=== PATIENT | male | born 1950 | race Caucasian/White ===

== ENCOUNTER → 2019-09-14 | Outpatient (CLI) | payer OTHER, SELFPAY ==
--- NOTE | 2019-09-14 09:24 | BD_ITS ---
STUDY: DUAL ENERGY X-RAY ABSORPTIOMETRY / DXA REASON FOR EXAM: Male, 68 years old. TYPE 2 DIABETIC- ON MEDS FOR DIABETES -- HX OF SMOKING- QUIT IN 1979 -- HAS BEEN ON PREDNISONE DAILY SINCE 1984 -- TAKES CALCIUM -- HAS BEEN ON PRESCRIPTION BONE BUILDING MEDS x4 YRS -- DOES NO EXERCISE -- HX OF RIB FX''s MULTIPLE TIMES -- RAYMON OF 5 INCHES TECHNIQUE: Bone Mineral Density (BMD) measurements of lumbar spine and bilateral hips were obtained. COMPARISON: None. FINDINGS: Lumbar Spine (L1-L4): g/cm2 (1.061) / T-score (-1.5) / Z-score (-1.0) Findings are suggestive of osteopenia with a low fracture risk. Left Femur Total: g/cm2 (0.858) / T-score (-1.7) / Z-score (-1.0) Left Femoral Neck: g/cm2 (0.919) / T-score (-1.2) / Z-score (0.1) Right Femur Total: g/cm2 (0.918) / T-score (-1.3) / Z-score (-0.5) Right Femoral Neck: g/cm2 (0.849) / T-score (-1.7) / Z-score (-0.4) BD/Dexa Bone Density Study IMPRESSION: The patient is considered osteopenic as outlined below according to World Chuck Organization (WHO) criteria with a moderate fracture risk. Reference Information: The T-score is the number of standard deviations above or below the standard which is normal for young adults at their peak bone mineral density. The World Health Organization (WHO) interprets the T-scores as follows: Above -1 Normal bone density Between -1 and -2.5 Osteopenia Equal to / or below -2.5 Osteoporosis As a practical clinical guideline, osteopenia may be graded as follows: Mild -1 through -1.5 Moderate -1.6 through -2.0 Severe -2.1 through -2.4 The Z-score is the number of standard deviations above or below age-matched controls. A Z-score of less than -1.5 would be considered abnormal. References: 1. NIH Osteoporosis and Related Bone Diseases http://www.osteo.org 2. International Society for Clinical Densitometry http://www.iscd.org 3. National Osteoporosis Foundation http://www.nof.org Electronically Signed: Onofre Madsen, at 10:15 EDT , Service support ,
== END | disposition home or self-care (01) ==
DX: M81.0 Age-related osteoporosis without current pathological fracture (principal); G70.00 Myasthenia gravis without (acute) exacerbation; Z79.52 Long term (current) use of systemic steroids
CPT/HCPCS: 77080

== ENCOUNTER 2020-04-24 16:58 | Inpatient (IN) | payer OTHER, MEDICARE, SELFPAY ==
[2020-04-24 17:00] VITALS: BP 154/93; PULSE 65; RESP 18; TEMP 36.1; O2SAT 96; BMI 44.5
--- NOTE | 2020-04-24 17:34 | US_ITS ---
STUDY: VENOUS DOPPLER ULTRASOUND - LEFT LOWER EXTREMITY REASON FOR EXAM: Male, 69 years old. LT ANTERIOR CALF REDNESS TECHNIQUE: Ultrasound evaluation of the deep vein system to include martin-scale imaging and compression was performed. Martin-scale imaging and Doppler sonographic evaluation, including duplex spectral analysis and qualitative color flow sonography, was performed. COMPARISON: None. FINDINGS: Common Femoral Vein: Normal compression, spontaneity and augmentation. Normal color Doppler. Common Femoral Vein/Greater Saphenous Junction: Normal compression, spontaneity and augmentation. Normal color Doppler. Deep Femoral Vein: Normal compression, spontaneity and augmentation. Normal color Doppler. Femoral Proximal: Normal compression, spontaneity and augmentation. Normal color Doppler. Femoral Middle: Normal compression, spontaneity and augmentation. Normal color Doppler. Femoral Distal: Normal compression, spontaneity and augmentation. Normal color Doppler. Popliteal Vein: Normal compression, spontaneity and augmentation. Normal color Doppler. Posterior Tibial Vein: Normal compression, spontaneity and augmentation. Normal color Doppler. Peroneal Vein: Normal compression, spontaneity and augmentation. Normal color Doppler. US/Venous Duplex Imag/Limited/Uni IMPRESSION: Normal venous Doppler ultrasound of the lower extremity. Electronically Signed: Matteo Nava MD at 18:26 EST Tel , Service support ,
[2020-04-24 17:48] LABS: Absolute Lymphocyte Count 1.16 X10^3/uL (0.83-4.51); Absolute Neutrophil Count 9.3 X10^3/uL (2.0-7.7); Basophil# 0.02 X10^3/uL; Basophil% 0.2 % (0-1); Hematocrit 46.1 % (40-54); Hemoglobin 14.4 g/dL (13.0-16.5); Lymphocyte # 1.16 X10^3/ul (4.0); Lymphocyte % 10.3 % (19-41); Mean Corp Hgb Conc 31.2 g/dL (32-36); Mean Corpuscular Hgb 27.8 pg (27.0-32.0); Mean Platelet Vol. 9.9 fl (6.2-12.0); Monocyte# 0.72 X10^3/uL; Monocyte% 6.4 % (0-10); NRBC Flagged by Analyzer 0 % (0-5); Neutrophil % 82.6 % (47-70); Platelet Count 242 K/mm3 (150-450); RBC Distribution Width SD 42.6 fl (35.1-43.9); Red Blood Count 5.18 M/mm3 (4.6-6.2); White Blood Count 11.3 K/mm3 (4.4-11.0)
[2020-04-24 18:21] LABS: Anion Gap 9 (5-15); BUN 13 mg/dL (7-18); BUN/Creat Ratio 11.6 RATIO (10-20); Chloride 106 mmol/L (98-107); Creatinine, Serum 1.12 mg/dL (0.70-1.30); EST Glomerular Filtration Rate 69 mL/min (>60); Est Glom Filt Rate - Afr Amer 83 mL/min (>60); Estimated Creatinine Clearance 64.43 ml/min; Glucose 321 mg/dL (74-106); Sodium Level 140 mmol/L (136-145)
--- NOTE | 2020-04-24 18:32 | ED.DCSUM_ITS ---
- ER Visit Summary Date of Service: 04/24/20 Chief Complaint: Left leg redness History of Present Illness: The patient is a 69 M with redness left lower extremity. He states this started approximately 1 week ago and has progressively been worsening. He denies injury or trauma. Denies fever. Denies chest pain or shortness of breath. Patient is on prednisone chronically for myasthenia gravis. He has a history of diabetes. Physical Examination: Vitals are stable. Patient is afebrile. Alert no acute distress. HEENT exam is unremarkable. Neck is supple. Lungs are clear and equal bilaterally. Heart is regular rate and rhythm. Abdomen is soft nontender nondistended. Extremities left lower extremity erythema below knee. Normal pulses. Left greater than right lower extremity edema Skin is warm and dry. No focal neurologic deficit. Remainder of exam is unremarkable. Emergency Department Course and Treatment: CBC shows white count 11.3. Chemistries show glucose 321. Left lower extremity Doppler shows no evidence of DVT. Patient was given vancomycin IV. Will discuss with hospitalist for admission. Disposition: Admission Impression: Left lower extremity cellulitis This note was generated with [employer] dictation software. It may contain incorrect words, spelling, and punctuation that were not noted in review of the chart prior to signing <Hillary Harris - Last Filed: 04/24/20 18:32> - ER Visit Summary Was turned over to me. The [facility] does not have any beds. I had a long discussion with the patient he now wants to be admitted at our facility. Be admitted in stable condition This note was generated with [employer] dictation software. It may contain incorrect words, spelling, and punctuation that were not noted in review of the chart prior to signing <Rodney Gipson - Last Filed: 04/24/20 22:20> ED Disposition <Hillary Harris - Last Filed: 04/24/20 18:32> <Rodney Gipson - Last Filed: 04/24/20 22:20> - Plan for ED Patient: Referrals: [facility] [Primary Care Provider] -
[2020-04-24 20:59] VITALS: BP 167/82; PULSE 64; RESP 17; O2SAT 98
[2020-04-24 23:32] VITALS: BP 169/84; PULSE 69; RESP 18; TEMP 36.6; O2SAT 98
--- NOTE | 2020-04-24 23:32 | PCM.HP.STD ---
Problem List (1) Cellulitis Status: Acute (2) Weakness of both legs Status: Inactive (3) Hypertension Status: Chronic (4) Hyperlipidemia Status: Chronic (5) Type II diabetes mellitus Status: Chronic (6) MEL (obstructive sleep apnea) Status: Chronic (7) Rib fracture Status: Inactive (8) Fall Status: Inactive (9) Myasthenia gravis Status: Chronic History of Present Illness Date of Admission: 04/24/20 Chief Complaint: left leg redness The patient is a 69 year old M with a significant history of myasthenia gravis; and diabetes mellitus who presents emergency department with 1-1/2-week history of progressively worsening left leg redness. Associated with his symptoms is swelling of the same left leg. He denies any pain. He denies any fever, chills, nausea or vomiting. Patient is a patient at the [facility]. Beds were unavailable at the [facility]. The patient is a 69 year old M with a significant history of myasthenia gravis; and diabetes mellitus who presents emergency department with 1-1/2-week history of progressively worsening left leg redness and swelling. Acute cellulitis Received vancomycin at emergency department. Will transition to cefazolin. Chronic bilateral lower extremity edema Was RIZWAN hose at home. Yoshi wrap ordered. Obstructive sleep apnea Continue home CPAP DVT prophylaxis Past Medical History Past Medical History (Chronic Problems): Chronic Problems Hypertension (Chronic) Hyperlipidemia (Chronic) Type II diabetes mellitus (Chronic) MEL (obstructive sleep apnea) (Chronic) Myasthenia gravis (Chronic) Allergies ampicillin Adverse Reaction (Verified 04/24/20 17:00) Unknown Home Medications: Ambulatory Orders Medication Instructions Recorded Aspirin E.C. [Ecotrin] 81 mg PO DAILY@0800 07/16/15 Atenolol [Tenormin] 50 mg PO DAILY 07/16/15 Calcium Carb/Vitamin D [Os-Freddy 2 tablet PO BIDCM 07/16/15 500MG + D] Cetirizine HCl [Zyrtec] 10 mg PO DAILY PRN 07/16/15 Etodolac [Lodine Xl] 400 mg PO BID 07/16/15 Felodipine [Plendil] 5 mg PO DAILY 07/16/15 Guaifenesin [Tab Tussin] 400 mg PO Q4H PRN PRN 07/16/15 Ipratropium [place] 0.06% 2 spray NASAL BID PRN 07/16/15 [ATROVENT NASAL SPRAY] Mycophenolate Mofetil 1,500 mg PO BID 07/16/15 Pyridostigmine [place] [Mestinon 60 mg PO BID 07/16/15 Timepan] Simvastatin [Zocor] 40 mg PO QHS 07/16/15 metFORMIN HCl [Glucophage] 250 mg PO DAILY 07/16/15 predniSONE tablet 10 mg PO DAILY 07/16/15 Alendronate Sodium 70 mg PO MO 07/17/15 Vitamin D3 04/24/20 Surgical History: - - back surgery, foot trauma partial colon removed due to a polyp. Psychiatric History: No pertinent psych hx Smoking Status: Former smoker - *Family History Maternal History Items: Diabetes, Hypertension Paternal History Items: - - Denies knowledge of paternal medical history. Review of Systems Constitutional: Denies: Chills, Fever, Weight Change HEENT: Denies: Head Aches, Sinus Congestion, Sinus Drainage Cardiovascular: Reports: Edema - Bilateral legs. Denies: Chest Pain, Palpitations Respiratory: Denies: Cough, Shortness of breath at rest, Sputum production Gastrointestinal: Denies: Abdominal Pain, Nausea, Vomiting Genitourinary: Denies: Dysuria Musculoskeletal: Denies: Joint Pain, Joint Tenderness Skin: Reports: Skin Changes. Denies: Rash, Wounds Neurological: Denies: Numbness, Tingling, Focal weakness Psychiatric: Denies: Anxiety, Depression, Homicidal Ideations, Suicidal Ideations Hematologic/ Lymphatic: Denies: Easy Bruising, Easy Bleeding VTE Information - Inpt Only VTE Present on Admission: No VTE Mechan Device Prophylaxis: None VTE Pharm Prophylaxis ordered?: Yes Patient Problems: Active and Suspected Problems Cellulitis (Acute) - Physical Exam Vitals/I&O's: Vital Signs Temp Pulse Resp BP Pulse Ox 96.9 F L 64 17 167/82 H 98 04/24/20 17:00 04/24/20 20:59 04/24/20 20:59 04/24/20 20:59 04/24/20 20:59 Oxygen Delivery Method Room Air Weight: 144.8 kg Body Mass Index (BMI) 44.5 Intake and Output for Last 24 Hours 04/22/20 04/23/20 04/24/20 23:59 23:59 23:59 Intake Total 540 / 540 Balance 540 / 540 General: Alert, Oriented x3, Cooperative HEENT: Atraumatic, PERRLA, EOMI, Normocephalic Neck: Supple, No JVD, Negative Carotid Bruits Lungs: Clear to auscultation, Normal air movement Cardiovascular: Regular rate, No murmurs Abdomen: Bowel Sounds Present, Soft, Non Tender Extremities: Capillary Refill Less than 3 Seconds, Edema - Bilateral lower extremity edema Skin: No rashes, No breakdown, - - Erythema and swelling of left leg Musculoskeletal: No Tenderness to Palpation of Joints or Extremities Neurological: Cranial nerves II-XII grossly intact Psych/Mental Status: Normal Affect, Appropriate Laboratory Results 04/24/20 17:40: WBC 11.3 H, RBC 5.18, Hgb 14.4, Hct 46.1, MCV 89.0, MCH 27.8, MCHC 31.2 L, RDW Std Deviation 42.6, RDW Coeff of Elidia 13.0, Plt Count 242, MPV 9.9, Immature Gran % (Auto) 0.500, Neut % (Auto) 82.6 H, Lymph % (Auto) 10.3 L, [place] % (Auto) 6.4, Eos % (Auto) 0.0, Baso % (Auto) 0.2, Absolute Neuts (auto) 9.3 H, Absolute Lymphs (auto) 1.16, Nucleated RBC % 0 04/24/20 17:40: Sodium 140, Potassium 4.0, Chloride 106, Carbon Dioxide 25.0, Anion Gap 9, BUN 13, Creatinine 1.12, Estim Creat Clear Calc 64.43, Est GFR (MDRD) Af Amer 83, Est GFR (MDRD) Non-Af 69, BUN/Creatinine Ratio 11.6, Glucose 321 H, Calcium 9.0 Assessment/Plan All Active Problems Cellulitis (Acute) The patient is a 69 year old M with a significant history of myasthenia gravis; and diabetes mellitus who presents emergency department with 1-1/2-week history of progressively worsening left leg redness and swelling. Acute cellulitis Received vancomycin at emergency department. Will transition to cefazolin. Diabetes mellitus Patient with hyperglycemia on presentation Home Metformin held Accu-Chek QA [facility] with correction scale insulin ordered. Hypertension Blood pressure is not within goal Atenolol continued Felodipine continued Trend blood pressure and adjust blood pressure medication. Chronic bilateral lower extremity edema With RIZWAN hose at home. Yoshi wrap ordered. Obstructive sleep apnea Continue home CPAP Myasthenia gravis Mycophenolate mofetil continued Prednisone continued Morbid Obesity: BMI: 44.5 kilograms per meter square. Complicates care. Lifestyle modification recommended. DVT prophylaxis Subcutaneous Lovenox ordered OBSV E&M: 59410 Initial observation care L2
--- NOTE | 2020-04-25 00:09 | ED.RN ---
PATIENTS HAS CALLED IN MULTIPLE TIMES YELLING AT STAFF MEMBERS ABOUT WHY HER IS NOT UPSTAIRS. PATIENTS ALSO CURSES AT STAFF MEMBERS, CALLING THE ER STAFF STUPID. PATIENTS THEN HANGS UP THE PHONE ON STAFF AND CALLS BACK CONTINUING TO YELL AND HOLLER AT STAFF MEMBERS. PATIENTS THEN DEMANDS ALL PAPERWORK TO BE SENT WITH THE PATIENT TO THE FLOOR SO SHE CAN GET WHEN SHE COMES TO DIRECTOR OF HOME CARE HOSPICE PAPERWORK. I CALMLY ASK THE PATIENTS TO PLEASE STOP YELLING AT STAFF AND TALK CALMLY WITH STAFF.I TOLD HER THE ER WAS BUSY AND THE HOSPITALIST WAS WORKING ON OTHER PATIENTS IN THE ER
--- NOTE | 2020-04-25 00:10 | ED.RN ---
Pts called in wanting to know when pt will be taken to the floor. This nurse explained that the pt was waiting on the hospitalist to see the pt and then he would be taken up stairs. began to cuss at this nurse and yelling over the phone. Pts would not allow this nurse to speak. continuously cussing and yelling. This nurse went back and explained to pt again what we were waiting on. Pt apologized for his wifes behavior numerous times and stated Everyone has been wonderful and I am so sorry. [place] and pts own diet mountain dew given. Denied any further needs.
[2020-04-25 00:52] VITALS: BMI 44.4
[2020-04-25 00:56] VITALS: BP 137/70; PULSE 74; RESP 18; TEMP 36.7; O2SAT 99
[2020-04-25 01:09] VITALS: BMI 44.5
[2020-04-25] MEDS: Insulin Lispro 100 UNIT/ML INSULN.PEN SC ×4 (01:19→20:58)
[2020-04-25 01:21] LABS: Bedside Glucose 206 mg/dL (70-110)
[2020-04-25 06:25] VITALS: BP 144/72; PULSE 63; RESP 18; TEMP 37; O2SAT 95
[2020-04-25] MEDS: 0.9% Saline Lock 10 ML Syringe IV ×3 (06:30→22:02)
[2020-04-25] MEDS: Cefazolin 1 GM/50 ML BAG IV ×3 (06:30→20:57)
[2020-04-25 06:54] LABS: Absolute Lymphocyte Count 1.65 X10^3/uL (0.83-4.51); Absolute Neutrophil Count 7.7 X10^3/uL (2.0-7.7); Basophil# 0.03 X10^3/uL; Basophil% 0.3 % (0-1); Eosinophil# 0.04 X10^3/uL; Eosinophils% 0.4 % (0-5); Hematocrit 41.9 % (40-54); Hemoglobin 13.1 g/dL (13.0-16.5); Lymphocyte # 1.65 X10^3/ul (4.0); Lymphocyte % 15.7 % (19-41); Mean Corp Hgb Conc 31.3 g/dL (32-36); Mean Corpuscular Hgb 28.3 pg (27.0-32.0); Mean Corpuscular Volume 90.5 fL (80-94); Mean Platelet Vol. 10.1 fl (6.2-12.0); Monocyte# 1.01 X10^3/uL; Monocyte% 9.6 % (0-10); NRBC Flagged by Analyzer 0 % (0-5); Neutrophil # 7.69 X10^3/uL (2.7-7.7); Neutrophil % 73.4 % (47-70); Platelet Count 216 K/mm3 (150-450); RBC Distribution Width CV 12.8 % (11.6-14.6); RBC Distribution Width SD 41.7 fl (35.1-43.9); Red Blood Count 4.63 M/mm3 (4.6-6.2); White Blood Count 10.5 K/mm3 (4.4-11.0)
[2020-04-25 06:55] LABS: Bedside Glucose 112 mg/dL (70-110)
[2020-04-25 07:38] LABS: Anion Gap 6 (5-15); BUN 13 mg/dL (7-18); BUN/Creat Ratio 15.2 RATIO (10-20); Calcium,Total 8.3 mg/dL (8.5-10.1); Chloride 110 mmol/L (98-107); Creatinine, Serum 0.86 mg/dL (0.70-1.30); EST Glomerular Filtration Rate 93 mL/min (>60); Est Glom Filt Rate - Afr Amer 113 mL/min (>60); Estimated Creatinine Clearance 83.91 ml/min; Glucose 112 mg/dL (74-106); Potassium 3.6 mmol/L (3.5-5.1); Sodium Level 142 mmol/L (136-145)
[2020-04-25 08:35] VITALS: BP 155/78; PULSE 63; RESP 18; TEMP 36.7; O2SAT 97
--- NOTE | 2020-04-25 08:42 | PCM.PROGNOTE ---
Patient Problems: Active and Suspected Problems Cellulitis (Acute) Subjective: Chief complaint: Follow-up after admission for acute left leg cellulitis. Patient seen and examined. No acute events overnight. Patient mentioned that the redness of the left leg is getting better. He denied any left leg pain. Denied fever or chills. His vital signs are stable. - Physical Exam Vitals/I&O's: Vital Signs Temp Pulse Resp BP Pulse Ox 98.1 F 63 18 155/78 H 97 04/25/20 08:35 04/25/20 08:35 04/25/20 08:35 04/25/20 08:35 04/25/20 08:35 Oxygen Delivery Method Room Air Weight: 318 lb 12.615 oz Body Mass Index (BMI) 44.4 Intake and Output for Last 24 Hours 04/23/20 04/24/20 04/25/20 23:59 23:59 23:59 Intake Total 540 / 540 Balance 540 / 540 General: Alert, Oriented x3, Cooperative, No apparent distress HEENT: Atraumatic, PERRLA, EOMI, Normocephalic Oral: Moist Mucosa, No Gingival or Mucosal Lesions/ Ulcerations Neck: Supple, No JVD, Negative Carotid Bruits, Trachea Midline, Thyroid Normal Size and Texture Lungs: Clear to auscultation, No rhonchi, No wheeze, No rales, Diminished Cardiovascular: Regular rate, Regular Rhythm, Normal S1, Normal S2, PMI Normal Abdomen: Bowel Sounds Present, Soft, Non Tender, Non-Distended, No Hepato-splenomegaly, Obese Extremities: No clubbing, No cyanosis, Edema - Trace edema., - - Left leg: Erythema and swelling of the left leg extending from just below the left knee down to the just above the left ankle. No open wounds or drainage. Skin: No rashes, No breakdown Lymphatic: No Cervical, Supraclavicular, or Inguinal Adenopathy Neurological: Cranial nerves II-XII grossly intact, Neuro grossly intact Psych/Mental Status: Normal Affect, Appropriate, Alert and oriented to time, place, person, mood and affect Laboratory Results 04/24/20 17:40: WBC 11.3 H, RBC 5.18, Hgb 14.4, Hct 46.1, MCV 89.0, MCH 27.8, MCHC 31.2 L, RDW Std Deviation 42.6, RDW Coeff of Elidia 13.0, Plt Count 242, MPV 9.9, Immature Gran % (Auto) 0.500, Neut % (Auto) 82.6 H, Lymph % (Auto) 10.3 L, [place] % (Auto) 6.4, Eos % (Auto) 0.0, Baso % (Auto) 0.2, Absolute Neuts (auto) 9.3 H, Absolute Lymphs (auto) 1.16, Nucleated RBC % 0 04/24/20 17:40: Sodium 140, Potassium 4.0, Chloride 106, Carbon Dioxide 25.0, Anion Gap 9, BUN 13, Creatinine 1.12, Estim Creat Clear Calc 64.43, Est GFR (MDRD) Af Amer 83, Est GFR (MDRD) Non-Af 69, BUN/Creatinine Ratio 11.6, Glucose 321 H, Calcium 9.0 04/25/20 01:15: POC Glucose 206 H 04/25/20 06:20: WBC 10.5, RBC 4.63, Hgb 13.1, Hct 41.9, MCV 90.5, MCH 28.3, MCHC 31.3 L, RDW Std Deviation 41.7, RDW Coeff of Elidia 12.8, Plt Count 216, MPV 10.1, Immature Gran % (Auto) 0.600, Neut % (Auto) 73.4 H, Lymph % (Auto) 15.7 L, [place] % (Auto) 9.6, Eos % (Auto) 0.4, Baso % (Auto) 0.3, Absolute Neuts (auto) 7.7, Absolute Lymphs (auto) 1.65, Nucleated RBC % 0 04/25/20 06:20: Sodium 142, Potassium 3.6, Chloride 110 H, Carbon Dioxide 26.0, Anion Gap 6, BUN 13, Creatinine 0.86, Estim Creat Clear Calc 83.91, Est GFR (MDRD) Af Amer 113, Est GFR (MDRD) Non-Af 93, BUN/Creatinine Ratio 15.2, Glucose 112 H, Calcium 8.3 L 04/25/20 06:27: POC Glucose 112 H Current Medications Acetaminophen (Acetaminophen 325 Mg Tablet) 650 mg PO Q6H PRN PRN PRN Reason: Pain Score 1-10/Temp > 100.7 F Alendronate Sodium (Alendronate Sodium 70 Mg Tablet) 70 mg PO Mo@0600 [facility] Amlodipine Besylate (Amlodipine 5 Mg Tablet) 5 mg PO DAILY [facility] Aspirin (Aspirin E.C. 81 Mg Tablet) 81 mg PO DAILY@0800 [facility] Atenolol (Atenolol 50 Mg Tablet) 50 mg PO DAILY [facility] Atorvastatin Calcium (Atorvastatin Calcium 20 Mg Tablet) 20 mg PO QHS [facility] Calcium/Vitamin D (Calcium Carb/Vitamin D 1 Tablet Tablet) 2 tablet PO BIDCM [facility] Dextrose (Dextrose 50%-Water 25 Gm/50 Ml Disp.Syrin) 0 gm IV X1 PRN; Protocol PRN Reason: Hypoglycemia Enoxaparin Sodium (Enoxaparin 40 Mg/0.4 Ml Syringe) 40 mg SC DAILY [facility] Etodolac (Etodolac 200 Mg Capsule) 400 mg PO BIDCM [facility] Glucagon (Glucagon 1 Mg/Ml Syringe) 1 mg IM .X1 PRN PRN Reason: Hypoglycemia Cefazolin Sodium () 1 gm in 50 mls @ 100 mls/hr IV Q8 [facility] Last Admin: 04/25/20 06:30 Dose: 100 mls/hr Documented by: Sodium Chloride () 250 mls @ 15 mls/hr IV .[id number] PRN PRN Reason: Saline Flush Sodium Chloride () 250 mls @ 15 mls/hr IV .[id number] PRN PRN Reason: Additional IVPB Infusion Insulin Human Lispro (Insulin Lispro 100 Unit/Ml Insuln.Pen) 0 unit SC ACHS [facility]; Protocol Last Admin: 04/25/20 06:31 Dose: Not Given Documented by: Ipratropium [place] (Ipratropium [place] 0.06% Nasal [place]) 2 spray NASAL BID PRN PRN PRN Reason: ALLERGIES Loratadine (Loratadine 10 Mg Tablet) 10 mg PO DAILY PRN PRN Reason: ALLERGIES Melatonin (Melatonin 3 Mg Tablet) 3 mg PO QHS PRN PRN PRN Reason: INSOMNIA Mycophenolate Mofetil (Mycophenolate Mofetil 250 Mg Capsule) 1,500 mg PO BID [facility] Ondansetron HCl (Ondansetron 4 Mg/2 Ml Vial) 4 mg IV Q8H PRN PRN PRN Reason: NAUSEA/VOMITING Prednisone (Prednisone 10 Mg Tablet) 10 mg PO DAILY@0800 [facility] Pyridostigmine [place] (Pyridostigmine [place] 60 Mg Tablet) 60 mg PO BID [place] Sodium Chloride (0.9% Saline Lock 10 Ml Syringe) 10 - 40 ml IV UD PRN PRN Reason: SALINE FLUSH Last Admin: 04/25/20 06:30 Dose: 10 ml Documented by: Medical Necessity - Tobacco Use Smoking Status: Former smoker Assessment/Plan All Active Problems Cellulitis (Acute) This is a 69 years old male patient presented to the emergency room because of left leg redness and swelling, found to have acute cellulitis and he was admitted for treatment. #1 acute left leg cellulitis: Without evidence of sepsis for sepsis. Patient is immunocompromised being on long-term steroids for myasthenia gravis. He is on IV cefazolin. He has been afebrile, WBC is back to normal. Venous Doppler of the left leg showed no acute DVT. Plan to continue same treatment, anticipate discharge home tomorrow. #2 type 2 diabetes mellitus: Blood sugar stable, continue ADA diet, Accu-Cheks, sliding scale. Keep holding Metformin. #3 hypertension: Blood pressure stable, continue Norvasc, atenolol. #4 myasthenia gravis: Stable, continue CellCept, Mestinon and prednisone. #5 obstructive sleep apnea: Continue CPAP with the same home settings. #6 DVT prophylaxis: Subcu Lovenox. This note was generated with [employer] dictation software. It may contain incorrect words, spelling, and punctuation that were not noted in checking the note before signing. Inpatient E&M: 41915 Subs Hosp L2
[2020-04-25] MEDS: Calcium Carb/Vitamin D 1 TABLET Tablet 2 TABLET PO ×2 (08:49→16:31)
[2020-04-25] MEDS: Aspirin E.C. 81 MG Tablet PO (08:49)
[2020-04-25] MEDS: Enoxaparin 40 MG/0.4 ML Syringe SC (08:50)
[2020-04-25] MEDS: Etodolac 200 MG Capsule 400 MG PO ×2 (08:55→16:31)
[2020-04-25] MEDS: predniSONE 10 MG Tablet PO (08:55)
[2020-04-25] MEDS: amLODIPine 5 MG Tablet PO (08:55)
[2020-04-25] MEDS: Atenolol 50 MG Tablet PO (08:56)
[2020-04-25] MEDS: Pyridostigmine Bromide 60 MG Tablet PO ×2 (11:28→20:59)
[2020-04-25 11:35] LABS: Bedside Glucose 184 mg/dL (70-110)
[2020-04-25 13:41] VITALS: BP 138/76; PULSE 64; RESP 16; TEMP 36.6; O2SAT 96
--- NOTE | 2020-04-25 14:15 | CASEMGMT ---
RN CM Face to Face with patient for initial transition planning/care coordination assessment. RN CM introduced self and role at [facility]. Patient lying in bed, alert and oriented, at bedside. Patient willing to participate in assessment and is able to answer all questions appropriately. Care providers, pharmacy, and demographics verified. Patient wishes to discharge home, denies need for home health at this time. Patient states he has no further needs or concerns at this time. CM to follow for discharge planning needs that may arise. PCP: Shlomo at [facility] Specialists: Specialist at [facility] Preferred Pharmacy: [place] [facility] Insurance: [email or web address] [facility] Prescription Benefit: yes Living Will/HPOA: none LNOK: Living Arrangements: Patient lives with in a mobile home with ramp to enter. Patient states she is independent at home. Transportation: self/ DME/HHC: Patient states he has shower chair, raised toilet, grab bars, walker, rollator, and cpap at home. Patient states he has had [facility] in the past. Disposition Plan: Patient to discharge home with family support and follow-up plans in place. Nieves GUZMAN, RN, CM
[2020-04-25 17:15] LABS: Bedside Glucose 207 mg/dL (70-110)
[2020-04-25 20:30] VITALS: BP 151/85; PULSE 68; RESP 16; TEMP 36.7; O2SAT 95
[2020-04-25] MEDS: Mycophenolate Mofetil 250 MG Capsule 1500 MG PO (20:58)
[2020-04-25] MEDS: Atorvastatin Calcium 20 MG Tablet PO (20:59)
[2020-04-25 21:06] LABS: Bedside Glucose 206 mg/dL (70-110)
[2020-04-26 02:57] VITALS: BP 141/53; PULSE 65; RESP 18; TEMP 36.6; O2SAT 97
[2020-04-26] MEDS: Insulin Lispro 100 UNIT/ML INSULN.PEN SC (06:40)
[2020-04-26] MEDS: Cefazolin 1 GM/50 ML BAG IV (06:40)
[2020-04-26 07:41] VITALS: BP 143/74; PULSE 55; RESP 16; TEMP 36.8; O2SAT 96
[2020-04-26] MEDS: Atenolol 50 MG Tablet PO (08:16)
[2020-04-26] MEDS: Aspirin E.C. 81 MG Tablet PO (08:16)
[2020-04-26] MEDS: Calcium Carb/Vitamin D 1 TABLET Tablet 2 TABLET PO (08:16)
[2020-04-26] MEDS: amLODIPine 5 MG Tablet PO (08:16)
[2020-04-26] MEDS: predniSONE 10 MG Tablet PO (08:16)
[2020-04-26] MEDS: Mycophenolate Mofetil 250 MG Capsule 1500 MG PO (08:16)
[2020-04-26] MEDS: Enoxaparin 40 MG/0.4 ML Syringe SC (08:17)
[2020-04-26] MEDS: Etodolac 200 MG Capsule 400 MG PO (08:17)
[2020-04-26] MEDS: Pyridostigmine Bromide 60 MG Tablet PO (08:17)
--- NOTE | 2020-04-26 08:43 | DCINST_ITS ---
- Discharge Diagnoses Current Active Problems: Current Active and Chronic Problems Cellulitis (Acute) Hypertension (Chronic) Hyperlipidemia (Chronic) Type II diabetes mellitus (Chronic) MEL (obstructive sleep apnea) (Chronic) Myasthenia gravis (Chronic) You will use the following diet at home:: Calorie/Carbohydrate Controlled (specify 1200, 1400, etc) - 1800 freddy., Cardiac Your food should be the consistency of: Regular Discharge Activity: Return to Normal Activity Weight Bearing Status: Weight bearing as tolerated Call your doctor if you observe: Fever of 101 or Higher, Shortness of breath, Dizziness, Fainting spells, Chest pain, Increased palpitations (irregular heartbeat) Additional Instructions: Elevate your legs above the level of your heart when you lay down. Allergies/Adverse Reactions: Allergies ampicillin Adverse Reaction (Verified 04/24/20 17:00) Unknown Medications to take at Discharge Aspirin E.C. [Ecotrin] 81 mg PO DAILY@0800 07/16/15 Atenolol [Tenormin] 50 mg PO DAILY 07/16/15 Calcium Carb/Vitamin D [Os-Freddy 500MG + D] 2 tablet PO BIDCM 07/16/15 Cetirizine HCl [Zyrtec] 10 mg PO DAILY PRN 07/16/15 Etodolac [Lodine Xl] 400 mg PO BID 07/16/15 Felodipine [Plendil] 5 mg PO DAILY 07/16/15 Guaifenesin [Tab Tussin] 400 mg PO Q4H PRN PRN 07/16/15 Ipratropium [place] 0.06% [ATROVENT NASAL SPRAY] 2 spray NASAL BID PRN 07/16/15 Mycophenolate Mofetil 1,500 mg PO BID 07/16/15 Pyridostigmine [place] [Mestinon Timepan] 60 mg PO BID 07/16/15 Simvastatin [Zocor] 40 mg PO QHS 07/16/15 metFORMIN HCl [Glucophage] 250 mg PO DAILY 07/16/15 predniSONE tablet 10 mg PO DAILY 07/16/15 Alendronate Sodium 70 mg PO MO 07/17/15 Vitamin D3 04/24/20 Cefadroxil 1 gm PO BID #10 tab 04/26/20 The following prescriptions were given: Cefadroxil 1 gm PO BID #10 tab Transmission Status: Pending to [id number] Primary Care Physician: [facility] [Primary Care Provider] - Please follow up with your Primary Care Physician in: 1 week. Test Results: Test results from this visit will be discussed in further detail at your follow- up appointment, if applicable.
--- NOTE | 2020-04-26 11:52 | DS.PCM_ITS ---
Discharge Date and Diagnosis - Problem List Patient Problems: Active and Suspected Problems Cellulitis (Acute) Date of Admission: 04/24/20 Date of Discharge: 04/26/20 - Primary Discharge Diagnosis Acute Problems: Active Problems Acute left leg cellulitis. - Secondary Discharge Diagnosis Chronic Problems: Chronic Problems Hypertension (Chronic) Hyperlipidemia (Chronic) Type II diabetes mellitus (Chronic) MEL (obstructive sleep apnea) (Chronic) Myasthenia gravis (Chronic) Hospital Course and Treatment Imaging Results: Clinical Impression(s) from Imaging Studies Venous Duplex 04/24/20 17:34 IMPRESSION: Normal venous Doppler ultrasound of the lower extremity. Electronically Signed: Matteo Nava MD at 18:26 EST Tel , Service support , Operations: None Procedures: None Summary of Care Provided: Patient seen and examined on the day of discharge and appeared to be stable to be discharged home. Swelling and erythema of the left leg continue to improve slowly. He remained afebrile. Other vital signs are stable. The patient is a 69 year old M presented to the emergency room because of left leg redness and swelling, found to have acute cellulitis of the left leg and he was admitted for treatment. There was no evidence of sepsis or severe sepsis. Patient is new, mild because he has been on long-term steroids for myasthenia gravis. He was started on IV cefazolin. He remained afebrile throughout admission. Initially, he did have leukocytosis which resolved with IV antibiotics. He had venous Doppler of the left lower extremity that showed no evidence of DVT. Routine blood work was unremarkable apart from leukocytosis which resolved. Erythema and swelling of the left leg improved. Patient discharged home in a stable medical condition, discharged on cefadroxil 1 g twice daily for 5 days to complete total of 7 days of treatment, continued on his previous medications without any changes including prednisone, instructed to elevate both legs above the level of the heart when laying flat, recommended follow-up with PCP in 1 week. Patient Problems: Active and Suspected Problems Cellulitis (Acute) - Physical Exam Vitals/I&O's: Vital Signs Temp Pulse Resp BP Pulse Ox 98.3 F 55 L 16 143/74 H 96 04/26/20 07:41 04/26/20 07:41 04/26/20 07:41 04/26/20 07:41 04/26/20 07:41 Oxygen Delivery Method Room Air Weight: 318 lb 12.615 oz Body Mass Index (BMI) 44.4 Intake and Output for Last 24 Hours 04/24/20 04/25/20 04/26/20 23:59 23:59 23:59 Intake Total 540 / 540 150 / 450 350 / 350 Balance 540 / 540 150 / 450 350 / 350 General: Alert, Oriented x3, Cooperative, No apparent distress HEENT: Atraumatic, PERRLA, EOMI, Normocephalic Oral: Moist Mucosa, No Gingival or Mucosal Lesions/ Ulcerations Neck: Supple, No JVD, Negative Carotid Bruits, Trachea Midline, Thyroid Normal Size and Texture Lungs: Clear to auscultation, No rhonchi, No wheeze, No rales Cardiovascular: Regular rate, Regular Rhythm, Normal S1, Normal S2, PMI Normal Abdomen: Bowel Sounds Present, Soft, Non Tender, Non-Distended, No Hepato- splenomegaly Extremities: No clubbing, No cyanosis, Edema, - - Mild erythema of the left leg, improving. Skin: No rashes, No breakdown Lymphatic: No Cervical, Supraclavicular, or Inguinal Adenopathy Neurological: Cranial nerves II-XII grossly intact, Neuro grossly intact Psych/Mental Status: Normal Affect, Appropriate Laboratory Results 04/25/20 16:30: POC Glucose 207 H 04/25/20 20:57: POC Glucose 206 H Discharge Activity: Return to Normal Activity Weight Bearing Status: Weight bearing as tolerated Call your doctor if you observe: Fever of 101 or Higher, Shortness of breath, Dizziness, Fainting spells, Chest pain, Increased palpitations (irregular heartbeat) Home Medications: Medications to take at Discharge Aspirin E.C. [Ecotrin] 81 mg PO DAILY@0800 07/16/15 Atenolol [Tenormin] 50 mg PO DAILY 07/16/15 Calcium Carb/Vitamin D [Os-Freddy 500MG + D] 2 tablet PO BIDCM 07/16/15 Cetirizine HCl [Zyrtec] 10 mg PO DAILY PRN 07/16/15 Etodolac [Lodine Xl] 400 mg PO BID 07/16/15 Felodipine [Plendil] 5 mg PO DAILY 07/16/15 Guaifenesin [Tab Tussin] 400 mg PO Q4H PRN PRN 07/16/15 Ipratropium [place] 0.06% [ATROVENT NASAL SPRAY] 2 spray NASAL BID PRN 07/16/15 Mycophenolate Mofetil 1,500 mg PO BID 07/16/15 Pyridostigmine [place] [Mestinon Timepan] 60 mg PO BID 07/16/15 Simvastatin [Zocor] 40 mg PO QHS 07/16/15 metFORMIN HCl [Glucophage] 250 mg PO DAILY 07/16/15 predniSONE tablet 10 mg PO DAILY 07/16/15 Alendronate Sodium 70 mg PO MO 07/17/15 Vitamin D3 04/24/20 Cefadroxil 1 gm PO BID #10 tab 04/26/20 Following Prescriptions Were Given to Patient: Cefadroxil 1 gm PO BID #10 tab Transmission Status: Received by [id number] Physician: [facility] [Primary [facility] Provider] - Please follow up with your Primary Care Physician in: 1 week. Disposition: Home Minutes spent on discharge:: 27 Patient Condition:: Stable Medical Necessity - Tobacco Use Smoking Status: Former smoker Meaningful Use Info Meaningful Use Diagnoses (Choose all that apply): None applicable Inpatient E&M: 05996 Disch Hosp
[2020-04-27 21:50] LABS: Bedside Glucose 151 mg/dL (70-110)
== END 2020-04-26 09:42 | disposition home or self-care (01) | DRG 603 ==
LOC: ED 17:57 → MS3 23:49
PROVIDERS: Admitting Provider Hospitalist; Emergency Provider Emergency Medicine; Visit Provider Hospitalist
DX: L03.116 Cellulitis of left lower limb (principal); Z68.41 Body mass index [BMI] 40.0-44.9, adult; D84.821 Immunodeficiency due to drugs; G70.00 Myasthenia gravis without (acute) exacerbation; E11.65 Type 2 diabetes mellitus with hyperglycemia; R60.0 Localized edema; G47.33 Obstructive sleep apnea (adult) (pediatric); Z79.52 Long term (current) use of systemic steroids; Z79.84 Long term (current) use of oral hypoglycemic drugs; Z87.891 Personal history of nicotine dependence; I10 Essential (primary) hypertension; E66.01 Morbid (severe) obesity due to excess calories
CPT/HCPCS: 80048; 82962; 85025; 93971; 99284; J7040; J7050; A4216

== ENCOUNTER 2020-05-19 20:38 | Inpatient (IN) | payer OTHER, MEDICARE, SELFPAY ==
[2020-05-19 20:39] VITALS: BP 154/78; PULSE 84; RESP 20; TEMP 37.7; O2SAT 94; BMI 45.1
--- NOTE | 2020-05-19 21:09 | ED.DCSUM_ITS ---
- ER Visit Summary Date of Service: 05/19/20 Chief Complaint: [Fever and not feeling well] History of Present Illness: The patient is a 69 M [presents to the emergency department complaint not feeling well since yesterday. Patient is describing chills and fever up to 101 at home. Patient has had some intermittent watery to loose stools about 4 to 5/day for the last 24 hours. Patient just generally feels weak. He denies headache or body aches. He denies urinary symptoms. He denies any abdominal pain.] Patient denies any Covid exposures. His is not ill. Patient has history of diabetes, hypertension, high cholesterol, and myasthenia gravis. Physical Examination: [HEELEONORA-PERRLA, EOMI. Cranial nerves II through XII grossly intact. TMs clear. Mucous membranes moist. No adenopathy. Cardiovascular-regular rate and rhythm without murmur or ectopy Lungs-clear to auscultation, chest wall stable without crepitus or subcu emphysema Abdomen-normoactive bowel sounds, soft, nontender, no rebound or rigidity, no peritoneal signs. Extremities-intact ?4, normal range of motion, normal pulses, atraumatic. Patient has some faint erythema to the left lower leg however the white states that that is chronic.] Test Results: [CBC with differential obtained showed a white count of 21.7, hemoglobin 15, hematocrit 46, plates 192. Chemistries unremarkable. BUN was 14 and creatinine 1.12. Lactate was 2.5. COVID-19 rapid test was positive. Chest x-ray 1 view obtained interpreted by myself as no acute disease process. Radiology noted old rib fractures 7 and 8 on the left.] Patient's urinalysis reveals 500 excite esterase and 25-50 WBCs. Urine culture was sent. Emergency Department Course and Treatment: [IV line established. Patient was started on normal saline.] Patient started on Rocephin 1 g IV. Treatment Plan: [Admit] Disposition: [Admit] Impression: [COVID-19 Generalized weakness Leukocytosis Severe sepsis] This note was generated with [employer] dictation software. It may contain incorrect words, spelling, and punctuation that were not noted in review of the chart prior to signing ED Disposition - Plan for ED Patient: Referrals: [facility] [Primary Care Provider] -
--- NOTE | 2020-05-19 21:30 | RAD_ITS ---
INDICATION: fever EXAMINATION/TECHNIQUE: X-RAY - XR Chest 1 View COMPARISON: [facility] x-ray 03/25/2016. FINDINGS: Chronic lung changes. Ill-defined soft tissue density along the lateral aspect of the right hemithorax most likely secondary to pleural scarring from prior trauma. Tortuous and calcified thoracic aorta. No pleural effusion or pneumothorax. Senescent changes of the bones. Chronic fracture deformities of the left posterior seventh and eighth ribs. RAD/Chest 1 View (Portable) IMPRESSION: No acute radiographic abnormalities. Ill-defined soft tissue density along the lateral aspect of the right hemithorax most likely secondary to pleural scarring from prior trauma. Chronic fracture deformities of the left posterior seventh and eighth ribs. Electronically Signed: Jack Sosa MD at 21:55 EDT Tel , Service support ,
[2020-05-19 21:35] LABS: Absolute Lymphocyte Count 1.06 X10^3/uL (0.83-4.51); Absolute Neutrophil Count 18.7 X10^3/uL (2.0-7.7); Basophil# 0.05 X10^3/uL; Basophil% 0.2 % (0-1); Lymphocyte # 1.06 X10^3/ul (4.0); Lymphocyte % 4.9 % (19-41); Mean Corp Hgb Conc 32.6 g/dL (32-36); Mean Corpuscular Hgb 28.7 pg (27.0-32.0); Mean Platelet Vol. 10.4 fl (6.2-12.0); Monocyte# 1.81 X10^3/uL; Monocyte% 8.3 % (0-10); NRBC Flagged by Analyzer 0 % (0-5); Neutrophil # 18.67 X10^3/uL (2.7-7.7); POSITIVE DIFFERENTIAL YES; Platelet Count 192 K/mm3 (150-450); RBC Distribution Width CV 13.2 % (11.6-14.6); RBC Distribution Width SD 42.5 fl (35.1-43.9); Red Blood Count 5.23 M/mm3 (4.6-6.2); White Blood Count 21.7 K/mm3 (4.4-11.0)
[2020-05-19 21:36] LABS: Anion Gap 10 (5-15); BUN 14 mg/dL (7-18); BUN/Creat Ratio 12.5 RATIO (10-20); Calcium,Total 8.6 mg/dL (8.5-10.1); Chloride 103 mmol/L (98-107); Creatinine, Serum 1.12 mg/dL (0.70-1.30); EST Glomerular Filtration Rate 69 mL/min (>60); Est Glom Filt Rate - Afr Amer 83 mL/min (>60); Estimated Creatinine Clearance 62.46 ml/min; Glucose 167 mg/dL (74-106); Potassium 4.4 mmol/L (3.5-5.1); Sodium Level 134 mmol/L (136-145)
[2020-05-19 21:46] LABS: Differential Indicated SCAN CRITERIA MET
[2020-05-19 21:54] LABS: Lactic Acid 2.5 mmol/L (0.4-1.9)
[2020-05-19 21:58] LABS: Differential Comment SCANNED
[2020-05-19] MEDS: 0.9% Normal Saline 1,000 ML 150 ML IV (22:03)
[2020-05-19 22:19] LABS: Mucous, Urine 0 SEEN /hpf (<or=2+)
[2020-05-19 22:28] VITALS: BP 159/78; PULSE 85; RESP 18; TEMP 37.2; O2SAT 96
--- NOTE | 2020-05-19 22:31 | NURSING ---
[facility] AND [facility] AND HE IS LOOKING INTO IF WE ARE ABLE TO TRANSFER OR PATIENT CAN STAY HERE.
[2020-05-19 22:35] LABS: Color, Urine Yellow (Yellow); Glucose, Dipstick 250 mg/dl (Normal); Ketone-Dipstick 50 mg/dl (Negative); Leukocyte Esterase-Dipstick 500 /ul (Negative); Nitrite-Dipstick Negative (Negative); Occult Blood-Urine 150 /ul (Negative); Protein-Dipstick 30 mg/dl (Negative); Urine Bilirubin Dipstick 6 mg/dL (Negative); Urine Clarity Clear (Clear); Urine Urobilinogen Normal (Normal)
[2020-05-19 22:41] LABS: Bacteria 1+ /hpf (None Seen); Red Blood Cells-Urine 0-5 SEEN /hpf (0-5); Squamous Epithelial Cells - UA 0-5 SEEN /hpf (0-5); White Blood Cells 25-50 SEEN /hpf (0-5)
--- NOTE | 2020-05-19 22:45 | ED.RN ---
per the pt ,his wbs is always elevated because he is on predisone.
[2020-05-19 23:05] VITALS: BP 136/60; PULSE 90; RESP 24; TEMP 37.2; O2SAT 94
--- NOTE | 2020-05-19 23:19 | PCM.HP.STD ---
Problem List (1) Severe sepsis Status: Acute (2) COVID-19 Status: Acute (3) UTI (urinary tract infection) Status: Acute Qualifiers: Urinary tract infection type: acute cystitis Hematuria presence: without hematuria Qualified Code(s): N30.00 - Acute cystitis without hematuria (4) Former tobacco use Status: Chronic (5) Hyperlipidemia Status: Chronic Qualifiers: Hyperlipidemia type: unspecified Qualified Code(s): E78.5 - Hyperlipidemia, unspecified (6) Hypertension Status: Chronic Qualifiers: Hypertension type: essential hypertension Qualified Code(s): I10 - Essential (primary) hypertension (7) Myasthenia gravis Status: Chronic (8) MEL (obstructive sleep apnea) Status: Chronic (9) Type II diabetes mellitus Status: Chronic Qualifiers: Diabetes mellitus detention insulin use: without ad terminal makeup operator use Diabetes mellitus complication status: with other specified complication Qualified Code(s): E11.69 - Type 2 diabetes mellitus with other specified complication History of Present Illness Date of Admission: 05/19/20 Chief Complaint: Diarrhea, fevers. The patient is a 69 y/o M w/ PMHx: HTN, HLD, Allergic Rhinitis, Diabetes mellitus type II, MEL, Myasthenia gravis, recently discharged from [facility] on 04/26/20 following treatment for acute LLE cellulitis, discharged on completion regimen of cefadroxil who now re-presents to the [facility] ED on 05/19/20 with history of increased malaise, fatigue, chills, severe whole body aches, alteration to his sense of taste noting that everything tastes metallic and fever up to 101 at home with intermittent loose watery stools approximately 4 to 5/day over the last 48 hours prompting ED evaluation. Patient denies any body aches, headaches, alteration to sense of taste or smell and has not had any Covid exposures. Patient's is present and denies any symptoms. Patient does believe he is a positive blood type but unsure. Work-up in the ED included T100, heart rate 84, BP 154/78, respiratory rate 20, 94% on room air, CBC with WC 21.7, hemoglobin 15, platelet 192 with left shift, BMP with sodium 134, glucose 167, lactic acid 2.5, chest x-ray with no acute cardiopulmonary findings with noted ill-defined soft tissue density along the lateral aspect of the right hemithorax likely secondary to pleural scarring from prior trauma, chronic fracture deformities of the left posterior seventh and eighth ribs, rapid Covid antigen positive, blood culture x2 pending per ED, UA with specific gravity elevated 1.020, protein 30, glucose 250, ketone 50, occult blood 150, negative nitrite, leukocyte esterase 500, urine WBCs 25-50 with 1+ urine bacteria, urine culture pending per ED. Patient is on chronic predisone therapy however past WBC have of note not been significantly elevated on this steroid regimen. In the ED patient administered NS. Past Medical History Past Medical History (Chronic Problems): Chronic Problems Former tobacco use (Chronic) Hypertension (Chronic) Hyperlipidemia (Chronic) Type II diabetes mellitus (Chronic) MEL (obstructive sleep apnea) (Chronic) Myasthenia gravis (Chronic) Allergies ampicillin Adverse Reaction (Verified 05/19/20 20:41) Unknown Home Medications: Ambulatory Orders Medication Instructions Recorded Aspirin E.C. [Ecotrin] 81 mg PO DAILY@0800 07/16/15 Atenolol [Tenormin] 50 mg PO DAILY 07/16/15 Calcium Carb/Vitamin D [Os-Freddy 2 tablet PO BIDCM 07/16/15 500MG + D] Cetirizine HCl [Zyrtec] 10 mg PO DAILY PRN 07/16/15 Etodolac [Lodine Xl] 400 mg PO BID 07/16/15 Felodipine [Plendil] 5 mg PO DAILY 07/16/15 Guaifenesin [Tab Tussin] 400 mg PO Q4H PRN PRN 07/16/15 Ipratropium [place] 0.06% 2 spray NASAL BID PRN 07/16/15 [ATROVENT NASAL SPRAY] Mycophenolate Mofetil 1,500 mg PO BID 07/16/15 Pyridostigmine [place] [Mestinon 60 mg PO BID 07/16/15 Timepan] Simvastatin [Zocor] 40 mg PO QHS 07/16/15 metFORMIN HCl [Glucophage] 250 mg PO DAILY 07/16/15 predniSONE tablet 10 mg PO DAILY 07/16/15 Alendronate Sodium 70 mg PO MO 07/17/15 Vitamin D3 1 tab PO DAILY 04/24/20 Cefadroxil 1 gm PO BID #10 tab 04/26/20 Surgical History: - - Back surgery x 2, Foot surgery, Partial colon resection secondary to polyps. Psychiatric History: No pertinent psych hx Lives: Spouse/ Significant Other Smoking Status: Former smoker - Patient quit cigarette tobacco usage Tobacco Use: Non-smoker Alcohol: None Drugs: None - *Family History Paternal History Items: - - Patient denies any knowledge of his paternal medical history. Maternal History Items: Diabetes, High Cholesterol, Heart Disease, Hypertension Review of Systems Constitutional: Reports: Anorexia, Chills, Fever, Malaise, Weakness, Fatigue. Denies: Weight Change HEENT: Denies: Head Aches, Sinus Congestion, Sinus Drainage Cardiovascular: Denies: Chest Pain, Palpitations Respiratory: Reports: Cough, Shortness of Breath, Shortness of breath at rest, Shortness of breath upon exertion. Denies: Sputum production, Wheezing Gastrointestinal: Reports: Diarrhea. Denies: Abdominal Pain, Nausea, Vomiting Genitourinary: Denies: Dysuria Musculoskeletal: Reports: Joint Pain, Muscle pain. Denies: Joint Tenderness Skin: Denies: Rash, Wounds Neurological: Denies: Numbness, Tingling, Focal weakness Psychiatric: Denies: Anxiety, Depression, Homicidal Ideations, Suicidal Ideations Hematologic/ Lymphatic: Denies: Easy Bruising, Easy Bleeding VTE Information - Inpt Only VTE Present on Admission: No VTE Mechan Device Prophylaxis: SCD's VTE Pharm Prophylaxis ordered?: Yes Subjective: Patient laying in the ED bed, fatigued and ill-appearing, no acute distress. Objective: Physical Examination: General: awake, alert, oriented x 3 and cooperative, laying in the ED bed, fatigued and ill-appearing otherwise no acute distress. Skin: normal color, turgor, no icterus, cyanosis. HEENT: AT/NC, EOMI, PERRLA, mildly dry MM, nasal CPAP in place initially upon evaluation, no carotid bruits or JVD noted; however, thickened neck makes examination difficult. Lungs: Diffusely diminished breath sounds, distant, no obvious current distress, no rales, ronchi or wheezing. Heart: Mildly tachycardic with regular rhythm; no gallop, rub audible. Abdomen: soft, morbidly obese, NTTP, ND, distant mildly hyperactive BS, difficult to discern HSM secondary to morbidly obese habitus. Extremities: no cyanosis or clubbing, bilateral pedal to distal ankle edema, not markedly pitting. Neurological: patient awake, alert, oriented as noted; cognitive function intact; pupils equally reactive to light and accomodation; cranial nerves II-XII grossly normal, moving all 4 extremities, no focal deficits, strength moderately to severely global decrease secondary to acute presentation. Psychiatric: affect appears fatigued and ill-appearing, no acute evidence of depressive or anxiety feelings. - Physical Exam Vitals/I&O's: Vital Signs Temp Pulse Resp BP Pulse Ox 99.0 F 90 24 H 136/60 H 94 05/19/20 23:05 05/19/20 23:05 05/19/20 23:05 05/19/20 23:05 05/19/20 23:05 Oxygen Delivery Method Room Air Weight: 315 lb Body Mass Index (BMI) 45.1 Microbiology Past 72 Hours 05/19/20 21:25 Mucosa - Nose SARS-CoV-2 Antigen (Rapid) - Final SARS-CoV-2 (COVID 19) Laboratory Results 05/19/20 21:05: Sodium 134 L, Potassium 4.4, Chloride 103, Carbon Dioxide 21.0, Anion Gap 10, BUN 14, Creatinine 1.12, Estim Creat Clear Calc 62.46, Est GFR (MDRD) Af Amer 83, Est GFR (MDRD) Non-Af 69, BUN/Creatinine Ratio 12.5, Glucose 167 H, Calcium 8.6 05/19/20 21:20: WBC 21.7 H, RBC 5.23, Hgb 15.0, Hct 46.0, MCV 88.0, MCH 28.7, MCHC 32.6, RDW Std Deviation 42.5, RDW Coeff of Elidia 13.2, Plt Count 192, MPV 10.4, Immature Gran % (Auto) 0.600, Neut % (Auto) 86.0 H, Lymph % (Auto) 4.9 L, [place] % (Auto) 8.3, Eos % (Auto) 0.0, Baso % (Auto) 0.2, Absolute Neuts (auto) 18.7 H, Absolute Lymphs (auto) 1.06, Nucleated RBC % 0, Differential Comment SCANNED, Diff Path Review June05/19/20 21:20: Lactic Acid 2.5 H* 05/19/20 22:15: Urine Color Yellow, Urine Clarity Clear, Urine pH 5.0, Ur Specific [place] 1.020, Urine Protein 30 H, Urine Glucose (UA) 250 H, Urine Ketones 50 H, Urine Occult Blood 150 H, Urine Nitrite Negative, Urine Bilirubin 6 H, Urine Urobilinogen Normal, Ur Leukocyte Esterase 500 H, Urine RBC 0-5 SEEN, Urine WBC 25-50 SEEN, Ur Squamous Epith Cells 0-5 SEEN, Urine Bacteria 1+, Urine Mucus 0 SEEN Current Medications Sodium Chloride () 1,000 mls @ 150 mls/hr IV .[id number] [facility] Last Admin: 05/19/20 22:03 Dose: 150 mls/hr Documented by: Assessment/Plan All Active Problems Cellulitis (Acute) Severe sepsis (Acute) COVID-19 (Acute) UTI (urinary tract infection) (Acute) The patient is a 69 y/o M w/ PMHx: HTN, HLD, Allergic Rhinitis, Diabetes mellitus type II, MEL, Myasthenia gravis, recently discharged from [facility] on 04/26/20 following treatment for acute LLE cellulitis, discharged on completion regimen of cefadroxil who now re-presents to the [facility] ED on 05/19/20 with history of increased malaise, fatigue, chills, severe whole body aches, alteration to his sense of taste noting that everything tastes metallic and fever up to 101 at home with intermittent loose watery stools approximately 4 to 5/day over the last 48 hours prompting ED evaluation. 1. Acute Severe Sepsis secondary to Acute Viral Syndrome, COVID-19 with Malaise, fatigue, diarrhea, fevers and concurrent Possible Acute Complicated UTI #2: Will admit to the COVID unit, will maintain on precautions given positive testing, will obtain cdiff stool assay to be cautious given recent abx usage also, will maintain on oxygen with wean as tolerated to room air, PRN albuterol, HOB, IS parameters w/ pending sputum cultures, respiratory viral panel and urine antigens, will obtain D-dimer, procalcitonin, CRP, CPK, Ferritin, LDH, trop and BNP, continue supportive care including q 2 hour turning including prone given no prone bed availability and judicious hydration, closely monitor for worsening status for ARDS and multiorgan failure, will consult Infectious disease, will initiate and continue IV decadron x 10 doses given noted 94% on RA in the ED, given presentation will also initiate IV remdesivir but defer to discretion of Infectious disease given positive test and timeline < 10 days. ICU physician consulted and pending. If C. difficile testing is negative will initiate antidiarrheal regimen. 2. ? Acute Complicated UTI: UA mild appearing, CBC w/ notable WBC elevation with L shift, UCx pending, Bld Cx x 2 pending per ED, will maintain in the interim pending UCx on IV rocephin and continue treatment as noted above for #1 concurrently. Also awaiting stool culture/cdiff as noted. 3. Recent LLE Cellulitis: Resolved, completed abx therapy, has faint LLE skin changes which are chronic. 4. Diabetes mellitus type II: Hold oral home regimen, ADA diet, accu checks w/ ISS. 5. Hypertension: Continue home regimen including Norvasc, atenolol with hold parameters as needed, PRN hydralazine. 6. Myasthenia gravis: Patient stable although current presentation may certain tax him, will continue patient CellCept, Mestinon regimen, hold predisone temporarily given usage decadron as noted. 7. MEL: We will continue patient CPAP nightly regimen. 8. Morbid Obesity: Weight loss and lifestyle changes encouraged, nutrition consulted. 9. Hyperlipidemia: Continue home statin regimen. 10. DVT prophylaxis: SCDs, Lovenox. 11. CODE status: Patient HCPOA and living will is not set up formally. is present for discussions. Given COVID status, discussed CODE status at length including difference between FULL code, DNR-CCA and DNR-CC status. Following discussions about the differences in these status, requested Full Code status. Patient also amenable if necessary to trial with airvo and BIPAP. Advanced Care Planning Face to Face Time: 16 minutes. Inpatient E&M: 19907 Init Hosp L3 Procedures: 61299 Advncd Care Plan 30 Min
[2020-05-19 23:36] VITALS: BP 155/56; PULSE 90; RESP 19; TEMP 38.3; O2SAT 96
[2020-05-19] MEDS: Ceftriaxone 1 GM/50 ML BAG IV (23:51)
[2020-05-20] VITALS (20 sets, daily range): BP systolic 104–172; BP diastolic 41–82; PULSE 61–106; RESP 14–30; TEMP 36.4–37.9; O2SAT 91–98; BMI 43.4
[2020-05-20 00:52] LABS: D-Dimer Quantitative (DVT/PE) 1.42 FEU/ug/m (0.27-0.49)
[2020-05-20 01:04] LABS: Ferritin 245 ng/mL (26-388); LDH 292 U/L (87-241); Magnesium 1.9 mg/dL (1.6-2.6)
[2020-05-20 01:15] LABS: BNP,B-Type NATRIURETIC PEPTIDE 326.9 pg/mL (0-100)
[2020-05-20] MEDS: 0.9% Normal Saline 1,000 ML 100 ML IV (01:24)
[2020-05-20] MEDS: dexAMETHasone 10 MG/ML Vial 6 MG IV ×2 (01:26→09:45)
[2020-05-20 01:30] LABS: Reflex Lactate? Y
[2020-05-20 02:07] LABS: Lactic Acid 1.6 mmol/L (0.4-1.9)
--- NOTE | 2020-05-20 02:09 | CT_ITS ---
STUDY: CTA CHEST REASON FOR EXAM: Male, 69 years old. suspected PE RADIATION DOSAGE (If Supplied By Facility): CTDIvol = ( 24.53 ) mGy, DLP = ( 559.25 ) mGycm TECHNIQUE: The examination was performed with the intravenous administration of IV 100mL Isovue-370. Post-processing of the angiographic images was performed, with multiplanar reformation and 3D reconstruction. Individualized dose optimization techniques were used for this CT. COMPARISON: None. FINDINGS: Normal enhancement of the main pulmonary artery and right and left pulmonary arteries. Normal enhancement of the bilateral peripheral pulmonary arteries. There is no demonstrated pulmonary embolism. Normal thoracic aorta and visualized great vessels. There is no demonstrated aortic dissection. Normal heart and pericardium. Normal mediastinum. Normal hilar regions. Normal visualized trachea and bronchi. The lungs are well expanded. Normal pulmonary parenchyma. Normal pleura. Normal chest wall structures. Multiple old bilateral rib fractures. Cholelithiasis. CT/CTA Chest W/WO Contrast IMPRESSION: No demonstrated pulmonary embolism or arterial dissection. Multiple old bilateral rib fractures. Cholelithiasis. Electronically Signed: Yvan Corrales MD at 5:47 EDT Tel , Service support ,
[2020-05-20 02:10] LABS: Procalcitonin 0.64 ng/mL (0.00-0.09)
[2020-05-20 05:32] LABS: Absolute Lymphocyte Count 1.11 X10^3/uL (0.83-4.51); Absolute Neutrophil Count 22.6 X10^3/uL (2.0-7.7); Basophil# 0.04 X10^3/uL; Basophil% 0.2 % (0-1); Hematocrit 42.5 % (40-54); Hemoglobin 13.7 g/dL (13.0-16.5); Lymphocyte # 1.11 X10^3/ul (4.0); Lymphocyte % 4.3 % (19-41); Mean Corp Hgb Conc 32.2 g/dL (32-36); Mean Corpuscular Hgb 28.6 pg (27.0-32.0); Mean Corpuscular Volume 88.7 fL (80-94); Mean Platelet Vol. 10.1 fl (6.2-12.0); Monocyte# 1.52 X10^3/uL; Monocyte% 5.9 % (0-10); NRBC Flagged by Analyzer 0 % (0-5); Neutrophil # 22.57 X10^3/uL (2.7-7.7); Neutrophil % 88.2 % (47-70); POSITIVE DIFFERENTIAL YES; Platelet Count 163 K/mm3 (150-450); RBC Distribution Width CV 13.2 % (11.6-14.6); RBC Distribution Width SD 43.1 fl (35.1-43.9); Red Blood Count 4.79 M/mm3 (4.6-6.2); White Blood Count 25.6 K/mm3 (4.4-11.0)
--- NOTE | 2020-05-20 05:38 | CON.PCM_ITS ---
Reason for Consult Date of Consultation: 05/20/20 Reason for Consultation: Severe sepsis History of Present Illness: The patient is a 69-year-old male, with a history as outlined below, who presented to the emergency department on May 19 with complaints of generalized malaise, weakness and fever. In addition, the patient reported the presence of diarrhea, loss of taste and nonproductive cough of approximately 2 to 3 days duration. The patient does have a known history of obstructive sleep apnea, for which he reports compliance with the use of nocturnal Pap therapy. His medical history is also significant for myasthenia gravis. On presentation to the emergency department, the patient was noted to be febrile but was otherwise hemodynamically stable. He was initially maintaining appropriate oxygen saturations on room air. Laboratory evaluation revealed an elevated white blood cell count to 21,000. D-dimer was elevated to 1.42. Chemistry profile was unremarkable. Lactate was elevated to 2.5. Troponin was increased to 0.082. BNP was elevated to 326. Procalcitonin was noted to be 0.64. Urine analysis was negative for nitrites, but positive for leukocyte esterase and 1+ urine bacteria. Rapid coronavirus antigen testing was positive. The patient received supplemental IV fluid hydration and was started on remdesivir. He was subsequently admitted to the medical intensive care unit for management of his severe sepsis. Past Medical History Past Medical History (Chronic Problems): Chronic Problems Former tobacco use (Chronic) Hypertension (Chronic) Hyperlipidemia (Chronic) Type II diabetes mellitus (Chronic) MEL (obstructive sleep apnea) (Chronic) Myasthenia gravis (Chronic) Allergies ampicillin Adverse Reaction (Verified 05/19/20 20:41) Unknown Home Medications: Ambulatory Orders Medication Instructions Recorded Aspirin E.C. [Ecotrin] 81 mg PO DAILY@0800 07/16/15 Atenolol [Tenormin] 50 mg PO DAILY 07/16/15 Calcium Carb/Vitamin D [Os-Freddy 2 tablet PO BIDCM 07/16/15 500MG + D] Cetirizine HCl [Zyrtec] 10 mg PO DAILY PRN 07/16/15 Etodolac [Lodine Xl] 400 mg PO BID 07/16/15 Felodipine [Plendil] 5 mg PO DAILY 07/16/15 Guaifenesin [Tab Tussin] 400 mg PO Q4H PRN PRN 07/16/15 Ipratropium [place] 0.06% 2 spray NASAL BID PRN 07/16/15 [ATROVENT NASAL SPRAY] Mycophenolate Mofetil 1,500 mg PO BID 07/16/15 Pyridostigmine [place] [Mestinon 60 mg PO BID 07/16/15 Timepan] Simvastatin [Zocor] 40 mg PO QHS 07/16/15 metFORMIN HCl [Glucophage] 250 mg PO DAILY 07/16/15 predniSONE tablet 10 mg PO DAILY 07/16/15 Alendronate Sodium 70 mg PO MO 07/17/15 Vitamin D3 1 tab PO DAILY 04/24/20 Cefadroxil 1 gm PO BID #10 tab 04/26/20 Surgical History: - - Back surgery x 2, Foot surgery, Partial colon resection secondary to polyps. Psychiatric History: No pertinent psych hx Lives: Spouse/ Significant Other Smoking Status: Former smoker Tobacco Use: Non-smoker Alcohol: None Drugs: None - *Family History Maternal History Items: Diabetes, High Cholesterol, Heart Disease, Hypertension Paternal History Items: - - Patient denies any knowledge of his paternal medical history. Review of Systems Constitutional: Reports: Chills, Fever, Weakness, Fatigue Eyes: Denies: Blurred vision, Double vision HEENT: Denies: Head Aches, Sinus Congestion, Sinus Drainage Cardiovascular: Denies: Chest Pain, Palpitations Respiratory: Reports: Cough. Denies: Shortness of Breath, Sputum production Gastrointestinal: Reports: Diarrhea. Denies: Nausea, Vomiting Genitourinary: Denies: Dysuria Musculoskeletal: Denies: Joint Pain, Joint Tenderness Skin: Denies: Rash, Wounds Neurological: Denies: Numbness, Tingling, Focal weakness Psychiatric: Denies: Anxiety, Depression, Homicidal Ideations, Suicidal Ideations Hematologic/ Lymphatic: Denies: Easy Bruising, Easy Bleeding Patient Problems: Active and Suspected Problems Severe sepsis (Acute) COVID-19 (Acute) UTI (urinary tract infection) (Acute) Objective: The patient's most recent lab work, culture data and imaging studies have all been personally reviewed. - Physical Exam Vitals/I&O's: Vital Signs Temp Pulse Resp BP Pulse Ox 98.6 F 78 18 108/41 L 96 05/20/20 04:00 05/20/20 05:00 05/20/20 05:00 05/20/20 05:00 05/20/20 05:00 Oxygen Delivery Method CPAP Weight: 311 lb 6.4 oz Body Mass Index (BMI) 43.4 Intake and Output for Last 24 Hours 05/18/20 05/19/20 05/20/20 23:59 23:59 23:59 Intake Total 694.17 / 694.17 Output Total 0 / 0 Balance 694.17 / 694.17 General: Alert, Cooperative, No apparent distress HEENT: Atraumatic, PERRLA, Normocephalic Oral: Moist Mucosa Neck: Supple, No Nodes, Trachea Midline Lungs: No rhonchi, No wheeze, No rales, Diminished Cardiovascular: Regular rate, Regular Rhythm, Normal S1, Normal S2, No murmurs Abdomen: Bowel Sounds Present, Soft, Non Tender, Obese Extremities: No clubbing, No cyanosis, Edema Skin: No breakdown Musculoskeletal: No Tenderness to Palpation of Joints or Extremities Lymphatic: No Cervical, Supraclavicular, or Inguinal Adenopathy Neurological: Cranial nerves II-XII grossly intact, Neuro grossly intact Psych/Mental Status: Normal Affect, Appropriate Labs (Last 48 Hours) 05/19/20 05/19/20 05/19/20 21:05 21:20 21:20 WBC 21.7 H RBC 5.23 Hgb 15.0 Hct 46.0 MCV 88.0 MCH 28.7 MCHC 32.6 RDW Std Deviation 42.5 RDW Coeff of Elidia 13.2 Plt Count 192 MPV 10.4 Immature Gran % (Auto) 0.600 Neut % (Auto) 86.0 H Lymph % (Auto) 4.9 L [place] % (Auto) 8.3 Eos % (Auto) 0.0 Baso % (Auto) 0.2 Absolute Neuts (auto) 18.7 H Absolute Lymphs (auto) 1.06 Nucleated RBC % 0 Differential Comment SCANNED Diff Path Review June foll D-Dimer Quant (PE/DVT) Sodium 134 L Potassium 4.4 Chloride 103 Carbon Dioxide 21.0 Anion Gap 10 BUN 14 Creatinine 1.12 Estim Creat Clear Calc 62.46 Est GFR (MDRD) Af Amer 83 Est GFR (MDRD) Non-Af 69 BUN/Creatinine Ratio 12.5 Glucose 167 H Lactic Acid 2.5 H* Calcium 8.6 Magnesium Ferritin Total Bilirubin AST ALT Alkaline Phosphatase Lactate Dehydrogenase Troponin I C-React Prot Ext Range B-Natriuretic Peptide Total Protein Albumin Procalcitonin Urine Color Urine Clarity Urine pH Ur Specific [place] Urine Protein Urine Glucose (UA) Urine Ketones Urine Occult Blood Urine Nitrite Urine Bilirubin Urine Urobilinogen Ur Leukocyte Esterase Urine RBC Urine WBC Ur Squamous Epith Cells Urine Bacteria Urine Mucus 05/19/20 05/19/20 05/19/20 21:20 21:20 21:20 WBC RBC Hgb Hct MCV MCH MCHC RDW Std Deviation RDW Coeff of Elidia Plt Count MPV Immature Gran % (Auto) Neut % (Auto) Lymph % (Auto) [place] % (Auto) Eos % (Auto) Baso % (Auto) Absolute Neuts (auto) Absolute Lymphs (auto) Nucleated RBC % Differential Comment Diff Path Review D-Dimer Quant (PE/DVT) 1.42 H* Sodium Potassium Chloride Carbon Dioxide Anion Gap BUN Creatinine Estim Creat Clear Calc Est GFR (MDRD) Af Amer Est GFR (MDRD) Non-Af BUN/Creatinine Ratio Glucose Lactic Acid Calcium Magnesium 1.9 Ferritin 245 Total Bilirubin AST ALT Alkaline Phosphatase Lactate Dehydrogenase 292 H Troponin I 0.082 H C-React Prot Ext Range 113.00 H B-Natriuretic Peptide 326.9 H Total Protein Albumin Procalcitonin Urine Color Urine Clarity Urine pH Ur Specific [place] Urine Protein Urine Glucose (UA) Urine Ketones Urine Occult Blood Urine Nitrite Urine Bilirubin Urine Urobilinogen Ur Leukocyte Esterase Urine RBC Urine WBC Ur Squamous Epith Cells Urine Bacteria Urine Mucus 05/19/20 05/20/20 05/20/20 22:15 01:25 01:25 WBC RBC Hgb Hct MCV MCH MCHC RDW Std Deviation RDW Coeff of Elidia Plt Count MPV Immature Gran % (Auto) Neut % (Auto) Lymph % (Auto) [place] % (Auto) Eos % (Auto) Baso % (Auto) Absolute Neuts (auto) Absolute Lymphs (auto) Nucleated RBC % Differential Comment Diff Path Review D-Dimer Quant (PE/DVT) Sodium Potassium Chloride Carbon Dioxide Anion Gap BUN Creatinine Estim Creat Clear Calc Est GFR (MDRD) Af Amer Est GFR (MDRD) Non-Af BUN/Creatinine Ratio Glucose Lactic Acid 1.6 Calcium Magnesium Ferritin Total Bilirubin AST ALT Alkaline Phosphatase Lactate Dehydrogenase Troponin I C-React Prot Ext Range B-Natriuretic Peptide Total Protein Albumin Procalcitonin 0.64 H Urine Color Yellow Urine Clarity Clear Urine pH 5.0 Ur Specific [place] 1.020 Urine Protein 30 H Urine Glucose (UA) 250 H Urine Ketones 50 H Urine Occult Blood 150 H Urine Nitrite Negative Urine Bilirubin 6 H Urine Urobilinogen Normal Ur Leukocyte Esterase 500 H Urine RBC 0-5 SEEN Urine WBC 25-50 SEEN Ur Squamous Epith Cells 0-5 SEEN Urine Bacteria 1+ Urine Mucus 0 SEEN 05/20/20 05/20/20 05/20/20 02:40 05:30 05:30 WBC Pending RBC Pending Hgb Pending Hct Pending MCV Pending MCH Pending MCHC Pending RDW Std Deviation Pending RDW Coeff of Elidia Pending Plt Count Pending MPV Immature Gran % (Auto) Neut % (Auto) Pending Lymph % (Auto) [place] % (Auto) Eos % (Auto) Baso % (Auto) Absolute Neuts (auto) Pending Absolute Lymphs (auto) Nucleated RBC % Differential Comment Diff Path Review D-Dimer Quant (PE/DVT) Sodium Pending Potassium Pending Chloride Pending Carbon Dioxide Pending Anion Gap Pending BUN Pending Creatinine Pending Estim Creat Clear Calc Est GFR (MDRD) Af Amer Pending Est GFR (MDRD) Non-Af Pending BUN/Creatinine Ratio Pending Glucose Pending Lactic Acid Calcium Pending Magnesium Ferritin Total Bilirubin Pending AST Pending ALT Pending Alkaline Phosphatase Pending Lactate Dehydrogenase Troponin I 0.131 H C-React Prot Ext Range B-Natriuretic Peptide Total Protein Pending Albumin Pending Procalcitonin Urine Color Urine Clarity Urine pH Ur Specific [place] Urine Protein Urine Glucose (UA) Urine Ketones Urine Occult Blood Urine Nitrite Urine Bilirubin Urine Urobilinogen Ur Leukocyte Esterase Urine RBC Urine WBC Ur Squamous Epith Cells Urine Bacteria Urine Mucus 05/20/20 05:30 WBC RBC Hgb Hct MCV MCH MCHC RDW Std Deviation RDW Coeff of Elidia Plt Count MPV Immature Gran % (Auto) Neut % (Auto) Lymph % (Auto) [place] % (Auto) Eos % (Auto) Baso % (Auto) Absolute Neuts (auto) Absolute Lymphs (auto) Nucleated RBC % Differential Comment Diff Path Review D-Dimer Quant (PE/DVT) Sodium Potassium Chloride Carbon Dioxide Anion Gap BUN Creatinine Estim Creat Clear Calc Est GFR (MDRD) Af Amer Est GFR (MDRD) Non-Af BUN/Creatinine Ratio Glucose Lactic Acid Calcium Magnesium Ferritin Total Bilirubin AST ALT Alkaline Phosphatase Lactate Dehydrogenase Troponin I Pending C-React Prot Ext Range B-Natriuretic Peptide Total Protein Albumin Procalcitonin Urine Color Urine Clarity Urine pH Ur Specific [place] Urine Protein Urine Glucose (UA) Urine Ketones Urine Occult Blood Urine Nitrite Urine Bilirubin Urine Urobilinogen Ur Leukocyte Esterase Urine RBC Urine WBC Ur Squamous Epith Cells Urine Bacteria Urine Mucus Microbiology 05/20/20 01:15 Mucosa - Nasopharyngeal Respiratory Panel (PCR) - Final 05/19/20 22:15 Urine, Clean Catch Legionella Antigen - Final 05/19/20 22:15 Urine, Clean Catch Streptococcus pneumoniae Antigen (M - Final 05/19/20 21:25 Mucosa - Nose SARS-CoV-2 Antigen (Rapid) - Final SARS-CoV-2 (COVID 19) Clinical Impression(s) from Imaging Studies Chest X-Ray 05/19/20 21:30 IMPRESSION: No acute radiographic abnormalities. Ill-defined soft tissue density along the lateral aspect of the right hemithorax most likely secondary to pleural scarring from prior trauma. Chronic fracture deformities of the left posterior seventh and eighth ribs. Electronically Signed: Jack Sosa MD at 21:55 EDT Tel , Service support , Current Medications Acetaminophen (Acetaminophen 325 Mg Tablet) 650 mg PO Q6H PRN PRN PRN Reason: Pain Score 1-10/Temp > 100.7 F Al Hydroxide/Mg Hydroxide (Mag Hydrox/Al Hydrox/Simeth 30 Ml Udc) 30 ml PO Q6H PRN PRN PRN Reason: Gastric Burning Albuterol Sulfate (Albuterol Ih 8.5 Gm (Proair) Inhaler (200 Puffs)) 4 - 8 puff INHALATION Q4H PRN PRN PRN Reason: Dyspnea, wheezing Amlodipine Besylate (Amlodipine 5 Mg Tablet) 5 mg PO DAILY [facility] Aspirin (Aspirin E.C. 81 Mg Tablet) 81 mg PO DAILY [facility] Atenolol (Atenolol 50 Mg Tablet) 50 mg PO DAILY [facility] Atorvastatin Calcium (Atorvastatin Calcium 20 Mg Tablet) 20 mg PO QHS [facility] Calcium/Vitamin D (Calcium Carb/Vitamin D 1 Tablet Tablet) 2 tablet PO BIDCM [facility] Dexamethasone Sodium Phosphate (Dexamethasone 10 Mg/Ml Vial) 6 mg IV DAILY [facility] Stop: 05/28/20 10:01 Last Admin: 05/20/20 01:26 Dose: 6 mg Documented by: Enoxaparin Sodium (Enoxaparin 40 Mg/0.4 Ml Syringe) 40 mg SC BID [facility] Etodolac (Etodolac 200 Mg Capsule) 400 mg PO BID [facility] Guaifenesin (Guaifenesin 10 Ml Udc (200mg/10ml)) 10 ml PO Q4H PRN PRN PRN Reason: COUGH Hydralazine HCl (Hydralazine 20 Mg/Ml Vial) 10 mg IV Q4H PRN PRN PRN Reason: SBP > 160 Sodium Chloride () 1,000 mls @ 100 mls/hr IV .Q10H [facility] Stop: 05/20/20 10:28 Last Infusion: 05/20/20 03:25 Dose: 100 mls/hr Documented by: Ceftriaxone Sodium (Rocephin) 1 gm in 50 mls @ 100 mls/hr IV Q24H [facility] Remdesivir 100 mg/ Sodium (Chloride) 250 mls @ 125 mls/hr IV Q24H [facility]; Protocol Stop: 05/23/20 23:59 Sodium Chloride () 250 mls @ 15 mls/hr IV .[id number] PRN PRN Reason: Additional IVPB Infusion Influenza Virus Vaccine Quadrival (Influenza Vaccine (6mos+)/Pf 0.5 Ml Syringe) 0.5 ml IM .ONCE ONE Stop: 05/20/20 10:01 Insulin Human Lispro (Insulin Lispro 100 Unit/Ml Insuln.Pen) 0 unit SC ACHS [facility]; Protocol Ipratropium [place] (Ipratropium [place] 0.06% Nasal [place]) 2 spray NASAL BID PRN PRN Reason: ALLERGIES Loratadine (Loratadine 10 Mg Tablet) 10 mg PO DAILY PRN PRN PRN Reason: ALLERGIES Melatonin (Melatonin 3 Mg Tablet) 3 mg PO QHS PRN PRN PRN Reason: INSOMNIA Morphine Sulfate (Morphine 2 Mg/Ml Syringe) 2 mg IV Q3H PRN PRN PRN Reason: Pain Score 6-10 Mycophenolate Mofetil (Mycophenolate Mofetil 250 Mg Capsule) 1,500 mg PO BID [facility] Nitroglycerin (Nitroglycerin (Inpatient Use) 0.4 Mg Tab.Subl) 0.4 mg SL Q5M PRN PRN Reason: CARDIAC/CHEST PAIN Ondansetron HCl (Ondansetron 4 Mg/2 Ml Vial) 4 mg IV Q8H PRN PRN PRN Reason: NAUSEA/VOMITING Oxycodone HCl (Oxycodone 5 Mg Tablet) 5 mg PO Q4H PRN PRN PRN Reason: Pain Score 4-5 Prochlorperazine Edisylate (Prochlorperazine 10 Mg/2 Ml Vial) 5 mg IV Q4H PRN PRN PRN Reason: Breakthrough Nausea/Vomiting Pyridostigmine [place] (Pyridostigmine [place] 180 Mg Tablet.Sa) 60 mg PO BID [facility] Sodium Chloride (0.9% Saline Lock 10 Ml Syringe) 10 - 40 ml IV UD PRN PRN Reason: SALINE FLUSH Throat Lozenges (Benzocaine/Menthol 1 Lozenge) 1 lozenge MUCOUS MEM Q2H PRN PRN PRN Reason: SORE THROAT Assessment/Plan Active and Suspected Problems Severe sepsis (Acute) COVID-19 (Acute) UTI (urinary tract infection) (Acute) RECOMMENDATIONS: 1. Supplemental oxygen as needed to maintain saturations at or above 90%. 2. Continue remdesivir and Decadron as ordered. Continue to monitor liver and renal function. 3. Continue empiric antimicrobials, pending urine culture results. 4. Continue nocturnal Pap therapy per home regimen. 5. Okay to discontinue supplemental IV fluids. 6. Encourage incentive spirometer use and mobilize patient as tolerated. IMPRESSIONS: 1. Severe sepsis secondary to COVID-19 pneumonia Although the patient is currently utilizing his nasal CPAP per home regimen, he was previously able to maintain appropriate oxygen saturations on room air. His symptoms have been present now for 2 to 3 days. Plan to continue current supportive measures including remdesivir and Decadron. Continue to monitor liver and renal function. Antimicrobials will be continued pending results of urine culture. Continue prophylactic Lovenox. CTA chest was negative for the presence of PE. 2. History of myasthenia gravis/hypertension/diabetes mellitus/obesity/obstr uctive sleep apnea Complicates care, management, recovery and prognosis. Continue home medications as indicated. Continue nocturnal Pap therapy. This note was generated with [employer] dictation software. It may contain incorrect words, spelling, and punctuation that were not noted in checking the note before signing. Inpatient E&M: 34802 Init Hosp L3
[2020-05-20 05:44] LABS: Differential Indicated SCAN CRITERIA MET
[2020-05-20 05:55] LABS: ALB/GLOB Ratio 0.9 RATIO (0.9-2.4); AST(SGOT) 33 U/L (15-37); Alanine Aminotransfer ALT/SGPT 16 U/L (16-61); Albumin, Serum 2.6 g/dL (3.2-5.0); Alkaline Phosphatase 46 U/L (45-117); Anion Gap 10 (5-15); BUN 11 mg/dL (7-18); BUN/Creat Ratio 12.6 RATIO (10-20); Calcium,Total 7.6 mg/dL (8.5-10.1); Chloride 106 mmol/L (98-107); Creatinine, Serum 0.88 mg/dL (0.70-1.30); EST Glomerular Filtration Rate 91 mL/min (>60); Est Glom Filt Rate - Afr Amer 110 mL/min (>60); Glucose 167 mg/dL (74-106); Potassium 3.7 mmol/L (3.5-5.1); Protein, Total 5.6 g/dL (6.4-8.2); Sodium Level 136 mmol/L (136-145)
[2020-05-20 08:05] LABS: Bedside Glucose 173 mg/dL (70-110)
[2020-05-20] MEDS: Insulin Lispro 100 UNIT/ML INSULN.PEN SC ×4 (09:41→21:51)
[2020-05-20] MEDS: amLODIPine 5 MG Tablet PO (09:42)
[2020-05-20] MEDS: Calcium Carb/Vitamin D 1 TABLET Tablet 2 TABLET PO ×2 (09:42→16:14)
[2020-05-20] MEDS: Atenolol 50 MG Tablet PO (09:42)
[2020-05-20] MEDS: Aspirin E.C. 81 MG Tablet PO (09:42)
[2020-05-20] MEDS: Mycophenolate Mofetil 250 MG Capsule 1500 MG PO ×2 (09:43→21:47)
[2020-05-20] MEDS: Enoxaparin 40 MG/0.4 ML Syringe SC ×2 (09:44→21:47)
[2020-05-20] MEDS: Etodolac 200 MG Capsule 400 MG PO ×2 (09:44→21:48)
[2020-05-20] MEDS: Pyridostigmine Bromide 60 MG Tablet PO ×2 (10:32→21:48)
[2020-05-20 11:35] LABS: Bedside Glucose 167 mg/dL (70-110)
--- NOTE | 2020-05-20 13:10 | CM.UR ---
Addendum entered by Kathleen Moreno 05/20/20 13:17: Faxed clinical to [place] transfer center and to his PCP at [facility]. Gavin Moreno RN, CCM. Original Note: SHARRON LAGUNAS Assessment: RN CM called to patient in the room for initial transition planning/care coordination assessment. SHARRON LAGUNAS introduced self and role at [facility]. Patient willing to participate in assessment and is able to answer all questions appropriately. Care providers, pharmacy, and demographics verified. Patient wishes to discharge home, denies need for home health at this time. Patient states he has no further needs or concerns at this time. CM to follow for discharge planning needs that may arise. PCP: Shlomo at [facility] Specialists: Specialist at [facility] Preferred Pharmacy: [place] or [facility] Insurance: [employer] [facility] Prescription Benefit: yes Living Will/HPOA: none LNOK: Living Arrangements: Patient lives with in a mobile home with ramp to enter. Patient states that is independent at home. Transportation: self/ DME/HHC: Patient states he has shower chair, raised toilet, grab bars, walker, rollator, and cpap at home. Patient states he has had [facility] HHC in the past. Disposition Plan: Patient to discharge home with family support and follow-up plans in place. Gavin Moreno RN, CCM.
--- NOTE | 2020-05-20 14:17 | PN_ITS ---
Patient Problems: Active and Suspected Problems Severe sepsis (Acute) COVID-19 (Acute) UTI (urinary tract infection) (Acute) Subjective: Patient was seen and examined today in ICU, he has no respiratory complaints today, his CTA on admission did not show any evidence of pneumonia, the patient is not hypoxic. His blood cultures returned today as being positive for gram- negative myesha, I suspect this is urinary in origin. I am doubtful he really has COVID-19 at this point, I have ordered a PCR test on the patient. I talked with his by phone today and I told her I would let her know either by nursing or myself whether the patient was positive on his PCR test. Patient is currently on Rocephin, he is being seen by critical care. - Physical Exam Vitals/I&O's: Vital Signs Temp Pulse Resp BP Pulse Ox 98.0 F 73 23 H 163/50 H 94 05/20/20 09:55 05/20/20 09:55 05/20/20 09:55 05/20/20 09:55 05/20/20 09:55 Oxygen Delivery Method CPAP Weight: 141.249 kg Body Mass Index (BMI) 43.4 Intake and Output for Last 24 Hours 05/18/20 05/19/20 05/20/20 23:59 23:59 23:59 Intake Total 1832.50 / 1832.50 Output Total Balance 1831.50 / 1831.50 General: Alert, Oriented x3, Cooperative, No apparent distress, Well nourished HEENT: Atraumatic, PERRLA, EOMI, Normocephalic Oral: Moist Mucosa Neck: Supple, No JVD, Trachea Midline, Thyroid Normal Size and Texture Lungs: Clear to auscultation, Normal air movement, No rhonchi, No wheeze, No rales Cardiovascular: Regular rate, Regular Rhythm, Normal S1, Normal S2, No murmurs Abdomen: Bowel Sounds Present, Soft, Non Tender, Non-Distended Extremities: No clubbing, No cyanosis, No edema, Capillary Refill Less than 3 Seconds Skin: No rashes, No breakdown Musculoskeletal: No Tenderness to Palpation of Joints or Extremities Neurological: Cranial nerves II-XII grossly intact, Neuro grossly intact, Sensory exam intact to light touch and pain, Coordination normal Psych/Mental Status: Normal Affect, Appropriate, Alert and oriented to time, place, person, mood and affect Microbiology Past 72 Hours 05/19/20 21:20 Blood Culture (Wb) - Left Forearm Blood Culture - Preliminary 05/20/20 05:10 Stool Enteric Bacteriology - Final 05/20/20 05:10 Stool C. difficile DNA Amplification - Final 05/20/20 01:15 Mucosa - Nasopharyngeal Respiratory Panel (PCR) - Final 05/19/20 22:15 Urine, Clean Catch Legionella Antigen - Final 05/19/20 22:15 Urine, Clean Catch Streptococcus pneumoniae Antigen (M - Final 05/19/20 21:25 Mucosa - Nose SARS-CoV-2 Antigen (Rapid) - Final SARS-CoV-2 (COVID 19) Laboratory Results 05/19/20 21:05: Sodium 134 L, Potassium 4.4, Chloride 103, Carbon Dioxide 21.0, Anion Gap 10, BUN 14, Creatinine 1.12, Estim Creat Clear Calc 62.46, Est GFR (MDRD) Af Amer 83, Est GFR (MDRD) Non-Af 69, BUN/Creatinine Ratio 12.5, Glucose 167 H, Calcium 8.6 05/19/20 21:20: WBC 21.7 H, RBC 5.23, Hgb 15.0, Hct 46.0, MCV 88.0, MCH 28.7, MCHC 32.6, RDW Std Deviation 42.5, RDW Coeff of Elidia 13.2, Plt Count 192, MPV 10.4, Immature Gran % (Auto) 0.600, Neut % (Auto) 86.0 H, Lymph % (Auto) 4.9 L, [place] % (Auto) 8.3, Eos % (Auto) 0.0, Baso % (Auto) 0.2, Absolute Neuts (auto) 18.7 H, Absolute Lymphs (auto) 1.06, Nucleated RBC % 0, Differential Comment SCANNED, Diff Path Review June foll 05/19/20 21:20: Lactic Acid 2.5 H* 05/19/20 21:20: D-Dimer Quant (PE/DVT) 1.42 H* 05/19/20 21:20: Magnesium 1.9, Ferritin 245, Lactate Dehydrogenase 292 H, Troponin I 0.082 H, C-React Prot Ext Range 113.00 H 05/19/20 21:20: B-Natriuretic Peptide 326.9 H 05/19/20 22:15: Urine Color Yellow, Urine Clarity Clear, Urine pH 5.0, Ur Specific [place] 1.020, Urine Protein 30 H, Urine Glucose (UA) 250 H, Urine Ketones 50 H, Urine Occult Blood 150 H, Urine Nitrite Negative, Urine Bilirubin 6 H, Urine Urobilinogen Normal, Ur Leukocyte Esterase 500 H, Urine RBC 0-5 SEEN, Urine WBC 25-50 SEEN, Ur Squamous Epith Cells 0-5 SEEN, Urine Bacteria 1+, Urine Mucus 0 SEEN 05/20/20 01:25: Procalcitonin 0.64 H 05/20/20 01:25: Lactic Acid 1.6 05/20/20 02:40: Troponin I 0.131 H 05/20/20 05:30: WBC 25.6 H, RBC 4.79, Hgb 13.7, Hct 42.5, MCV 88.7, MCH 28.6, MCHC 32.2, RDW Std Deviation 43.1, RDW Coeff of Elidia 13.2, Plt Count 163, MPV 10.1, Immature Gran % (Auto) 1.400 H, Neut % (Auto) 88.2 H, Lymph % (Auto) 4.3 L , [place] % (Auto) 5.9, Eos % (Auto) 0.0, Baso % (Auto) 0.2, Absolute Neuts (auto) 22.6 H, Absolute Lymphs (auto) 1.11, Nucleated RBC % 0, Diff Path Review June05/20/20 05:30: Sodium 136, Potassium 3.7, Chloride 106, Carbon Dioxide 20.0 L, Anion Gap 10, BUN 11, Creatinine 0.88, Estim Creat Clear Calc 82.00, Est GFR (MDRD) Af Amer 110, Est GFR (MDRD) Non-Af 91, BUN/Creatinine Ratio 12.6, Glucose 167 H, Calcium 7.6 L, Total Bilirubin 0.60, AST 33, ALT 16, Alkaline Phosphatase 46, Total Protein 5.6 L, Albumin 2.6 L, Globulin 3.0, Albumin/Globulin Ratio 0.9 05/20/20 05:30: Troponin I 0.151 H 05/20/20 08:00: POC Glucose 173 H 05/20/20 11:15: POC Glucose 167 H 05/20/20 13:25: COVID-19 (HEATH) Pending Current Medications Acetaminophen (Acetaminophen 325 Mg Tablet) 650 mg PO Q6H PRN PRN PRN Reason: Pain Score 1-10/Temp > 100.7 F Al Hydroxide/Mg Hydroxide (Mag Hydrox/Al Hydrox/Simeth 30 Ml Udc) 30 ml PO Q6H PRN PRN PRN Reason: Gastric Burning Albuterol Sulfate (Albuterol Ih 8.5 Gm (Proair) Inhaler (200 Puffs)) 4 - 8 puff INHALATION Q4H PRN PRN PRN Reason: Dyspnea, wheezing Amlodipine Besylate (Amlodipine 5 Mg Tablet) 5 mg PO DAILY [facility] Last Admin: 05/20/20 09:42 Dose: 5 mg Documented by: Aspirin (Aspirin E.C. 81 Mg Tablet) 81 mg PO DAILY [facility] Last Admin: 05/20/20 09:42 Dose: 81 mg Documented by: Atenolol (Atenolol 50 Mg Tablet) 50 mg PO DAILY [facility] Last Admin: 05/20/20 09:42 Dose: 50 mg Documented by: Atorvastatin Calcium (Atorvastatin Calcium 20 Mg Tablet) 20 mg PO QHS [facility] Calcium/Vitamin D (Calcium Carb/Vitamin D 1 Tablet Tablet) 2 tablet PO BIDCM [facility] Last Admin: 05/20/20 09:42 Dose: 2 tablet Documented by: Dexamethasone Sodium Phosphate (Dexamethasone 10 Mg/Ml Vial) 6 mg IV DAILY [facility] Stop: 05/28/20 10:01 Last Admin: 05/20/20 09:45 Dose: 6 mg Documented by: Enoxaparin Sodium (Enoxaparin 40 Mg/0.4 Ml Syringe) 40 mg SC BID [facility] Last Admin: 05/20/20 09:44 Dose: 40 mg Documented by: Etodolac (Etodolac 200 Mg Capsule) 400 mg PO BID [facility] Last Admin: 05/20/20 09:44 Dose: 400 mg Documented by: Guaifenesin (Guaifenesin 10 Ml Udc (200mg/10ml)) 10 ml PO Q4H PRN PRN PRN Reason: COUGH Ceftriaxone Sodium (Rocephin) 1 gm in 50 mls @ 100 mls/hr IV Q24H [facility] Remdesivir 100 mg/ Sodium (Chloride) 250 mls @ 125 mls/hr IV Q24H [facility]; Protocol Stop: 05/23/20 23:59 Sodium Chloride () 250 mls @ 15 mls/hr IV .[id number] PRN PRN Reason: Additional IVPB Infusion Insulin Human Lispro (Insulin Lispro 100 Unit/Ml Insuln.Pen) 0 unit SC [facility]; Protocol Last Admin: 05/20/20 11:16 Dose: 1 u Documented by: Ipratropium Lando (Ipratropium Lando 0.06% Nasal [place]) 2 spray NASAL BID PRN PRN Reason: ALLERGIES Loratadine (Loratadine 10 Mg Tablet) 10 mg PO DAILY PRN PRN PRN Reason: ALLERGIES Melatonin (Melatonin 3 Mg Tablet) 3 mg PO QHS PRN PRN PRN Reason: INSOMNIA Morphine Sulfate (Morphine 2 Mg/Ml Syringe) 2 mg IV Q3H PRN PRN PRN Reason: Pain Score 6-10 Mycophenolate Mofetil (Mycophenolate Mofetil 250 Mg Capsule) 1,500 mg PO BID [facility] Last Admin: 05/20/20 09:43 Dose: 1,500 mg Documented by: Ondansetron HCl (Ondansetron 4 Mg/2 Ml Vial) 4 mg IV Q8H PRN PRN PRN Reason: NAUSEA/VOMITING Oxycodone HCl (Oxycodone 5 Mg Tablet) 5 mg PO Q4H PRN PRN PRN Reason: Pain Score 4-5 Pyridostigmine Lando (Pyridostigmine Lando 60 Mg Tablet) 60 mg PO BID [facility] Last Admin: 05/20/20 10:32 Dose: 60 mg Documented by: Sodium Chloride (0.9% Saline Lock 10 Ml Syringe) 10 - 40 ml IV UD PRN PRN Reason: SALINE FLUSH Throat Lozenges (Benzocaine/Menthol 1 Lozenge) 1 lozenge MUCOUS MEM Q2H PRN PRN PRN Reason: SORE THROAT Medical Necessity - Tobacco Use Smoking Status: Former smoker Tobacco Use: Non-smoker Assessment/Plan All Active Problems Cellulitis (Acute) Severe sepsis (Acute) COVID-19 (Acute) UTI (urinary tract infection) (Acute) #1 severe sepsis-secondary to gram-negative bacterial infection, probably urinary in origin-continue Rocephin at this time, patient will remain in ICU at this time #2 positive COVID-19 rapid antigen test-again I am doubtful the patient actually has COVID-19, PCR is pending at the time of this dictation #3 essential hypertension #4 type 2 diabetes #5 hyperlipidemia #6 obstructive sleep apnea #7 morbid obesity #8 pyelonephritis secondary to gram-negative bacteria Inpatient E&M: 21172 Subs Hosp L2
[2020-05-20] MEDS: Loratadine 10 MG Tablet PO (16:14)
[2020-05-20 16:35] LABS: Bedside Glucose 193 mg/dL (70-110)
[2020-05-20] MEDS: 0.9% Saline Lock 10 ML Syringe IV (17:02)
[2020-05-20] MEDS: Atorvastatin Calcium 20 MG Tablet PO (21:48)
[2020-05-20] MEDS: MELATONIN 3 MG TABLET PO (21:48)
[2020-05-20] MEDS: Ceftriaxone 1 GM/50 ML BAG IV (21:49)
[2020-05-21] VITALS (12 sets, daily range): BP systolic 119–148; BP diastolic 55–68; PULSE 51–66; RESP 17–23; TEMP 36.6–36.7; O2SAT 92–98
[2020-05-21 03:05] LABS: Bedside Glucose 223 mg/dL (70-110)
[2020-05-21 04:11] LABS: Absolute Lymphocyte Count 1.08 X10^3/uL (0.83-4.51); Absolute Neutrophil Count 24.4 X10^3/uL (2.0-7.7); Basophil# 0.04 X10^3/uL; Basophil% 0.1 % (0-1); Hemoglobin 13.8 g/dL (13.0-16.5); Lymphocyte # 1.08 X10^3/ul (4.0); Mean Corp Hgb Conc 32.1 g/dL (32-36); Mean Corpuscular Hgb 28.3 pg (27.0-32.0); Mean Corpuscular Volume 88.3 fL (80-94); Mean Platelet Vol. 10.5 fl (6.2-12.0); Monocyte# 1.12 X10^3/uL; Monocyte% 4.2 % (0-10); NRBC Flagged by Analyzer 0 % (0-5); Neutrophil # 24.36 X10^3/uL (2.7-7.7); Neutrophil % 90.4 % (47-70); POSITIVE DIFFERENTIAL YES; Platelet Count 168 K/mm3 (150-450); RBC Distribution Width CV 13.3 % (11.6-14.6); RBC Distribution Width SD 43.7 fl (35.1-43.9); Red Blood Count 4.87 M/mm3 (4.6-6.2); White Blood Count 26.9 K/mm3 (4.4-11.0)
[2020-05-21 04:12] LABS: Differential Indicated SCAN CRITERIA MET
[2020-05-21 04:35] LABS: ALB/GLOB Ratio 0.8 RATIO (0.9-2.4); AST(SGOT) 27 U/L (15-37); Alanine Aminotransfer ALT/SGPT 17 U/L (16-61); Albumin, Serum 2.5 g/dL (3.2-5.0); Alkaline Phosphatase 44 U/L (45-117); Anion Gap 6 (5-15); BUN 27 mg/dL (7-18); BUN/Creat Ratio 32.4 RATIO (10-20); Calcium,Total 8.5 mg/dL (8.5-10.1); Chloride 107 mmol/L (98-107); Creatinine, Serum 0.83 mg/dL (0.70-1.30); EST Glomerular Filtration Rate 97 mL/min (>60); Est Glom Filt Rate - Afr Amer 117 mL/min (>60); Estimated Creatinine Clearance 86.94 ml/min; Globulin 3.2 g/dL (2.2-4.2); Glucose 214 mg/dL (74-106); Potassium 3.8 mmol/L (3.5-5.1); Protein, Total 5.7 g/dL (6.4-8.2); Sodium Level 137 mmol/L (136-145)
[2020-05-21 04:52] LABS: Differential Comment SCANNED
--- NOTE | 2020-05-21 05:36 | PN_ITS ---
Subjective: The patient was seen and examined at the bedside this morning. Events from the last 24 hours have been reviewed. The patient has remained compliant with the use of nocturnal Pap therapy. He was able to be maintained on room air yesterday with appropriate saturations noted. White count remains elevated at 27,000. No overnight issues were identified by the nursing staff. The patient remains on remdesivir and Decadron. Liver and renal function are stable. Objective: The patient's most recent lab work, culture data and imaging studies have all been personally reviewed. Rapid coronavirus antigen testing and PCR were both positive. Blood and urine cultures are pending. Strep and urine Legionella antigens were negative. Respiratory viral panel was negative. C. difficile was negative. CTA chest showed no evidence for pulmonary embolism. Old bilateral rib fractures were noted. General: Alert, Cooperative, No apparent distress HEENT: Atraumatic, Normocephalic Oral: Moist Mucosa, No Gingival or Mucosal Lesions/ Ulcerations Neck: Supple, No Nodes, Trachea Midline Lungs: No rhonchi, No wheeze, No rales Cardiovascular: Regular rate, Regular Rhythm, Normal S1, Normal S2, No murmurs Abdomen: Bowel Sounds Present, Soft, Non Tender, Obese Extremities: No clubbing, No cyanosis Skin: No breakdown Musculoskeletal: No Tenderness to Palpation of Joints or Extremities, No Muscle Wasting Lymphatic: No Cervical, Supraclavicular, or Inguinal Adenopathy Neurological: Cranial nerves II-XII grossly intact, Neuro grossly intact Psych/Mental Status: Alert and oriented to time, place, person, mood and affect Vital Signs Temp Pulse Resp BP Pulse Ox 97.8 F 56 L 17 123/55 H 93 05/21/20 04:00 05/21/20 04:00 05/21/20 04:00 05/21/20 04:00 05/21/20 04:00 Oxygen Delivery Method CPAP Weight: 311 lb 6.412 oz Body Mass Index (BMI) 43.4 Intake and Output for Last 24 Hours 05/19/20 05/20/20 05/21/20 23:59 23:59 23:59 Intake Total 2382.50 / 2622.50 490 / 490 Output Total Balance 2381.50 / 2621.50 490 / 490 Labs (Last 48 Hours) 03/26/21 03/26/21 03/26/21 21:05 21:20 21:20 WBC 21.7 H RBC 5.23 Hgb 15.0 Hct 46.0 MCV 88.0 MCH 28.7 MCHC 32.6 RDW Std Deviation 42.5 RDW Coeff of Elidia 13.2 Plt Count 192 MPV 10.4 Immature Gran % (Auto) 0.600 Neut % (Auto) 86.0 H Lymph % (Auto) 4.9 L [place] % (Auto) 8.3 Eos % (Auto) 0.0 Baso % (Auto) 0.2 Absolute Neuts (auto) 18.7 H Absolute Lymphs (auto) 1.06 Nucleated RBC % 0 Differential Comment SCANNED Diff Path Review May foll D-Dimer Quant (PE/DVT) Sodium 134 L Potassium 4.4 Chloride 103 Carbon Dioxide 21.0 Anion Gap 10 BUN 14 Creatinine 1.12 Estim Creat Clear Calc 62.46 Est GFR (MDRD) Af Amer 83 Est GFR (MDRD) Non-Af 69 BUN/Creatinine Ratio 12.5 Glucose 167 H Lactic Acid 2.5 H* Calcium 8.6 Magnesium Ferritin Total Bilirubin AST ALT Alkaline Phosphatase Lactate Dehydrogenase Troponin I C-React Prot Ext Range B-Natriuretic Peptide Total Protein Albumin Globulin Albumin/Globulin Ratio Procalcitonin Urine Color Urine Clarity Urine pH Ur Specific [place] Urine Protein Urine Glucose (UA) Urine Ketones Urine Occult Blood Urine Nitrite Urine Bilirubin Urine Urobilinogen Ur Leukocyte Esterase Urine RBC Urine WBC Ur Squamous Epith Cells Urine Bacteria Urine Mucus COVID-19 (HEATH) POC Glucose 05/19/20 05/19/20 05/19/20 21:20 21:20 21:20 WBC RBC Hgb Hct MCV MCH MCHC RDW Std Deviation RDW Coeff of Elidia Plt Count MPV Immature Gran % (Auto) Neut % (Auto) Lymph % (Auto) [place] % (Auto) Eos % (Auto) Baso % (Auto) Absolute Neuts (auto) Absolute Lymphs (auto) Nucleated RBC % Differential Comment Diff Path Review D-Dimer Quant (PE/DVT) 1.42 H* Sodium Potassium Chloride Carbon Dioxide Anion Gap BUN Creatinine Estim Creat Clear Calc Est GFR (MDRD) Af Amer Est GFR (MDRD) Non-Af BUN/Creatinine Ratio Glucose Lactic Acid Calcium Magnesium 1.9 Ferritin 245 Total Bilirubin AST ALT Alkaline Phosphatase Lactate Dehydrogenase 292 H Troponin I 0.082 H C-React Prot Ext Range 113.00 H B-Natriuretic Peptide 326.9 H Total Protein Albumin Globulin Albumin/Globulin Ratio Procalcitonin Urine Color Urine Clarity Urine pH Ur Specific [place] Urine Protein Urine Glucose (UA) Urine Ketones Urine Occult Blood Urine Nitrite Urine Bilirubin Urine Urobilinogen Ur Leukocyte Esterase Urine RBC Urine WBC Ur Squamous Epith Cells Urine Bacteria Urine Mucus COVID-19 (HEATH) POC Glucose 05/19/20 05/20/20 05/20/20 22:15 01:25 01:25 WBC RBC Hgb Hct MCV MCH MCHC RDW Std Deviation RDW Coeff of Elidia Plt Count MPV Immature Gran % (Auto) Neut % (Auto) Lymph % (Auto) [place] % (Auto) Eos % (Auto) Baso % (Auto) Absolute Neuts (auto) Absolute Lymphs (auto) Nucleated RBC % Differential Comment Diff Path Review D-Dimer Quant (PE/DVT) Sodium Potassium Chloride Carbon Dioxide Anion Gap BUN Creatinine Estim Creat Clear Calc Est GFR (MDRD) Af Amer Est GFR (MDRD) Non-Af BUN/Creatinine Ratio Glucose Lactic Acid 1.6 Calcium Magnesium Ferritin Total Bilirubin AST ALT Alkaline Phosphatase Lactate Dehydrogenase Troponin I C-React Prot Ext Range B-Natriuretic Peptide Total Protein Albumin Globulin Albumin/Globulin Ratio Procalcitonin 0.64 H Urine Color Yellow Urine Clarity Clear Urine pH 5.0 Ur Specific [place] 1.020 Urine Protein 30 H Urine Glucose (UA) 250 H Urine Ketones 50 H Urine Occult Blood 150 H Urine Nitrite Negative Urine Bilirubin 6 H Urine Urobilinogen Normal Ur Leukocyte Esterase 500 H Urine RBC 0-5 SEEN Urine WBC 25-50 SEEN Ur Squamous Epith Cells 0-5 SEEN Urine Bacteria 1+ Urine Mucus 0 SEEN COVID-19 (HEATH) POC Glucose 05/20/20 05/20/20 05/20/20 02:40 05:30 05:30 WBC 25.6 H RBC 4.79 Hgb 13.7 Hct 42.5 MCV 88.7 MCH 28.6 MCHC 32.2 RDW Std Deviation 43.1 RDW Coeff of Elidia 13.2 Plt Count 163 MPV 10.1 Immature Gran % (Auto) 1.400 H Neut % (Auto) 88.2 H Lymph % (Auto) 4.3 L [place] % (Auto) 5.9 Eos % (Auto) 0.0 Baso % (Auto) 0.2 Absolute Neuts (auto) 22.6 H Absolute Lymphs (auto) 1.11 Nucleated RBC % 0 Differential Comment Diff Path Review May foll D-Dimer Quant (PE/DVT) Sodium 136 Potassium 3.7 Chloride 106 Carbon Dioxide 20.0 L Anion Gap 10 BUN 11 Creatinine 0.88 Estim Creat Clear Calc 82.00 Est GFR (MDRD) Af Amer 110 Est GFR (MDRD) Non-Af 91 BUN/Creatinine Ratio 12.6 Glucose 167 H Lactic Acid Calcium 7.6 L Magnesium Ferritin Total Bilirubin 0.60 AST 33 ALT 16 Alkaline Phosphatase 46 Lactate Dehydrogenase Troponin I 0.131 H C-React Prot Ext Range B-Natriuretic Peptide Total Protein 5.6 L Albumin 2.6 L Globulin 3.0 Albumin/Globulin Ratio 0.9 Procalcitonin Urine Color Urine Clarity Urine pH Ur Specific [place] Urine Protein Urine Glucose (UA) Urine Ketones Urine Occult Blood Urine Nitrite Urine Bilirubin Urine Urobilinogen Ur Leukocyte Esterase Urine RBC Urine WBC Ur Squamous Epith Cells Urine Bacteria Urine Mucus COVID-19 (HEATH) POC Glucose 05/20/20 05/20/20 05/20/20 05:30 08:00 11:15 WBC RBC Hgb Hct MCV MCH MCHC RDW Std Deviation RDW Coeff of Elidia Plt Count MPV Immature Gran % (Auto) Neut % (Auto) Lymph % (Auto) [place] % (Auto) Eos % (Auto) Baso % (Auto) Absolute Neuts (auto) Absolute Lymphs (auto) Nucleated RBC % Differential Comment Diff Path Review D-Dimer Quant (PE/DVT) Sodium Potassium Chloride Carbon Dioxide Anion Gap BUN Creatinine Estim Creat Clear Calc Est GFR (MDRD) Af Amer Est GFR (MDRD) Non-Af BUN/Creatinine Ratio Glucose Lactic Acid Calcium Magnesium Ferritin Total Bilirubin AST ALT Alkaline Phosphatase Lactate Dehydrogenase Troponin I 0.151 H C-React Prot Ext Range B-Natriuretic Peptide Total Protein Albumin Globulin Albumin/Globulin Ratio Procalcitonin Urine Color Urine Clarity Urine pH Ur Specific [place] Urine Protein Urine Glucose (UA) Urine Ketones Urine Occult Blood Urine Nitrite Urine Bilirubin Urine Urobilinogen Ur Leukocyte Esterase Urine RBC Urine WBC Ur Squamous Epith Cells Urine Bacteria Urine Mucus COVID-19 (HEATH) POC Glucose 173 H 167 H 05/20/20 05/20/20 05/20/20 13:25 16:16 21:46 WBC RBC Hgb Hct MCV MCH MCHC RDW Std Deviation RDW Coeff of Elidia Plt Count MPV Immature Gran % (Auto) Neut % (Auto) Lymph % (Auto) [place] % (Auto) Eos % (Auto) Baso % (Auto) Absolute Neuts (auto) Absolute Lymphs (auto) Nucleated RBC % Differential Comment Diff Path Review D-Dimer Quant (PE/DVT) Sodium Potassium Chloride Carbon Dioxide Anion Gap BUN Creatinine Estim Creat Clear Calc Est GFR (MDRD) Af Amer Est GFR (MDRD) Non-Af BUN/Creatinine Ratio Glucose Lactic Acid Calcium Magnesium Ferritin Total Bilirubin AST ALT Alkaline Phosphatase Lactate Dehydrogenase Troponin I C-React Prot Ext Range B-Natriuretic Peptide Total Protein Albumin Globulin Albumin/Globulin Ratio Procalcitonin Urine Color Urine Clarity Urine pH Ur Specific [place] Urine Protein Urine Glucose (UA) Urine Ketones Urine Occult Blood Urine Nitrite Urine Bilirubin Urine Urobilinogen Ur Leukocyte Esterase Urine RBC Urine WBC Ur Squamous Epith Cells Urine Bacteria Urine Mucus COVID-19 (HEATH) Detected POC Glucose 193 H 223 H 05/21/20 05/21/20 04:05 04:05 WBC 26.9 H RBC 4.87 Hgb 13.8 Hct 43.0 MCV 88.3 MCH 28.3 MCHC 32.1 RDW Std Deviation 43.7 RDW Coeff of Elidia 13.3 Plt Count 168 MPV 10.5 Immature Gran % (Auto) 1.300 H Neut % (Auto) 90.4 H Lymph % (Auto) 4.0 L [place] % (Auto) 4.2 Eos % (Auto) 0.0 Baso % (Auto) 0.1 Absolute Neuts (auto) 24.4 H Absolute Lymphs (auto) 1.08 Nucleated RBC % 0 Differential Comment SCANNED Diff Path Review D-Dimer Quant (PE/DVT) Sodium 137 Potassium 3.8 Chloride 107 Carbon Dioxide 24.0 Anion Gap 6 BUN 27 H Creatinine 0.83 Estim Creat Clear Calc 86.94 Est GFR (MDRD) Af Amer 117 Est GFR (MDRD) Non-Af 97 BUN/Creatinine Ratio 32.4 H Glucose 214 H Lactic Acid Calcium 8.5 Magnesium Ferritin Total Bilirubin 0.40 AST 27 ALT 17 Alkaline Phosphatase 44 L Lactate Dehydrogenase Troponin I C-React Prot Ext Range B-Natriuretic Peptide Total Protein 5.7 L Albumin 2.5 L Globulin 3.2 Albumin/Globulin Ratio 0.8 L Procalcitonin Urine Color Urine Clarity Urine pH Ur Specific [place] Urine Protein Urine Glucose (UA) Urine Ketones Urine Occult Blood Urine Nitrite Urine Bilirubin Urine Urobilinogen Ur Leukocyte Esterase Urine RBC Urine WBC Ur Squamous Epith Cells Urine Bacteria Urine Mucus COVID-19 (HEATH) POC Glucose Microbiology 05/19/20 21:20 Blood Culture (Wb) - Left Forearm Blood Culture - Preliminary 05/20/20 05:10 Stool Enteric Bacteriology - Final 05/20/20 05:10 Stool C. difficile DNA Amplification - Final 05/20/20 01:15 Mucosa - Nasopharyngeal Respiratory Panel (PCR) - Final 05/19/20 22:15 Urine, Clean Catch Legionella Antigen - Final 05/19/20 22:15 Urine, Clean Catch Streptococcus pneumoniae Antigen (M - Final 05/19/20 21:25 Mucosa - Nose SARS-CoV-2 Antigen (Rapid) - Final SARS-CoV-2 (COVID 19) Clinical Impression(s) from Imaging Studies Chest X-Ray 05/19/20 21:30 IMPRESSION: No acute radiographic abnormalities. Ill-defined soft tissue density along the lateral aspect of the right hemithorax most likely secondary to pleural scarring from prior trauma. Chronic fracture deformities of the left posterior seventh and eighth ribs. Electronically Signed: Jack Sosa MD at 21:55 EDT Tel , Service support , Chest CTA 05/20/20 02:09 IMPRESSION: No demonstrated pulmonary embolism or arterial dissection. Multiple old bilateral rib fractures. Cholelithiasis. Electronically Signed: Yvan Corrales MD at 5:47 EDT Tel , Service support , Medical Necessity - Tobacco Use Smoking Status: Former smoker Tobacco Use: Non-smoker Assessment/Plan All Active Problems Cellulitis (Resolved) Severe sepsis (Acute) COVID-19 (Acute) UTI (urinary tract infection) (Acute) RECOMMENDATIONS: 1. Supplemental oxygen as needed to maintain saturations at or above 90%. 2. Continue remdesivir and Decadron as ordered. Continue to monitor liver and renal function. 3. Continue empiric antimicrobials, pending urine culture results. 4. Continue nocturnal Pap therapy per home regimen. 5. Encourage incentive spirometer use and mobilize patient as tolerated. IMPRESSIONS: 1. Severe sepsis secondary to COVID-19 pneumonia Although the patient is currently utilizing his nasal CPAP per home regimen, he has been able to maintain appropriate oxygen saturations on room air. His sy mptoms have been present now for 2 to 3 days. Plan to continue current supportive measures including remdesivir and Decadron. Continue to monitor liver and renal function. Antimicrobials will be continued pending results of urine culture. Continue prophylactic Lovenox. CTA chest was negative for the presence of PE. 2. History of myasthenia gravis/hypertension/diabetes mellitus /obesity/obstructive sleep apnea Complicates care, management, recovery and prognosis. Continue home medications as indicated. Continue nocturnal Pap therapy. This note was generated with [employer] dictation software. It may contain incorrect words, spelling, and punctuation that were not noted in checking the note before signing. Inpatient E&M: 18105 Subs Hosp L2
[2020-05-21] MEDS: Insulin Lispro 100 UNIT/ML INSULN.PEN SC ×4 (08:26→20:43)
[2020-05-21] MEDS: Mycophenolate Mofetil 250 MG Capsule 1500 MG PO ×2 (08:27→20:41)
[2020-05-21 08:56] LABS: Bedside Glucose 195 mg/dL (70-110)
[2020-05-21] MEDS: Enoxaparin 40 MG/0.4 ML Syringe SC ×2 (10:19→20:42)
[2020-05-21] MEDS: dexAMETHasone 10 MG/ML Vial 6 MG IV (10:19)
[2020-05-21] MEDS: Pyridostigmine Bromide 60 MG Tablet PO ×2 (10:19→20:42)
[2020-05-21] MEDS: Atenolol 50 MG Tablet PO (10:19)
[2020-05-21] MEDS: Etodolac 200 MG Capsule 400 MG PO ×2 (10:20→20:42)
[2020-05-21] MEDS: Calcium Carb/Vitamin D 1 TABLET Tablet 2 TABLET PO ×2 (10:20→16:55)
[2020-05-21] MEDS: 0.9% Saline Lock 10 ML Syringe IV (10:20)
[2020-05-21] MEDS: amLODIPine 5 MG Tablet PO (10:20)
[2020-05-21] MEDS: Aspirin E.C. 81 MG Tablet PO (10:20)
--- NOTE | 2020-05-21 11:02 | PN_ITS ---
Patient Problems: Active and Suspected Problems Severe sepsis (Acute) COVID-19 (Acute) UTI (urinary tract infection) (Acute) Subjective: Patient was seen and examined today, his COVID-19 PCR test was negative yesterday, I talked with his on the phone. Patient's white count is still elevated-he tells me he takes prednisone 10 mg daily at home for his myasthenia gravis. Patient remains on room air at this time, he has no complaints of any cough or shortness of breath. Patient's T-max today was 100.2 at 12:40 AM this morning. Objective: General: Alert, Oriented x3, Cooperative, No apparent distress, Well nourished HEENT: Atraumatic, PERRLA, EOMI, Normocephalic Oral: Moist Mucosa Neck: Supple, No JVD, Trachea Midline, Thyroid Normal Size and Texture Lungs: Clear to auscultation, Normal air movement, No rhonchi, No wheeze, No rales Cardiovascular: Regular rate, Regular Rhythm, Normal S1, Normal S2, No murmurs Abdomen: Bowel Sounds Present, Soft, Non Tender, Non-Distended Extremities: No clubbing, No cyanosis, No edema, Capillary Refill Less than 3 Seconds Skin: No rashes, No breakdown Musculoskeletal: No Tenderness to Palpation of Joints or Extremities Neurological: Cranial nerves II-XII grossly intact, Neuro grossly intact, Sensory exam intact to light touch and pain, Coordination normal Psych/Mental Status: Normal Affect, Appropriate, Alert and oriented to time, place, person, mood and affect - Physical Exam Vitals/I&O's: Vital Signs Temp Pulse Resp BP Pulse Ox 98.1 F 60 23 H 119/55 L 97 05/21/20 08:39 05/21/20 08:39 05/21/20 08:39 05/21/20 08:39 05/21/20 08:39 Oxygen Delivery Method Room Air Weight: 141.43 kg Body Mass Index (BMI) 43.4 Intake and Output for Last 24 Hours 05/19/20 05/20/20 05/21/20 23:59 23:59 23:59 Intake Total 2382.50 / 2622.50 490 / 490 Output Total 400 / 400 Balance 2381.50 / 2621.50 90 / 90 Microbiology Past 72 Hours 05/19/20 21:20 Blood Culture (Wb) - Left Forearm 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 difficile DNA Amplification - Final 05/20/20 01:15 Mucosa - Nasopharyngeal Respiratory Panel (PCR) - Final 05/19/20 22:15 Urine, Clean Catch Legionella Antigen - Final 05/19/20 22:15 Urine, Clean Catch Streptococcus pneumoniae Antigen (M - Final 05/19/20 21:25 Mucosa - Nose SARS-CoV-2 Antigen (Rapid) - Final SARS-CoV-2 (COVID 19) Laboratory Results 05/20/20 11:15: POC Glucose 167 H 05/20/20 13:25: COVID-19 (HEATH) Detected 05/20/20 16:16: POC Glucose 193 H 05/20/20 21:46: POC Glucose 223 H 05/21/20 04:05: WBC 26.9 H, RBC 4.87, Hgb 13.8, Hct 43.0, MCV 88.3, MCH 28.3, MCHC 32.1, RDW Std Deviation 43.7, RDW Coeff of Elidia 13.3, Plt Count 168, MPV 10.5, Immature Gran % (Auto) 1.300 H, Neut % (Auto) 90.4 H, Lymph % (Auto) 4.0 L , [place] % (Auto) 4.2, Eos % (Auto) 0.0, Baso % (Auto) 0.1, Absolute Neuts (auto) 24.4 H, Absolute Lymphs (auto) 1.08, Nucleated RBC % 0, Differential Comment SCANNED 05/21/20 04:05: Sodium 137, Potassium 3.8, Chloride 107, Carbon Dioxide 24.0, Anion Gap 6, BUN 27 H, Creatinine 0.83, Estim Creat Clear Calc 86.94, Est GFR (MDRD) Af Amer 117, Est GFR (MDRD) Non-Af 97, BUN/Creatinine Ratio 32.4 H, Glucose 214 H, Calcium 8.5, Total Bilirubin 0.40, AST 27, ALT 17, Alkaline Phosphatase 44 L, Total Protein 5.7 L, Albumin 2.5 L, Globulin 3.2, Albumin/Globulin Ratio 0.8 L 05/21/20 08:23: POC Glucose 195 H Current Medications Acetaminophen (Acetaminophen 325 Mg Tablet) 650 mg PO Q6H PRN PRN PRN Reason: Pain Score 1-10/Temp > 100.7 F Al Hydroxide/Mg Hydroxide (Mag Hydrox/Al Hydrox/Simeth 30 Ml Udc) 30 ml PO Q6H PRN PRN PRN Reason: Gastric Burning Albuterol Sulfate (Albuterol Ih 8.5 Gm (Proair) Inhaler (200 Puffs)) 4 - 8 puff INHALATION Q4H PRN PRN PRN Reason: Dyspnea, wheezing Amlodipine Besylate (Amlodipine 5 Mg Tablet) 5 mg PO DAILY [facility] Last Admin: 05/21/20 10:20 Dose: 5 mg Documented by: Aspirin (Aspirin E.C. 81 Mg Tablet) 81 mg PO DAILY [facility] Last Admin: 05/21/20 10:20 Dose: 81 mg Documented by: Atenolol (Atenolol 50 Mg Tablet) 50 mg PO DAILY [facility] Last Admin: 05/21/20 10:19 Dose: 50 mg Documented by: Atorvastatin Calcium (Atorvastatin Calcium 20 Mg Tablet) 20 mg PO QHS [facility] Last Admin: 05/20/20 21:48 Dose: 20 mg Documented by: Calcium/Vitamin D (Calcium Carb/Vitamin D 1 Tablet Tablet) 2 tablet PO BIDCM [facility] Last Admin: 05/21/20 10:20 Dose: 2 tablet Documented by: Dexamethasone Sodium Phosphate (Dexamethasone 10 Mg/Ml Vial) 6 mg IV DAILY [facility] Stop: 05/28/20 10:01 Last Admin: 05/21/20 10:19 Dose: 6 mg Documented by: Enoxaparin Sodium (Enoxaparin 40 Mg/0.4 Ml Syringe) 40 mg SC BID [facility] Last Admin: 05/21/20 10:19 Dose: 40 mg Documented by: Etodolac (Etodolac 200 Mg Capsule) 400 mg PO BID [facility] Last Admin: 05/21/20 10:20 Dose: 400 mg Documented by: Guaifenesin (Guaifenesin 10 Ml Udc (200mg/10ml)) 10 ml PO Q4H PRN PRN PRN Reason: COUGH Ceftriaxone Sodium (Rocephin) 1 gm in 50 mls @ 100 mls/hr IV Q24H [facility] Last Infusion: 05/20/20 22:19 Dose: Infused Documented by: Remdesivir 100 mg/ Sodium (Chloride) 250 mls @ 125 mls/hr IV Q24H [facility]; Protocol Stop: 05/23/20 23:59 Last Infusion: 05/21/20 00:25 Dose: Infused Documented by: Sodium Chloride () 250 mls @ 15 mls/hr IV .[id number] PRN PRN Reason: Additional IVPB Infusion Insulin Human Lispro (Insulin Lispro 100 Unit/Ml Insuln.Pen) 0 unit SC [facility]; Protocol Last Admin: 05/21/20 08:26 Dose: 2 u Documented by: Ipratropium [place] (Ipratropium [place] 0.06% Nasal [place]) 2 spray NASAL BID PRN PRN Reason: ALLERGIES Loratadine (Loratadine 10 Mg Tablet) 10 mg PO DAILY PRN PRN PRN Reason: ALLERGIES Last Admin: 05/20/20 16:14 Dose: 10 mg Documented by: Melatonin (Melatonin 3 Mg Tablet) 3 mg PO QHS PRN PRN PRN Reason: INSOMNIA Last Admin: 05/20/20 21:48 Dose: 3 mg Documented by: Morphine Sulfate (Morphine 2 Mg/Ml Syringe) 2 mg IV Q3H PRN PRN PRN Reason: Pain Score 6-10 Mycophenolate Mofetil (Mycophenolate Mofetil 250 Mg Capsule) 1,500 mg PO BID [facility] Last Admin: 05/21/20 08:27 Dose: 1,500 mg Documented by: Ondansetron HCl (Ondansetron 4 Mg/2 Ml Vial) 4 mg IV Q8H PRN PRN PRN Reason: NAUSEA/VOMITING Oxycodone HCl (Oxycodone 5 Mg Tablet) 5 mg PO Q4H PRN PRN PRN Reason: Pain Score 4-5 Pyridostigmine [place] (Pyridostigmine [place] 60 Mg Tablet) 60 mg PO BID [facility] Last Admin: 05/21/20 10:19 Dose: 60 mg Documented by: Sodium Chloride (0.9% Saline Lock 10 Ml Syringe) 10 - 40 ml IV UD PRN PRN Reason: SALINE FLUSH Last Admin: 05/21/20 10:20 Dose: 20 ml Documented by: Throat Lozenges (Benzocaine/Menthol 1 Lozenge) 1 lozenge MUCOUS MEM Q2H PRN PRN PRN Reason: SORE THROAT Medical Necessity - Tobacco Use Smoking Status: Former smoker Tobacco Use: Non-smoker Assessment/Plan All Active Problems Cellulitis (Resolved) Severe sepsis (Acute) COVID-19 (Acute) UTI (urinary tract infection) (Acute) #1 severe sepsis-secondary to gram-negative bacterial infection, probably urinary in origin-continue Rocephin at this time, patient will remain in ICU at this time, await sensitivities #2 Covid 19 positivity-without signs of Covid pneumonia at this time, continue remdesivir and dexamethasone #3 essential hypertension #4 type 2 diabetes-continue to monitor blood sugars #5 hyperlipidemia #6 obstructive sleep apnea #7 morbid obesity #8 pyelonephritis secondary to gram-negative bacteria, sensitivities pending Inpatient E&M: 46877 Subs Hosp L2
[2020-05-21 12:36] LABS: Bedside Glucose 202 mg/dL (70-110)
[2020-05-21 18:00] LABS: Bedside Glucose 203 mg/dL (70-110)
[2020-05-21] MEDS: Ceftriaxone 1 GM/50 ML BAG IV (20:35)
[2020-05-21] MEDS: Atorvastatin Calcium 20 MG Tablet PO (20:42)
[2020-05-21] MEDS: Ipratropium Bromide 0.06% NASAL SPRAY 2 SPRAY NASAL (20:44)
[2020-05-21 21:06] LABS: Bedside Glucose 342 mg/dL (70-110)
[2020-05-21] MEDS: MELATONIN 3 MG TABLET PO (22:17)
[2020-05-22] VITALS (7 sets, daily range): BP systolic 127–151; BP diastolic 84–96; PULSE 50–57; RESP 12–18; TEMP 36.5–36.6; O2SAT 94–99
[2020-05-22] MEDS: Ceftriaxone 1 GM/50 ML BAG IV (00:32)
[2020-05-22 04:29] LABS: Absolute Lymphocyte Count 0.96 X10^3/uL (0.83-4.51); Absolute Neutrophil Count 18.9 X10^3/uL (2.0-7.7); Basophil# 0.04 X10^3/uL; Basophil% 0.2 % (0-1); Hematocrit 45.6 % (40-54); Hemoglobin 13.4 g/dL (13.0-16.5); Lymphocyte # 0.96 X10^3/ul (4.0); Lymphocyte % 4.6 % (19-41); Mean Corp Hgb Conc 29.4 g/dL (32-36); Mean Corpuscular Hgb 28.9 pg (27.0-32.0); Mean Corpuscular Volume 98.3 fL (80-94); Mean Platelet Vol. 10.7 fl (6.2-12.0); Monocyte# 0.62 X10^3/uL; NRBC Flagged by Analyzer 0 % (0-5); Neutrophil # 18.91 X10^3/uL (2.7-7.7); Neutrophil % 91.4 % (47-70); Platelet Count 177 K/mm3 (150-450); RBC Distribution Width CV 13.3 % (11.6-14.6); RBC Distribution Width SD 47.4 fl (35.1-43.9); Red Blood Count 4.64 M/mm3 (4.6-6.2); White Blood Count 20.7 K/mm3 (4.4-11.0)
[2020-05-22 04:45] LABS: ALB/GLOB Ratio 0.8 RATIO (0.9-2.4); AST(SGOT) 22 U/L (15-37); Alanine Aminotransfer ALT/SGPT 19 U/L (16-61); Albumin, Serum 2.5 g/dL (3.2-5.0); Alkaline Phosphatase 47 U/L (45-117); Anion Gap 7 (5-15); BUN 38 mg/dL (7-18); Calcium,Total 8.4 mg/dL (8.5-10.1); Chloride 107 mmol/L (98-107); Creatinine, Serum 0.95 mg/dL (0.70-1.30); EST Glomerular Filtration Rate 83 mL/min (>60); Est Glom Filt Rate - Afr Amer 101 mL/min (>60); Estimated Creatinine Clearance 75.96 ml/min; Globulin 3.3 g/dL (2.2-4.2); Glucose 237 mg/dL (74-106); Potassium 3.8 mmol/L (3.5-5.1); Protein, Total 5.8 g/dL (6.4-8.2); Sodium Level 137 mmol/L (136-145)
[2020-05-22] MEDS: Alendronate Sodium 70 MG Tablet PO (05:43)
[2020-05-22] MEDS: Mycophenolate Mofetil 250 MG Capsule 1500 MG PO (05:43)
--- NOTE | 2020-05-22 06:42 | PN_ITS ---
Patient Problems: Active and Suspected Problems Severe sepsis (Acute) COVID-19 (Acute) UTI (urinary tract infection) (Acute) Subjective: Patient did well overnight. Patient tolerated CPAP without difficulty and has been on room air during the day. Patient reports subjective improvement in overall condition. Patient states he had a soft bowel movement, but no diarrhea. - Physical Exam Vitals/I&O's: Vital Signs Temp Pulse Resp BP Pulse Ox 36.5 C L 54 L 12 127/96 H 99 05/22/20 02:00 05/22/20 03:29 05/22/20 02:00 05/22/20 02:00 05/22/20 02:00 Oxygen Delivery Method CPAP Weight: 141.022 kg Body Mass Index (BMI) 43.4 Intake and Output for Last 24 Hours 05/20/20 05/21/20 05/22/20 23:59 23:59 23:59 Intake Total 2382.50 / 2622.50 780 / 780 318.75 / 318.75 Output Total 1050 / 1050 550 / 550 Balance 2381.50 / 2621.50 -270 / -270 -231.25 / -231.25 General: Alert, Oriented x3, Cooperative, No apparent distress, Well developed, Well nourished, - - Morbidly obese. Speaking in full sentences. HEENT: Atraumatic, PERRLA, EOMI, Normocephalic, - - Dissymmetric gaze Oral: Moist Mucosa, No Gingival or Mucosal Lesions/ Ulcerations, - - Crowded posterior pharynx Neck: Supple, No JVD, No Nodes, Trachea Midline Lungs: Clear to auscultation, Normal air movement, No rhonchi, No wheeze, No rales Cardiovascular: Regular rate, Regular Rhythm, Normal S1, Normal S2, No murmurs, No rub noted, No Gallop Abdomen: Bowel Sounds Present, Soft, Non Tender, Non-Distended, Obese Extremities: No clubbing, No cyanosis, Edema - Trace to 1+ Skin: No rashes, No breakdown Musculoskeletal: No Tenderness to Palpation of Joints or Extremities Lymphatic: No Cervical, Supraclavicular, or Inguinal Adenopathy Neurological: - - This symmetric gaze. Some mild weakness globally. Sensation is intact. 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 difficile DNA Amplification - Final 05/20/20 01:15 Mucosa - Nasopharyngeal Respiratory Panel (PCR) - Final 05/19/20 22:15 Urine, Clean Catch Legionella Antigen - Final 05/19/20 22:15 Urine, Clean Catch Streptococcus pneumoniae Antigen (M - Sharona l 05/19/20 21:25 Mucosa - Nose SARS-CoV-2 Antigen (Rapid) - Final SARS-CoV-2 (COVID 19) Laboratory Results 05/21/20 08:23: POC Glucose 195 H 05/21/20 12:15: POC Glucose 202 H 05/21/20 16:49: POC Glucose 203 H 05/21/20 20:31: POC Glucose 342 H 05/22/20 04:25: WBC 20.7 H, RBC 4.64, Hgb 13.4, Hct 45.6, MCV 98.3 H D, MCH 28.9, MCHC 29.4 L D, RDW Std Deviation 47.4 H, RDW Coeff of Elidia 13.3, Plt Count 177, MPV 10.7, Immature Gran % (Auto) 0.800, Neut % (Auto) 91.4 H, Lymph % (Auto) 4.6 L, [place] % (Auto) 3.0, Eos % (Auto) 0.0, Baso % (Auto) 0.2, Absolute Neuts (auto) 18.9 H, Absolute Lymphs (auto) 0.96, Nucleated RBC % 0 05/22/20 04:25: Sodium 137, Potassium 3.8, Chloride 107, Carbon Dioxide 23.0, Anion Gap 7, BUN 38 H, Creatinine 0.95, Estim Creat Clear Calc 75.96, Est GFR (MDRD) Af Amer 101, Est GFR (MDRD) Non-Af 83, BUN/Creatinine Ratio 40.0 H, Glucose 237 H, Calcium 8.4 L, Total Bilirubin 0.30, AST 22, ALT 19, Alkaline Phosphatase 47, Total Protein 5.8 L, Albumin 2.5 L, Globulin 3.3, Albumin /Globulin Ratio 0.8 L Current Medications Acetaminophen (Acetaminophen 325 Mg Tablet) 650 mg PO Q6H PRN PRN PRN Reason: Pain Score 1-10/Temp > 100.7 F Al Hydroxide/Mg Hydroxide (Mag Hydrox/Al Hydrox/Simeth 30 Ml Udc) 30 ml PO Q6H PRN PRN PRN Reason: Gastric Burning Albuterol Sulfate (Albuterol Ih 8.5 Gm (Proair) Inhaler (200 Puffs)) 4 - 8 puff INHALATION Q4H PRN PRN PRN Reason: Dyspnea, wheezing Alendronate Sodium (Alendronate Sodium 70 Mg Tablet) 70 mg PO MO [facility] Last Admin: 05/22/20 05:43 Dose: 70 mg Documented by: Amlodipine Besylate (Amlodipine 5 Mg Tablet) 5 mg PO DAILY [facility] Last Admin: 05/21/20 10:20 Dose: 5 mg Documented by: Aspirin (Aspirin E.C. 81 Mg Tablet) 81 mg PO DAILY [facility] Last Admin: 05/21/20 10:20 Dose: 81 mg Documented by: Atenolol (Atenolol 50 Mg Tablet) 50 mg PO DAILY [facility] Last Admin: 05/21/20 10:19 Dose: 50 mg Documented by: Atorvastatin Calcium (Atorvastatin Calcium 20 Mg Tablet) 20 mg PO QHS [facility] Last Admin: 05/21/20 20:42 Dose: 20 mg Documented by: Calcium/Vitamin D (Calcium Carb/Vitamin D 1 Tablet Tablet) 2 tablet PO BIDCM [facility] Last Admin: 05/21/20 16:55 Dose: 2 tablet Documented by: Dexamethasone Sodium Phosphate (Dexamethasone 10 Mg/Ml Vial) 6 mg IV DAILY [facility] Stop: 05/28/20 10:01 Last Admin: 05/21/20 10:19 Dose: 6 mg Documented by: Enoxaparin Sodium (Enoxaparin 40 Mg/0.4 Ml Syringe) 40 mg SC BID [facility] Last Admin: 05/21/20 20:42 Dose: 40 mg Documented by: Etodolac (Etodolac 200 Mg Capsule) 400 mg PO BID [facility] Last Admin: 05/21/20 20:42 Dose: 400 mg Documented by: Guaifenesin (Guaifenesin 10 Ml Udc (200mg/10ml)) 10 ml PO Q4H PRN PRN PRN Reason: COUGH Remdesivir 100 mg/ Sodium (Chloride) 250 mls @ 125 mls/hr IV Q24H [facility]; Protocol Stop: 05/23/20 23:59 Last Infusion: 05/22/20 00:16 Dose: Infused Documented by: Sodium Chloride () 250 mls @ 15 mls/hr IV .[id number] PRN PRN Reason: Additional IVPB Infusion Last Infusion: 05/22/20 02:30 Dose: 0 mls/hr Documented by: Ceftriaxone Sodium 2 gm/ (Sodium Chloride) 50 mls @ 100 mls/hr IV Q24H [facility] Insulin Human Lispro (Insulin Lispro 100 Unit/Ml Insuln.Pen) 0 unit SC [facility]; Protocol Last Admin: 05/21/20 20:43 Dose: 5 u Documented by: Ipratropium [place] (Ipratropium [place] 0.06% Nasal [place]) 2 spray NASAL BID PRN PRN Reason: ALLERGIES Last Admin: 05/21/20 20:44 Dose: 2 spray Documented by: Loratadine (Loratadine 10 Mg Tablet) 10 mg PO DAILY PRN PRN PRN Reason: ALLERGIES Last Admin: 05/20/20 16:14 Dose: 10 mg Documented by: Melatonin (Melatonin 3 Mg Tablet) 3 mg PO QHS PRN PRN PRN Reason: INSOMNIA Last Admin: 05/21/20 22:17 Dose: 3 mg Documented by: Morphine Sulfate (Morphine 2 Mg/Ml Syringe) 2 mg IV Q3H PRN PRN PRN Reason: Pain Score 6-10 Mycophenolate Mofetil (Mycophenolate Mofetil 250 Mg Capsule) 1,500 mg PO BID@0700,2200 [facility] Last Admin: 05/22/20 05:43 Dose: 1,500 mg Documented by: Ondansetron HCl (Ondansetron 4 Mg/2 Ml Vial) 4 mg IV Q8H PRN PRN PRN Reason: NAUSEA/VOMITING Oxycodone HCl (Oxycodone 5 Mg Tablet) 5 mg PO Q4H PRN PRN PRN Reason: Pain Score 4-5 Pyridostigmine [place] (Pyridostigmine [place] 60 Mg Tablet) 60 mg PO BID [facility] Last Admin: 05/21/20 20:42 Dose: 60 mg Documented by: Sodium Chloride (0.9% Saline Lock 10 Ml Syringe) 10 - 40 ml IV UD PRN PRN Reason: SALINE FLUSH Last Admin: 05/21/20 10:20 Dose: 20 ml Documented by: Throat Lozenges (Benzocaine/Menthol 1 Lozenge) 1 lozenge MUCOUS MEM Q2H PRN PRN PRN Reason: SORE THROAT Medical Necessity - Tobacco Use Smoking Status: Former smoker Tobacco Use: Non-smoker Assessment/Plan All Active Problems Cellulitis (Resolved) Severe sepsis (Acute) COVID-19 (Acute) UTI (urinary tract infection) (Acute) RECOMMENDATIONS: 1. Monitor oxygen saturations with exertion. 2. Continue remdesivir and Decadron as ordered. Continue to monitor liver and renal function. 3. Continue empiric antimicrobials, pending urine culture results. 4. Continue nocturnal Pap therapy per home regimen. 5. Encourage incentive spirometer use and mobilize patient as tolerated. IMPRESSIONS: 1. Severe sepsis secondary to COVID-19 pneumonia Although the patient is currently utilizing his nasal CPAP per home regimen, he has been able to maintain appropriate oxygen saturations on room air. His symptoms have been present for 2 to 3 days prior to arrival making him a candidate for remdesivir. Plan to continue current supportive measures including remdesivir and Decadron. Continue to monitor liver and renal function. Antimicrobials will be continued pending results of urine culture. Continue prophylactic Lovenox. CTA chest was negative for the presence of PE. 2. History of myasthenia gravis/hypertension/diabetes mellitus/obesity/obstructive sleep apnea Complicates care, management, recovery and prognosis. Continue home medications as indicated. Continue nocturnal Pap therapy. Patient appears to be tolerating sepsis well with no significant weakness secondary to myasthenia gravis crisis. Inpatient E&M: 86013 [facility] Hosp L2
[2020-05-22] MEDS: Insulin Lispro 100 UNIT/ML INSULN.PEN SC (08:27)
[2020-05-22] MEDS: Aspirin E.C. 81 MG Tablet PO (08:28)
[2020-05-22] MEDS: dexAMETHasone 10 MG/ML Vial 6 MG IV (08:28)
[2020-05-22] MEDS: Calcium Carb/Vitamin D 1 TABLET Tablet 2 TABLET PO (08:28)
[2020-05-22] MEDS: Enoxaparin 40 MG/0.4 ML Syringe SC (08:30)
[2020-05-22] MEDS: Etodolac 200 MG Capsule 400 MG PO (08:30)
[2020-05-22] MEDS: Pyridostigmine Bromide 60 MG Tablet PO (08:30)
[2020-05-22] MEDS: amLODIPine 5 MG Tablet PO (08:30)
[2020-05-22] MEDS: Atenolol 50 MG Tablet PO (08:31)
[2020-05-22 08:38] LABS: Hemoglobin A1c 7.8 % (3.8-5.6)
--- NOTE | 2020-05-22 10:42 | DCINST_ITS ---
- Discharge Diagnoses Current Active Problems: Current Active and Chronic Problems Severe sepsis (Acute) COVID-19 (Acute) UTI (urinary tract infection) (Acute) Former tobacco use (Chronic) Hypertension (Chronic) Hyperlipidemia (Chronic) Type II diabetes mellitus (Chronic) MEL (obstructive sleep apnea) (Chronic) Myasthenia gravis (Chronic) Reason(s) for Visit for Discharge Instructions: Acute COVID-19 infection You will use the following diet at home:: Calorie/Carbohydrate Controlled (speci fy 1200, 1400, etc) - 7847-2329 calories, Cardiac Your food should be the consistency of: Regular Your liquids should be the consistency of: Regular/Thin Discharge Activity: Return to Normal Activity Additional Instructions: Continue to use your incentive spirometer all the time. Complete the oral dexamethasone as prescribed. Use your albuterol inhaler as needed for shortness of breath. Continue to quarantine for 1 more week. Continue to use your pulse oximeter and monitor for your oxygen levels in your blood. Let your doctor know when you are dropping below 90% on the pulse oximeter consistently Allergies/Adverse Reactions: Allergies ampicillin Adverse Reaction (Verified 05/19/20 20:41) Unknown Medications to take at Discharge Aspirin E.C. [Ecotrin] 81 mg PO DAILY@0800 07/16/15 Atenolol [Tenormin] 50 mg PO DAILY 07/16/15 Calcium Carb/Vitamin D [Os-Freddy 500MG + D] 2 tablet PO BIDCM 07/16/15 Cetirizine HCl [Zyrtec] 10 mg PO DAILY PRN 07/16/15 Etodolac [Lodine Xl] 400 mg PO BID 07/16/15 Felodipine [Plendil] 5 mg PO DAILY 07/16/15 Guaifenesin [Tab Tussin] 400 mg PO Q4H PRN PRN 07/16/15 Ipratropium [place] 0.06% [ATROVENT NASAL SPRAY] 2 spray NASAL BID PRN 07/16/15 Mycophenolate Mofetil 1,500 mg PO BID 07/16/15 Pyridostigmine [place] [Mestinon Timepan] 60 mg PO BID 07/16/15 Simvastatin [Zocor] 40 mg PO QHS 07/16/15 predniSONE tablet 10 mg PO DAILY 07/16/15 Alendronate Sodium 70 mg PO MO 05/23/16 Vitamin D3 1 tab PO DAILY 04/24/20 Cefadroxil 1 gm PO BID #10 tab 04/26/20 Cefdinir [Omnicef [equiv]] 300 mg PO Q12H 4 Days #8 capsule 05/22/20 Metformin HCl 500 mg PO BID 30 Days #60 tablet 05/22/20 The following prescriptions were given: Metformin HCl 500 mg PO BID 30 Days #60 tablet Transmission Status: Pending to [id number] Cefdinir [Omnicef [equiv]] 300 mg PO Q12H 4 Days #8 capsule Transmission Status: Pending to [id number] Primary Care Physician: [facility],[place] [Primary Care Provider] - Please follow up with your Primary Care Physician in: in 1-2 weeks, after your quarantine Test Results: Test results from this visit will be discussed in further detail at your follow- up appointment, if applicable. Proposed Discharge Date: 05/22/20
--- NOTE | 2020-05-22 10:53 | DS.PCM_ITS ---
Discharge Date and Diagnosis - Problem List Patient Problems: Active and Suspected Problems Severe sepsis (Acute) COVID-19 (Acute) UTI (urinary tract infection) (Acute) Date of Admission: 05/19/20 Date of Discharge: 05/22/20 - Primary Discharge Diagnosis Acute Problems: Active Problems Severe sepsis (Acute) Acute COVID-19 infection UTI (urinary tract infection) (Acute) - Secondary Discharge Diagnosis Chronic Problems: Chronic Problems Former tobacco use (Chronic) Hypertension (Chronic) Hyperlipidemia (Chronic) Type II diabetes mellitus (Chronic) MEL (obstructive sleep apnea) (Chronic) Myasthenia gravis (Chronic) Hospital Course and Treatment Imaging Results: Clinical Impression(s) from Imaging Studies Chest X-Ray 05/19/20 21:30 IMPRESSION: No acute radiographic abnormalities. Ill-defined soft tissue density along the lateral aspect of the right hemithorax most likely secondary to pleural scarring from prior trauma. Chronic fracture deformities of the left posterior seventh and eighth ribs. Electronically Signed: Jack Sosa MD at 21:55 EDT Tel , Service support , Chest CTA 05/20/20 02:09 IMPRESSION: No demonstrated pulmonary embolism or arterial dissection. Multiple old bilateral rib fractures. Cholelithiasis. Electronically Signed: Yvan Corrales MD at 5:47 EDT Tel , Service support , ID Operations: None Procedures: None Summary of Care Provided: The patient is a 69 year old M past medical history hypertension, type II DM, MEL, myasthenia gravis who was recently discharged on 04/26/20 with acute left lower extremity cellulitis. Patient had completed cefadroxil. He presented on 04/25/20 with fever, generalized malaise, fatigue, chills, body aches, and altered sense of taste, ongoing for about 2 days. In the ED, patient was found to be febrile, blood pressure slightly elevated. His UA was suggestive of UTI, WBC count elevated, lactic acid was 2.5. His x-ray showed no acute radiographic abnormalities, showed an ill-defined soft tissue density along the lateral aspect of the right hemithorax likely from pleural scarring from prior trauma, chronic fracture deformity of the left posterior seventh and eighth rib. CT of the chest showed no acute PE, multiple old bilateral rib fractures. He was admitted to the cohort unit and managed as COVID-19 infection with Decadron and remdesivir. Also continued on IV ceftriaxone. His urine cultures grew gram-negative lactose interdisciplinary professor, gram-negative myesha. Respiratory panel as well as urine surgical Legionella antigen were negative. Stool for C. difficile/enteric panel was negative. Patient appears to be be improved at the time of discharge. He was seen by infectious disease. He was advised to complete 20 days, starting 05/18/20. He was stressed to him and the . He was also discharged on 4 more days of cefdinir. Patient Problems: Active and Suspected Problems Severe sepsis (Acute) COVID-19 (Acute) UTI (urinary tract infection) (Acute) Subjective: On the day of discharge, patient was seen and examined. He feels improved. He denies chest pain, dizziness, palpitations. Objective: Physical exam: General: Alert, oriented x3, cooperative, no apparent distress, well nourished HEENT: Atraumatic, PERRLA, EOMI, normocephalic Oral: Moist Mucosa Neck: Supple, No JVD Lungs: Clear to auscultation, Normal air movement, No rhonchi, No wheeze, No rales Cardiovascular: Regular rate, Regular Rhythm, Normal S1, Normal S2, No murmurs Abdomen: Bowel Sounds Present, Soft, Non Tender, Non-Distended Extremities: No edema Skin: No rashes or breakdown Musculoskeletal: No Tenderness to Palpation of Joints or Extremities Neurological: Cranial nerves II-XII grossly intact, Neuro grossly intact, Sensory exam intact to light touch and pain, Coordination normal Psych/Mental Status: Normal Affect, Appropriate, Alert and oriented to time, place, person, mood and affect - Physical Exam Vitals/I&O's: Vital Signs Temp Pulse Resp BP Pulse Ox 97.9 F 56 L 18 151/84 H 97 05/22/20 08:00 05/22/20 08:00 05/22/20 08:00 05/22/20 08:00 05/22/20 08:55 Oxygen Flow Rate (L/min) [ 0 AMBULATING on Room Air] Oxygen Flow Rate (L/min) [At 0 REST on Room Air] Oxygen Delivery Method Room Air Weight: 141.022 kg Body Mass Index (BMI) 43.4 Intake and Output for Last 24 Hours 05/20/20 05/21/20 05/22/20 23:59 23:59 23:59 Intake Total 2382.50 / 2622.50 780 / 780 318.75 / 318.75 Output Total 1050 / 1050 550 / 550 Balance 2381.50 / 2621.50 -270 / -270 -231.25 / -231.25 Microbiology Past 72 Hours 05/19/20 22:15 Urine, Clean Catch Urine Culture - Preliminary GNR lactose interdisciplinary professor Gram negative myesha 05/19/20 21:20 Blood Culture (Wb) - Left Forearm Blood Culture - Preliminary GNR lactose interdisciplinary professor 05/20/20 05:10 Stool Enteric Bacteriology - Final 05/20/20 05:10 Stool C. difficile DNA Amplification - Final 05/20/20 01:15 Mucosa - Nasopharyngeal Respiratory Panel (PCR) - Final 05/19/20 22:15 Urine, Clean Catch Legionella Antigen - Final 05/19/20 22:15 Urine, Clean Catch Streptococcus pneumoniae Antigen (M - Final 05/19/20 21:25 Mucosa - Nose SARS-CoV-2 Antigen (Rapid) - Final SARS-CoV-2 (COVID 19) Laboratory Results 05/21/20 12:15: POC Glucose 202 H 05/21/20 16:49: POC Glucose 203 H 05/21/20 20:31: POC Glucose 342 H 05/22/20 04:25: WBC 20.7 H, RBC 4.64, Hgb 13.4, Hct 45.6, MCV 98.3 H D, MCH 28.9, MCHC 29.4 L D, RDW Std Deviation 47.4 H, RDW Coeff of Elidia 13.3, Plt Count 177, MPV 10.7, Immature Gran % (Auto) 0.800, Neut % (Auto) 91.4 H, Lymph % (Auto) 4.6 L, [place] % (Auto) 3.0, Eos % (Auto) 0.0, Baso % (Auto) 0.2, Absolute Neuts (auto) 18.9 H, Absolute Lymphs (auto) 0.96, Nucleated RBC % 0 05/22/20 04:25: Sodium 137, Potassium 3.8, Chloride 107, Carbon Dioxide 23.0, Anion Gap 7, BUN 38 H, Creatinine 0.95, Estim Creat Clear Calc 75.96, Est GFR (MDRD) Af Amer 101, Est GFR (MDRD) Non-Af 83, BUN/Creatinine Ratio 40.0 H, Glucose 237 H, Calcium 8.4 L, Total Bilirubin 0.30, AST 22, ALT 19, Alkaline Phosphatase 47, Total Protein 5.8 L, Albumin 2.5 L, Globulin 3.3, Albumin/Globulin Ratio 0.8 L 05/22/20 04:25: Hemoglobin A1c 7.8 H Current Medications Acetaminophen (Acetaminophen 325 Mg Tablet) 650 mg PO Q6H PRN PRN PRN Reason: Pain Score 1-10/Temp > 100.7 F Al Hydroxide/Mg Hydroxide (Mag Hydrox/Al Hydrox/Simeth 30 Ml Udc) 30 ml PO Q6H PRN PRN PRN Reason: Gastric Burning Albuterol Sulfate (Albuterol Ih 8.5 Gm (Proair) Inhaler (200 Puffs)) 4 - 8 puff INHALATION Q4H PRN PRN PRN Reason: Dyspnea, wheezing Alendronate Sodium (Alendronate Sodium 70 Mg Tablet) 70 mg PO MO [facility] Last Admin: 05/22/20 05:43 Dose: 70 mg Documented by: Amlodipine Besylate (Amlodipine 5 Mg Tablet) 5 mg PO DAILY [facility] Last Admin: 05/22/20 08:30 Dose: 5 mg Documented by: Aspirin (Aspirin E.C. 81 Mg Tablet) 81 mg PO DAILY [facility] Last Admin: 05/22/20 08:28 Dose: 81 mg Documented by: Atenolol (Atenolol 50 Mg Tablet) 50 mg PO DAILY [facility] Last Admin: 05/22/20 08:31 Dose: 50 mg Documented by: Atorvastatin Calcium (Atorvastatin Calcium 20 Mg Tablet) 20 mg PO QHS [facility] Last Admin: 05/21/20 20:42 Dose: 20 mg Documented by: Calcium/Vitamin D (Calcium Carb/Vitamin D 1 Tablet Tablet) [facility] Last Admin: 05/22/20 08:28 Dose: 2 tablet Documented by: Dexamethasone Sodium Phosphate (Dexamethasone 10 Mg/Ml Vial) 6 mg IV DAILY [facility] Stop: 05/28/20 10:01 Last Admin: 03/29/21 08:28 Dose: 6 mg Documented by: Enoxaparin Sodium (Enoxaparin 40 Mg/0.4 Ml Syringe) 40 mg SC BID [facility] Last Admin: 05/22/20 08:30 Dose: 40 mg Documented by: Etodolac (Etodolac 200 Mg Capsule) 400 mg PO BID [facility] Last Admin: 05/22/20 08:30 Dose: 400 mg Documented by: Guaifenesin (Guaifenesin 10 Ml Udc (200mg/10ml)) 10 ml PO Q4H PRN PRN PRN Reason: COUGH Remdesivir 100 mg/ Sodium (Chloride) 250 mls @ 125 mls/hr IV Q24H [facility]; Protocol Stop: 05/23/20 23:59 Last Infusion: 05/22/20 00:16 Dose: Infused Documented by: Sodium Chloride () 250 mls @ 15 mls/hr IV .[id number] PRN PRN Reason: Additional IVPB Infusion Last Infusion: 05/22/20 02:30 Dose: 0 mls/hr Documented by: Ceftriaxone Sodium 2 gm/ (Sodium Chloride) 50 mls @ 100 mls/hr IV Q24H [facility] Insulin Human Lispro (Insulin Lispro 100 Unit/Ml Insuln.Pen) [address] [facility]; Protocol Last Admin: 05/22/20 08:27 Dose: 3 u Documented by: Ipratropium [place] (Ipratropium [place] 0.06% Nasal [place]) 2 spray NASAL BID PRN PRN Reason: ALLERGIES Last Admin: 05/21/20 20:44 Dose: 2 spray Documented by: Loratadine (Loratadine 10 Mg Tablet) 10 mg PO DAILY PRN PRN PRN Reason: ALLERGIES Last Admin: 05/20/20 16:14 Dose: 10 mg Documented by: Melatonin (Melatonin 3 Mg Tablet) 3 mg PO QHS PRN PRN PRN Reason: INSOMNIA Last Admin: 05/21/20 22:17 Dose: 3 mg Documented by: Morphine Sulfate (Morphine 2 Mg/Ml Syringe) 2 mg IV Q3H PRN PRN PRN Reason: Pain Score 6-10 Mycophenolate Mofetil (Mycophenolate Mofetil 250 Mg Capsule) 1,500 mg PO BID@0700,2200 [facility] Last Admin: 05/22/20 05:43 Dose: 1,500 mg Documented by: Ondansetron HCl (Ondansetron 4 Mg/2 Ml Vial) 4 mg IV Q8H PRN PRN PRN Reason: NAUSEA/VOMITING Oxycodone HCl (Oxycodone 5 Mg Tablet) 5 mg PO Q4H PRN PRN PRN Reason: Pain Score 4-5 Pyridostigmine [place] (Pyridostigmine [place] 60 Mg Tablet) 60 mg PO BID [place] Last Admin: 05/22/20 08:30 Dose: 60 mg Documented by: Sodium Chloride (0.9% Saline Lock 10 Ml Syringe) 10 - 40 ml IV UD PRN PRN Reason: SALINE FLUSH Last Admin: 05/21/20 10:20 Dose: 20 ml Documented by: Throat Lozenges (Benzocaine/Menthol 1 Lozenge) 1 lozenge MUCOUS MEM Q2H PRN PRN PRN Reason: SORE THROAT Discharge Diet: Low fat/ Low Cholesterol, 2000 mg Sodium Diet, Carb Control Diet Discharge Activity: Return to Normal Activity Home Medications: Medications to take at Discharge Aspirin E.C. [Ecotrin] 81 mg PO DAILY@0800 07/16/15 Atenolol [Tenormin] 50 mg PO DAILY 07/16/15 Calcium Carb/Vitamin D [Os-Freddy 500MG + D] 2 tablet PO BIDCM 07/16/15 Cetirizine HCl [Zyrtec] 10 mg PO DAILY PRN 07/16/15 Etodolac [Lodine Xl] 400 mg PO BID 07/16/15 Felodipine [Plendil] 5 mg PO DAILY 07/16/15 Guaifenesin [Tab Tussin] 400 mg PO Q4H PRN PRN 07/16/15 Ipratropium [place] 0.06% [ATROVENT NASAL SPRAY] 2 spray NASAL BID PRN 07/16/15 Mycophenolate Mofetil 1,500 mg PO BID 07/16/15 Pyridostigmine [place] [Mestinon Timepan] 60 mg PO BID 07/16/15 Simvastatin [Zocor] 40 mg PO QHS 07/16/15 predniSONE tablet 10 mg PO DAILY 07/16/15 Alendronate Sodium 70 mg PO MO 07/17/15 Vitamin D3 1 tab PO DAILY 04/24/20 Cefdinir [Omnicef [equiv]] 300 mg PO Q12H 4 Days #8 capsule 05/22/20 Metformin HCl 500 mg PO BID 30 Days #60 tablet 05/22/20 Following Prescriptions Were Given to Patient: Metformin HCl 500 mg PO BID 30 Days #60 tablet Transmission Status: Received by [id number] Cefdinir [Omnicef [equiv]] 300 mg PO Q12H 4 Days #8 capsule [facility]: [id number] [Primary [facility] Provider] - Please follow up with your Primary Care Physician in: in 1-2 weeks, after your quarantine Disposition: Home Minutes spent on discharge:: 40 Patient Condition:: Stable Medical Necessity - Tobacco Use Smoking Status: Former smoker Tobacco Use: Non-smoker Meaningful Use Info Meaningful Use Diagnoses (Choose all that apply): None applicable Inpatient E&M: 12646 [facility]
--- NOTE | 2020-05-22 12:22 | PCM.HP.ID ---
Problem List (1) COVID-19 Status: Acute Reason for Consult: covid Consulted by: Dr. Phillips History of Present Illness: The patient is a 69 year old M on mycophenolate for myasthenia gravis, presented 05/19 with 1-2 days of fever, chills, lower abd pain, change in taste/smell, diarrhea, nausea, incontinence of stool and urine, not feeling well. No dysuria. He and have not gotten covid vaccine. She has not gotten sick. In ED, covid (+), admitted, started on ceftriaxone, feeling better, home today. Full ROS performed and neg except as noted above. - Medical History Past Medical History (Chronic Problems): Chronic Problems Former tobacco use (Chronic) Hypertension (Chronic) Hyperlipidemia (Chronic) Type II diabetes mellitus (Chronic) MEL (obstructive sleep apnea) (Chronic) Myasthenia gravis (Chronic) Allergies/Adverse Reactions: Allergies ampicillin Adverse Reaction (Verified 05/19/20 20:41) Unknown Home Medications: Ambulatory Orders Medication Instructions Recorded Aspirin E.C. [Ecotrin] 81 mg PO DAILY@0800 07/16/15 Atenolol [Tenormin] 50 mg PO DAILY 07/16/15 Calcium Carb/Vitamin D [Os-Freddy 2 tablet PO BIDCM 07/16/15 500MG + D] Cetirizine HCl [Zyrtec] 10 mg PO DAILY PRN 07/16/15 Etodolac [Lodine Xl] 400 mg PO BID 07/16/15 Felodipine [Plendil] 5 mg PO DAILY 07/16/15 Guaifenesin [Tab Tussin] 400 mg PO Q4H PRN PRN 07/16/15 Ipratropium [place] 0.06% 2 spray NASAL BID PRN 07/16/15 [ATROVENT NASAL SPRAY] Mycophenolate Mofetil 1,500 mg PO BID 07/16/15 Pyridostigmine [place] [Mestinon 60 mg PO BID 07/16/15 Timepan] Simvastatin [Zocor] 40 mg PO QHS 07/16/15 predniSONE tablet 10 mg PO DAILY 07/16/15 Alendronate Sodium 70 mg PO MO 07/17/15 Vitamin D3 1 tab PO DAILY 04/24/20 Cefdinir [Omnicef [equiv]] 300 mg PO Q12H 4 Days #8 capsule 05/22/20 Metformin HCl 500 mg PO BID 30 Days #60 tablet 05/22/20 - Social History SMOKING STATUS:: Former smoker Vital Signs Temp Pulse Resp BP Pulse Ox 97.9 F 50 L 18 151/84 H 97 05/22/20 08:00 05/22/20 11:06 05/22/20 08:00 05/22/20 08:00 05/22/20 08:55 Oxygen Flow Rate (L/min) [ 0 AMBULATING on Room Air] Oxygen Flow Rate (L/min) [At 0 REST on Room Air] Oxygen Delivery Method Room Air Weight: 141.022 kg Body Mass Index (BMI) 43.4 Microbiology Past 72 Hours 05/19/20 22:15 Urine Culture - Preliminary Urine, Clean Catch GNR lactose real estate account executive Gram negative myesha 05/19/20 21:20 Blood Culture - Preliminary Blood Culture (Wb) - Left Forearm GNR lactose real estate account executive 05/20/20 05:10 Enteric Bacteriology - Final Stool 05/20/20 05:10 C. difficile DNA Amplification - Final Stool 05/20/20 01:15 Respiratory Panel (PCR) - Final Mucosa - Nasopharyngeal 05/19/20 22:15 Legionella Antigen - Final Urine, Clean Catch Streptococcus pneumoniae Antigen (M - Final 05/19/20 21:25 SARS-CoV-2 Antigen (Rapid) - Final Mucosa - Nose SARS-CoV-2 (COVID 19) Laboratory Tests Past 24 Hrs 05/22/20 05/22/20 05/22/20 04:25 04:25 04:25 WBC 20.7 H RBC 4.64 Hgb 13.4 Hct 45.6 MCV 98.3 H D MCH 28.9 MCHC 29.4 L D RDW Std Deviation 47.4 H RDW Coeff of Elidia 13.3 Plt Count 177 MPV 10.7 Immature Gran % (Auto) 0.800 Neut % (Auto) 91.4 H Lymph % (Auto) 4.6 L [place] % (Auto) 3.0 Eos % (Auto) 0.0 Baso % (Auto) 0.2 Absolute Neuts (auto) 18.9 H Absolute Lymphs (auto) 0.96 Nucleated RBC % 0 Sodium 137 Potassium 3.8 Chloride 107 Carbon Dioxide 23.0 Anion Gap 7 BUN 38 H Creatinine 0.95 Estim Creat Clear Calc 75.96 Est GFR (MDRD) Af Amer 101 Est GFR (MDRD) Non-Af 83 BUN/Creatinine Ratio 40.0 H Glucose 237 H Hemoglobin A1c 7.8 H Calcium 8.4 L Total Bilirubin 0.30 AST 22 ALT 19 Alkaline Phosphatase 47 Total Protein 5.8 L Albumin 2.5 L Globulin 3.3 Albumin/Globulin Ratio 0.8 L - Other Studies Radiology: [] reviewed Other Studies: [] Route of nutrition/ use of supplements: [] Nutritional Intake: [] IV Site: [] Weinstein Catheter: [] - Physical Exam General: Alert, Oriented x3, Cooperative, No apparent distress HEENT: Atraumatic, PERRLA, EOMI Neck: Supple, No Nodes Lungs: Clear to auscultation, Diminished Cardiovascular: Regular rate, Regular Rhythm Abdomen: Soft, Non Tender, Non-Distended Extremities: Edema Skin: No rashes Musculoskeletal: No Tenderness to Palpation of Joints or Extremities Neurological: Cranial nerves II-XII grossly intact - Assessment/Plan Antibiotics: [] Assessment/Plan: [] Active and Suspected Problems Severe sepsis (Acute) COVID-19 (Acute) UTI (urinary tract infection) (Acute) covid with hypoxia - much improved, on remdesivir, dex. Discharge today back on home prednisone. Encouraged covid vaccination. Encouraged get tested as she has been exposed and is unvaccinated; would be candidate for monoclonal Ab infusion to prevent severe disease if she is (+). Recommend he quarantine for 20 days, starting 05/18/20. GNR bacteremia from UTI - on ceftriaxone, adjusted dose, sepsis improved. Home today with 4 more days omnicef, will follow final cx results. Will follow as needed, thank you
[2020-05-22 13:31] LABS: Pathologist Review Reviewed
[2020-05-22 13:39] LABS: Pathologist Review Reviewed
--- NOTE | 2020-05-24 16:16 | CASEMGMT ---
SHARRON LAGUNAS Discharge Follow-up Phone Call: HUMBERTO: 9 Strata: 2 Call Date: 05/24/20 Discharge Date: 05/22/20 Time of Call: 1615 Duration: 1 min Admitting Diagnosis: covid SHARRON LAGUNAS attempted to complete follow-up phone call after recent hospitalization. No answer, VM left with return contact information.
== END 2020-05-22 12:20 | disposition home or self-care (01) | DRG 871 ==
LOC: ED 21:25 → ICU 23:50
PROVIDERS: Internal Medicine; Admitting Provider Family Medicine; Emergency Provider Emergency Medicine; Visit Provider Internal Medicine
DX: A41.89 Other specified sepsis (principal); U07.1 COVID-19; Z68.42 Body mass index [BMI] 45.0-49.9, adult; N12 Tubulo-interstitial nephritis, not specified as acute or chronic; R65.20 Severe sepsis without septic shock; Z87.891 Personal history of nicotine dependence; E11.9 Type 2 diabetes mellitus without complications; I10 Essential (primary) hypertension; G70.00 Myasthenia gravis without (acute) exacerbation; G47.33 Obstructive sleep apnea (adult) (pediatric); E66.01 Morbid (severe) obesity due to excess calories; E78.5 Hyperlipidemia, unspecified; Z79.84 Long term (current) use of oral hypoglycemic drugs; Z79.52 Long term (current) use of systemic steroids; Z79.899 Other long term (current) drug therapy; B96.89 Other specified bacterial agents as the cause of diseases classified elsewhere
CPT/HCPCS: 71045; 71275; 80048; 80053; 81001; 82728; 82962; 83036; 83605; 83615; 83735; 83880; 84145; 84484; 85025; 85379; 86140; 87040; 87077; 87086; 87088; 87186; 87426; 87449; 87493; 87506; 87633; 87635; 97110; 97162; 97166; 97530; 97535; 99251; 99285; J7030; J7050; Q9967; A4216; G0463; U0002

== ENCOUNTER 2020-05-31 00:45 | Observation (INO) | payer OTHER, SELFPAY ==
[2020-05-20 00:35] VITALS: BMI 43.4
[2020-05-31] VITALS (18 sets, daily range): BP systolic 83–182; BP diastolic 65–93; PULSE 63–100; RESP 20–37; TEMP 36.9–37.3; O2SAT 88–96; BMI 43.4
--- NOTE | 2020-05-31 01:23 | EKG12_ITS ---
Test Reason : SOB Blood Pressure : / mmHG Vent. Rate : 077 BPM Atrial Rate : 077 BPM P-R Int : 166 ms QRS Dur : 090 ms QT Int : 408 ms P-R-T Axes : 080 -18 054 degrees QTc Int : 461 ms Normal sinus rhythm Normal ECG Confirmed by LEIDY GROVE, JACQUELYN ([id number]), associate editor HERMES DONNELLY ([id number]) on 06/02/2020 2:33:28 PM Referred By: Confirmed By:LUDY FORBES MD
--- NOTE | 2020-05-31 01:24 | CT_ITS ---
STUDY: CTA CHEST REASON FOR EXAM: Male, 69 years old. Shortness of breath RADIATION DOSAGE (If Supplied By Facility): CTDIvol = ( 24.53 ) mGy, DLP = ( 559.25 ) mGycm TECHNIQUE: The examination was performed with the intravenous administration of IV 100mL Isovue-370. Post-processing of the angiographic images was performed, with multiplanar reformation and 3D reconstruction. Individualized dose optimization techniques were used for this CT. COMPARISON: None. FINDINGS: Normal enhancement of the main pulmonary artery and right and left pulmonary arteries. Normal enhancement of the bilateral peripheral pulmonary arteries. There is no demonstrated pulmonary embolism. Normal thoracic aorta and visualized great vessels. There is no demonstrated aortic dissection. Borderline cardiomegaly with coronary artery calcifications. Normal mediastinum. Normal hilar regions. Normal visualized trachea and bronchi. The lungs are well expanded. Numerous bilateral confluent groundglass opacities within the upper, lower and right middle lobe compatible with multifocal pneumonitis. Normal pleura. Normal chest wall structures. Multiple bilateral old rib fractures. Multilevel degenerative disease of the spine. There is a stone near the gallbladder neck measuring 1.2 cm. Calcified granulomas within the liver. CT/CTA Chest W/WO Contrast IMPRESSION: Negative CTA chest examination, without a demonstrated pulmonary embolism or arterial dissection. Multifocal bilateral pneumonitis. Electronically Signed: Carey Prather MD at 3:00 EDT , Service support ,
--- NOTE | 2020-05-31 01:25 | ED.VIS.GEN ---
History of Present Illness Chief Complaint: Shortness of Breath Narrative: This patient is a 69-year-old male who presents with hiccups and shortness of breath. He was recently hospitalized for COVID-19 as well as sepsis due to UTI. He states ever since discharge he has had severe hiccups and belching which is hiccups have been severe enough that it makes him short of breath. He does still have a productive cough. He denies any chest pain abdominal pain vomiting or diarrhea. No fevers. Past Medical History - Allergies and Home Meds Allergies/Adverse Reactions: Allergies ampicillin Adverse Reaction (Verified 05/19/20 20:41) Unknown Primary Care Physician: [facility] [Primary Care Provider] - Past Medical History: - - Diabetes, hypertension, hyperlipidemia Surgical History: - - Back surgery x 2, Foot surgery, Partial colon resection secondary to polyps. Smoking Status: Former smoker - Family History Maternal Family History: Reports: Diabetes, High Cholesterol, Heart Disease, Hypertension Paternal Family History: Reports: - - Patient denies any knowledge of his paternal medical history. Review of Systems All systems negative except as indicated General: Denies: Fever Eyes: Denies: Visual changes - bilaterally ENT: Denies: Bilateral ear pain Cardiovascular: Denies: Chest pain Respiratory: Reports: Dyspnea, Cough, Sputum Gastrointestinal: Denies: Nausea, Vomiting, Diarrhea Musculoskeletal: Denies: Myalgias, Arthralgias Skin: Denies: Rash Neurological: Denies: Headache Hematologic: Denies: Easy bruising Allergy: Denies: Uticaria Physical Exam Vital Signs/Narrative: Vital Signs Temp Pulse Resp BP Pulse Ox 05/31/20 00:47 99.1 F 81 32 H 180/86 H 94 Inital Vital Signs reviewed: Yes General: Well nourished Head: Normocephalic Eyes: EOMI ENT: Moist mucous membranes Neck: Supple Cardiovascular: Regular rate, Regular rhythm Respiratory: - - Tachypnea but lungs are clear I do not appreciate rales or wheezing no retractions able to speak in full sentences Abdomen: Soft, Nontender Back: Nontender Extremities: - - Symmetric pitting lower extremity edema, extremities nontender, compression stockings noted Skin: Normal color Neurological: Alert Psychological: Normal affect Diagnostic/Tx/Re-eval Impressions Chest CTA 05/31/20 01:24 IMPRESSION: Negative CTA chest examination, without a demonstrated pulmonary embolism or arterial dissection. Multifocal bilateral pneumonitis. Electronically Signed: Carey Prather MD at 3:00 EDT , Service support , 05/31/20 01:24 CTA Chest W/WO Contrast [CT] Stat Laboratory Results 05/31/20 05/31/20 05/31/20 03:24 03:24 03:24 WBC 8.9 RBC 4.87 Hgb 13.8 Hct 43.4 MCV 89.1 MCH 28.3 MCHC 31.8 L RDW Std Deviation 42.8 RDW Coeff of Elidia 13.2 Plt Count 215 MPV 9.7 Immature Gran % (Auto) 1.000 H Neut % (Auto) 82.1 H Lymph % (Auto) 10.3 L [place] % (Auto) 6.3 Eos % (Auto) 0.1 Baso % (Auto) 0.2 Absolute Neuts (auto) 7.3 Absolute Lymphs (auto) 0.91 Nucleated RBC % 0 PT 12.8 INR 1.0 Sodium 138 Potassium 3.8 Chloride 106 Carbon Dioxide 25.0 Anion Gap 7 BUN 15 Creatinine 0.95 Estim Creat Clear Calc 75.96 Est GFR (MDRD) Af Amer 100 Est GFR (MDRD) Non-Af 83 BUN/Creatinine Ratio 15.8 Glucose 145 H Calcium 8.1 L Troponin I 0.048 H - Medical Decision Making EKG shows normal sinus rhythm at a rate of 77. I did obtain a CTA of the chest given Covid with worsening symptoms and recent hospitalization. No pulmonary embolism but patient does have multifocal infiltrates. He was taken off of oxygen and desaturated to 88%. I did give IV Decadron. [facility]. However when they called back they stated he could be transferred or admitted here. Patient would prefer to stay here. I spoke to the hospitalist. Patient will be admitted. ED Disposition - Plan for ED Patient: Disposition: Acute Care Hospital [facility] Diagnosis: COVID-19 [facility] [Primary [facility] Provider] -
[2020-05-31 03:26] LABS: Absolute Lymphocyte Count 0.91 X10^3/uL (0.83-4.51); Absolute Neutrophil Count 7.3 X10^3/uL (2.0-7.7); Basophil# 0.02 X10^3/uL; Basophil% 0.2 % (0-1); Eosinophil# 0.01 X10^3/uL; Eosinophils% 0.1 % (0-5); Hematocrit 43.4 % (40-54); Hemoglobin 13.8 g/dL (13.0-16.5); Lymphocyte # 0.91 X10^3/ul (4.0); Lymphocyte % 10.3 % (19-41); Mean Corp Hgb Conc 31.8 g/dL (32-36); Mean Corpuscular Hgb 28.3 pg (27.0-32.0); Mean Corpuscular Volume 89.1 fL (80-94); Mean Platelet Vol. 9.7 fl (6.2-12.0); Monocyte# 0.56 X10^3/uL; Monocyte% 6.3 % (0-10); NRBC Flagged by Analyzer 0 % (0-5); Neutrophil # 7.26 X10^3/uL (2.7-7.7); Neutrophil % 82.1 % (47-70); Platelet Count 215 K/mm3 (150-450); RBC Distribution Width CV 13.2 % (11.6-14.6); RBC Distribution Width SD 42.8 fl (35.1-43.9); Red Blood Count 4.87 M/mm3 (4.6-6.2); White Blood Count 8.9 K/mm3 (4.4-11.0)
[2020-05-31 03:34] LABS: Prothrombin Time (Protime)PT. 12.8 SECONDS (11.7-14.9)
[2020-05-31 03:56] LABS: Anion Gap 7 (5-15); BUN 15 mg/dL (7-18); BUN/Creat Ratio 15.8 RATIO (10-20); Calcium,Total 8.1 mg/dL (8.5-10.1); Chloride 106 mmol/L (98-107); Creatinine, Serum 0.95 mg/dL (0.70-1.30); EST Glomerular Filtration Rate 83 mL/min (>60); Est Glom Filt Rate - Afr Amer 100 mL/min (>60); Estimated Creatinine Clearance 75.96 ml/min; Glucose 145 mg/dL (74-106); Potassium 3.8 mmol/L (3.5-5.1); Sodium Level 138 mmol/L (136-145)
--- NOTE | 2020-05-31 04:27 | ED.RN ---
PT HAD CALL LIGHT ON, RN RESPONDS AND PT AND S/O WANT TO KNOW AN UPDATE. UPDATE WAS GIVEN. PT AND S/O STATE THAT THEY ARE READY TO GO HOME AND ARE DONE WITH TODAYS VISIT. DR. SMITH UPDATED. PT HAS REMOVED HIMSELF FROM TELEMETRY.
[2020-05-31] MEDS: dexAMETHasone 10 MG/ML Vial 6 MG IV (04:55)
--- NOTE | 2020-05-31 05:46 | HP.PCM_ITS ---
Problem List (1) Hypertension Status: Chronic Qualifiers: Hypertension type: essential hypertension Qualified Code(s): I10 - Essential (primary) hypertension (2) Hyperlipidemia Status: Chronic Qualifiers: Hyperlipidemia type: unspecified Qualified Code(s): E78.5 - Hyperlipidemia, unspecified (3) Type II diabetes mellitus Status: Chronic Qualifiers: Diabetes mellitus senior care insulin use: without ocean transportation intermediary use Diabetes mellitus complication status: with other specified complication Qualified Code(s): E11.69 - Type 2 diabetes mellitus with other specified complication (4) MEL (obstructive sleep apnea) Status: Chronic (5) Myasthenia gravis Status: Chronic History of Present Illness Date of Admission: 05/31/20 Chief Complaint: Hiccups. The patient is a 69 year old M with past medical history as mentioned above presented to the emergency room mainly because of hiccups and also mentioned that he has been getting short of breath upon ambulation. Patient was discharged from the hospital on May 22, 2020 after admission for COVID-19 pneumonia and sepsis due to UTI. He was discharged without oxygen. Patient mentioned that he did well until last 3 days when he started having hiccups. He has been having increasingly progressive intermittent hiccups to the point where he cannot breathe and he mentioned that he could not sleep for the last couple of nights. He reported associated exertional shortness of breath and mild dry cough. He denies fever chills. He denied abdominal pain, nausea or vomiting. He had a history of myasthenia gravis and he has been on long-term steroids. He had a history of type 2 diabetes mellitus and he has been on Metformin and his blood sugar has been under fair control. He had a history of hypertension which has been under control with felodipine and atenolol. In the emergency department, patient was afebrile, initial blood pressure was elevated but improved, pulse ox was 96% 4 L. Currently, he is on 2 L. His routine blood work was unremarkable. EKG revealed normal sinus rhythm without evidence of acute segment changes. Troponin was 0.048. CTA chest showed no PE or dissection, revealed multifocal bilateral pneumonia consistent with recent COVID-19. He is being admitted for intractable hiccups and hypoxia for obser vation. Past Medical History Past Medical History (Chronic Problems): Chronic Problems Former tobacco use (Chronic) Hypertension (Chronic) Hyperlipidemia (Chronic) Type II diabetes mellitus (Chronic) MLE (obstructive sleep apnea) (Chronic) Myasthenia gravis (Chronic) Allergies ampicillin Adverse Reaction (Verified 05/19/20 20:41) Unknown Home Medications: Ambulatory Orders Medication Instructions Recorded Aspirin E.C. [Ecotrin] 81 mg PO DAILY@0800 07/16/15 Atenolol [Tenormin] 50 mg PO DAILY 07/16/15 Calcium Carb/Vitamin D [Os-Freddy 2 tablet PO BIDCM 07/16/15 500MG + D] Cetirizine HCl [Zyrtec] 10 mg PO DAILY PRN 07/16/15 Etodolac [Lodine Xl] 400 mg PO BID 07/16/15 Felodipine [Plendil] 5 mg PO DAILY 07/16/15 Guaifenesin [Tab Tussin] 400 mg PO Q4H PRN PRN 07/16/15 Ipratropium [place] 0.06% 2 spray NASAL BID PRN 07/16/15 [ATROVENT NASAL SPRAY] Mycophenolate Mofetil 1,500 mg PO BID 07/16/15 Pyridostigmine [place] [Mestinon 60 mg PO BID 07/16/15 Timepan] Simvastatin [Zocor] 40 mg PO QHS 07/16/15 predniSONE tablet 10 mg PO DAILY 07/16/15 Alendronate Sodium 70 mg PO MO 07/17/15 Vitamin D3 1 tab PO DAILY 04/24/20 Metformin HCl 500 mg PO BID 30 Days #60 tablet 05/22/20 Surgical History: - - Back surgery x 2, Foot surgery, Partial colon resection secondary to polyps. Psychiatric History: No pertinent psych hx Lives: Spouse/ Significant Other Smoking Status: Former smoker Alcohol: None Drugs: None - *Family History Maternal History Items: Diabetes, High Cholesterol, Heart Disease, Hypertension Paternal History Items: - - Patient denies any knowledge of his paternal medical history. Review of Systems Constitutional: Denies: Anorexia, Chills, Fever, Weakness Eyes: Denies: Blurred vision, Double vision, Drainage, Redness HEENT: Denies: Difficulty Hearing, Ear Pain, Eye Pain, Nasal Congestion, Sore Throat Cardiovascular: Denies: Chest Pain, Chest Pressure, Edema, Heaviness, Palpitations, Syncope Respiratory: Reports: Cough, Shortness of Breath. Denies: Pleuritic Pain, Sputum production, Wheezing Gastrointestinal: Denies: Abdominal Pain, Constipation, Diarrhea, Nausea, Vomiting Genitourinary: Denies: Dysuria, Frequency, Hematuria Musculoskeletal: Denies: Arm Pain, Back Pain, Foot Pain Skin: Denies: Dryness, Rash Neurological: Denies: Balance problems, Double vision, Headaches, Incoordination Psychiatric: Denies: Anxiety, Depression Endocrine: Denies: Change in Body Habitus, Polydipsia, Polyuria VTE Information - Inpt Only VTE Present on Admission: No VTE Mechan Device Prophylaxis: None VTE Pharm Prophylaxis ordered?: Yes Patient Problems: Active and Suspected Problems COVID-19 (Acute) - Physical Exam Vitals/I&O's: Vital Signs Temp Pulse Resp BP Pulse Ox 98.8 F 71 28 H 131/88 H 94 05/31/20 05:30 05/31/20 05:30 05/31/20 05:30 05/31/20 05:30 05/31/20 05:30 Oxygen Flow Rate (L/min) 2 Oxygen Delivery Method Nasal Cannula Weight: 311 lb 4.683 oz Body Mass Index (BMI) 43.4 General: Alert, Oriented x3, Cooperative, - - Mildly short of breath, persistent hiccups. HEENT: Atraumatic, PERRLA, EOMI, Normocephalic Oral: Moist Mucosa, No Gingival or Mucosal Lesions/ Ulcerations Neck: Supple, No JVD, Negative Carotid Bruits, Trachea Midline, Thyroid Normal Size and Texture Lungs: Clear to auscultation, No rhonchi, No wheeze, No rales, Diminished Cardiovascular: Regular rate, Regular Rhythm, Normal S1, Normal S2, PMI Normal Abdomen: Bowel Sounds Present, Soft, Non Tender, Non-Distended, No Hepato- splenomegaly, Obese Extremities: No clubbing, No cyanosis, Edema Skin: No rashes, No breakdown Lymphatic: No Cervical, Supraclavicular, or Inguinal Adenopathy Neurological: Cranial nerves II-XII grossly intact, Motor Exam 5/5 strength throughout Psych/Mental Status: Normal Affect, Appropriate, Alert and oriented to time, place, person, mood and affect Laboratory Results 05/31/20 03:24: WBC 8.9, RBC 4.87, Hgb 13.8, Hct 43.4, MCV 89.1, MCH 28.3, MCHC 31.8 L, RDW Std Deviation 42.8, RDW Coeff of Elidia 13.2, Plt Count 215, MPV 9.7, Immature Gran % (Auto) 1.000 H, Neut % (Auto) 82.1 H, Lymph % (Auto) 10.3 L, [place] % (Auto) 6.3, Eos % (Auto) 0.1, Baso % (Auto) 0.2, Absolute Neuts (auto) 7.3, Absolute Lymphs (auto) 0.91, Nucleated RBC % 0 05/31/20 03:24: PT 12.8, INR 1.0 05/31/20 03:24: Sodium 138, Potassium 3.8, Chloride 106, Carbon Dioxide 25.0, Anion Gap 7, BUN 15, Creatinine 0.95, Estim Creat Clear Calc 75.96, Est GFR (MDRD) Af Amer 100, Est GFR (MDRD) Non-Af 83, BUN/Creatinine Ratio 15.8, Glucose 145 H, Calcium 8.1 L, Troponin I 0.048 H Clinical Impression(s) from Imaging Studies Chest CTA 05/31/20 01:24 IMPRESSION: Negative CTA chest examination, without a demonstrated pulmonary embolism or arterial dissection. Multifocal bilateral pneumonitis. Electronically Signed: Carey Prather MD at 3:00 EDT , Service support , Assessment/Plan All Active Problems COVID-19 (Acute) This is a 69 years old male patient presented to the emergency room because of intractable hiccups and shortness of breath in the setting of recent diagnosis of COVID-19 and he was found to have hypoxia. #1 intractable hiccups: Unclear etiology. Patient denied abdominal pain, nausea or vomiting. Routine blood work was unremarkable. Plan: Admit to [facility] for observation, start Reglan 3 times daily for hiccups, PT OT evaluation and treatment. #2 hypoxia: Secondary to recent COVID-19. Initially, patient required up to 4 L. Currently, he is on 2 L. He was discharged from the hospital on May 22, 2020 after admission for COVID-19 but he was discharged without oxygen. CTA chest reviewed, no PE or dissection. Plan: DuoNeb every 6 hours, incentive spirometer, ambulatory pulse oximeter. Patient may need to go home with oxygen. #3 abnormal cardiac enzymes: Likely related to recent COVID-19. Actually troponin is trending down from the last admission. Patient denied chest pain. EKG reviewed, no acute hemic changes. No indication for further cardiac work- up. #4 recent COVID-19 pneumonia: Completed treatment with IV remdesivir, Decadron and he completed isolation and COVID-19 quarantine on May 18, 2020. Plan as above. #5 myasthenia gravis: Continue on p.o. prednisone, mycophenolate. #6 type 2 diabetes mellitus: ADA diet, Accu-Cheks, insulin sliding scale, contin ue Metformin. #7 hypertension: Blood pressure stable, continue atenolol and felodipine. #8 hyperlipidemia: Continue statins. #9 DVT prophylaxis: Subcu Lovenox. This note was generated with [employer] dictation software. It may contain incorrect words, spelling, and punctuation that were not noted in checking the note before signing. OBSV E&M: 52579 Initial observation care L3
[2020-05-31] MEDS: Metoclopramide 10 MG/2 ML Vial IV (06:25)
[2020-05-31] MEDS: 0.9% Saline Lock 10 ML Syringe IV ×2 (06:26→13:32)
[2020-05-31] MEDS: Ipratropium/Albuterol Sulfate 3 ML AMPUL.NEB INHALATION ×2 (07:57→14:17)
[2020-05-31] MEDS: Atenolol 50 MG Tablet PO (13:31)
[2020-05-31] MEDS: predniSONE 10 MG Tablet PO (13:31)
[2020-05-31] MEDS: Pyridostigmine Bromide 60 MG Tablet PO (13:31)
[2020-05-31] MEDS: Metoclopramide 5 MG TABLET PO (13:31)
[2020-05-31] MEDS: Aspirin E.C. 81 MG Tablet PO (13:31)
[2020-05-31] MEDS: amLODIPine 5 MG Tablet PO (13:31)
[2020-05-31] MEDS: Enoxaparin 40 MG/0.4 ML Syringe SC (13:32)
[2020-05-31] MEDS: Etodolac 200 MG Capsule 400 MG PO (13:32)
[2020-05-31] MEDS: Insulin Lispro 100 UNIT/ML INSULN.PEN SC (13:40)
--- NOTE | 2020-05-31 13:46 | CASEMGMT ---
Addendum entered by Deyanira Singh 05/31/20 13:59: Pt in [facility] and dc'd on 05/22/20 for covid 19 pneumonia and sepsis d/t UTI. Pt dc'd home with . No O2 needed. Pt back on 05/31/20 with intractable hiccups, hypoxia and recent covid 19. CM to follow for O2 needs at home as well as therapy. Original Note: Noted in ER documentation that a bed was available from [facility] and pt is staying at [facility]. [facility] the [facility]. TC to [facility] transfer center to verify. Spoke with the trf center who states that is not their protocol as well as [place] in bed control. TC back to pt room to make him aware. He states he is agreeable to trf and will do what he needs to do. TC back to trf center and connected with bed control, [place]. States that since pt is in obs for hiccups, hypoxia and recent covid, he would not be trf'd. States pt does not have travel and is only service connected 30% so it wouldn't matter. States [facility] not [facility]. TC back to pt room to make aware and updated via [employer].
[2020-05-31 14:46] LABS: Bedside Glucose 335 mg/dL (70-110)
--- NOTE | 2020-05-31 15:49 | PCM.DC ---
- Discharge Diagnoses Current Active Problems: Current Active and Chronic Problems COVID-19 (Acute) Hypertension (Chronic) Hyperlipidemia (Chronic) Type II diabetes mellitus (Chronic) MEL (obstructive sleep apnea) (Chronic) Myasthenia gravis (Chronic) You will use the following diet at home:: No restrictions Your food should be the consistency of: Regular Your liquids should be the consistency of: Regular/Thin Discharge Activity: Return to Normal Activity Weight Bearing Status: Full weight bearing Allergies/Adverse Reactions: Allergies ampicillin Adverse Reaction (Verified 05/19/20 20:41) Unknown Medications to take at Discharge Aspirin E.C. [Ecotrin] 81 mg PO DAILY@0800 07/16/15 Atenolol [Tenormin] 50 mg PO DAILY 07/16/15 Calcium Carb/Vitamin D [Os-Freddy 500MG + D] 2 tablet PO BIDCM 07/16/15 Cetirizine HCl [Zyrtec] 10 mg PO DAILY PRN 07/16/15 Etodolac [Lodine Xl] 400 mg PO BID 07/16/15 Felodipine [Plendil] 5 mg PO DAILY 07/16/15 Guaifenesin [Tab Tussin] 400 mg PO Q4H PRN PRN 07/16/15 Ipratropium [place] 0.06% [ATROVENT NASAL SPRAY] 2 spray NASAL BID PRN 07/16/15 Mycophenolate Mofetil 1,500 mg PO BID 07/16/15 Pyridostigmine [place] [Mestinon Timepan] 60 mg PO BID 07/16/15 Simvastatin [Zocor] 40 mg PO QHS 07/16/15 predniSONE tablet 10 mg PO DAILY 07/16/15 Alendronate Sodium 70 mg PO MO 07/17/15 Vitamin D3 1 tab PO DAILY 04/24/20 Metformin HCl 500 mg PO BID 30 Days #60 tablet 05/22/20 Metoclopramide [Reglan] 5 mg PO Q6H PRN PRN #20 tablet 05/31/20 The following prescriptions were given: Metoclopramide [Reglan] 5 mg PO Q6H PRN PRN #20 tablet PRN Reason: Hiccups Transmission Status: Pending to [facility] [[facility]] - Please follow up with your Primary Care Physician in: as scheduled Test Results: Test results from this visit will be discussed in further detail at your follow-up appointment, if applicable.
--- NOTE | 2020-06-01 18:32 | DS.PCM_ITS ---
Discharge Date and Diagnosis - Problem List Patient Problems: Active and Suspected Problems COVID-19 (Acute) Date of Admission: 05/31/20 Date of Discharge: 05/31/20 - Primary Discharge Diagnosis Acute Problems: Active Problems #1 transient hypoxia-probably secondary to recent COVID-19 infection #2 hiccups #3 elevated troponin-not significant #4 recent COVID-19 pneumonia #5 myasthenia gravis #6 type 2 diabetes #7 essential hypertension #8 obstructive sleep apnea - Secondary Discharge Diagnosis Chronic Problems: Chronic Problems Former tobacco use (Chronic) Hypertension (Chronic) Hyperlipidemia (Chronic) Type II diabetes mellitus (Chronic) MEL (obstructive sleep apnea) (Chronic) Myasthenia gravis (Chronic) Hospital Course and Treatment Operations: None Procedures: None Summary of Care Provided: The patient is a 69 year old M was seen in the emergency room at [facility] after coming into the request of a [facility] nurse over the phone to be seen in the emergency room regarding shortness of breath and hiccups. Patient recently was treated for COVID-19 infection and had been hospitalized, he was not on supplemental oxygen during that hospitalization however, patient completed a course of remdesivir and dexamethasone. Evaluation in the emergency room showed the patient to be slightly hypoxic, troponin was slightly elevated at 0.048, glucose was 145, and his chest CTA showed no evidence of pulmonary embolism but some multifocal bilateral pneumonitis. Patient was given Reglan for his hiccups, he was placed in observation status on MedSurg 2 and his oxygen was able to be weaned off without incident. Patient's hiccups resolved. On 05/31/2020, patient was seen and examined: On examination he appeared in good health and spirits. Vital signs as documented. Skin warm and dry and without overt rashes. Neck without JVD, neck was supple, trachea midline, thyroid was normal. Lungs clear bilaterally, normal air movement was noted. Heart exam notable for regular rhythm, normal sounds and absence of murmurs, rubs or gallops. Abdomen unremarkable and without evidence of organomegaly, masses, or abdominal aortic enlargement. Bowel sounds are present, abdomen is not distended. Extremities nonedematous, no cyanosis was noted, no clubbing was n oted. Neuro: Cranial nerves II through XII are grossly intact, no focal motor deficits were noted, sensation to light touch and pinprick intact, motor exam 5/5 throughout. Psych: Patient is alert and oriented x3, he does not appear anxious or depressed, he does not appear agitated. Patient appears stable for discharge on 05/31/2020, further note, while patient was in the emergency room the [facility] was contacted to transfer the patient there and accepted the patient however, the patient did not want to go to the [facility] and according to his medical record, was told by the emergency room physician here at the hospital that he could stay here and it would be covered by the [facility], he stated that he heard this from the [facility]. Patient understood this to be true and that any bills would be covered here at the hospital by the [facility] if he stayed here. I discussed this with billing at the hospital here and I also discussed this with his . It appears that if the [facility] except[facility] and then the patient refuses to go, the [facility] will not cover the patient's hospital stay here-the patient did not understand this. Patient Problems: Active and Suspected Problems COVID-19 (Acute) - Physical Exam Vitals/I&O's: Vital Signs Temp Pulse Resp BP Pulse Ox 98.4 F 77 20 H 135/66 H 94 05/31/20 15:15 05/31/20 15:15 05/31/20 15:15 05/31/20 15:15 05/31/20 15:15 Oxygen Flow Rate (L/min) 2 Oxygen Delivery Method Room Air Weight: 141.3 kg Body Mass Index (BMI) 43.4 Intake and Output for Last 24 Hours 05/30/20 05/31/20 06/01/20 23:59 23:59 23:59 Intake Total 500 / 500 Output Total 150 / 150 Balance 350 / 350 Discharge Activity: Return to Normal Activity Weight Bearing Status: Full weight bearing Home Medications: Medications to take at Discharge Aspirin E.C. [Ecotrin] 81 mg PO DAILY@0800 07/16/15 Atenolol [Tenormin] 50 mg PO DAILY 07/16/15 Calcium Carb/Vitamin D [Os-Freddy 500MG + D] 2 tablet PO BIDCM 07/16/15 Cetirizine HCl [Zyrtec] 10 mg PO DAILY PRN 07/16/15 Etodolac [Lodine Xl] 400 mg PO BID 07/16/15 Felodipine [Plendil] 5 mg PO DAILY 07/16/15 Guaifenesin [Tab Tussin] 400 mg PO Q4H PRN PRN 07/16/15 Ipratropium [place] 0.06% [ATROVENT NASAL SPRAY] 2 spray NASAL BID PRN 07/16/15 Mycophenolate Mofetil 1,500 mg PO BID 07/16/15 Pyridostigmine [place] [Mestinon Timepan] 60 mg PO BID 07/16/15 Simvastatin [Zocor] 40 mg PO QHS 07/16/15 predniSONE tablet 10 mg PO DAILY 07/16/15 Alendronate Sodium 70 mg PO MO 07/17/15 Vitamin D3 1 tab PO DAILY 04/24/20 Metformin HCl 500 mg PO BID 30 Days #60 tablet 05/22/20 Metoclopramide [Reglan] 5 mg PO Q6H PRN PRN #20 tablet 05/31/20 Following Prescriptions Were Given to Patient: Metoclopramide [Reglan] 5 mg PO Q6H PRN PRN #20 tablet PRN Reason: Hiccups Transmission Status: Received by [facility] [[facility]] - Please follow up with your Primary Care Physician in: as scheduled Disposition: Home Minutes spent on discharge:: 30 Patient Condition:: Stable Medical Necessity - Tobacco Use Smoking Status: Former smoker Meaningful Use Info Meaningful Use Diagnoses (Choose all that apply): None applicable OBSV E&M: 35736 Observ/hosp same date L3
== END 2020-05-31 17:05 | disposition home or self-care (01) ==
LOC: ED 05:38 → ICU 05:52
PROVIDERS: Admitting Provider Hospitalist; Emergency Provider Emergency Medicine; Visit Provider Internal Medicine
DX: R09.02 Hypoxemia (principal); R06.6 Hiccough; I10 Essential (primary) hypertension; E11.9 Type 2 diabetes mellitus without complications; G47.33 Obstructive sleep apnea (adult) (pediatric); G70.00 Myasthenia gravis without (acute) exacerbation; E78.5 Hyperlipidemia, unspecified; E66.01 Morbid (severe) obesity due to excess calories; R77.8 Other specified abnormalities of plasma proteins; Z79.899 Other long term (current) drug therapy; Z79.82 Long term (current) use of aspirin; Z86.16 Personal history of COVID-19; Z87.01 Personal history of pneumonia (recurrent); Z79.52 Long term (current) use of systemic steroids; Z79.84 Long term (current) use of oral hypoglycemic drugs; Z87.891 Personal history of nicotine dependence; Z87.440 Personal history of urinary (tract) infections; Z68.41 Body mass index [BMI] 40.0-44.9, adult
CPT/HCPCS: 71275; 80048; 82962; 84484; 85025; 85610; 93005; 94640; 96372; 96374; 96375; 97802; 99218; 99251; 99285; Q9967; A4216; G0378; G0463

== ENCOUNTER 2020-06-01 17:14 | Inpatient (IN) | payer OTHER, MEDICARE, SELFPAY ==
[2020-05-31 06:05] VITALS: BMI 43.4
[2020-06-01] VITALS (19 sets, daily range): BP systolic 100–161; BP diastolic 41–86; PULSE 78–108; RESP 14–42; TEMP 36.7–38.7; O2SAT 90–99; BMI 44.1; BMI 42.6
--- NOTE | 2020-06-01 17:46 | EKG12_ITS ---
Test Reason : SOB Blood Pressure : / mmHG Vent. Rate : 086 BPM Atrial Rate : 086 BPM P-R Int : 128 ms QRS Dur : 092 ms QT Int : 386 ms P-R-T Axes : 015 -14 119 degrees QTc Int : 461 ms Sinus rhythm with occasional Premature ventricular complexes Nonspecific ST and T wave abnormality Abnormal ECG Confirmed by ROME GROVE, RENE ([id number]), fan mail editor HERMES DONNELLY ([id number]) on 06/05/2020 2:17:19 PM Referred By: ANNA/MIMA Confirmed By:RENE PETER MD
[2020-06-01] MEDS: Ipratropium/Albuterol Sulfate 3 ML AMPUL.NEB INHALATION (17:55)
--- NOTE | 2020-06-01 18:00 | RAD_ITS ---
INDICATION: sob EXAMINATION/TECHNIQUE: X-RAY - XR Chest 1 View COMPARISON: 05/19/2020. FINDINGS: Diffuse bilateral interstitial and airspace opacities. Tortuous calcified thoracic aorta. The heart is enlarged. No pleural effusion or pneumothorax. No acute osseous abnormalities. RAD/Chest 1 View (Portable) IMPRESSION: Diffuse bilateral interstitial and airspace opacities may represent infection and/or edema. Electronically Signed: Jack Sosa MD at 18:37 EDT Tel , Service support ,
[2020-06-01 18:07] LABS: Absolute Lymphocyte Count 0.82 X10^3/uL (0.83-4.51); Absolute Neutrophil Count 13.9 X10^3/uL (2.0-7.7); Basophil# 0.02 X10^3/uL; Basophil% 0.1 % (0-1); Hematocrit 45.7 % (40-54); Hemoglobin 14.6 g/dL (13.0-16.5); Lymphocyte # 0.82 X10^3/ul (4.0); Lymphocyte % 5.3 % (19-41); Mean Corp Hgb Conc 31.9 g/dL (32-36); Mean Corpuscular Hgb 28.2 pg (27.0-32.0); Mean Corpuscular Volume 88.4 fL (80-94); Mean Platelet Vol. 10.8 fl (6.2-12.0); Monocyte# 0.55 X10^3/uL; Monocyte% 3.6 % (0-10); NRBC Flagged by Analyzer 0 % (0-5); Neutrophil # 13.87 X10^3/uL (2.7-7.7); Neutrophil % 90.3 % (47-70); Platelet Count 258 K/mm3 (150-450); RBC Distribution Width CV 13.2 % (11.6-14.6); RBC Distribution Width SD 42.4 fl (35.1-43.9); Red Blood Count 5.17 M/mm3 (4.6-6.2); White Blood Count 15.4 K/mm3 (4.4-11.0)
[2020-06-01] MEDS: Albuterol 2.5 MG/3 ML VIAL.NEB. INHALATION ×3 (18:18)
--- NOTE | 2020-06-01 18:24 | ED.VIS.GEN ---
History of Present Illness Chief Complaint: Shortness of Breath Narrative: Patient was recently admitted to the hospital for intractable hiccups, he was also recently diagnosed with COVID-19 about 2 weeks ago. He apparently was doing well and he did not have any breathing difficulty yesterday when he got discharged however today he is presenting with significant shortness of breath. No fever or chills. He denies any chest pain. No abdominal pain. No back pain or tearing sensation. He denies any pleuritic component. Past medical history: Hypertension, hypercholesterolemia, diabetes, myasthenia gravis Medications: Reviewed Social history: Noncontributory, lives with his at home Review of systems: All systems negative except as indicated General: Denies: Fever. There is generalized weakness. Eyes: Denies: Visual changes - bilaterally ENT: Denies: Rhinorrhea, Sore throat Cardiovascular: Denies: Chest pain Respiratory: Shortness of breath as in HPI Gastrointestinal: Denies: Abdominal pain, Nausea, Vomiting Genitourinary: Denies: Dysuria Musculoskeletal: Denies: Myalgias Skin: Denies: Rash Neurological: Denies: Headache, no focal weakness Psych: Reports: negative Hematologic: Denies: Easy bruising, Easy bleeding Physical exam General: Patient appears chronically ill. He appears acutely ill. He appears in respiratory distress. Head: Normocephalic, Atraumatic Eyes: Conjunctiva not pale ENT: Moist mucous membranes Neck: Supple, Nontender, No lymphadenopathy Cardiovascular: Regular rate somewhat tachycardic. Respiratory: Coarse bilateral breath sounds. There is some wheezing especially on the right. He is tachypneic he is speaking in 3 word sentences. Abdomen: Soft, Nontender, Nondistended Back: Nontender, Normal Inspection. Negative for: CVA tenderness Extremities: Nontender, bilateral lower extremity edema which is symmetric. Patient says this is chronic. Skin: Normal color, No rash Neurological: Alert, Normal Strength, Normal Sensation Psychological: Normal affect Past Medical History - Allergies and Home Meds Allergies/Adverse Reactions: Allergies ampicillin Adverse Reaction (Verified 06/01/20 17:16) Unknown Primary Care Physician: [facility] [Primary Care Provider] - Surgical History: - - Back surgery x 2, Foot surgery, Partial colon resection secondary to polyps. Smoking Status: Former smoker - Family History Maternal Family History: Reports: Diabetes, High Cholesterol, Heart Disease, Hypertension Paternal Family History: Reports: - - Patient denies any knowledge of his paternal medical history. Physical Exam Vital Signs/Narrative: Vital Signs Temp Pulse Resp BP Pulse Ox 06/01/20 18:00 101 H 36 H 90 06/01/20 17:26 98.6 F 78 22 H 134/86 H 90 06/01/20 17:16 98.0 F 78 22 H 90 Diagnostic/Tx/Re-eval Chest X-Ray - ED: 1 View, Read by ED Physician, - - Bilateral infiltrates, low lung volumes. Significant change from prior x-ray. - Medical Decision Making Patient was initially on a nonrebreather however he decompensated and his pulse ox was lower. I started a BiPAP. Patient did somewhat improve and is oxygenating well. VBG is unremarkable. He has bilateral infiltrates which may be Covid although they may be bacterial pneumonia. I initially started antibiotics. He is on chronic steroids therefore I did not give Decadron in the ED. I will admit him for further care. - Critical Care Time Critical care time (excluding procedures): 30-74 minutes, - - Patient came into the ED hypoxic, he needed a nonrebreather, after which she needed BiPAP. I evaluated him multiple times. I discussed the patient with consultants. I spent time documenting. Thus he meets criteria for critical care time. This does not include any procedures. ED Disposition - Plan for ED Patient: Disposition: Acute Care Hospital [facility] Diagnosis: Hypoxia, COVID-19, Respiratory failure [facility] [[facility] Provider] -
--- NOTE | 2020-06-01 19:11 | ED.RN ---
[facility]ED [facility] TO [facility], SPOKE TO KAYLIE IN THE TRANSFER CENTER. PROVIDED REQUESTED ADMIT INFORMATION AND CALL BACK NUMBER, HE ADVISED ,HE WILL NOTIFY A LAMINATION TECHNICIAN.
[2020-06-01 20:03] LABS: BNP,B-Type NATRIURETIC PEPTIDE 166.7 pg/mL (0-100)
[2020-06-01 20:09] LABS: Anion Gap 5 (5-15); BUN 22 mg/dL (7-18); Calcium,Total 8.9 mg/dL (8.5-10.1); Chloride 106 mmol/L (98-107); EST Glomerular Filtration Rate 70 mL/min (>60); Est Glom Filt Rate - Afr Amer 85 mL/min (>60); Glucose 213 mg/dL (74-106); Potassium 3.8 mmol/L (3.5-5.1); Sodium Level 139 mmol/L (136-145)
[2020-06-01] MEDS: Famotidine 200 MG/20 ML MDV 20 MG in 0.9% Normal Saline (Pres. free 8 ML 300 MG IV (20:18)
[2020-06-01 20:28] LABS: Blood Gas Specimen Type VEN; FI02 70; O2 Delivery Device Bi Pap; RR 14; Vt 500
[2020-06-01 20:29] LABS: EPAP 8; Time Given 1933; VBG pH 7.36 (7.32-7.42)
[2020-06-01 20:30] LABS: VBG PO2 35 mmHg (25-40)
[2020-06-01 20:31] LABS: VBG BASE EXCESS 2 mmol/L (-1.0-3.5); VBG Bicarbonate 27 mmol/L (22-26); VBG SO2 65 % (50-70)
[2020-06-01 20:32] LABS: VBG TCO2 29 mmol/L (23-33)
--- NOTE | 2020-06-01 21:00 | ED.RN ---
Pt still complaining of heartburn, rips off his mask and projectile vomits brown bile. pt denies feeling nauseous. States this is all from my heartburn Pt taken off bipap for aspiration concerns. Respiratory called, pt placed on nonrebreather. Pt also noted to feel very warm, temp taken. pt has spiked a fever. Dr Gipson notified of all. New orders received and followed.
[2020-06-01] MEDS: Ondansetron 4 MG/2 ML Vial IV (21:08)
--- NOTE | 2020-06-01 21:09 | CPS ---
Patient vomited in BiPAP mask. greenhouse staff took patient off BIPAP. Patient reported that he was still having this feeling of heart burn that made him vomit. Placed patient on NRB O2 mask at 15L for this reason.
--- NOTE | 2020-06-01 22:04 | PCM.HP.STD ---
History of Present Illness Date of Admission: 06/01/20 Chief Complaint: Shortness of breath The patient is a 69 year old M with a PMH as below who presents to the hospital with shortness of breath. He has had 4 admissions in the last 30 days, his initial admission was due to cellulitis followed by Covid on May 19. And then he was admitted and discharged yesterday because of shortness of breath because of hiccuping. He felt much better yesterday afternoon and decided to go home however this morning he started feeling more short of breath and represented to the ER. This time he has a white count of 15.4 on admission today, yesterday morning it was 8.9. He was recently treated for COVID-19 which the test came back positive on May 19 but he had been symptomatic for about 4 to 5 days prior to that positive test. Because of that he is over 20 days out from Covid and he did receive remdesivir and Decadron. He does have a history of myasthenia gravis and is on CellCept and prednisone at baseline. On presentation today he was found to be hypoxic necessitating nonrebreather. He was transitioned to a BiPAP however had an episode of projectile emesis and therefore was placed back on nonrebreather. He was given nebulizer which he says has helped a little bit with his cough otherwise he is still feeling short of breath. Also while done in the ER he did spike a temperature. He did have a CTA of his chest yesterday which did not demonstrate a PE and he had also had a CTA during his admission for Covid and that was also negative for PE. Troponin is unremarkable and his BNP is lower than it was 2 weeks ago, though he does have chronic bilateral lower extremity edema. Past Medical History Past Medical History (Chronic Problems): Chronic Problems Former tobacco use (Chronic) Hypertension (Chronic) Hyperlipidemia (Chronic) Type II diabetes mellitus (Chronic) MEL (obstructive sleep apnea) (Chronic) Myasthenia gravis (Chronic) Allergies ampicillin Adverse Reaction (Verified 06/01/20 17:16) Unknown Home Medications: Ambulatory Orders Medication Instructions Recorded Aspirin E.C. [Ecotrin] 81 mg PO DAILY@0800 07/16/15 Atenolol [Tenormin] 50 mg PO DAILY 07/16/15 Calcium Carb/Vitamin D [Os-Freddy 2 tablet PO BIDCM 07/16/15 500MG + D] Cetirizine HCl [Zyrtec] 10 mg PO DAILY PRN 07/16/15 Etodolac [Lodine Xl] 400 mg PO BID 07/16/15 Felodipine [Plendil] 5 mg PO DAILY 07/16/15 Guaifenesin [Tab Tussin] 400 mg PO Q4H PRN PRN 07/16/15 Ipratropium [place] 0.06% 2 spray NASAL BID PRN 07/16/15 [ATROVENT NASAL SPRAY] Mycophenolate Mofetil 1,500 mg PO BID 07/16/15 Pyridostigmine [place] [Mestinon 60 mg PO BID 07/16/15 Timepan] Simvastatin [Zocor] 40 mg PO QHS 07/16/15 predniSONE tablet 10 mg PO DAILY 07/16/15 Alendronate Sodium 70 mg PO MO 07/17/15 Vitamin D3 1 tab PO DAILY 04/24/20 Metformin HCl 500 mg PO BID 30 Days #60 tablet 05/22/20 Metoclopramide [Reglan] 5 mg PO Q6H PRN PRN #20 tablet 05/31/20 Surgical History: - - Back surgery x 2, Foot surgery, Partial colon resection secondary to polyps. Psychiatric History: No pertinent psych hx Smoking Status: Former smoker Tobacco Use: Cigarettes Alcohol: None Drugs: None - *Family History Maternal History Items: Diabetes, High Cholesterol, Heart Disease, Hypertension Paternal History Items: - - Patient denies any knowledge of his paternal medical history. Review of Systems Constitutional: Reports: Fever. Denies: Chills, Weight Change HEENT: Denies: Head Aches, Sinus Congestion, Sinus Drainage Cardiovascular: Denies: Chest Pain, Palpitations Respiratory: Reports: Cough, Shortness of Breath. Denies: Shortness of breath at rest, Sputum production Gastrointestinal: Denies: Abdominal Pain, Nausea, Vomiting Genitourinary: Denies: Dysuria Musculoskeletal: Denies: Joint Pain, Joint Tenderness Skin: Denies: Rash, Wounds Neurological: Denies: Numbness, Tingling, Focal weakness Psychiatric: Denies: Anxiety, Depression Hematologic/ Lymphatic: Denies: Easy Bruising, Easy Bleeding VTE Information - Inpt Only VTE Present on Admission: No Patient Problems: Active and Suspected Problems Hypoxia (Acute) Respiratory failure (Acute) COVID-19 (Acute) - Physical Exam Vitals/I&O's: Vital Signs Temp Pulse Resp BP Pulse Ox 101.7 F H 101 H 34 H 161/81 H 97 06/01/20 21:00 06/01/20 21:00 06/01/20 21:00 06/01/20 21:00 06/01/20 21:00 Oxygen Flow Rate (L/min) 15 Oxygen Delivery Method Non-Rebreather Weight: 317 lb 0.395 oz Body Mass Index (BMI) 44.1 Intake and Output for Last 24 Hours 05/30/20 05/31/20 06/01/20 23:59 23:59 23:59 Intake Total 110 / 110 Balance 110 / 110 General: Alert, Oriented x3, Cooperative, - - On nonrebreather HEENT: Atraumatic, PERRLA, EOMI, Normocephalic Oral: Moist Mucosa Neck: Supple, No JVD Lungs: Clear to auscultation, Normal air movement, No rhonchi, No wheeze, No rales, Diminished Cardiovascular: Regular Rhythm, Normal S1, Normal S2, No murmurs, Tachycardic Abdomen: Soft, Non Tender, Non-Distended, No Hepato-splenomegaly Extremities: Capillary Refill Less than 3 Seconds, Edema Skin: No rashes, No breakdown Neurological: Neuro grossly intact, Sensory exam intact to light touch and pain Psych/Mental Status: Normal Affect, Appropriate Laboratory Results 06/01/20 17:40: WBC 15.4 H, RBC 5.17, Hgb 14.6, Hct 45.7, MCV 88.4, MCH 28.2, MCHC 31.9 L, RDW Std Deviation 42.4, RDW Coeff of Elidia 13.2, Plt Count 258, MPV 10.8, Immature Gran % (Auto) 0.700, Neut % (Auto) 90.3 H, Lymph % (Auto) 5.3 L, [place] % (Auto) 3.6, Eos % (Auto) 0.0, Baso % (Auto) 0.1, Absolute Neuts (auto) 13.9 H, Absolute Lymphs (auto) 0.82 L, Nucleated RBC % 0 06/01/20 17:40: Sodium Cancelled, Potassium Cancelled, Chloride Cancelled, Carbon Dioxide Cancelled, Anion Gap Cancelled, BUN Cancelled, Creatinine Cancelled, Estim Creat Clear Calc Cancelled, Est GFR (MDRD) Af Amer Cancelled, Est GFR (MDRD) Non-Af Cancelled, BUN/Creatinine Ratio Cancelled, Glucose Cancelled, Calcium Cancelled, Troponin I Cancelled 06/01/20 17:40: B-Natriuretic Peptide 166.7 H 06/01/20 19:28: Specimen Type EDITH, O2 % 70, VBG pH 7.36, VBG pO2 35, VBG HCO3 27 H, VBG Total CO2 29, VBG O2 Sat (Calc) 65, VBG Base Excess 2, POC Mix VBG pCO2 Pt Tmp 48.0, Respiration Rate 14, O2 Delivery Device Bi Pap, Tidal Volume 500, EPAP 8, Blood Gas Notified Whom ED , Blood Gas Notified Time 193206/01/20 19:36: Sodium 139, Potassium 3.8, Chloride 106, Carbon Dioxide 28.0, Anion Gap 5, BUN 22 H, Creatinine 1.10, Estim Creat Clear Calc 65.60, Est GFR (MDRD) Af Amer 85, Est GFR (MDRD) Non-Af 70, BUN/Creatinine Ratio 20.0, Glucose 213 H, Calcium 8.9, Troponin I 0.046 H Assessment/Plan All Active Problems Hypoxia (Acute) Respiratory failure (Acute) COVID-19 (Acute) 1. Sepsis and acute hypoxic respiratory failure secondary to possible healthcare associated pneumonia/recent Covid -He has been more than 3 days in the last 90 days in the hospital -Chest x-ray with bilateral pulmonary infiltrates which is consistent with a CTA obtained yesterday -Now has an elevated white count despite yesterday's being normal, and is also febrile as well as tachycardic and tachypneic -Continue with nonrebreather and if necessary can put him back on BiPAP he is alert enough to take his mask off if he does have another episode of emesis -Continue with vancomycin and Zosyn -Will stress dose him since he is on CellCept and steroids at baseline with hydrocortisone for 3 days -Given his recent Covid about 20 days ago, will give him a single dose of Lasix see if that helps his respiratory status -He did receive remdesivir and Decadron on his previous admission for Covid 2. HTN/HLD/abnormal troponins -Blood pressure is stable -Continue with atenolol, felodipine, aspirin, Zocor 3. DM 2 -We will hold his Metformin, since we will place him on stress dosing will place him on long-acting insulin 5 units as well as sliding scale insulin -Accu-Cheks AC at bedtime 4. Myasthenia gravis -We will hold his CellCept and his prednisone secondary to his sepsis -Continue with Mestinon DVT: Lovenox Inpatient E&M: [id number] Init Hosp L3
--- NOTE | 2020-06-01 22:25 | PCM.RX.CS ---
Consult Pharmacy has been consulted to manage selected antiobiotic: Vancomycin Type of Consult: New start Suspected Infection: Pneumonia Labs: Sodium 139 mmol/L (136-145) 06/01/20 19:36 Potassium 3.8 mmol/L (3.5-5.1) 06/01/20 19:36 Chloride 106 mmol/L (98-107) 06/01/20 19:36 Carbon Dioxide 28.0 mmol/L (21.0-32.0) 06/01/20 19:36 Anion Gap 5 (5-15) 06/01/20 19:36 BUN 22 mg/dL (7-18) H 06/01/20 19:36 Creatinine 1.10 mg/dL (0.70-1.30) 06/01/20 19:36 Est GFR (MDRD) Af Amer 85 mL/min (>60) 06/01/20 19:36 Est GFR (MDRD) Non-Af 70 mL/min (>60) 06/01/20 19:36 BUN/Creatinine Ratio 20.0 RATIO (10-20) 06/01/20 19:36 Glucose 213 mg/dL (74-106) H 06/01/20 19:36 Weight used for dosin.8 kg Estimated Creatinine Clearance: 87.6 Goal Trough: 15-20 mcg/mL Pharmacy Plan for Drug Dosing: Pharmacy Service will continue to monitor and adjust dosing as required. Medications Vancomycin HCl 2,000 mg/ (Sodium Chloride) 540 mls @ 250 mls/hr IV Q12H BOONE Discontinued Medications Vancomycin HCl 2,000 mg/ (Sodium Chloride) 540 mls @ 250 mls/hr IV X1 ONE Stop: 06/01/20 20:39 Last Admin: 06/01/20 19:34 Dose: 250 mls/hr Documented by: Follow-Up Labs: Trough Vancomycin Labs to be done on [date and time ordered]: 06/03 @ 0700
[2020-06-01] MEDS: Furosemide 20 MG/2 ML VIAL IV (22:45)
[2020-06-01] MEDS: Hydrocortisone Sod Succinate 100 MG/2 ML Vial IV (22:45)
[2020-06-01] MEDS: 0.9% Saline Lock 10 ML Syringe IV (22:45)
[2020-06-02] VITALS (37 sets, daily range): BP systolic 111–166; BP diastolic 53–90; PULSE 52–83; RESP 14–34; TEMP 35.8–37.3; O2SAT 86–99; BMI 42.7
[2020-06-02] MEDS: MELATONIN 3 MG TABLET PO ×2 (00:43→21:55)
[2020-06-02] MEDS: Ondansetron 4 MG/2 ML Vial IV ×2 (00:45→09:12)
[2020-06-02 04:31] LABS: Absolute Neutrophil Count 8.9 X10^3/uL (2.0-7.7); Hematocrit 40.6 % (40-54); Hemoglobin 12.8 g/dL (13.0-16.5); Lymphocyte % 4.1 % (19-41); Mean Corp Hgb Conc 31.5 g/dL (32-36); Mean Corpuscular Hgb 27.7 pg (27.0-32.0); Mean Corpuscular Volume 87.9 fL (80-94); Mean Platelet Vol. 9.9 fl (6.2-12.0); Monocyte# 0.52 X10^3/uL; Monocyte% 5.3 % (0-10); NRBC Flagged by Analyzer 0 % (0-5); Neutrophil # 8.88 X10^3/uL (2.7-7.7); Neutrophil % 90.1 % (47-70); POSITIVE DIFFERENTIAL YES; Platelet Count 226 K/mm3 (150-450); RBC Distribution Width CV 13.2 % (11.6-14.6); Red Blood Count 4.62 M/mm3 (4.6-6.2); White Blood Count 9.9 K/mm3 (4.4-11.0)
[2020-06-02 04:33] LABS: Differential Indicated SCAN CRITERIA MET
[2020-06-02 04:49] LABS: Anion Gap 6 (5-15); BUN 24 mg/dL (7-18); Calcium,Total 8.1 mg/dL (8.5-10.1); Chloride 107 mmol/L (98-107); Creatinine, Serum 1.09 mg/dL (0.70-1.30); EST Glomerular Filtration Rate 71 mL/min (>60); Est Glom Filt Rate - Afr Amer 86 mL/min (>60); Glucose 298 mg/dL (74-106); Potassium 4.2 mmol/L (3.5-5.1); Sodium Level 139 mmol/L (136-145)
[2020-06-02] MEDS: Hydrocortisone Sod Succinate 100 MG/2 ML Vial IV ×3 (05:21→22:38)
--- NOTE | 2020-06-02 05:53 | CON.PCM_ITS ---
Reason for Consult Date of Consultation: 06/02/20 Reason for Consultation: Acute hypoxemic respiratory failure History of Present Illness: The patient is a 69-year-old male, with a history as outlined below, who presented to the emergency department on June 01 with complaints of shortness of breath. The patient was just admitted and discharged from the hospital on May 31 after having been admitted with transient hypoxemia and persistent hiccups. The patient did not require supplemental oxygen at the time of his discharge. Prior to this, the patient was admitted to the hospital for 3 days at the end of April 2020, during which time, he was treated for severe sepsis secondary to COVID-19 pneumonia. The patient at that time was treated with remdesivir and Decadron. The patient does have a known history of obstructive sleep apnea, for which he reports compliance with the use of nocturnal Pap therapy. His medical history is also significant for myasthenia gravis. He does report the presence of shortness of breath and nausea. He did have one episode of emesis in the emergency department yesterday. He denies any dysphagia or difficulty handling secretions at the current time. However, he readily admits that his mouth feels dry. On presentation to the emergency department, the patient was noted to be afebrile and hemodynamically stable. However, he was tachypneic and hypoxemic requiring a nonrebreather. Laboratory evaluation revealed an elevated white blood cell count of 15,000. Chemistry profile was largely unrevealing. Troponin was mildly elevated to 0.046. BNP was mildly increased to 167. Of note, there is documentation that the patient had a fever in the emergency department of 101.7 ?F. In addition, the patient had just had a CTA chest completed on May 31 which showed no evidence for pulmonary embolism. However, diffuse bilateral groundglass opacities were noted bilaterally with a basilar predominance. These findings are new compared to CTA chest from May 20, 2020. Past Medical History Past Medical History (Chronic Problems): Chronic Problems Former tobacco use (Chronic) Hypertension (Chronic) Hyperlipidemia (Chronic) Type II diabetes mellitus (Chronic) MEL (obstructive sleep apnea) (Chronic) Myasthenia gravis (Chronic) Allergies ampicillin Adverse Reaction (Verified 06/01/20 17:16) Unknown Home Medications: Ambulatory Orders Medication Instructions Recorded Aspirin E.C. [Ecotrin] 81 mg PO DAILY@0800 07/16/15 Atenolol [Tenormin] 50 mg PO DAILY 07/16/15 Calcium Carb/Vitamin D [Os-Freddy 2 tablet PO BIDCM 07/16/15 500MG + D] Cetirizine HCl [Zyrtec] 10 mg PO DAILY PRN 07/16/15 Etodolac [Lodine Xl] 400 mg PO BID 07/16/15 Felodipine [Plendil] 5 mg PO DAILY 07/16/15 Guaifenesin [Tab Tussin] 400 mg PO Q4H PRN PRN 07/16/15 Ipratropium [place] 0.06% 2 spray NASAL BID PRN 07/16/15 [ATROVENT NASAL SPRAY] Mycophenolate Mofetil 1,500 mg PO BID 07/16/15 Pyridostigmine [place] [Mestinon 60 mg PO BID 07/16/15 Timepan] Simvastatin [Zocor] 40 mg PO QHS 07/16/15 predniSONE tablet 10 mg PO DAILY 07/16/15 Alendronate Sodium 70 mg PO MO 07/17/15 Vitamin D3 1 tab PO DAILY 04/24/20 Metformin HCl 500 mg PO BID 30 Days #60 tablet 05/22/20 Metoclopramide [Reglan] 5 mg PO Q6H PRN PRN #20 tablet 05/31/20 Surgical History: - - Back surgery x 2, Foot surgery, Partial colon resection secondary to polyps. Psychiatric History: No pertinent psych hx Smoking Status: Former smoker Tobacco Use: Cigarettes Alcohol: None Drugs: None - *Family History Maternal History Items: Diabetes, High Cholesterol, Heart Disease, Hypertension Paternal History Items: - - Patient denies any knowledge of his paternal medical history. Review of Systems Constitutional: Reports: Weakness, Fatigue Eyes: Denies: Blurred vision, Double vision HEENT: Denies: Difficulty Swallowing, Dysphasia Cardiovascular: Reports: Edema. Denies: Chest Pain Respiratory: Reports: Cough, Shortness of Breath Gastrointestinal: Reports: Nausea, Vomiting. Denies: Abdominal Pain Genitourinary: Denies: Dysuria Musculoskeletal: Denies: Joint Pain, Joint Tenderness Skin: Denies: Rash, Wounds Neurological: Denies: Double vision, Focal weakness, Numbness, Tingling Psychiatric: Denies: Anxiety, Depression, Homicidal Ideations, Suicidal Ideations Hematologic/ Lymphatic: Denies: Easy Bruising, Easy Bleeding Patient Problems: Active and Suspected Problems Hypoxia (Acute) Respiratory failure (Acute) COVID-19 (Acute) Objective: The patient's most recent lab work, culture data and imaging studies have all been personally reviewed. Respiratory viral panel is pending. Blood cultures are pending. - Physical Exam Vitals/I&O's: Vital Signs Temp Pulse Resp BP Pulse Ox 99.2 F H 67 29 H 135/72 H 98 06/02/20 04:00 06/02/20 05:00 06/02/20 05:00 06/02/20 05:00 06/02/20 05:00 Oxygen Flow Rate (L/min) 15 Oxygen Delivery Method Bi-pap Weight: 306 lb 10.608 oz Body Mass Index (BMI) 42.6 Intake and Output for Last 24 Hours 05/31/20 06/01/20 06/02/20 23:59 23:59 23:59 Intake Total 650 / 650 50 / 50 Output Total 300 / 300 300 / 300 Balance 350 / 350 -250 / -250 General: - - Alert but somnolent. Ill in appearance. BiPAP currently in place. HEENT: Atraumatic, Normocephalic Oral: Dry Mucosa Neck: Supple, No Nodes, Trachea Midline Lungs: No rhonchi, No wheeze, No rales, Diminished, Tachypneic Cardiovascular: Regular rate, Regular Rhythm Abdomen: Bowel Sounds Present, Soft, Non Tender, Obese Extremities: No clubbing, No cyanosis, Edema Skin: No breakdown Musculoskeletal: No Muscle Wasting Lymphatic: No Cervical, Supraclavicular, or Inguinal Adenopathy Neurological: - - No focal neurological deficits. Psych/Mental Status: Flat Affect Labs (Last 48 Hours) 06/01/20 06/01/20 06/01/20 17:40 17:40 17:40 WBC 15.4 H RBC 5.17 Hgb 14.6 Hct 45.7 MCV 88.4 MCH 28.2 MCHC 31.9 L RDW Std Deviation 42.4 RDW Coeff of Elidia 13.2 Plt Count 258 MPV 10.8 Immature Gran % (Auto) 0.700 Neut % (Auto) 90.3 H Lymph % (Auto) 5.3 L [place] % (Auto) 3.6 Eos % (Auto) 0.0 Baso % (Auto) 0.1 Absolute Neuts (auto) 13.9 H Absolute Lymphs (auto) 0.82 L Nucleated RBC % 0 Specimen Type O2 % VBG pH VBG pO2 VBG HCO3 VBG Total CO2 VBG O2 Sat (Calc) VBG Base Excess POC Mix VBG pCO2 Pt Tmp Respiration Rate O2 Delivery Device Tidal Volume EPAP Blood Gas Notified Whom Blood Gas Notified Time Sodium Cancelled Potassium Cancelled Chloride Cancelled Carbon Dioxide Cancelled Anion Gap Cancelled BUN Cancelled Creatinine Cancelled Estim Creat Clear Calc Cancelled Est GFR (MDRD) Af Amer Cancelled Est GFR (MDRD) Non-Af Cancelled BUN/Creatinine Ratio Cancelled Glucose Cancelled Calcium Cancelled Troponin I Cancelled B-Natriuretic Peptide 166.7 H 06/01/20 06/01/20 06/02/20 19:28 19:36 04:26 WBC 9.9 RBC 4.62 Hgb 12.8 L Hct 40.6 MCV 87.9 MCH 27.7 MCHC 31.5 L RDW Std Deviation 42.0 RDW Coeff of Elidia 13.2 Plt Count 226 MPV 9.9 Immature Gran % (Auto) 0.500 Neut % (Auto) 90.1 H Lymph % (Auto) 4.1 L [place] % (Auto) 5.3 Eos % (Auto) 0.0 Baso % (Auto) 0.0 Absolute Neuts (auto) 8.9 H Absolute Lymphs (auto) 0.40 L Nucleated RBC % 0 Specimen Type EDITH O2 % 70 VBG pH 7.36 VBG pO2 35 VBG HCO3 27 H VBG Total CO2 29 VBG O2 Sat (Calc) 65 VBG Base Excess 2 POC Mix VBG pCO2 Pt Tmp 48.0 Respiration Rate 14 O2 Delivery Device Bi Pap Tidal Volume 500 EPAP 8 Blood Gas Notified Whom ED Blood Gas Notified Time 193 Sodium 139 Potassium 3.8 Chloride 106 Carbon Dioxide 28.0 Anion Gap 5 BUN 22 H Creatinine 1.10 Estim Creat Clear Calc 65.60 Est GFR (MDRD) Af Amer 85 Est GFR (MDRD) Non-Af 70 BUN/Creatinine Ratio 20.0 Glucose 213 H Calcium 8.9 Troponin I 0.046 H B-Natriuretic Peptide 06/02/20 04:26 WBC RBC Hgb Hct MCV MCH MCHC RDW Std Deviation RDW Coeff of Elidia Plt Count MPV Immature Gran % (Auto) Neut % (Auto) Lymph % (Auto) [place] % (Auto) Eos % (Auto) Baso % (Auto) Absolute Neuts (auto) Absolute Lymphs (auto) Nucleated RBC % Specimen Type O2 % VBG pH VBG pO2 VBG HCO3 VBG Total CO2 VBG O2 Sat (Calc) VBG Base Excess POC Mix VBG pCO2 Pt Tmp Respiration Rate O2 Delivery Device Tidal Volume EPAP Blood Gas Notified Whom Blood Gas Notified Time Sodium 139 Potassium 4.2 Chloride 107 Carbon Dioxide 26.0 Anion Gap 6 BUN 24 H Creatinine 1.09 Estim Creat Clear Calc 66.20 Est GFR (MDRD) Af Amer 86 Est GFR (MDRD) Non-Af 71 BUN/Creatinine Ratio 22.0 H Glucose 298 H Calcium 8.1 L Troponin I B-Natriuretic Peptide Clinical Impression(s) from Imaging Studies Chest X-Ray 06/01/20 18:00 IMPRESSION: Diffuse bilateral interstitial and airspace opacities may represent infection and/or edema. Electronically Signed: Jack Sosa MD at 18:37 EDT Tel , Service support , Current Medications Acetaminophen (Acetaminophen 325 Mg Tablet) 650 mg PO Q6H PRN PRN PRN Reason: Pain Score 1-10/Temp > 100.7 F Alendronate Sodium (Alendronate Sodium 70 Mg Tablet) 70 mg PO MO BOONE Amlodipine Besylate (Amlodipine 5 Mg Tablet) 5 mg PO DAILY [facility] Aspirin (Aspirin E.C. 81 Mg Tablet) 81 mg PO DAILY@0800 [facility] Atenolol (Atenolol 50 Mg Tablet) 50 mg PO DAILY [facility] Atorvastatin Calcium (Atorvastatin Calcium 20 Mg Tablet) 20 mg PO QHS [facility] Dextrose (Dextrose 50%-Water 25 Gm/50 Ml Disp.Syrin) 0 gm IV X1 PRN; Protocol PRN Reason: Hypoglycemia Enoxaparin Sodium (Enoxaparin 40 Mg/0.4 Ml Syringe) 40 mg SC DAILY [facility] Etodolac (Etodolac 200 Mg Capsule) 400 mg PO BID BOONE Glucagon (Glucagon 1 Mg/Ml Syringe) 1 mg IM .X1 PRN PRN Reason: Hypoglycemia Hydrocortisone Sodium Succinate (Hydrocortisone Sod Succinate 100 Mg/2 Ml Vial) 100 mg IV Q8 BOONE Stop: 06/04/20 14:01 Last Admin: 06/02/20 05:21 Dose: 100 mg Documented by: Piperacillin Sod/Tazobactam (Sod 3.375 gm/ Sodium Chloride) 50 mls @ 12.5 mls/hr IV Q8 BOONE Last Admin: 06/02/20 05:21 Dose: 12.5 mls/hr Documented by: Vancomycin IV Pharmacy to Dose (1 each/ Sodium Chloride) 500 mls @ 250 mls/hr IV X1 PRN; Protocol PRN Reason: Rx to Dose Sodium Chloride () 250 mls @ 15 mls/hr IV .[id number] PRN PRN Reason: Saline Flush Sodium Chloride () 250 mls @ 15 mls/hr IV .[id number] PRN PRN Reason: Additional IVPB Infusion Vancomycin HCl 2,000 mg/ (Sodium Chloride) 540 mls @ 250 mls/hr IV Q12H [facility] Insulin Glargine (Insulin Glargine 100 Units/Ml Pen) 5 units SC QHS BOONE Insulin Human Lispro (Insulin Lispro 100 Unit/Ml Insuln.Pen) 0 unit SC ACHS BOONE; Protocol Loratadine (Loratadine 10 Mg Tablet) 10 mg PO DAILY PRN PRN Reason: ALLERGIES Melatonin (Melatonin 3 Mg Tablet) 3 mg PO QHS PRN PRN PRN Reason: INSOMNIA Last Admin: 06/02/20 00:43 Dose: 3 mg Documented by: Ondansetron HCl (Ondansetron 4 Mg/2 Ml Vial) 4 mg IV Q8H PRN PRN PRN Reason: NAUSEA/VOMITING Last Admin: 06/02/20 00:45 Dose: 4 mg Documented by: Pyridostigmine [place] (Pyridostigmine [place] 180 Mg Tablet.Sa) 60 mg PO BID [facility] Sodium Chloride (0.9% Saline Lock 10 Ml Syringe) 10 - 40 ml IV UD PRN PRN Reason: SALINE FLUSH Last Admin: 06/01/20 22:45 Dose: 10 ml Documented by: Assessment/Plan Active and Suspected Problems Hypoxia (Acute) Respiratory failure (Acute) COVID-19 (Acute) RECOMMENDATIONS: 1. Check procalcitonin, MRSA screen, strep and urine Legionella antigens. 2. Continue stress dose steroids for now. 3. Continue broad-spectrum antimicrobials. 4. Continue patient on BiPAP. Attempt to check NIF, if able to be weaned from BIPAP. 5. Obtain arterial blood gas. 6. Infectious diseases consultation to assist with antimicrobial management, given baseline immunosuppression status. 7. Obtain neurology consultation over concerns for an evolving myasthenia crisis. IMPRESSIONS: 1. Acute hypoxemic respiratory failure The patient appears to have multifocal bilateral pneumonia and would be at high risk for aspiration given his nausea and episodes of emesis. In addition, the patient has known sleep apnea and myasthenia gravis. There is always concern that with concurrent infection, the patient could develop a myasthenic crisis. His respiratory status is quite tenuous at this time. He will be continued on noninvasive positive pressure ventilatory support and wean as tolerated. If he is able to be maintained off of BiPAP, will plan to monitor his NIF(negative inspiratory force). If the patient were to decompensate further from a respiratory perspective, would proceed with immediate intubation. In the interim, the patient will be continued on broad-spectrum antimicrobials. Given his baseline immunosuppressed state, will ask infectious diseases to evaluate the patient as well. 2. Mild troponin elevation Likely secondary to demand ischemia in the setting of #1. Will obtain echocardiogram for further evaluation. 3. History of obstructive sleep apnea Continue noninvasive positive pressure ventilatory support as ordered. 4. Recent diagnosis of COVID-19/history of myasthenia gravis The patient was admitted to the hospital in April with coronavirus and treated with remdesivir and Decadron. His CT scan from May 20 did not show any significant infiltrates. However, his CTA from May 31 now has multifocal infiltrates. The patient will need to be monitored very closely for the development of a myasthenia crisis. If the patient's respiratory status were to worsen, he would need to be transferred to a tertiary care facility. Neurology consultation will be obtained this morning as well. 5. Obesity/hypertension/diabetes mellitus Complicates care, management, recovery and prognosis. Continue home medications as indicated. TIME: 42 minutes of critical care time, independent of procedures, was spent addressing the patient's acute hypoxemic respiratory failure, bilateral pneumonia, troponin elevation, history of myasthenia gravis, obstructive sleep apnea, review of all data and collaboration with the care team. [id number] [id number] [id number] Critical care first hour
--- NOTE | 2020-06-02 06:34 | ECHOCS_ITS ---
Reason For Study: DYSPNEA Procedure This was a 2D Doppler, Color Flow transthoracic echocardiogram. The study was technically difficult. Contrast injection was performed. Exam performed portable in patient room. Left Ventricle Normal LV size. Left ventricular systolic function is normal. The estimated ejection fraction is 65 %. Diastolic function is indeterminate. No regional wall motion abnormalities noted. Right Ventricle Normal RV size. Normal systolic function. Atria The left atrium is mildly enlarged. Normal right atrium. No doppler evidence for ASD. Mitral Valve There is no mitral annular calcification. Normal mitral valve. Trivial mitral valve insufficiency. Tricuspid Valve Normal tricuspid valve. Trivial tricuspid valve insufficiency. Right ventricular systolic pressure estimated to be 39 mmHg. Aortic Valve Trisinus/trileaflet aortic valve. Mild focal aortic valve calcification. Pulmonic Valve The pulmonic valve is not well visualized. Trivial pulmonic valve insufficiency. Great Vessels Normal sized aortic root. Pericardium/Pleural No pericardial effusion. Epicardial fat. Medication Diluted definity 6.0ml given slow IV push to enhance endocardial definition. MMode/2D Measurements & Calculations LVIDd: 4.5 cm IVSd: 1.7 cm Ao root diam: 3.8 cm LVIDs: 3.3 cm LVPWd: 1.7 cm FS: 27.8 % LAV(MOD-bp): 78.7 ml LA A4 area: 20.2 cm2 LA dimension(2D): 4.7 cm LAV(MOD-bp) Indexed: 30.9 ml/m2 LAV(MOD-sp2): 80.8 ml LAV(MOD-sp4): 60.6 ml RA A4 area: 21.4 cm2 Time Measurements MV dec time: 0.20 sec Doppler Measurements & Calculations MV E max tunde: 69.2 cm/sec Lat Peak E' Tunde: 7.6 cm/sec Med Peak E' Tunde: 5.9 cm/sec MV A max tunde: 29.1 cm/sec E/E' lat: 9.2 E/E' med: 11.8 MV E/A: 2.4 PA V2 max: 74.0 cm/sec TR max tunde: 301.2 cm/sec TR max P.3 mmHg ECHO/Echo Complete W/ Contrast Interpretation Summary The study was technically difficult. Contrast injection was performed. Left ventricular systolic function is normal. The estimated ejection fraction is 65 %. The left atrium is mildly enlarged. Trivial mitral valve insufficiency. Trivial tricuspid valve insufficiency. Mild focal aortic valve calcification. Trivial pulmonic valve insufficiency. Epicardial fat. Right ventricular systolic pressure estimated to be 39 mmHg. Diastolic function is indeterminate. Ordering Physician: Gurinder Bustamante Referring Physician: [facility] Performed By: Manisha Lopez, VERNON, RVT
[2020-06-02 07:01] LABS: Procalcitonin 0.25 ng/mL (0.00-0.09)
--- NOTE | 2020-06-02 07:30 | TELEMED_ITS ---
[facility] Telemed has confirmed receipt of a request for visit. This document confirms receipt of the order initiating the consult. To find the results of the consultation, please view the patient's reports for the scanned Telemed Consult.
[2020-06-02] MEDS: 0.9% Saline Lock 10 ML Syringe IV (08:06)
[2020-06-02 08:15] LABS: Bedside Glucose 324 mg/dL (70-110)
[2020-06-02 08:20] LABS: Allen Test Positive; Base Excess -1 mmol/L (-2 to +2); Bicarbonate 23.8 mmol/L (22-26); Blood Gas Specimen Type ART; FI02 40; O2 Delivery Device BiPAP; PEEP 8; PO2 61 mmHG (75-100); RR 14; SITE R Radial; SO2 91 % (95-99); Total Carbon Dioxide 25 mmol/L; Vt 500; pCO2 37.5 mmHg (35-45); pH 7.41 (7.35-7.45)
[2020-06-02] MEDS: Insulin Lispro 100 UNIT/ML INSULN.PEN SC ×4 (08:20→22:35)
--- NOTE | 2020-06-02 09:29 | CASEMGMT ---
SHARRON LAGUNAS participated in ICU rounds. Patient is currently on bipap while sleeping and 6lpm when awake. Per Dr. Bustamante if patient declines, may need transferred to tertiary facility or [facility]. Dr. Bustamante inquired if [facility] would be able to administer IV IG and plasmapheresis. Patient has [employer] benefits and [facility] only. SHARRON LAGUNAS called [facility] transfer center to inquire if they could administer IV IG and plasmapheresis if needed. Occ Therapist at [facility] said they believed so but would update the clinical coordinator and that they will call this RN CM after clinical information review. CM awaiting call back from [facility].
--- NOTE | 2020-06-02 09:38 | NT.THERAPY_ITS ---
Nutrition Therapy Report - History Current diet / nutrition support order:: NPO - Anthropometric Measurements Height:: 5 ft 11 in Weight:: 139.1 kg Body Mass Index (BMI):: 42.7 - Relevant Labs Relevant Labs:: WBC 15.4 K/mm3 (4.4-11.0) H 06/01/20 17:40 Hgb 12.8 g/dL (13.0-16.5) L 06/02/20 04:26 MCHC 31.5 g/dL (32-36) L 06/02/20 04:26 Neut % (Auto) 90.1 % (47-70) H 06/02/20 04:26 Lymph % (Auto) 4.1 % (19-41) L 06/02/20 04:26 Absolute Neuts (auto) 8.9 X10^3/uL (2.0-7.7) H 06/02/20 04:26 Absolute Lymphs (auto) 0.40 X10^3/uL (0.83-4.51) L 06/02/20 04:26 BUN 24 mg/dL (7-18) H 06/02/20 04:26 BUN/Creatinine Ratio 22.0 RATIO (10-20) H 06/02/20 04:26 Glucose 298 mg/dL (74-106) H 06/02/20 04:26 Calcium 8.1 mg/dL (8.5-10.1) L 06/02/20 04:26 Troponin I 0.046 ng/mL (<0.045) H 06/01/20 19:36 B-Natriuretic Peptide 166.7 pg/mL (0-100) H 06/01/20 17:40 Procalcitonin 0.25 ng/mL (0.00-0.09) H 06/02/20 06:25 - Assessment Food / Nutrition-Related History:: No PO intake this AM d/t resp. failure/mental status. D/C'd from [facility] 05/31/20. 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 Reported unintentional wt loss. Was 318.8# on 04/25/20, CBW 305.6#- 13.2#/4% wt loss x 1 month is not significant for malnutrition. However, wt on 05/31/20 was 311.5# suggesting a 5.9#/1.8% wt loss x 2 days, which is significant. Currently w/ edema that may be maksing further wt loss. - Nutrition Diagnosis Problem / Etiology / Signs & Symptoms (PES):: acute, moderate malnutrition r/t inadequate energy intake w/ increased energy needs d/t COVID-19, recent hospitalizations as evidenced by estimated PO intake meeting <75% of nutritional needs > 1 week, unintentional wt loss of 5.9#/1.8% wt loss x 2 days Evidence of Malnutrition Exists:: Yes Moderate PCM:: Acute Illness - Nutrition Intervention Nutrition Prescription:: [id number] calories/day (22-25 calories/kg IBW per ASPEN guidelines). 100-112g protein/day (0.8g/kg). 2000mL fluid/day (1mL/calorie) - Food / Nutrient Delivery Interventions Summary of nutrition intervention:: will monitor ability to resume PO diet and provide further interventions as indicated. Nutrition support ordered as / adjusted to:: recommend CHO controlled diet when medically indicated. - MNT Monitoring Further MNT monitoring and evaluation required?: Yes MNT Follow-up in:: 3-5 days
[2020-06-02] MEDS: Pyridostigmine Bromide 60 MG Tablet PO ×3 (10:09→22:07)
[2020-06-02] MEDS: amLODIPine 5 MG Tablet PO (10:10)
[2020-06-02] MEDS: Atenolol 50 MG Tablet PO (10:10)
[2020-06-02] MEDS: Aspirin E.C. 81 MG Tablet PO (10:10)
[2020-06-02] MEDS: Etodolac 200 MG Capsule 400 MG PO ×2 (10:10→22:07)
[2020-06-02] MEDS: Enoxaparin 40 MG/0.4 ML Syringe SC (10:13)
[2020-06-02 10:14] LABS: M R Staph aureus DNA By PCR Negative (Negative); Probe Check PASS; Specimen Processing Control PASS
--- NOTE | 2020-06-02 11:49 | CASEMGMT ---
SHARRON LAGUNAS called [facility] transfer Center and spoke with Janneth. Per [facility] patient is 30% service connected and has travel benefits. SHARRON LAGUNAS inquired if [facility] is able to offer plasmapheresis if patient should need it. Per [facility] does not offer plasmapheresis at their facility. SHARRON LAGUNAS updated the osteopathy doctor and ICU nurse.
[2020-06-02 12:00] LABS: Bedside Glucose 281 mg/dL (70-110)
--- NOTE | 2020-06-02 12:14 | PN_ITS ---
Patient Problems: Active and Suspected Problems Hypoxia (Acute) Respiratory failure (Acute) COVID-19 (Acute) Reason for Visit: Follow-up for acute hypoxic respiratory failure with concern of myasthenia gravis crisis. Objective: Seen and examined. Discussed with nursing staff, caser up and high school guidance counselor. Patient was readmitted after discharge on May 31 with shortness of breath, hypoxia and fatigue. Patient was also recently admitted for 3 days in April 2020 for severe sepsis secondary to COVID-19 pneumonia. At that time he was treated with Decadron and remdesivir. Patient has history of myasthenia gravis and recently has been feeling weak and short of breath. He has persistent diplopia mainly on looking left-sided visual field upper and lower quadrants. Denies swallowing difficulty, dysarthria, dysphagia. Patient seen by neurologist. Patient had vomiting in ER on BiPAP. Patient had fever 101.7 Fahrenheit in ED On exam General: Alert, Oriented x3, Cooperative looks fatigue HEENT: Diplopia probably due to right MR weakness, possible chronic. Atraumatic, PERRLA, EOMI, Normocephalic Oral: No Gingival or Mucosal Lesions/ Ulcerations Neck: Supple, No JVD, Negative Carotid Bruits Lungs: Air entry diminished in bilateral lung bases. Bilateral lung bases coarse crepitations. Tachypneic and hypoxic. On AIRVO Cardiovascular: Regular rate, Regular Rhythm, Normal S1, Normal S2, No murmurs Abdomen: Bowel Sounds Present, Soft, Non Tender, Non-Distended : No renal angle tenderness. No suprapubic tenderness. Extremities: Mild bilateral ankle edema, Capillary Refill Less than 3 Seconds Skin: No rashes, No breakdown Musculoskeletal: No Tenderness to Palpation of Joints or Extremities. Stiffness of knee and hip joint muscles. ROM restricted Neurological: Hypertonia of knee joint muscles. Bilateral lower extremity weakness, strength 4/5. Cranial nerves II-XII grossly intact, Deep Tendon Reflexes 1/4. Psych/Mental Status: Normal Affect, Appropriate. Vitals/I&O's: Vital Signs Temp Pulse Resp BP Pulse Ox 97.2 F L 83 28 H 156/69 H 97 06/02/20 12:00 06/02/20 12:00 06/02/20 12:00 06/02/20 12:00 06/02/20 12:00 Oxygen Flow Rate (L/min) 60 Oxygen Delivery Method Airvo Weight: 306 lb 10.608 oz Body Mass Index (BMI) 42.7 Intake and Output for Last 24 Hours 05/31/20 06/01/20 06/02/20 23:59 23:59 23:59 Intake Total 650 / 650 1010 / 1010 Output Total 300 / 300 850 / 850 Balance 350 / 350 160 / 160 Microbiology Past 72 Hours 06/02/20 11:30 Urine, Random Legionella Antigen - Final 06/02/20 11:30 Urine, Random Streptococcus pneumoniae Antigen (M - Final 06/02/20 07:10 Mucosa - Nose Respiratory Panel (PCR) - Final Laboratory Results 06/01/20 17:40: WBC 15.4 H, RBC 5.17, Hgb 14.6, Hct 45.7, MCV 88.4, MCH 28.2, MCHC 31.9 L, RDW Std Deviation 42.4, RDW Coeff of Elidia 13.2, Plt Count 258, MPV 10.8, Immature Gran % (Auto) 0.700, Neut % (Auto) 90.3 H, Lymph % (Auto) 5.3 L, [place] % (Auto) 3.6, Eos % (Auto) 0.0, Baso % (Auto) 0.1, Absolute Neuts (auto) 13.9 H, Absolute Lymphs (auto) 0.82 L, Nucleated RBC % 0 06/01/20 17:40: Sodium Cancelled, Potassium Cancelled, Chloride Cancelled, Carbon Dioxide Cancelled, Anion Gap Cancelled, BUN Cancelled, Creatinine Cancelled, Estim Creat Clear Calc Cancelled, Est GFR (MDRD) Af Amer Cancelled, Est GFR (MDRD) Non-Af Cancelled, BUN/Creatinine Ratio Cancelled, Glucose Cancelled, Calcium Cancelled, Troponin I Cancelled 06/01/20 17:40: B-Natriuretic Peptide 166.7 H 06/01/20 19:28: Specimen Type EDITH, O2 % 70, VBG pH 7.36, VBG pO2 35, VBG HCO3 27 H, VBG Total CO2 29, VBG O2 Sat (Calc) 65, VBG Base Excess 2, POC Mix VBG pCO2 Pt Tmp 48.0, Respiration Rate 14, O2 Delivery Device Bi Pap, Tidal Volume 500, EPAP 8, Blood Gas Notified Whom ED , Blood Gas Notified Time 1933 04/08/21 19:36: Sodium 139, Potassium 3.8, Chloride 106, Carbon Dioxide 28.0, Anion Gap 5, BUN 22 H, Creatinine 1.10, Estim Creat Clear Calc 65.60, Est GFR (MDRD) Af Amer 85, Est GFR (MDRD) Non-Af 70, BUN/Creatinine Ratio 20.0, Glucose 213 H, Calcium 8.9, Troponin I 0.046 H 06/02/20 04:26: WBC 9.9, RBC 4.62, Hgb 12.8 L, Hct 40.6, MCV 87.9, MCH 27.7, MCHC 31.5 L, RDW Std Deviation 42.0, RDW Coeff of Elidia 13.2, Plt Count 226, MPV 9.9, Immature Gran % (Auto) 0.500, Neut % (Auto) 90.1 H, Lymph % (Auto) 4.1 L, [place] % (Auto) 5.3, Eos % (Auto) 0.0, Baso % (Auto) 0.0, Absolute Neuts (auto) 8.9 H, Absolute Lymphs (auto) 0.40 L, Nucleated RBC % 0 06/02/20 04:26: Sodium 139, Potassium 4.2, Chloride 107, Carbon Dioxide 26.0, Anion Gap 6, BUN 24 H, Creatinine 1.09, Estim Creat Clear Calc 66.20, Est GFR (MDRD) Af Amer 86, Est GFR (MDRD) Non-Af 71, BUN/Creatinine Ratio 22.0 H, Glucose 298 H, Calcium 8.1 L 06/02/20 06:25: Procalcitonin 0.25 H 06/02/20 06:50: MRSA (PCR) Negative 06/02/20 08:10: POC Glucose 324 H 06/02/20 08:17: Specimen Type ART, Sample Site R Radial, pH 7.41, Bicarbonate Actual 23.8, Total CO2 25, Base Excess -1, O2 Saturation 91 L, O2 % 40, ABG pCO2 37.5, ABG pO2 61 L, Taz Test Positive, Respiration Rate 14, O2 Delivery Device BiPAP, Tidal Volume 500, POC PEEP 8 06/02/20 11:48: POC Glucose 281 H Current Medications Acetaminophen (Acetaminophen 325 Mg Tablet) 650 mg PO Q6H PRN PRN PRN Reason: Pain Score 1-10/Temp > 100.7 F Alendronate Sodium (Alendronate Sodium 70 Mg Tablet) 70 mg PO MO [facility] Amlodipine Besylate (Amlodipine 5 Mg Tablet) 5 mg PO DAILY [facility] Last Admin: 06/02/20 10:10 Dose: 5 mg Documented by: Aspirin (Aspirin E.C. 81 Mg Tablet) 81 mg PO DAILY@0800 [facility] Last Admin: 06/02/20 10:10 Dose: 81 mg Documented by: Atenolol (Atenolol 50 Mg Tablet) 50 mg PO DAILY [facility] Last Admin: 06/02/20 10:10 Dose: 50 mg Documented by: Atorvastatin Calcium (Atorvastatin Calcium 20 Mg Tablet) 20 mg PO QHS [facility] Dextrose (Dextrose 50%-Water 25 Gm/50 Ml Disp.Syrin) 0 gm IV X1 PRN; Protocol PRN Reason: Hypoglycemia Enoxaparin Sodium (Enoxaparin 40 Mg/0.4 Ml Syringe) 40 mg SC DAILY [facility] Last Admin: 06/02/20 10:13 Dose: 40 mg Documented by: Etodolac (Etodolac 200 Mg Capsule) 400 mg PO BID [facility] Last Admin: 06/02/20 10:10 Dose: 400 mg Documented by: Glucagon (Glucagon 1 Mg/Ml Syringe) 1 mg IM .X1 PRN PRN Reason: Hypoglycemia Hydrocortisone Sodium Succinate (Hydrocortisone Sod Succinate 100 Mg/2 Ml Vial) 100 mg IV Q8 [facility] Stop: 06/04/20 14:01 Last Admin: 06/02/20 05:21 Dose: 100 mg Documented by: Piperacillin Sod/Tazobactam (Sod 3.375 gm/ Sodium Chloride) 50 mls @ 12.5 mls/hr IV Q8 [facility] Last Infusion: 06/02/20 09:23 Dose: Infused Documented by: Vancomycin IV Pharmacy to Dose (1 each/ Sodium Chloride) 500 mls @ 250 mls/hr IV X1 PRN; Protocol PRN Reason: Rx to Dose Sodium Chloride () 250 mls @ 15 mls/hr IV .[id number] PRN PRN Reason: Saline Flush Last Admin: 06/02/20 08:07 Dose: 15 mls/hr Documented by: Sodium Chloride () 250 mls @ 15 mls/hr IV .[id number] PRN PRN Reason: Additional IVPB Infusion Vancomycin HCl 2,000 mg/ (Sodium Chloride) 540 mls @ 250 mls/hr IV Q12H [facility] Last Infusion: 06/02/20 10:23 Dose: Infused Documented by: Pantoprazole Sodium 40 mg/ (Sodium Chloride) 110 mls @ 330 mls/hr IV Q24 [facility] Last Infusion: 06/02/20 12:12 Dose: Infused Documented by: Insulin Glargine (Insulin Glargine 100 Units/Ml Pen) 5 units SC QHS [facility] Insulin Human Lispro (Insulin Lispro 100 Unit/Ml Insuln.Pen) 0 unit SC ACHS [facility]; Protocol Last Admin: 06/02/20 11:53 Dose: 6 u Documented by: Loratadine (Loratadine 10 Mg Tablet) 10 mg PO DAILY PRN PRN Reason: ALLERGIES Melatonin (Melatonin 3 Mg Tablet) 3 mg PO QHS PRN PRN PRN Reason: INSOMNIA Last Admin: 06/02/20 00:43 Dose: 3 mg Documented by: Mycophenolate Mofetil (Mycophenolate Mofetil 250 Mg Capsule) 1,500 mg PO BID [facility] Ondansetron HCl (Ondansetron 4 Mg/2 Ml Vial) 4 mg IV Q6H PRN PRN PRN Reason: NAUSEA/VOMITING Prochlorperazine Edisylate (Prochlorperazine 10 Mg/2 Ml Vial) 5 mg IV Q4H PRN PRN PRN Reason: BREAKTHROUGH NAUSEA/VOMITING Pyridostigmine Peever (Pyridostigmine Peever 60 Mg Tablet) 60 mg PO BID [facility] Last Admin: 06/02/20 10:09 Dose: 60 mg Documented by: Sodium Chloride (0.9% Saline Lock 10 Ml Syringe) 10 - 40 ml IV UD PRN PRN Reason: SALINE FLUSH Last Admin: 06/02/20 08:06 Dose: 20 ml Documented by: STROKE Vital Signs/Narrative: Vital Signs Temp Pulse Resp BP BP Pulse Ox 06/02/20 12:00 97.2 F L 83 28 H 156/69 H 97 06/02/20 11:41 62 06/02/20 11:02 68 34 H 97 06/02/20 11:00 69 30 H 166/90 H 97 06/02/20 10:00 67 32 H 142/80 H 99 06/02/20 09:26 71 18 93 06/02/20 09:00 69 32 H 141/66 H 86 Medical Necessity - Tobacco Use Smoking Status: Former smoker Tobacco Use: Cigarettes Assessment/Plan All Active Problems Hypoxia (Acute) Respiratory failure (Acute) COVID-19 (Acute) This 69-year-old woman with history of myasthenia gravis admitted with worsening shortness of breath, hypoxia and fatigue with multiple recurrent admissions in the past month. 1. Acute hypoxic respiratory failure with possibility of multifocal bilateral pneumonia/aspiration pneumonia: Patient is on high flow oxygen, 55% FiO2. Notes concern for myasthenia crisis. Continue managing NIF and if is less than 20 cmH2O would need immediate intubation. On broad-spectrum antibiotic vancomycin and Zosyn. Respiratory panel is negative. Urinary antigens are negative. Blood cultures x2 and sputum culture pending. MRSA nasal screen negative. Procalcitonin 0.25. BNP elevated 167 but not in heart failure range. 2. Myasthenia gravis with concern of crisis: Neurologist was consulted. He ad vised NIF monitoring. Increase the dose of pyridostigmine. Discussed with the caser up regarding transfer to [facility] if they have arrangement for plasmapheresis/IVIG. Patient at home on CellCept and prednisone. CellCept continued. On stress dose of IV hydrocortisone 100 mg 3 times daily. Pyridostigmine increased to 60 mg 3 times daily. Maximum dosing of pyridostigmine 1500 mg/day. 3. Elevated troponin 0 0.046: Patient does not have chest pain. His troponins have been elevated since May 19 gradually improving trend. 4. Hypertension, dyslipidemia: Heart rate and blood pressure in acceptable limit. 5. DM 2: Metformin on hold. Accu-Chek is in his cover with sliding scale. Last glucose 281. DVT: Lovenox 40 subcu daily. Total time of the visit including total time spent in counseling or coordination of care, (more than 50% of the total time, spent in obtaining medical information from nurses and other ancillary care providers,explaining to the patient about labs, imaging, diagnosis and management), discussion with consultants, caser up, review of labs and imaging is 30 minutes. Inpatient E&M: [id number] [facility] L3
--- NOTE | 2020-06-02 13:54 | PCM.HP.ID ---
Reason for Consult: Bilateral infiltrates/pneumonia with respiratory failure. Consulted by: Dr. Gurinder Bustamante History of Present Illness: The patient is a 69 year old M [] This is a 69-year-old gentleman with a past medical history of morbid obesity, obstructive sleep apnea, myasthenia gravis longstanding, recently hospitalized in late April roughly 2 weeks ago for COVID-19 and was sent home in stable condition. Patient then developed hiccups and was briefly hospitalized. He was readmitted last night because of worsening respiratory distress and cough. Currently on high flow nasal cannula. Patient denies any fevers or chills. Has occasional productive phlegm. No gastrointestinal distress. Currently on vancomycin plus Zosyn. Chest x-ray shows bilateral interstitial infiltrates. Urine Legionella antigen negative. Viral panel of the respiratory specimen negative. Blood cultures are pending. - Medical History Past Medical History (Chronic Problems): Chronic Problems Former tobacco use (Chronic) Hypertension (Chronic) Hyperlipidemia (Chronic) Type II diabetes mellitus (Chronic) MEL (obstructive sleep apnea) (Chronic) Myasthenia gravis (Chronic) Allergies/Adverse Reactions: Allergies ampicillin Adverse Reaction (Verified 06/01/20 17:16) Unknown Home Medications: Ambulatory Orders Medication Instructions Recorded Aspirin E.C. [Ecotrin] 81 mg PO DAILY@0800 07/16/15 Atenolol [Tenormin] 50 mg PO DAILY 07/16/15 Calcium Carb/Vitamin D [Os-Freddy 2 tablet PO BIDCM 07/16/15 500MG + D] Cetirizine HCl [Zyrtec] 10 mg PO DAILY PRN 07/16/15 Etodolac [Lodine Xl] 400 mg PO BID 07/16/15 Felodipine [Plendil] 5 mg PO DAILY 07/16/15 Guaifenesin [Tab Tussin] 400 mg PO Q4H PRN PRN 07/16/15 Ipratropium [place] 0.06% 2 spray NASAL BID PRN 07/16/15 [ATROVENT NASAL SPRAY] Mycophenolate Mofetil 1,500 mg PO BID 07/16/15 Pyridostigmine [place] [Mestinon 60 mg PO BID 07/16/15 Timepan] Simvastatin [Zocor] 40 mg PO QHS 07/16/15 predniSONE tablet 10 mg PO DAILY 07/16/15 Alendronate Sodium 70 mg PO MO 07/17/15 Vitamin D3 1 tab PO DAILY 04/24/20 Metformin HCl 500 mg PO BID 30 Days #60 tablet 05/22/20 Metoclopramide [Reglan] 5 mg PO Q6H PRN PRN #20 tablet 05/31/20 - Social History SMOKING STATUS:: Former smoker Vital Signs Temp Pulse Resp BP Pulse Ox 97.2 F L 58 L 28 H 117/69 96 06/02/20 12:00 06/02/20 13:00 06/02/20 13:00 06/02/20 13:00 06/02/20 13:00 Oxygen Flow Rate (L/min) 60 Oxygen Delivery Method Airvo Weight: 139.1 kg Body Mass Index (BMI) 42.7 Microbiology Past 72 Hours 06/02/20 09:20 Gram Stain - Final Sputum, Expectorated/Coughed 06/02/20 11:30 Legionella Antigen - Final Urine, Random Streptococcus pneumoniae Antigen (M - Final 06/02/20 07:10 Respiratory Panel (PCR) - Final Mucosa - Nose Laboratory Tests Past 24 Hrs 06/01/20 06/01/20 06/01/20 17:40 17:40 17:40 WBC 15.4 H RBC 5.17 Hgb 14.6 Hct 45.7 MCV 88.4 MCH 28.2 MCHC 31.9 L RDW Std Deviation 42.4 RDW Coeff of Elidia 13.2 Plt Count 258 MPV 10.8 Immature Gran % (Auto) 0.700 Neut % (Auto) 90.3 H Lymph % (Auto) 5.3 L [place] % (Auto) 3.6 Eos % (Auto) 0.0 Baso % (Auto) 0.1 Absolute Neuts (auto) 13.9 H Absolute Lymphs (auto) 0.82 L Nucleated RBC % 0 Specimen Type Sample Site pH Bicarbonate Actual Total CO2 Base Excess O2 Saturation O2 % ABG pCO2 ABG pO2 Taz Test VBG pH VBG pO2 VBG HCO3 VBG Total CO2 VBG O2 Sat (Calc) VBG Base Excess POC Mix VBG pCO2 Pt Tmp Respiration Rate O2 Delivery Device Tidal Volume POC PEEP EPAP Blood Gas Notified Whom Blood Gas Notified Time Sodium Cancelled Potassium Cancelled Chloride Cancelled Carbon Dioxide Cancelled Anion Gap Cancelled BUN Cancelled Creatinine Cancelled Estim Creat Clear Calc Cancelled Est GFR (MDRD) Af Amer Cancelled Est GFR (MDRD) Non-Af Cancelled BUN/Creatinine Ratio Cancelled Glucose Cancelled Calcium Cancelled Troponin I Cancelled B-Natriuretic Peptide 166.7 H Procalcitonin MRSA (PCR) 06/01/20 06/01/20 06/02/20 19:28 19:36 04:26 WBC 9.9 RBC 4.62 Hgb 12.8 L Hct 40.6 MCV 87.9 MCH 27.7 MCHC 31.5 L RDW Std Deviation 42.0 RDW Coeff of Elidia 13.2 Plt Count 226 MPV 9.9 Immature Gran % (Auto) 0.500 Neut % (Auto) 90.1 H Lymph % (Auto) 4.1 L [place] % (Auto) 5.3 Eos % (Auto) 0.0 Baso % (Auto) 0.0 Absolute Neuts (auto) 8.9 H Absolute Lymphs (auto) 0.40 L Nucleated RBC % 0 Specimen Type EDITH Sample Site pH Bicarbonate Actual Total CO2 Base Excess O2 Saturation O2 % 70 ABG pCO2 ABG pO2 Taz Test VBG pH 7.36 VBG pO2 35 VBG HCO3 27 H VBG Total CO2 29 VBG O2 Sat (Calc) 65 VBG Base Excess 2 POC Mix VBG pCO2 Pt Tmp 48.0 Respiration Rate 14 O2 Delivery Device Bi Pap Tidal Volume 500 POC PEEP EPAP 8 Blood Gas Notified Whom ED Blood Gas Notified Time 1932 Sodium 139 Potassium 3.8 Chloride 106 Carbon Dioxide 28.0 Anion Gap 5 BUN 22 H Creatinine 1.10 Estim Creat Clear Calc 65.60 Est GFR (MDRD) Af Amer 85 Est GFR (MDRD) Non-Af 70 BUN/Creatinine Ratio 20.0 Glucose 213 H Calcium 8.9 Troponin I 0.046 H B-Natriuretic Peptide Procalcitonin MRSA (PCR) 06/02/20 06/02/20 06/02/20 04:26 06:25 06:50 WBC RBC Hgb Hct MCV MCH MCHC RDW Std Deviation RDW Coeff of Elidia Plt Count MPV Immature Gran % (Auto) Neut % (Auto) Lymph % (Auto) [place] % (Auto) Eos % (Auto) Baso % (Auto) Absolute Neuts (auto) Absolute Lymphs (auto) Nucleated RBC % Specimen Type Sample Site pH Bicarbonate Actual Total CO2 Base Excess O2 Saturation O2 % ABG pCO2 ABG pO2 Taz Test VBG pH VBG pO2 VBG HCO3 VBG Total CO2 VBG O2 Sat (Calc) VBG Base Excess POC Mix VBG pCO2 Pt Tmp Respiration Rate O2 Delivery Device Tidal Volume POC PEEP EPAP Blood Gas Notified Whom Blood Gas Notified Time Sodium 139 Potassium 4.2 Chloride 107 Carbon Dioxide 26.0 Anion Gap 6 BUN 24 H Creatinine 1.09 Estim Creat Clear Calc 66.20 Est GFR (MDRD) Af Amer 86 Est GFR (MDRD) Non-Af 71 BUN/Creatinine Ratio 22.0 H Glucose 298 H Calcium 8.1 L Troponin I B-Natriuretic Peptide Procalcitonin 0.25 H MRSA (PCR) Negative 06/02/20 08:17 WBC RBC Hgb Hct MCV MCH MCHC RDW Std Deviation RDW Coeff of Elidia Plt Count MPV Immature Gran % (Auto) Neut % (Auto) Lymph % (Auto) [place] % (Auto) Eos % (Auto) Baso % (Auto) Absolute Neuts (auto) Absolute Lymphs (auto) Nucleated RBC % Specimen Type ART Sample Site R Radial pH 7.41 Bicarbonate Actual 23.8 Total CO2 25 Base Excess -1 O2 Saturation 91 L O2 % 40 ABG pCO2 37.5 ABG pO2 61 L Taz Test Positive VBG pH VBG pO2 VBG HCO3 VBG Total CO2 VBG O2 Sat (Calc) VBG Base Excess POC Mix VBG pCO2 Pt Tmp Respiration Rate 14 O2 Delivery Device BiPAP Tidal Volume 500 POC PEEP 8 EPAP Blood Gas Notified Whom Blood Gas Notified Time Sodium Potassium Chloride Carbon Dioxide Anion Gap BUN Creatinine Estim Creat Clear Calc Est GFR (MDRD) Af Amer Est GFR (MDRD) Non-Af BUN/Creatinine Ratio Glucose Calcium Troponin I B-Natriuretic Peptide Procalcitonin MRSA (PCR) - Other Studies Radiology: [] Other Studies: [] Route of nutrition/ use of supplements: [] Nutritional Intake: [] IV Site: [] Weinstein Catheter: [] Alert does not appear acutely ill lungs with coarse breath sounds heart exam S1-S2 abdomen is obese but soft. Neurological exam is nonfocal. - Assessment/Plan Antibiotics: [] Assessment/Plan: [] Active and Suspected Problems Hypoxia (Acute) Respiratory failure (Acute) COVID-19 (Acute) Bilateral infiltrates with respiratory distress. Currently on high-dose Solu-Cortef along with broad-spectrum antimicrobial therapy. Would continue Zosyn empirically and continue supportive care.
--- NOTE | 2020-06-02 15:06 | CASEMGMT ---
Chart review: Patient was admitted 05/16-05/22/20 for covid pneumonia and sepsis due to UTI. Patient was discharged to home with , did not qualify for home oxygen. Patient returned for observation 05/31 for intractable hiccups and SOB due to hiccups. Patient was discharged same day to home with , did not qualify for home oxygen again. See RN CM assessment from 05/20/20. Patient returned 06/01/20 for SOB and hypoxia, was on 15lpm non-rebreather and then placed on Bipap. Patient admitted for bilateral pneumonia out of covid precautions. Patient is currently on Airvo 60. Disposition Plan: TBD by course of treatment and progress with therapy. Monitor for oxygen needs at discharge.
[2020-06-02] MEDS: Metoclopramide 10 MG/2 ML Vial 5 MG IV (15:34)
[2020-06-02 17:40] LABS: Bedside Glucose 221 mg/dL (70-110)
[2020-06-02] MEDS: Mycophenolate Mofetil 250 MG Capsule 1500 MG PO (22:07)
[2020-06-02] MEDS: Acetaminophen 325 MG Tablet 650 MG PO (22:07)
[2020-06-02] MEDS: Atorvastatin Calcium 20 MG Tablet PO (22:07)
[2020-06-02 22:45] LABS: Bedside Glucose 222 mg/dL (70-110)
[2020-06-03] VITALS (35 sets, daily range): BP systolic 105–152; BP diastolic 46–83; PULSE 52–84; RESP 14–38; TEMP 36.1–37.2; O2SAT 90–98
--- NOTE | 2020-06-03 05:25 | PN_ITS ---
Subjective: The patient was seen and examined at the bedside this morning. Events from the last 24 hours have been reviewed. The patient is currently maintaining appropriate oxygen saturations on AVAPS with an FiO2 requirement of 40%. The patient was last noted to have a NIF of -45 yesterday. The patient was able to be weaned to Airvo heated high flow throughout most of the day yesterday. Repeat NIF this morning was noted to be -40. Objective: The patient's most recent lab work, culture data and imaging studies have all been personally reviewed. Surface echocardiogram revealed normal LV size and function with an ejection fraction of 65%. Right ventricular systolic pressure was estimated to be 39 mmHg. Respiratory viral panel is pending. Blood cultures are pending. General: Alert, Cooperative HEENT: Atraumatic, Normocephalic Oral: No Gingival or Mucosal Lesions/ Ulcerations Neck: Supple, No Nodes, Trachea Midline Lungs: Diminished, Tachypneic Cardiovascular: Regular rate, Regular Rhythm Abdomen: Bowel Sounds Present, Soft, Non Tender, Obese Extremities: No clubbing, No cyanosis, Edema - Improved from yesterday Skin: No breakdown Musculoskeletal: No Tenderness to Palpation of Joints or Extremities Lymphatic: No Cervical, Supraclavicular, or Inguinal Adenopathy Neurological: Neuro grossly intact Psych/Mental Status: Normal Affect Vital Signs Temp Pulse Resp BP Pulse Ox 97.1 F L 58 L 24 H 121/64 H 92 06/03/20 03:00 06/03/20 04:30 06/03/20 04:30 06/03/20 03:00 06/03/20 04:30 Oxygen Flow Rate (L/min) 60 Oxygen Delivery Method Bi-pap Weight: 287 lb 7.724 oz Body Mass Index (BMI) 42.7 Intake and Output for Last 24 Hours 06/01/20 06/02/20 06/03/20 23:59 23:59 23:59 Intake Total 650 / 650 1580 / 1580 Output Total 300 / 300 950 / 950 100 / 100 Balance 350 / 350 630 / 630 -100 / -100 Labs (Last 48 Hours) 06/01/20 06/01/20 06/01/20 17:40 17:40 17:40 WBC 15.4 H RBC 5.17 Hgb 14.6 Hct 45.7 MCV 88.4 MCH 28.2 MCHC 31.9 L RDW Std Deviation 42.4 RDW Coeff of Elidia 13.2 Plt Count 258 MPV 10.8 Immature Gran % (Auto) 0.700 Neut % (Auto) 90.3 H Lymph % (Auto) 5.3 L [place] % (Auto) 3.6 Eos % (Auto) 0.0 Baso % (Auto) 0.1 Absolute Neuts (auto) 13.9 H Absolute Lymphs (auto) 0.82 L Nucleated RBC % 0 Specimen Type Sample Site pH Bicarbonate Actual Total CO2 Base Excess O2 Saturation O2 % ABG pCO2 ABG pO2 Taz Test VBG pH VBG pO2 VBG HCO3 VBG Total CO2 VBG O2 Sat (Calc) VBG Base Excess POC Mix VBG pCO2 Pt Tmp Respiration Rate O2 Delivery Device Tidal Volume POC PEEP EPAP Blood Gas Notified Whom Blood Gas Notified Time Sodium Cancelled Potassium Cancelled Chloride Cancelled Carbon Dioxide Cancelled Anion Gap Cancelled BUN Cancelled Creatinine Cancelled Estim Creat Clear Calc Cancelled Est GFR (MDRD) Af Amer Cancelled Est GFR (MDRD) Non-Af Cancelled BUN/Creatinine Ratio Cancelled Glucose Cancelled Calcium Cancelled Troponin I Cancelled B-Natriuretic Peptide 166.7 H Procalcitonin MRSA (PCR) POC Glucose 06/01/20 06/01/20 06/02/20 19:28 19:36 04:26 WBC 9.9 RBC 4.62 Hgb 12.8 L Hct 40.6 MCV 87.9 MCH 27.7 MCHC 31.5 L RDW Std Deviation 42.0 RDW Coeff of Elidia 13.2 Plt Count 226 MPV 9.9 Immature Gran % (Auto) 0.500 Neut % (Auto) 90.1 H Lymph % (Auto) 4.1 L [place] % (Auto) 5.3 Eos % (Auto) 0.0 Baso % (Auto) 0.0 Absolute Neuts (auto) 8.9 H Absolute Lymphs (auto) 0.40 L Nucleated RBC % 0 Specimen Type EDITH Sample Site pH Bicarbonate Actual Total CO2 Base Excess O2 Saturation O2 % 70 ABG pCO2 ABG pO2 Taz Test VBG pH 7.36 VBG pO2 35 VBG HCO3 27 H VBG Total CO2 29 VBG O2 Sat (Calc) 65 VBG Base Excess 2 POC Mix VBG pCO2 Pt Tmp 48.0 Respiration Rate 14 O2 Delivery Device Bi Pap Tidal Volume 500 POC PEEP EPAP 8 Blood Gas Notified Whom ED Blood Gas Notified Time 1933 Sodium 139 Potassium 3.8 Chloride 106 Carbon Dioxide 28.0 Anion Gap 5 BUN 22 H Creatinine 1.10 Estim Creat Clear Calc 65.60 Est GFR (MDRD) Af Amer 85 Est GFR (MDRD) Non-Af 70 BUN/Creatinine Ratio 20.0 Glucose 213 H Calcium 8.9 Troponin I 0.046 H B-Natriuretic Peptide Procalcitonin MRSA (PCR) POC Glucose 06/02/20 06/02/20 06/02/20 04:26 06:25 06:50 WBC RBC Hgb Hct MCV MCH MCHC RDW Std Deviation RDW Coeff of Elidia Plt Count MPV Immature Gran % (Auto) Neut % (Auto) Lymph % (Auto) [place] % (Auto) Eos % (Auto) Baso % (Auto) Absolute Neuts (auto) Absolute Lymphs (auto) Nucleated RBC % Specimen Type Sample Site pH Bicarbonate Actual Total CO2 Base Excess O2 Saturation O2 % ABG pCO2 ABG pO2 Taz Test VBG pH VBG pO2 VBG HCO3 VBG Total CO2 VBG O2 Sat (Calc) VBG Base Excess POC Mix VBG pCO2 Pt Tmp Respiration Rate O2 Delivery Device Tidal Volume POC PEEP EPAP Blood Gas Notified Whom Blood Gas Notified Time Sodium 139 Potassium 4.2 Chloride 107 Carbon Dioxide 26.0 Anion Gap 6 BUN 24 H Creatinine 1.09 Estim Creat Clear Calc 66.20 Est GFR (MDRD) Af Amer 86 Est GFR (MDRD) Non-Af 71 BUN/Creatinine Ratio 22.0 H Glucose 298 H Calcium 8.1 L Troponin I B-Natriuretic Peptide Procalcitonin 0.25 H MRSA (PCR) Negative POC Glucose 06/02/20 06/02/20 06/02/20 08:10 08:17 11:48 WBC RBC Hgb Hct MCV MCH MCHC RDW Std Deviation RDW Coeff of Elidia Plt Count MPV Immature Gran % (Auto) Neut % (Auto) Lymph % (Auto) [place] % (Auto) Eos % (Auto) Baso % (Auto) Absolute Neuts (auto) Absolute Lymphs (auto) Nucleated RBC % Specimen Type ART Sample Site R Radial pH 7.41 Bicarbonate Actual 23.8 Total CO2 25 Base Excess -1 O2 Saturation 91 L O2 % 40 ABG pCO2 37.5 ABG pO2 61 L Taz Test Positive VBG pH VBG pO2 VBG HCO3 VBG Total CO2 VBG O2 Sat (Calc) VBG Base Excess POC Mix VBG pCO2 Pt Tmp Respiration Rate 14 O2 Delivery Device BiPAP Tidal Volume 500 POC PEEP 8 EPAP Blood Gas Notified Whom Blood Gas Notified Time Sodium Potassium Chloride Carbon Dioxide Anion Gap BUN Creatinine Estim Creat Clear Calc Est GFR (MDRD) Af Amer Est GFR (MDRD) Non-Af BUN/Creatinine Ratio Glucose Calcium Troponin I B-Natriuretic Peptide Procalcitonin MRSA (PCR) POC Glucose 324 H 281 H 06/02/20 06/02/20 17:33 22:24 WBC RBC Hgb Hct MCV MCH MCHC RDW Std Deviation RDW Coeff of Elidia Plt Count MPV Immature Gran % (Auto) Neut % (Auto) Lymph % (Auto) [place] % (Auto) Eos % (Auto) Baso % (Auto) Absolute Neuts (auto) Absolute Lymphs (auto) Nucleated RBC % Specimen Type Sample Site pH Bicarbonate Actual Total CO2 Base Excess O2 Saturation O2 % ABG pCO2 ABG pO2 Taz Test VBG pH VBG pO2 VBG HCO3 VBG Total CO2 VBG O2 Sat (Calc) VBG Base Excess POC Mix VBG pCO2 Pt Tmp Respiration Rate O2 Delivery Device Tidal Volume POC PEEP EPAP Blood Gas Notified Whom Blood Gas Notified Time Sodium Potassium Chloride Carbon Dioxide Anion Gap BUN Creatinine Estim Creat Clear Calc Est GFR (MDRD) Af Amer Est GFR (MDRD) Non-Af BUN/Creatinine Ratio Glucose Calcium Troponin I B-Natriuretic Peptide Procalcitonin MRSA (PCR) POC Glucose 221 H 222 H Microbiology 06/02/20 09:20 Sputum, Expectorated/Coughed Gram Stain - Final 06/02/20 11:30 Urine, Random Legionella Antigen - Final 06/02/20 11:30 Urine, Random Streptococcus pneumoniae Antigen (M - Final 06/02/20 07:10 Mucosa - Nose Respiratory Panel (PCR) - Final Clinical Impression(s) from Imaging Studies Chest X-Ray 06/01/20 18:00 IMPRESSION: Diffuse bilateral interstitial and airspace opacities may represent infection and/or edema. Electronically Signed: Jack Sosa MD at 18:37 EDT Tel , Service support , Echocardiogram 06/02/20 06:34 Interpretation Summary The study was technically difficult. Contrast injection was performed. Left ventricular systolic function is normal. The estimated ejection fraction is 65 %. The left atrium is mildly enlarged. Trivial mitral valve insufficiency. Trivial tricuspid valve insufficiency. Mild focal aortic valve calcification. Trivial pulmonic valve insufficiency. Epicardial fat. Right ventricular systolic pressure estimated to be 39 mmHg. Diastolic function is indeterminate. Ordering Physician: Gurinder Bustamante Referring Physician: [facility] Performed By: Manisha Lopez, VERNON, RVT Medical Necessity - Tobacco Use Smoking Status: Former smoker Tobacco Use: Cigarettes Assessment/Plan All Active Problems Hypoxia (Acute) Respiratory failure (Acute) COVID-19 (Acute) RECOMMENDATIONS: 1. Continue antimicrobials per ID recommendations. 2. Continue stress dose steroids for now. 3. Continue AVAPS with breaks to Airvo, as tolerated. Goal to maintain oxygen saturations at or above 90%. 4. Check NIF daily. 5. Obtain repeat arterial blood gas with any change in mentation. 6. Continue baseline myasthenia medications. IMPRESSIONS: 1. Acute hypoxemic respiratory failure The patient appears to have multifocal bilateral pneumonia and would be at high risk for aspiration given his nausea and episodes of emesis. In addition, the p atient has known sleep apnea and myasthenia gravis. There is always concern that with concurrent infection, the patient could develop a myasthenic crisis. His respiratory status is quite tenuous. He will be continued on noninvasive positive pressure ventilatory support and weaned as tolerated. If he is able to be maintained off of BiPAP, will plan to monitor his NIF(negative inspiratory force). If the patient were to decompensate further from a respiratory perspective, would proceed with immediate intubation. In the interim, the patient will be continued on broad-spectrum antimicrobials. If the patient does decompensate from a respiratory perspective and require intubation, he would likely need to be transferred to a tertiary care facility to be considered for plasmapheresis. 2. Mild troponin elevation Likely secondary to demand ischemia in the setting of #1. Surface echocardiogram was unrevealing. 3. History of obstructive sleep apnea Continue noninvasive positive pressure ventilatory support as ordered. 4. Recent diagnosis of COVID-19/history of myasthenia gravis The patient was admitted to the hospital in April with coronavirus and treated with remdesivir and Decadron. His CT scan from May 20 did not show any significant infiltrates. However, his CTA from May 31 now has multifocal infiltrates. The patient will need to be monitored very closely for the development of a myasthenia crisis. If the patient's respiratory status were to worsen, he would need to be transferred to a tertiary care facility. 5. Obesity/hypertension/diabetes mellitus Complicates care, management, recovery and prognosis. Continue home medications as indicated. TIME: 37 minutes of critical care time, independent of procedures, was spent addressing the patient's acute hypoxemic respiratory failure, bilateral pneumonia, troponin elevation, history of myasthenia gravis, obstructive sleep apnea, review of all data and collaboration with the care team. [id number]) [phone] [id number] Critical care first hour
[2020-06-03 05:35] LABS: Absolute Lymphocyte Count 0.57 X10^3/uL (0.83-4.51); Absolute Neutrophil Count 12.2 X10^3/uL (2.0-7.7); Basophil# 0.01 X10^3/uL; Basophil% 0.1 % (0-1); Hematocrit 40.8 % (40-54); Hemoglobin 12.9 g/dL (13.0-16.5); Lymphocyte # 0.57 X10^3/ul (4.0); Lymphocyte % 4.3 % (19-41); Mean Corp Hgb Conc 31.6 g/dL (32-36); Mean Corpuscular Hgb 28.4 pg (27.0-32.0); Mean Corpuscular Volume 89.9 fL (80-94); Mean Platelet Vol. 10.9 fl (6.2-12.0); Monocyte# 0.49 X10^3/uL; Monocyte% 3.7 % (0-10); NRBC Flagged by Analyzer 0 % (0-5); Neutrophil # 12.24 X10^3/uL (2.7-7.7); Neutrophil % 91.4 % (47-70); POSITIVE DIFFERENTIAL YES; Platelet Count 219 K/mm3 (150-450); RBC Distribution Width CV 13.2 % (11.6-14.6); RBC Distribution Width SD 43.6 fl (35.1-43.9); Red Blood Count 4.54 M/mm3 (4.6-6.2); White Blood Count 13.4 K/mm3 (4.4-11.0)
[2020-06-03 05:40] LABS: Differential Indicated SCAN CRITERIA MET
[2020-06-03] MEDS: Hydrocortisone Sod Succinate 100 MG/2 ML Vial IV ×3 (05:44→21:11)
[2020-06-03] MEDS: Pyridostigmine Bromide 60 MG Tablet PO ×3 (05:44→21:11)
[2020-06-03 05:49] LABS: ALB/GLOB Ratio 0.7 RATIO (0.9-2.4); AST(SGOT) 27 U/L (15-37); Alanine Aminotransfer ALT/SGPT 17 U/L (16-61); Albumin, Serum 2.3 g/dL (3.2-5.0); Alkaline Phosphatase 41 U/L (45-117); Anion Gap 5 (5-15); BUN 30 mg/dL (7-18); BUN/Creat Ratio 26.8 RATIO (10-20); Chloride 108 mmol/L (98-107); Creatinine, Serum 1.12 mg/dL (0.70-1.30); EST Glomerular Filtration Rate 69 mL/min (>60); Est Glom Filt Rate - Afr Amer 83 mL/min (>60); Estimated Creatinine Clearance 64.43 ml/min; Globulin 3.3 g/dL (2.2-4.2); Glucose 161 mg/dL (74-106); Potassium 3.5 mmol/L (3.5-5.1); Protein, Total 5.6 g/dL (6.4-8.2); Sodium Level 141 mmol/L (136-145)
[2020-06-03] MEDS: Insulin Lispro 100 UNIT/ML INSULN.PEN SC ×4 (09:14→21:04)
[2020-06-03] MEDS: Aspirin E.C. 81 MG Tablet PO (09:15)
[2020-06-03] MEDS: Mycophenolate Mofetil 250 MG Capsule 1500 MG PO ×2 (09:15→21:11)
[2020-06-03] MEDS: Etodolac 200 MG Capsule 400 MG PO ×2 (09:27→21:11)
[2020-06-03] MEDS: Enoxaparin 40 MG/0.4 ML Syringe SC (09:27)
[2020-06-03] MEDS: amLODIPine 5 MG Tablet PO (09:27)
[2020-06-03] MEDS: Atenolol 50 MG Tablet PO (09:28)
[2020-06-03] MEDS: Metoclopramide 10 MG/2 ML Vial 5 MG IV (11:56)
[2020-06-03 12:25] LABS: Bedside Glucose 248 mg/dL (70-110)
--- NOTE | 2020-06-03 14:24 | PN_ITS ---
Patient Problems: Active and Suspected Problems Hypoxia (Acute) Respiratory failure (Acute) COVID-19 (Acute) Reason for Visit: Follow-up for acute hypoxic respiratory failure secondary to pneumonia and myasthenia gravis Objective: Patient had no fever. No hypotension. Was on BiPAP at night and then high flow oxygen in the morning. Clinically, patient shortness of breath is improving. Patient more awake and alert. On exam General: Alert, Oriented x3, Cooperative looks fatigue HEENT: Diplopia, possible chronic. Atraumatic, PERRLA, EOMI, Normocephalic Oral: No Gingival or Mucosal Lesions/ Ulcerations Neck: Supple, No JVD, Negative Carotid Bruits Lungs: Air entry diminished in bilateral lung bases. Bilateral lung bases coarse crepitations. On AIRVO and BiPAP at night Cardiovascular: Regular rate, Regular Rhythm, Normal S1, Normal S2, No murmurs Abdomen: Bowel Sounds Present, Soft, Non Tender, Non-Distended : No renal angle tenderness. No suprapubic tenderness. Extremities: Mild bilateral ankle edema, Capillary Refill Less than 3 Seconds Skin: No rashes, No breakdown Musculoskeletal: No Tenderness to Palpation of Joints or Extremities. Stiffness of knee and hip joint muscles. ROM restricted Neurological: Bilateral lower extremity weakness, strength 4/5. Cranial nerves II-XII grossly intact, Deep Tendon Reflexes 1/4. Psych/Mental Status: Normal Affect, Appropriate. Vitals/I&O's: Vital Signs Temp Pulse Resp BP Pulse Ox 98.9 F 72 22 H 137/74 H 96 06/03/20 12:00 06/03/20 14:00 06/03/20 14:00 06/03/20 14:00 06/03/20 14:00 Oxygen Flow Rate (L/min) 7 Oxygen Delivery Method Bi-pap Weight: 287 lb 7.724 oz Body Mass Index (BMI) 42.7 Intake and Output for Last 24 Hours 06/01/20 06/02/20 06/03/20 23:59 23:59 23:59 Intake Total 650 / 650 1580 / 1580 427 / 427 Output Total 300 / 300 950 / 950 100 / 100 Balance 350 / 350 630 / 630 327 / 327 Microbiology Past 72 Hours 06/02/20 09:20 Sputum, Expectorated/Coughed Gram Stain - Final 06/02/20 11:30 Urine, Random Legionella Antigen - Final 06/02/20 11:30 Urine, Random Streptococcus pneumoniae Antigen (M - Final 06/02/20 07:10 Mucosa - Nose Respiratory Panel (PCR) - Final Laboratory Results 06/02/20 17:33: POC Glucose 221 H 06/02/20 22:24: POC Glucose 222 H 06/03/20 04:20: WBC 13.4 H, RBC 4.54 L, Hgb 12.9 L, Hct 40.8, MCV 89.9, MCH 28.4, MCHC 31.6 L, RDW Std Deviation 43.6, RDW Coeff of Elidia 13.2, Plt Count 219, MPV 10.9, Immature Gran % (Auto) 0.500, Neut % (Auto) 91.4 H, Lymph % (Auto) 4.3 L, [place] % (Auto) 3.7, Eos % (Auto) 0.0, Baso % (Auto) 0.1, Absolute Neuts (auto) 12.2 H, Absolute Lymphs (auto) 0.57 L, Nucleated RBC % 0 06/03/20 04:20: Sodium 141, Potassium 3.5, Chloride 108 H, Carbon Dioxide 28.0, Anion Gap 5, BUN 30 H, Creatinine 1.12, Estim Creat Clear Calc 64.43, Est GFR (MDRD) Af Amer 83, Est GFR (MDRD) Non-Af 69, BUN/Creatinine Ratio 26.8 H, Glucose 161 H, Calcium 8.0 L, Total Bilirubin 0.70, AST 27, ALT 17, Alkaline Phosphatase 41 L, Total Protein 5.6 L, Albumin 2.3 L, Globulin 3.3, Albumin/Globulin Ratio 0.7 L 06/03/20 11:55: POC Glucose 248 H Current Medications Acetaminophen (Acetaminophen 325 Mg Tablet) 650 mg PO Q6H PRN PRN PRN Reason: Pain Score 1-10/Temp > 100.7 F Last Admin: 06/02/20 22:07 Dose: 650 mg Documented by: Alendronate Sodium (Alendronate Sodium 70 Mg Tablet) 70 mg PO MO [facility] Amlodipine Besylate (Amlodipine 5 Mg Tablet) 5 mg PO DAILY [facility] Last Admin: 06/03/20 09:27 Dose: 5 mg Documented by: Aspirin (Aspirin E.C. 81 Mg Tablet) 81 mg PO DAILY@0800 [facility] Last Admin: 06/03/20 09:15 Dose: 81 mg Documented by: Atenolol (Atenolol 50 Mg Tablet) 50 mg PO DAILY [facility] Last Admin: 06/03/20 09:28 Dose: 50 mg Documented by: Atorvastatin Calcium (Atorvastatin Calcium 20 Mg Tablet) 20 mg PO QHS [facility] Last Admin: 06/02/20 22:07 Dose: 20 mg Documented by: Dextrose (Dextrose 50%-Water 25 Gm/50 Ml Disp.Syrin) 0 gm IV X1 PRN; Protocol PRN Reason: Hypoglycemia Enoxaparin Sodium (Enoxaparin 40 Mg/0.4 Ml Syringe) 40 mg SC DAILY [facility] Last Admin: 06/03/20 09:27 Dose: 40 mg Documented by: Etodolac (Etodolac 200 Mg Capsule) 400 mg PO BID [facility] Last Admin: 06/03/20 09:27 Dose: 400 mg Documented by: Glucagon (Glucagon 1 Mg/Ml Syringe) 1 mg IM .X1 PRN PRN Reason: Hypoglycemia Hydrocortisone Sodium Succinate (Hydrocortisone Sod Succinate 100 Mg/2 Ml Vial) 100 mg IV Q8 [facility] Stop: 06/04/20 14:01 Last Admin: 06/03/20 12:06 Dose: 100 mg Documented by: Piperacillin Sod/Tazobactam (Sod 3.375 gm/ Sodium Chloride) 50 mls @ 12.5 mls/hr IV Q8 [facility] Last Admin: 06/03/20 13:43 Dose: 12.5 mls/hr Documented by: Sodium Chloride () 250 mls @ 15 mls/hr IV .[id number] PRN PRN Reason: Saline Flush Last Infusion: 06/03/20 09:29 Dose: Infused Documented by: Sodium Chloride () 250 mls @ 15 mls/hr IV .[id number] PRN PRN Reason: Additional IVPB Infusion Pantoprazole Sodium 40 mg/ (Sodium Chloride) 110 mls @ 330 mls/hr IV Q24 [facility] Last Infusion: 06/03/20 12:40 Dose: Infused Documented by: Insulin Glargine (Insulin Glargine 100 Units/Ml Pen) 5 units SC QHS [facility] Last Admin: 06/02/20 22:35 Dose: 5 u Documented by: Insulin Human Lispro (Insulin Lispro 100 Unit/Ml Insuln.Pen) 0 unit SC ACHS [facility]; Protocol Last Admin: 06/03/20 11:56 Dose: 4 u Documented by: Loratadine (Loratadine 10 Mg Tablet) 10 mg PO DAILY PRN PRN Reason: ALLERGIES Melatonin (Melatonin 3 Mg Tablet) 3 mg PO QHS PRN PRN PRN Reason: INSOMNIA Last Admin: 06/02/20 21:55 Dose: 3 mg Documented by: Metoclopramide HCl (Metoclopramide 10 Mg/2 Ml Vial) 5 mg IV Q8H PRN PRN PRN Reason: HICCUPS Last Admin: 06/03/20 11:56 Dose: 5 mg Documented by: Mycophenolate Mofetil (Mycophenolate Mofetil 250 Mg Capsule) 1,500 mg PO BID [facility] Last Admin: 06/03/20 09:15 Dose: 1,500 mg Documented by: Ondansetron HCl (Ondansetron 4 Mg/2 Ml Vial) 4 mg IV Q6H PRN PRN PRN Reason: NAUSEA/VOMITING Potassium Chloride (Potassium Chloride Oral Tablet 20 Meq) 40 meq PO X1 ONE Stop: 06/03/20 14:24 Prochlorperazine Edisylate (Prochlorperazine 10 Mg/2 Ml Vial) 5 mg IV Q4H PRN PRN PRN Reason: BREAKTHROUGH NAUSEA/VOMITING Pyridostigmine Risings[place] (Pyridostigmine Risingsun 60 Mg Tablet) 60 mg PO TID [facility] Last Admin: 06/03/20 11:57 Dose: 60 mg Documented by: Sodium Chloride (0.9% Saline Lock 10 Ml Syringe) 10 - 40 ml IV UD PRN PRN Reason: SALINE FLUSH Last Admin: 06/02/20 08:06 Dose: 20 ml Documented by: STROKE Vital Signs/Narrative: Vital Signs Temp Pulse Resp BP BP Pulse Ox 06/03/20 14:00 72 22 H 137/74 H 96 06/03/20 13:00 65 18 152/75 H 96 06/03/20 12:40 73 06/03/20 12:00 98.9 F 62 25 H 137/83 H 93 06/03/20 11:00 62 28 H 133/54 H 91 Medical Necessity - Tobacco Use Smoking Status: Former smoker Tobacco Use: Cigarettes Assessment/Plan All Active Problems Hypoxia (Acute) Respiratory failure (Acute) COVID-19 (Acute) This 69-year-old woman with history of myasthenia gravis admitted with worsening shortness of breath, hypoxia and fatigue with multiple recurrent admissions in the past month. 1. Acute hypoxic respiratory failure with possibility of multifocal bilateral pneumonia/aspiration pneumonia: Patient is on high flow oxygen, 55% FiO2. Notes concern for myasthenia crisis. Continue managing NIF and if is less than 20 cmH2O would need immediate intubation. On broad-spectrum antibiotic vancomycin and Zosyn. Respiratory panel is negative. Urinary antigens are negative. Blood cultures x2 and sputum culture pending. MRSA nasal screen negative. Procalcitonin 0.25. BNP elevated 167 but not in heart failure range. 06/03: Patient noted to have NIF -45 yesterday and in the morning -40 today. Clinically seems improvement. 2D echo EF 65%, RVSP 39 mmHg. 2. Myasthenia gravis with concern of crisis: Neurologist was consulted. He advised NIF monitoring. Increase the dose of pyridostigmine. Discussed with the registered nurse hh case manager regarding transfer to [facility] if they have arrangement for plasmapheresis/IVIG. Patient at home on CellCept and prednisone. CellCept continued. On stress dose of IV hydrocortisone 100 mg 3 times daily. Pyridostigmine increased to 60 mg 3 times daily. Maximum dosing of pyridostigmine 1500 mg/day. 06/03: Respiratory status seems to be improving. 3. Elevated troponin 0 0.046: Patient does not have chest pain. His troponins have been elevated since May 19 gradually improving trend. 2D echo shows no wall motion abnormality. 4. Hypertension, dyslipidemia: Heart rate and blood pressure in acceptable limit. 5. DM 2: Metformin on hold. Accu-Chek is in his cover with sliding scale. Last glucose 281. DVT: Lovenox 40 subcu daily. Total time of the visit including total time spent in counseling or coordination of care, (more than 50% of the total time, spent in obtaining medical information from nurses and other ancillary care providers,explaining to the patient about labs, imaging, diagnosis and management), discussion with consultants, registered nurse hh case manager, review of labs and imaging is 30 minutes. Inpatient E&M: [id number] [facility] L3
[2020-06-03] MEDS: Potassium Chloride Oral Tablet 20 MEQ 40 MEQ PO (14:44)
[2020-06-03 15:36] LABS: Bedside Glucose 240 mg/dL (70-110)
[2020-06-03] MEDS: ChlorproMAZINE 25 MG Tablet PO ×2 (17:09→21:07)
--- NOTE | 2020-06-03 17:33 | CPS ---
Patient not tolerating 10L HFNC, placed back on Airvo 60L 88%, SPo2 still 88% and RR 40. Put patient back on AVAPS and increased Fio2 to 60%.
--- NOTE | 2020-06-03 17:47 | CPS ---
Dr. Bustamante would like a NIF done once a day or if patient's respiratory status declines.
[2020-06-03] MEDS: Atorvastatin Calcium 20 MG Tablet PO (21:11)
[2020-06-03 21:30] LABS: Bedside Glucose 229 mg/dL (70-110)
--- NOTE | 2020-06-03 21:30 | NURSING ---
Addendum entered by Joleen Rice 06/04/20 03:34: Airovo was 60L/93% Original Note: placed patient on airvo 60L/55% to take medications and do oral care. Patient tolerated for approximately 10 minutes when he started coughing and proceeded to desat to mid 80's and was unable to recover. Placed back on bipap 60%, recovered to 93% and resting in bed. no signs of distress noted.
[2020-06-04] VITALS (43 sets, daily range): BP systolic 95–158; BP diastolic 47–108; PULSE 60–148; RESP 14–38; TEMP 36.1–37.1; O2SAT 85–98
--- NOTE | 2020-06-04 04:24 | CPS ---
Pt. came off AVAPS and went onto AirVo for a break. Pt. placed back onto AVAPS after he shown that he was unable to maintain SpO2 > 90%.
--- NOTE | 2020-06-04 05:39 | PN_ITS ---
Subjective: The patient was seen and examined at the bedside this morning. Events from the last 24 hours have been reviewed. The patient is currently afebrile, hemodynamically stable and maintaining appropriate oxygen saturations on AVAPS with an FiO2 requirement of 60%. The patient was trialed on Airvo yesterday for period of time but eventually had to be placed back on AVAPS. The patient did continue to report the presence of hiccups, for which the hospitalist ordered Thorazine. However, the patient became drowsy as a consequence of the medication and it was therefore held overnight. NIF this morning was noted to be -21 by RT. Objective: The patient's most recent lab work, culture data and imaging studies have all been personally reviewed. Surface echocardiogram revealed normal LV size and function with an ejection fraction of 65%. Right ventricular systolic pressure was estimated to be 39 mmHg. Respiratory viral panel is pending. Blood cultures are pending. General: Alert, Cooperative, No apparent distress, - - Continues to tolerate noninvasive positive pressure ventilatory support. HEENT: Atraumatic, Normocephalic Oral: Dry Mucosa Neck: Supple, No Nodes, Trachea Midline Lungs: No rhonchi, No wheeze, Diminished, Rales, Tachypneic Cardiovascular: Regular rate, Regular Rhythm Abdomen: Bowel Sounds Present, Soft, Non Tender, Obese Extremities: No clubbing, No cyanosis, Edema Skin: No breakdown Musculoskeletal: No Tenderness to Palpation of Joints or Extremities Lymphatic: No Cervical, Supraclavicular, or Inguinal Adenopathy Neurological: Cranial nerves II-XII grossly intact, Neuro grossly intact Psych/Mental Status: Normal Affect, Appropriate Vital Signs Temp Pulse Resp BP Pulse Ox 96.9 F L 66 28 H 101/47 L 89 06/04/20 04:00 06/04/20 04:05 06/04/20 04:05 06/04/20 04:00 06/04/20 04:05 Oxygen Flow Rate (L/min) 10 Oxygen Delivery Method Bi-pap Weight: 308 lb 10.354 oz Body Mass Index (BMI) 42.7 Intake and Output for Last 24 Hours 06/02/20 06/03/20 06/04/20 23:59 23:59 23:59 Intake Total 1580 / 1580 717 / 717 170 / 170 Output Total 950 / 950 350 / 350 Balance 630 / 630 367 / 367 170 / 170 Labs (Last 48 Hours) 06/02/20 06/02/20 06/02/20 06:25 06:50 08:10 WBC RBC Hgb Hct MCV MCH MCHC RDW Std Deviation RDW Coeff of Elidia Plt Count MPV Immature Gran % (Auto) Neut % (Auto) Lymph % (Auto) [place] % (Auto) Eos % (Auto) Baso % (Auto) Absolute Neuts (auto) Absolute Lymphs (auto) Nucleated RBC % Specimen Type Sample Site pH Bicarbonate Actual Total CO2 Base Excess O2 Saturation O2 % ABG pCO2 ABG pO2 Taz Test Respiration Rate O2 Delivery Device Tidal Volume POC PEEP Sodium Potassium Chloride Carbon Dioxide Anion Gap BUN Creatinine Estim Creat Clear Calc Est GFR (MDRD) Af Amer Est GFR (MDRD) Non-Af BUN/Creatinine Ratio Glucose Calcium Total Bilirubin AST ALT Alkaline Phosphatase Total Protein Albumin Globulin Albumin/Globulin Ratio Procalcitonin 0.25 H MRSA (PCR) Negative POC Glucose 324 H 06/02/20 06/02/20 06/02/20 08:17 11:48 17:33 WBC RBC Hgb Hct MCV MCH MCHC RDW Std Deviation RDW Coeff of Elidia Plt Count MPV Immature Gran % (Auto) Neut % (Auto) Lymph % (Auto) [place] % (Auto) Eos % (Auto) Baso % (Auto) Absolute Neuts (auto) Absolute Lymphs (auto) Nucleated RBC % Specimen Type ART Sample Site R Radial pH 7.41 Bicarbonate Actual 23.8 Total CO2 25 Base Excess -1 O2 Saturation 91 L O2 % 40 ABG pCO2 37.5 ABG pO2 61 L Taz Test Positive Respiration Rate 14 O2 Delivery Device BiPAP Tidal Volume 500 POC PEEP 8 Sodium Potassium Chloride Carbon Dioxide Anion Gap BUN Creatinine Estim Creat Clear Calc Est GFR (MDRD) Af Amer Est GFR (MDRD) Non-Af BUN/Creatinine Ratio Glucose Calcium Total Bilirubin AST ALT Alkaline Phosphatase Total Protein Albumin Globulin Albumin/Globulin Ratio Procalcitonin MRSA (PCR) POC Glucose 281 H 221 H 06/02/20 06/03/20 06/03/20 22:24 04:20 04:20 WBC 13.4 H RBC 4.54 L Hgb 12.9 L Hct 40.8 MCV 89.9 MCH 28.4 MCHC 31.6 L RDW Std Deviation 43.6 RDW Coeff of Elidia 13.2 Plt Count 219 MPV 10.9 Immature Gran % (Auto) 0.500 Neut % (Auto) 91.4 H Lymph % (Auto) 4.3 L [place] % (Auto) 3.7 Eos % (Auto) 0.0 Baso % (Auto) 0.1 Absolute Neuts (auto) 12.2 H Absolute Lymphs (auto) 0.57 L Nucleated RBC % 0 Specimen Type Sample Site pH Bicarbonate Actual Total CO2 Base Excess O2 Saturation O2 % ABG pCO2 ABG pO2 Taz Test Respiration Rate O2 Delivery Device Tidal Volume POC PEEP Sodium 141 Potassium 3.5 Chloride 108 H Carbon Dioxide 28.0 Anion Gap 5 BUN 30 H Creatinine 1.12 Estim Creat Clear Calc 64.43 Est GFR (MDRD) Af Amer 83 Est GFR (MDRD) Non-Af 69 BUN/Creatinine Ratio 26.8 H Glucose 161 H Calcium 8.0 L Total Bilirubin 0.70 AST 27 ALT 17 Alkaline Phosphatase 41 L Total Protein 5.6 L Albumin 2.3 L Globulin 3.3 Albumin/Globulin Ratio 0.7 L Procalcitonin MRSA (PCR) POC Glucose 222 H 06/03/20 06/03/20 06/03/20 11:55 15:29 21:03 WBC RBC Hgb Hct MCV MCH MCHC RDW Std Deviation RDW Coeff of Elidia Plt Count MPV Immature Gran % (Auto) Neut % (Auto) Lymph % (Auto) [place] % (Auto) Eos % (Auto) Baso % (Auto) Absolute Neuts (auto) Absolute Lymphs (auto) Nucleated RBC % Specimen Type Sample Site pH Bicarbonate Actual Total CO2 Base Excess O2 Saturation O2 % ABG pCO2 ABG pO2 Taz Test Respiration Rate O2 Delivery Device Tidal Volume POC PEEP Sodium Potassium Chloride Carbon Dioxide Anion Gap BUN Creatinine Estim Creat Clear Calc Est GFR (MDRD) Af Amer Est GFR (MDRD) Non-Af BUN/Creatinine Ratio Glucose Calcium Total Bilirubin AST ALT Alkaline Phosphatase Total Protein Albumin Globulin Albumin/Globulin Ratio Procalcitonin MRSA (PCR) POC Glucose 248 H 240 H 229 H Microbiology 06/01/20 17:40 Blood Culture (Wb) #2 - Left Hand Blood Culture - Preliminary No growth in 48 hours. 06/01/20 17:55 Blood Culture (Wb) - Right Forearm Blood Culture - Preliminary No growth in 48 hours. 06/02/20 09:20 Sputum, Expectorated/Coughed Gram Stain - Final 06/02/20 11:30 Urine, Random Legionella Antigen - Final 06/02/20 11:30 Urine, Random Streptococcus pneumoniae Antigen (M - Final 06/02/20 07:10 Mucosa - Nose Respiratory Panel (PCR) - Final Clinical Impression(s) from Imaging Studies Chest X-Ray 06/01/20 18:00 IMPRESSION: Diffuse bilateral interstitial and airspace opacities may represent infection and/or edema. Electronically Signed: Jack Sosa MD at 18:37 EDT Tel , Service support , Echocardiogram 06/02/20 06:34 Interpretation Summary The study was technically difficult. Contrast injection was performed. Left ventricular systolic function is normal. The estimated ejection fraction is 65 %. The left atrium is mildly enlarged. Trivial mitral valve insufficiency. Trivial tricuspid valve insufficiency. Mild focal aortic valve calcification. Trivial pulmonic valve insufficiency. Epicardial fat. Right ventricular systolic pressure estimated to be 39 mmHg. Diastolic function is indeterminate. Ordering Physician: Gurinder Bustamante Referring Physician: [facility] Performed By: Manisha Lopez, VERNON, RVT Medical Necessity - Tobacco Use Smoking Status: Former smoker Tobacco Use: Cigarettes Assessment/Plan All Active Problems Hypoxia (Acute) Respiratory failure (Acute) COVID-19 (Acute) RECOMMENDATIONS: 1. Continue antimicrobials per ID recommendations. 2. Continue stress dose steroids for now. 3. Continue AVAPS with breaks to Airvo, as tolerated. Goal to maintain oxygen saturations at or above 90%. 4. Check NIF daily. 5. Obtain repeat arterial blood gas with any change in mentation. 6. Continue baseline myasthenia medications. 7. Give IV Lasix x1 today. IMPRESSIONS: 1. Acute hypoxemic respiratory failure The patient appears to have multifocal bilateral pneumonia and would be at high risk for aspiration given his nausea and episodes of emesis. In addition, the patient has known sleep apnea and myasthenia gravis. There is always concern that with concurrent infection, the patient could develop a myasthenic crisis. He will be continued on noninvasive positive pressure ventilatory support and weaned as tolerated. If he is able to be maintained off of BiPAP, will plan to monitor his NIF(negative inspiratory force). If the patient were to decompensate further from a respiratory perspective, would proceed with immediate intubation. In the interim, the patient will be continued on broad- spectrum antimicrobials. If the patient does decompensate from a respiratory perspective and require intubation, he would likely need to be transferred to a tertiary care facility to be considered for plasmapheresis. 2. Mild troponin elevation Likely secondary to demand ischemia in the setting of #1. Surface echocardiogram was unrevealing. 3. History of obstructive sleep apnea Continue noninvasive positive pressure ventilatory support as ordered. 4. Recent diagnosis of COVID-19/history of myasthenia gravis The patient was admitted to the hospital in April with coronavirus and treated with remdesivir and Decadron. His CT scan from May 20 did not show any significant infiltrates. However, his CTA from May 31 now has multifocal infiltrates. The patient will need to be monitored very closely for the development of a myasthenia crisis. If the patient's respiratory status were to worsen, he would need to be transferred to a tertiary care facility. 5. Obesity/hypertension/diabetes mellitus Complicates care, management, recovery and prognosis. Continue home medications as indicated. TIME: 35 minutes of critical care time, independent of procedures, was spent addressing the patient's acute hypoxemic respiratory failure, bilateral pneumonia, troponin elevation, history of myasthenia gravis, obstructive sleep apnea, review of all data and collaboration with the care team. ([id number])
[2020-06-04] MEDS: Hydrocortisone Sod Succinate 100 MG/2 ML Vial IV ×2 (05:45→14:17)
[2020-06-04] MEDS: Pyridostigmine Bromide 60 MG Tablet PO ×3 (05:45→21:37)
[2020-06-04 08:21] LABS: Bedside Glucose 228 mg/dL (70-110)
[2020-06-04] MEDS: Furosemide 40 MG/4 ML Vial IV (08:40)
[2020-06-04] MEDS: Insulin Lispro 100 UNIT/ML INSULN.PEN SC ×4 (09:12→21:41)
[2020-06-04] MEDS: Aspirin E.C. 81 MG Tablet PO (09:13)
[2020-06-04] MEDS: Etodolac 200 MG Capsule 400 MG PO ×2 (09:14→21:37)
[2020-06-04] MEDS: Enoxaparin 40 MG/0.4 ML Syringe SC (09:14)
[2020-06-04] MEDS: Mycophenolate Mofetil 250 MG Capsule 1500 MG PO ×2 (09:14→21:38)
[2020-06-04] MEDS: amLODIPine 5 MG Tablet PO (09:14)
[2020-06-04] MEDS: Atenolol 50 MG Tablet PO (09:14)
--- NOTE | 2020-06-04 09:17 | PN_ITS ---
Patient Problems: Active and Suspected Problems Hypoxia (Acute) Respiratory failure (Acute) COVID-19 (Acute) Reason for Visit: Progress note for 06/04/2020 Patient was seen and examined on 06/04/2020 Last night patient was put on BiPAP. Patient found to be more short of breath, drowsy, lethargic and less active. Patient also has less appetite. Objective: As per nursing staff, NIF -20 cmH2O General: Lethargic, on BiPAP, short of breath HEENT: Atraumatic, PERRLA, EOMI, Normocephalic, diplopia on left side, chronic Oral: No Gingival or Mucosal Lesions/ Ulcerations Neck: Supple, No JVD, Negative Carotid Bruits Lungs: Air entry diminished in bilateral lung bases. Decreased respiratory effort. No crepitation/rhonchi Cardiovascular: Sinus Rhythm, PVCs normal S1, Normal S2, No murmurs Abdomen: Bowel Sounds Present, Soft, Non Tender, mildly distended : No renal angle tenderness. No suprapubic tenderness. Extremities: Mild bilateral ankle edema, Capillary Refill Less than 3 Seconds Skin: No rashes, No breakdown Musculoskeletal: No Tenderness to Palpation of Joints or Extremities Neurological: Muscle strength 4/5, decreased in both lower extremities. Cranial nerves II-XII grossly intact Psych/Mental Status: Normal Affect, Appropriate. Vitals/I&O's: Vital Signs Temp Pulse Resp BP Pulse Ox 99.3 F H 108 H 44 H 159/90 H 92 06/05/20 13:00 06/05/20 15:29 06/05/20 15:00 06/05/20 15:00 06/05/20 15:00 Oxygen Flow Rate (L/min) 60 Oxygen Delivery Method Airvo Weight: 308 lb 13.882 oz Body Mass Index (BMI) 42.7 Intake and Output for Last 24 Hours 06/03/20 06/04/20 06/05/20 23:59 23:59 23:59 Intake Total 717 / 717 1164.25 / 1404.25 1963 Output Total 350 / 350 2295 / 2895 1325 / 1325 Balance 367 / 367 -1130.75 / -1490.75 639 / 639 Partial Microbiology Past 72 Hours 06/02/20 09:20 Sputum, Expectorated/Coughed Gram Stain - Final 06/02/20 09:20 Sputum, Expectorated/Coughed Respiratory Culture - Final 06/01/20 17:40 Blood Culture (Wb) #2 - Left Hand Blood Culture - Preliminary No growth in 48 hours. 06/01/20 17:55 Blood Culture (Wb) - Right Forearm Blood Culture - Preliminary No growth in 48 hours. Laboratory Results 06/04/20 16:22: POC Glucose 271 H 06/04/20 16:40: Sodium 140, Potassium 3.4 L, Chloride 108 H, Carbon Dioxide 25.0, Anion Gap 7, BUN 33 H, Creatinine 1.12, Estim Creat Clear Calc 64.43, Est GFR (MDRD) Af Amer 83, Est GFR (MDRD) Non-Af 69, BUN/Creatinine Ratio 29.5 H, Glucose 286 H, Calcium 8.0 L, Phosphorus 2.4 L, Magnesium 2.5 06/04/20 21:41: POC Glucose 238 H 06/05/20 05:00: WBC 9.1, RBC 4.56 L, Hgb 12.9 L, Hct 40.5, MCV 88.8, MCH 28.3, MCHC 31.9 L, RDW Std Deviation 42.5, RDW Coeff of Elidia 13.2, Plt Count 231, MPV 10.7 06/05/20 05:00: Sodium 140, Potassium 3.3 L, Chloride 108 H, Carbon Dioxide 26.0, Anion Gap 6, BUN 29 H, Creatinine 0.98, Estim Creat Clear Calc 73.64, Est GFR (MDRD) Af Amer 96, Est GFR (MDRD) Non-Af 80, BUN/Creatinine Ratio 29.4 H, Glucose 143 H, Calcium 7.7 L, Phosphorus 2.7, Magnesium 2.1 06/05/20 08:37: POC Glucose 144 H 06/05/20 12:20: POC Glucose 148 H Current Medications Acetaminophen (Acetaminophen 325 Mg Tablet) 650 mg PO Q6H PRN PRN PRN Reason: Pain Score 1-10/Temp > 100.7 F Last Admin: 06/02/20 22:07 Dose: 650 mg Documented by: Alendronate Sodium (Alendronate Sodium 70 Mg Tablet) 70 mg PO MO BOONE Last Admin: 06/05/20 06:11 Dose: 70 mg Documented by: Aspirin (Aspirin E.C. 81 Mg Tablet) 81 mg PO DAILY@0800 [facility] Last Admin: 06/05/20 08:39 Dose: 81 mg Documented by: Atorvastatin Calcium (Atorvastatin Calcium 20 Mg Tablet) 20 mg PO QHS [facility] Last Admin: 06/04/20 21:37 Dose: 20 mg Documented by: Calamine/Phenol (Menthol/Lanolin/Calamine/Znox 113 Gm Tube) 1 applic TOPICAL TID [facility]; Protocol Last Admin: 06/05/20 13:13 Dose: 1 applic Documented by: Dextrose (Dextrose 50%-Water 25 Gm/50 Ml Disp.Syrin) 0 gm IV X1 PRN; Protocol PRN Reason: Hypoglycemia Enoxaparin Sodium (Enoxaparin 100 Mg/Ml Syringe) 100 mg SC Q12@0600,1800 [facility] Etodolac (Etodolac 200 Mg Capsule) 400 mg PO BID [facility] Last Admin: 06/05/20 09:45 Dose: 400 mg Documented by: Glucagon (Glucagon 1 Mg/Ml Syringe) 1 mg IM .X1 PRN PRN Reason: Hypoglycemia Piperacillin Sod/Tazobactam (Sod 3.375 gm/ Sodium Chloride) 50 mls @ 12.5 mls/hr IV Q8 [facility] Last Admin: 06/05/20 13:13 Dose: 12.5 mls/hr Documented by: Sodium Chloride () 250 mls @ 15 mls/hr IV .[id number] PRN PRN Reason: Saline Flush Last Infusion: 06/04/20 21:43 Dose: 0 mls/hr Documented by: Sodium Chloride () 250 mls @ 15 mls/hr IV .[id number] PRN PRN Reason: Additional IVPB Infusion Pantoprazole Sodium 40 mg/ (Sodium Chloride) 110 mls @ 330 mls/hr IV Q24 [facility] Last Infusion: 06/05/20 10:08 Dose: Infused Documented by: Amiodarone HCl 360 mg/ (Dextrose) 200 mls @ 16.667 mls/hr CONT INF .Q12H [facility] Last Admin: 06/05/20 16:07 Dose: Not Given Documented by: Insulin Glargine (Insulin Glargine 100 Units/Ml Pen) 5 units SC QHS [facility] Last Admin: 06/04/20 21:42 Dose: 5 u Documented by: Insulin Human Lispro (Insulin Lispro 100 Unit/Ml Insuln.Pen) 0 unit SC ACHS [facility]; Protocol Last Admin: 06/05/20 12:22 Dose: Not Given Documented by: Loratadine (Loratadine 10 Mg Tablet) 10 mg PO DAILY PRN PRN Reason: ALLERGIES Melatonin (Melatonin 3 Mg Tablet) 3 mg PO QHS PRN PRN PRN Reason: INSOMNIA Last Admin: 06/04/20 22:16 Dose: 3 mg Documented by: Metoclopramide HCl (Metoclopramide 10 Mg/2 Ml Vial) 5 mg IV Q8H PRN PRN PRN Reason: HICCUPS Last Admin: 06/03/20 11:56 Dose: 5 mg Documented by: Metoprolol Tartrate (Metoprolol Tartrate 100 Mg Tablet) 100 mg PO BID [facility] Mycophenolate Mofetil (Mycophenolate Mofetil 250 Mg Capsule) 1,500 mg PO BID [facility] Last Admin: 06/05/20 09:46 Dose: 1,500 mg Documented by: Nystatin (Nystatin Powder 15gm Bottle) 1 applic TOPICAL TID [facility]; Protocol Last Admin: 06/05/20 13:13 Dose: 1 applic Documented by: Prochlorperazine Edisylate (Prochlorperazine 10 Mg/2 Ml Vial) 5 mg IV Q4H PRN PRN PRN Reason: BREAKTHROUGH NAUSEA/VOMITING Pyridostigmine Hyde (Pyridostigmine Hyde 60 Mg Tablet) 60 mg PO TID [facility] Last Admin: 06/05/20 13:13 Dose: 60 mg Documented by: Senna/Docusate Sodium (Senna/Docusate Sodium 1 Tablet) 1 tablet PO BID [facility] Last Admin: 06/05/20 09:48 Dose: 1 tablet Documented by: Sodium Chloride (0.9% Saline Lock 10 Ml Syringe) 10 - 40 ml IV UD PRN PRN Reason: SALINE FLUSH Last Admin: 06/05/20 13:14 Dose: 40 ml Documented by: STROKE Vital Signs/Narrative: Vital Signs Temp Pulse Resp BP Pulse Ox 06/05/20 15:29 108 H 06/05/20 15:00 114 H 44 H 159/90 H 92 06/05/20 14:00 108 H 25 H 150/85 H 93 06/05/20 13:00 99.3 F H 114 H 30 H 145/66 H 95 Medical Necessity - Tobacco Use Smoking Status: Former smoker Tobacco Use: Cigarettes Assessment/Plan All Active Problems Hypoxia (Acute) Respiratory failure (Acute) COVID-19 (Acute) This 69-year-old woman with history of myasthenia gravis admitted with worsening shortness of breath, hypoxia and fatigue with multiple recurrent admissions in the past month. 1. Acute hypoxic respiratory failure with possibility of multifocal bilateral pneumonia/aspiration pneumonia: Patient is on high flow oxygen, 55% FiO2. Notes concern for myasthenia crisis. Continue managing NIF and if is less than 20 cmH2O would need immediate intubation. On broad-spectrum antibiotic vancomycin and Zosyn. Respiratory panel is negative. Urinary antigens are negative. Blood cultures x2 and sputum culture pending. MRSA nasal screen negative. Procalcitonin 0.25. BNP elevated 167 but not in heart failure range. 06/03: Patient noted to have NIF -45 yesterday and in the morning -40 today. Clinically seems improvement. 2D echo EF 65%, RVSP 39 mmHg. 06/04: Patient on BiPAP. More short of breath and lethargic than yesterday. Discussed with premix concrete batcher. 2. Myasthenia gravis with concern of crisis: Neurologist was consulted. He advised NIF monitoring. Increase the dose of pyridostigmine. Discussed with the geriatric case manager regarding transfer to [facility] if they have arrangement for plasmapheresis/IVIG. Patient at home on CellCept and prednisone. CellCept continued. On stress dose of IV hydrocortisone 100 mg 3 times daily. Pyridostigmine increased to 60 mg 3 times daily. Maximum dosing of pyridostigmine 1500 mg/day. 06/03: Respiratory status seems to be improving. 06/04: Close monitoring of respiratory status with NIF monitoring. Mild hypokalemia: Potassium was replaced 3. Elevated troponin 0 0.046: Patient does not have chest pain. His troponins have been elevated since May 19 gradually improving trend. 2D echo shows no wall motion abnormality. 4. Hypertension, dyslipidemia: Heart rate and blood pressure in acceptable limit. 5. DM 2: Metformin on hold. Accu-Chek is in his cover with sliding scale. Last glucose 281. DVT: Lovenox 40 subcu daily. Total time of the visit including total time spent in counseling or coordination of care, (more than 50% of the total time, spent in obtaining medical information from nurses and other ancillary care providers,explaining to the patient about labs, imaging, diagnosis and management), discussion with consultants, geriatric case manager, review of labs and imaging is 30 minutes. Clinical Impression(s) from Imaging Studies Chest X-Ray 06/01/20 18:00 IMPRESSION: Diffuse bilateral interstitial and airspace opacities may represent infection and/or edema. Echocardiogram 06/02/20 06:34 Interpretation Summary The study was technically difficult. Contrast injection was performed. Left ventricular systolic function is normal. The estimated ejection fraction is 65 %. The left atrium is mildly enlarged. Trivial mitral valve insufficiency. Trivial tricuspid valve insufficiency. Mild focal aortic valve calcification. Trivial pulmonic valve insufficiency. Epicardial fat. Right ventricular systolic pressure estimated to be 39 mmHg. Diastolic function is indeterminate. Ordering Physician: Gurinder Bustamante Referring Physician: [facility] Performed By: Manisha Lopez, VERNON, RVT Inpatient E&M: [id number] [facility] L3
[2020-06-04 09:26] LABS: Base Excess 0 mmol/L (-2 to +2); Bicarbonate 24.8 mmol/L (22-26); Blood Gas Specimen Type ART; FI02 60; Mode avaps; O2 Delivery Device BiPAP; PEEP 8; PO2 60 mmHG (75-100); RR 12; SITE R Brach; SO2 91 % (95-99); Total Carbon Dioxide 26 mmol/L; Vt 500; pCO2 38.1 mmHg (35-45); pH 7.42 (7.35-7.45)
--- NOTE | 2020-06-04 12:38 | EKG12_ITS ---
Test Reason : A-FIB Blood Pressure : / mmHG Vent. Rate : 147 BPM Atrial Rate : 174 BPM P-R Int : 000 ms QRS Dur : 092 ms QT Int : 268 ms P-R-T Axes : 000 -12 189 degrees QTc Int : 419 ms Atrial Fibrillation with occasional and repetative premature abberrantly conducted complexes Left axis deviation Low voltage QRS Nonspecific ST and T wave abnormality Confirmed by AARON GROVE, LISSETTE ([id number]), managing editor JOHN BLANC ([id number]) on 06/09/2020 1:03:20 PM Referred By: Kisha AVILA Confirmed By:LISSETTE WALKER MD
[2020-06-04 13:30] LABS: Bedside Glucose 272 mg/dL (70-110)
[2020-06-04] MEDS: Amiodarone 360 MG in Dextrose 5% Viaflo Bag 192.8 ML 33.3 MG CONT INF (14:14)
[2020-06-04 16:25] LABS: Bedside Glucose 271 mg/dL (70-110)
[2020-06-04] MEDS: Enoxaparin 100 MG/ML Syringe SC (16:58)
[2020-06-04] MEDS: dilTIAZem 25 MG/5 ML Vial 15 MG IV BOLUS (16:58)
[2020-06-04 17:20] LABS: Anion Gap 7 (5-15); BUN 33 mg/dL (7-18); BUN/Creat Ratio 29.5 RATIO (10-20); Chloride 108 mmol/L (98-107); Creatinine, Serum 1.12 mg/dL (0.70-1.30); EST Glomerular Filtration Rate 69 mL/min (>60); Est Glom Filt Rate - Afr Amer 83 mL/min (>60); Estimated Creatinine Clearance 64.43 ml/min; Glucose 286 mg/dL (74-106); Magnesium 2.5 mg/dL (1.6-2.6); Phosphorus 2.4 mg/dL (2.5-4.9); Potassium 3.4 mmol/L (3.5-5.1); Sodium Level 140 mmol/L (136-145)
[2020-06-04] MEDS: Digoxin 250 MCG/ML Ampul 500 MCG IV (17:59)
[2020-06-04] MEDS: Metoprolol Tartrate 50 MG Tablet PO ×2 (20:02→22:16)
[2020-06-04] MEDS: Amiodarone 360 MG in Dextrose 5% Viaflo Bag 192.8 ML 16.7 MG CONT INF (20:21)
[2020-06-04] MEDS: Atorvastatin Calcium 20 MG Tablet PO (21:37)
[2020-06-04 21:50] LABS: Bedside Glucose 238 mg/dL (70-110)
[2020-06-04] MEDS: MELATONIN 3 MG TABLET PO (22:16)
[2020-06-05] VITALS (39 sets, daily range): BP systolic 109–159; BP diastolic 44–98; PULSE 96–136; RESP 14–44; TEMP 37.1–37.9; O2SAT 91–97
[2020-06-05 05:32] LABS: Hematocrit 40.5 % (40-54); Hemoglobin 12.9 g/dL (13.0-16.5); Mean Corp Hgb Conc 31.9 g/dL (32-36); Mean Corpuscular Hgb 28.3 pg (27.0-32.0); Mean Corpuscular Volume 88.8 fL (80-94); Mean Platelet Vol. 10.7 fl (6.2-12.0); Platelet Count 231 K/mm3 (150-450); RBC Distribution Width CV 13.2 % (11.6-14.6); RBC Distribution Width SD 42.5 fl (35.1-43.9); Red Blood Count 4.56 M/mm3 (4.6-6.2); White Blood Count 9.1 K/mm3 (4.4-11.0)
[2020-06-05 05:41] LABS: Anion Gap 6 (5-15); BUN 29 mg/dL (7-18); BUN/Creat Ratio 29.4 RATIO (10-20); Calcium,Total 7.7 mg/dL (8.5-10.1); Chloride 108 mmol/L (98-107); Creatinine, Serum 0.98 mg/dL (0.70-1.30); EST Glomerular Filtration Rate 80 mL/min (>60); Est Glom Filt Rate - Afr Amer 96 mL/min (>60); Estimated Creatinine Clearance 73.64 ml/min; Glucose 143 mg/dL (74-106); Magnesium 2.1 mg/dL (1.6-2.6); Phosphorus 2.7 mg/dL (2.5-4.9); Potassium 3.3 mmol/L (3.5-5.1); Sodium Level 140 mmol/L (136-145)
[2020-06-05] MEDS: Pyridostigmine Bromide 60 MG Tablet PO ×3 (06:11→20:27)
[2020-06-05] MEDS: Alendronate Sodium 70 MG Tablet PO (06:11)
[2020-06-05] MEDS: Potassium Chloride Oral Tablet 20 MEQ 40 MEQ PO (06:36)
--- NOTE | 2020-06-05 07:11 | PN_ITS ---
Subjective: Overnight events were reviewed. Patient with A. fib with RVR and multiple interventions. Patient remains in A. fib, but rate is slightly improved. Patient continues to endorse dyspnea that is subjectively unchanged compared to yesterday. Patient is reporting a productive cough. Patient has attempted a bowel movement multiple times overnight without success. General: Alert, Oriented x3, Cooperative, No apparent distress, - - Morbidly obese. HEENT: Atraumatic, PERRLA, EOMI, Normocephalic, - - Dyssynchronous gaze. Oral: Moist Mucosa, No Gingival or Mucosal Lesions/ Ulcerations, - - Crowded posterior pharynx Neck: Supple, No Nodes, Trachea Midline Lungs: No rhonchi, No wheeze, Diminished, Rales, - - NIF improved to 35 this morning Cardiovascular: Normal S1, Normal S2, No murmurs, Irregular Rate, No rub noted, No Gallop, Tachycardic Abdomen: Bowel Sounds Present, Soft, Non Tender, Non-Distended, Obese Extremities: No clubbing, No cyanosis, Edema Skin: No rashes, No breakdown Musculoskeletal: No Tenderness to Palpation of Joints or Extremities Lymphatic: No Cervical, Supraclavicular, or Inguinal Adenopathy Neurological: Neuro grossly intact, Motor Exam 5/5 strength throughout Psych/Mental Status: Alert and oriented to time, place, person, mood and affect Vital Signs Temp Pulse Resp BP Pulse Ox 37.1 C 124 H 28 H 129/73 H 97 06/05/20 06:00 06/05/20 06:00 06/05/20 06:00 06/05/20 06:00 06/05/20 06:00 Oxygen Flow Rate (L/min) 60 Oxygen Delivery Method Airvo Weight: 140.1 kg Body Mass Index (BMI) 42.7 Intake and Output for Last 24 Hours 06/03/20 06/04/20 06/05/20 23:59 23:59 23:59 Intake Total 717 / 717 1164.25 / 1404.25 1010 / 1010 Output Total 350 / 350 2295 / 2895 750 / 750 Balance 367 / 367 -1130.75 / -1490.75 260 / 260 Labs (Last 48 Hours) 06/03/20 06/03/20 06/03/20 11:55 15:29 21:03 WBC RBC Hgb Hct MCV MCH MCHC RDW Std Deviation RDW Coeff of Elidia Plt Count MPV Specimen Type Sample Site pH Bicarbonate Actual Total CO2 Base Excess O2 Saturation O2 % ABG pCO2 ABG pO2 Respiration Rate O2 Delivery Device Vent Mode Tidal Volume POC PEEP Sodium Potassium Chloride Carbon Dioxide Anion Gap BUN Creatinine Estim Creat Clear Calc Est GFR (MDRD) Af Amer Est GFR (MDRD) Non-Af BUN/Creatinine Ratio Glucose Calcium Phosphorus Magnesium POC Glucose 248 H 240 H 229 H 06/04/20 06/04/20 06/04/20 08:11 09:20 11:12 WBC RBC Hgb Hct MCV MCH MCHC RDW Std Deviation RDW Coeff of Elidia Plt Count MPV Specimen Type ART Sample Site R Brach pH 7.42 Bicarbonate Actual 24.8 Total CO2 26 Base Excess 0 O2 Saturation 91 L O2 % 60 ABG pCO2 38.1 ABG pO2 60 L Respiration Rate 12 O2 Delivery Device BiPAP Vent Mode avaps Tidal Volume 500 POC PEEP 8 Sodium Potassium Chloride Carbon Dioxide Anion Gap BUN Creatinine Estim Creat Clear Calc Est GFR (MDRD) Af Amer Est GFR (MDRD) Non-Af BUN/Creatinine Ratio Glucose Calcium Phosphorus Magnesium POC Glucose 228 H 272 H 06/04/20 06/04/20 06/04/20 16:22 16:40 21:41 WBC RBC Hgb Hct MCV MCH MCHC RDW Std Deviation RDW Coeff of Elidia Plt Count MPV Specimen Type Sample Site pH Bicarbonate Actual Total CO2 Base Excess O2 Saturation O2 % ABG pCO2 ABG pO2 Respiration Rate O2 Delivery Device Vent Mode Tidal Volume POC PEEP Sodium 140 Potassium 3.4 L Chloride 108 H Carbon Dioxide 25.0 Anion Gap 7 BUN 33 H Creatinine 1.12 Estim Creat Clear Calc 64.43 Est GFR (MDRD) Af Amer 83 Est GFR (MDRD) Non-Af 69 BUN/Creatinine Ratio 29.5 H Glucose 286 H Calcium 8.0 L Phosphorus 2.4 L Magnesium 2.5 POC Glucose 271 H 238 H 06/05/20 06/05/20 05:00 05:00 WBC 9.1 RBC 4.56 L Hgb 12.9 L Hct 40.5 MCV 88.8 MCH 28.3 MCHC 31.9 L RDW Std Deviation 42.5 RDW Coeff of Elidia 13.2 Plt Count 231 MPV 10.7 Specimen Type Sample Site pH Bicarbonate Actual Total CO2 Base Excess O2 Saturation O2 % ABG pCO2 ABG pO2 Respiration Rate O2 Delivery Device Vent Mode Tidal Volume POC PEEP Sodium 140 Potassium 3.3 L Chloride 108 H Carbon Dioxide 26.0 Anion Gap 6 BUN 29 H Creatinine 0.98 Estim Creat Clear Calc 73.64 Est GFR (MDRD) Af Amer 96 Est GFR (MDRD) Non-Af 80 BUN/Creatinine Ratio 29.4 H Glucose 143 H Calcium 7.7 L Phosphorus 2.7 Magnesium 2.1 POC Glucose Microbiology 06/02/20 09:20 Sputum, Expectorated/Coughed Gram Stain - Final 06/02/20 09:20 Sputum, Expectorated/Coughed Respiratory Culture - Final 06/01/20 17:40 Blood Culture (Wb) #2 - Left Hand Blood Culture - Preliminary No growth in 48 hours. 06/01/20 17:55 Blood Culture (Wb) - Right Forearm Blood Culture - Preliminary No growth in 48 hours. Medical Necessity - Tobacco Use Smoking Status: Former smoker Tobacco Use: Cigarettes Assessment/Plan All Active Problems Hypoxia (Acute) Respiratory failure (Acute) COVID-19 (Acute) RECOMMENDATIONS: 1. Continue antimicrobials per ID recommendations. 2. Continue stress dose steroids for now. 3. Continue AVAPS with breaks to Airvo, as tolerated. Goal to maintain oxygen saturations at or above 90%. 4. Check NIF daily. Avoid sedative medications overnight 5. Obtain repeat arterial blood gas with any change in mentation. 6. Continue baseline myasthenia medications. 7. Consult cardiology for A. fib with RVR, rate control and anticoagulation 8. Aggressive repletion of electrolytes IMPRESSIONS: 1. Acute hypoxemic respiratory failure The patient appears to have multifocal bilateral pneumonia and would be at high risk for aspiration given his nausea and episodes of emesis. In addition, the patient has known sleep apnea and myasthenia gravis. There is always concern that with concurrent infection, the patient could develop a myasthenic crisis. He will be continued on noninvasive positive pressure ventilatory sup port and weaned as tolerated. If he is able to be maintained off of BiPAP, will plan to monitor his NIF(negative inspiratory force). If the patient were to decompensate further from a respiratory perspective, would proceed with immediate intubation. In the interim, the patient will be continued on broad- spectrum antimicrobials. If the patient does decompensate from a respiratory perspective and require intubation, he would likely need to be transferred to a tertiary care facility to be considered for plasmapheresis. NIF is improved today compared to yesterday. Increased dyspnea may be secondary to A. fib with RVR 2. Mild troponin elevation/new onset A. fib RVR Likely secondary to demand ischemia in the setting of #1. Surface echocardiogram was unrevealing. Patient with multiple interventions overnight that were not successful. Aggressive repletion of electrolytes has been ordered. Consult cardiology. 3. History of obstructive sleep apnea Continue noninvasive positive pressure ventilatory support as ordered. 4. Recent diagnosis of COVID-19/history of myasthenia gravis The patient was admitted to the hospital in April with coronavirus and treated with remdesivir and Decadron. His CT scan from May 20 did not show any significant infiltrates. However, his CTA from May 31 now has multifocal infiltrates. The patient will need to be monitored very closely for the development of a myasthenia crisis. If the patient's respiratory status were to worsen, he would need to be transferred to a tertiary care facility. 5. Obesity/hypertension/diabetes mellitus Complicates care, management, recovery and prognosis. Continue home medications as indicated. TIME: 32 minutes of critical care time, independent of procedures, was spent addressing the patient's acute hypoxemic respiratory failure, bilateral p neumonia, troponin elevation, history of myasthenia gravis, obstructive sleep apnea, review of all data and collaboration with the care team. (5:30 AM to 6:30 AM) [id number]: [id number] Critical care first hour
[2020-06-05] MEDS: Amiodarone 360 MG in Dextrose 5% Viaflo Bag 192.8 ML 16.7 MG CONT INF ×2 (08:38→22:56)
[2020-06-05] MEDS: Aspirin E.C. 81 MG Tablet PO (08:39)
[2020-06-05 08:46] LABS: Bedside Glucose 144 mg/dL (70-110)
[2020-06-05] MEDS: Etodolac 200 MG Capsule 400 MG PO ×2 (09:45→20:27)
[2020-06-05] MEDS: Enoxaparin 40 MG/0.4 ML Syringe SC (09:45)
[2020-06-05] MEDS: amLODIPine 5 MG Tablet PO (09:46)
[2020-06-05] MEDS: Mycophenolate Mofetil 250 MG Capsule 1500 MG PO ×2 (09:46→20:28)
[2020-06-05] MEDS: Senna/Docusate Sodium 1 Tablet PO ×2 (09:48→20:28)
[2020-06-05] MEDS: Metoprolol Tartrate 50 MG Tablet PO (09:48)
--- NOTE | 2020-06-05 10:37 | PCM.PN.HOSP ---
Patient Problems: Active and Suspected Problems Hypoxia (Acute) Respiratory failure (Acute) COVID-19 (Acute) Subjective: Patient states his breathing is about the same and he still feels short of breath. He acknowledges that he may need to be transferred for plasmapheresis. Per discussion with case management he will be able to go to the [place] as they do not have capability of performing plasmapheresis. The patient will think about which tertiary center here he would want to go in case he needs to be transferred. Continues to have a cough that is productive intermittently. Is still waiting to have a bowel movement had multiple attempts overnight but was unsuccessful. Vitals/I&O's: Vital Signs Temp Pulse Resp BP Pulse Ox 98.8 F 110 H 32 H 132/98 H 91 06/05/20 08:00 06/05/20 10:00 06/05/20 10:00 06/05/20 10:00 06/05/20 10:00 Oxygen Flow Rate (L/min) 60 Oxygen Delivery Method Airvo Weight: 140.1 kg Body Mass Index (BMI) 42.7 Intake and Output for Last 24 Hours 06/03/20 06/04/20 06/05/20 23:59 23:59 23:59 Intake Total 717 / 717 1164.25 / 1404.25 1574 / 1574 Output Total 350 / 350 2295 / 2895 1000 / 1000 Balance 367 / 367 -1130.75 / -1490.75 574 / 574 General: Alert, Oriented x3, Cooperative, Well developed, Well nourished, - - Older white male lying in bed currently Airvo, appears ill but nontoxic, appears fatigued HEENT: Atraumatic, PERRLA, EOMI - Patient shows significant weakness with extraocular eye movements and appears to converge at baseline but is able to move his eyes in all directions, Normocephalic, EAC Clear Oral: No Gingival or Mucosal Lesions/ Ulcerations, Dry Mucosa, - - Mallampati 3, fair dentition Neck: Supple, Trachea Midline, Thyroid Normal Size and Texture Lungs: Clear to auscultation, No rhonchi, No wheeze, No rales, Diminished - Markedly diminished diffusely Cardiovascular: Normal S1, Normal S2, No murmurs, No Ectopic Activity, Irregular Rate, No rub noted, No Gallop, Tachycardic Abdomen: Bowel Sounds Present, Soft, Non Tender, Non-Distended, Obese Extremities: No clubbing, No cyanosis, Capillary Refill Less than 3 Seconds, No Calf Tenderness, Edema - Trace bilateral lower extremity edema, Peripheral Pulses Normal Skin: No rashes, No breakdown Musculoskeletal: No Tenderness to Palpation of Joints or Extremities, Arthritic Changes, - - Marked muscle weakness Lymphatic: No Cervical, Supraclavicular, or Inguinal Adenopathy Neurological: Cranial nerves II-XII grossly intact, Sensory exam intact to light touch and pain, - - Hypotonicity, mildly decreased coordination Psych/Mental Status: Appropriate, Flat Affect Microbiology Past 72 Hours 06/02/20 09:20 Sputum, Expectorated/Coughed Gram Stain - Final 06/02/20 09:20 Sputum, Expectorated/Coughed Respiratory Culture - Final 06/01/20 17:40 Blood Culture (Wb) #2 - Left Hand Blood Culture - Preliminary No growth in 48 hours. 06/01/20 17:55 Blood Culture (Wb) - Right Forearm Blood Culture - Preliminary No growth in 48 hours. 06/02/20 11:30 Urine, Random Legionella Antigen - Final 06/02/20 11:30 Urine, Random Streptococcus pneumoniae Antigen (M - Final 06/02/20 07:10 Mucosa - Nose Respiratory Panel (PCR) - Final Laboratory Results 06/04/20 11:12: POC Glucose 272 H 06/04/20 16:22: POC Glucose 271 H 06/04/20 16:40: Sodium 140, Potassium 3.4 L, Chloride 108 H, Carbon Dioxide 25.0, Anion Gap 7, BUN 33 H, Creatinine 1.12, Estim Creat Clear Calc 64.43, Est GFR (MDRD) Af Amer 83, Est GFR (MDRD) Non-Af 69, BUN/Creatinine Ratio 29.5 H, Glucose 286 H, Calcium 8.0 L, Phosphorus 2.4 L, Magnesium 2.5 06/04/20 21:41: POC Glucose 238 H 06/05/20 05:00: WBC 9.1, RBC 4.56 L, Hgb 12.9 L, Hct 40.5, MCV 88.8, MCH 28.3, MCHC 31.9 L, RDW Std Deviation 42.5, RDW Coeff of Elidia 13.2, Plt Count 231, MPV 10.7 06/05/20 05:00: Sodium 140, Potassium 3.3 L, Chloride 108 H, Carbon Dioxide 26.0, Anion Gap 6, BUN 29 H, Creatinine 0.98, Estim Creat Clear Calc 73.64, Est GFR (MDRD) Af Amer 96, Est GFR (MDRD) Non-Af 80, BUN/Creatinine Ratio 29.4 H, Glucose 143 H, Calcium 7.7 L, Phosphorus 2.7, Magnesium 2.1 06/05/20 08:37: POC Glucose 144 H Current Medications Acetaminophen (Acetaminophen 325 Mg Tablet) 650 mg PO Q6H PRN PRN PRN Reason: Pain Score 1-10/Temp > 100.7 F Last Admin: 06/02/20 22:07 Dose: 650 mg Documented by: Alendronate Sodium (Alendronate Sodium 70 Mg Tablet) 70 mg PO MO [facility] Last Admin: 06/05/20 06:11 Dose: 70 mg Documented by: Amlodipine Besylate (Amlodipine 5 Mg Tablet) 5 mg PO DAILY [facility] Last Admin: 06/05/20 09:46 Dose: 5 mg Documented by: Aspirin (Aspirin E.C. 81 Mg Tablet) 81 mg PO DAILY@0800 [facility] Last Admin: 06/05/20 08:39 Dose: 81 mg Documented by: Atorvastatin Calcium (Atorvastatin Calcium 20 Mg Tablet) 20 mg PO QHS [facility] Last Admin: 06/04/20 21:37 Dose: 20 mg Documented by: Dextrose (Dextrose 50%-Water 25 Gm/50 Ml Disp.Syrin) 0 gm IV X1 PRN; Protocol PRN Reason: Hypoglycemia Enoxaparin Sodium (Enoxaparin 40 Mg/0.4 Ml Syringe) 40 mg SC DAILY [facility] Last Admin: 06/05/20 09:45 Dose: 40 mg Documented by: Etodolac (Etodolac 200 Mg Capsule) 400 mg PO BID [facility] Last Admin: 06/05/20 09:45 Dose: 400 mg Documented by: Glucagon (Glucagon 1 Mg/Ml Syringe) 1 mg IM .X1 PRN PRN Reason: Hypoglycemia Piperacillin Sod/Tazobactam (Sod 3.375 gm/ Sodium Chloride) 50 mls @ 12.5 mls/hr IV Q8 [facility] Last Infusion: 06/05/20 10:07 Dose: Infused Documented by: Sodium Chloride () 250 mls @ 15 mls/hr IV .[id number] PRN PRN Reason: Saline Flush Last Infusion: 06/04/20 21:43 Dose: 0 mls/hr Documented by: Sodium Chloride () 250 mls @ 15 mls/hr IV .[id number] PRN PRN Reason: Additional IVPB Infusion Pantoprazole Sodium 40 mg/ (Sodium Chloride) 110 mls @ 330 mls/hr IV Q24 [facility] Last Admin: 06/05/20 09:48 Dose: 330 mls/hr Documented by: Amiodarone HCl 360 mg/ (Dextrose) 200 mls @ 16.667 mls/hr CONT INF .Q12H [facility] Stop: 06/05/20 13:59 Last Admin: 06/05/20 08:38 Dose: 0.5 mg/min, 16.7 mls/hr Documented by: Insulin Glargine (Insulin Glargine 100 Units/Ml Pen) 5 units SC QHS [facility] Last Admin: 06/04/20 21:42 Dose: 5 u Documented by: Insulin Human Lispro (Insulin Lispro 100 Unit/Ml Insuln.Pen) 0 unit SC ACHS [facility]; Protocol Last Admin: 06/05/20 08:39 Dose: Not Given Documented by: Loratadine (Loratadine 10 Mg Tablet) 10 mg PO DAILY PRN PRN Reason: ALLERGIES Melatonin (Melatonin 3 Mg Tablet) 3 mg PO QHS PRN PRN PRN Reason: INSOMNIA Last Admin: 06/04/20 22:16 Dose: 3 mg Documented by: Metoclopramide HCl (Metoclopramide 10 Mg/2 Ml Vial) 5 mg IV Q8H PRN PRN PRN Reason: HICCUPS Last Admin: 06/03/20 11:56 Dose: 5 mg Documented by: Metoprolol Tartrate (Metoprolol Tartrate 50 Mg Tablet) 50 mg PO BID [facility] Last Admin: 06/05/20 09:48 Dose: 50 mg Documented by: Mycophenolate Mofetil (Mycophenolate Mofetil 250 Mg Capsule) 1,500 mg PO BID [facility] Last Admin: 06/05/20 09:46 Dose: 1,500 mg Documented by: Prochlorperazine Edisylate (Prochlorperazine 10 Mg/2 Ml Vial) 5 mg IV Q4H PRN PRN PRN Reason: BREAKTHROUGH NAUSEA/VOMITING Pyridostigmine Bee (Pyridostigmine Bee 60 Mg Tablet) 60 mg PO TID [facility] Last Admin: 06/05/20 06:11 Dose: 60 mg Documented by: Senna/Docusate Sodium (Senna/Docusate Sodium 1 Tablet) 1 tablet PO BID [facility] Last Admin: 06/05/20 09:48 Dose: 1 tablet Documented by: Sodium Chloride (0.9% Saline Lock 10 Ml Syringe) 10 - 40 ml IV UD PRN PRN Reason: SALINE FLUSH Last Admin: 06/02/20 08:06 Dose: 20 ml Documented by: STROKE Vital Signs/Narrative: Vital Signs Temp Pulse Resp BP Pulse Ox 06/05/20 10:00 110 H 32 H 132/98 H 91 06/05/20 09:48 126 H 06/05/20 09:09 91 06/05/20 09:00 127 H 35 H 143/54 H 94 06/05/20 08:38 130 H 06/05/20 08:00 98.8 F 117 H 22 H 127/71 H 96 06/05/20 07:29 129 H 06/05/20 07:00 123 H 25 H 132/86 H 95 06/05/20 06:45 93 Medical Necessity - Tobacco Use Smoking Status: Former smoker Tobacco Use: Cigarettes Assessment/Plan All Active Problems Hypoxia (Acute) Respiratory failure (Acute) COVID-19 (Acute) Acute hypoxic respiratory failure secondary to multifocal bilateral pneumonia/myasthenia gravis/recent Covid pneumonia -Continue AirVo/NIV for support -Assess NIF early as able--> has remained stable at 39 over the last 24 hours (normal is greater than 60) -If patient experiences further decompensation despite aggressive treatment he may need transfer to tertiary center for plasmapheresis -High risk for requiring intubation -Continue broad-spectrum antibiotics (Zosyn) -Continue pulmonary toilet -Appreciate pulmonary input Hypokalemia -Replacement with 40 mEq of p.o. potassium -In a.m. -Levels within normal limits Mild troponin elevation Suspect demand ischemia secondary to above -Surface echo showed a normal EF with an ejection fraction of 65% and diastolic dysfunction, no regional wall motion abnormalities, left atrial enlargement-mild Myasthenia gravis -Neurological consultation was completed -Consider Mestinon with max dose of 1500 mg/day -Consider plasmapheresis if worsening or requires intubation -Continue CellCept Recent COVID-19 pneumonia -Was admitted to this hospital in April and treated with remdesivir and Decadron -CTA from this admission shows worsening infiltrates, multifocal -Continue to monitor closely New onset A. fib with RVR -Likely related to pulmonary issues -Continue amiodarone -Patient has had metoprolol, digoxin and Cardizem without any assistance with rate control -? Start anticoagulation--> await cardiology input -Replace electrolytes -Cardiology is consulted awaiting input Hypertension -Continue amlodipine -Continue metoprolol 50 mg twice daily Hyperlipidemia -Continue atorvastatin MEL -Continue NIV DM-2 -Continue Lantus 5 units daily -Fasting blood sugar this a.m. was 143 -Continue SSI -Continue blood sugar monitoring -Metformin Morbid obesity -BMI 43.1 -Complicates care, management, recovery and overall prognosis Osteoporosis -Continue alendronate DVT/GI prophylaxis -Continue Lovenox -Continue Protonix CODE STATUS -Full code Inpatient E&M: 35922 Subs Hosp L3
[2020-06-05 12:26] LABS: Bedside Glucose 148 mg/dL (70-110)
[2020-06-05] MEDS: Menthol/Lanolin/Calamine/Znox 113 GM Tube 1 APPLIC TOPICAL ×2 (13:13→20:26)
[2020-06-05] MEDS: Nystatin Powder 15gm Bottle 1 APPLIC TOPICAL ×2 (13:13→20:26)
[2020-06-05] MEDS: 0.9% Saline Lock 10 ML Syringe IV (13:14)
--- NOTE | 2020-06-05 13:44 | CON.PCM_ITS ---
Reason for Consult Date of Consultation: 06/05/20 Reason for Consultation: Atrial fibrillation History of Present Illness: The patient is a 69 year old M who presented to the emergency room with complaints of shortness of breath on June 01. He apparently had been recently admitted and discharged from the hospital after being admitted with hypoxemia and hiccups. In April of this year he had been admitted with severe sepsis secondary to COVID-19. He was treated with remdesivir and Decadron. He also has a history of myasthenia gravis. In the emergency room he was noted to be short of breath and he had a minimally elevated troponin. His electrocardiogram demonstrated atrial fibrillation with a rapid ventricular response rate. He had just had a CTA on May 31 which showed no evidence of pulmonary embolism but diffuse groundglass opacities were noted. He has been in atrial fibrillation with a rapid response rate difficult to control rate. An echocardiogram was performed which demonstrated preserved ejection fraction of 65% with no wall motion abnormalities cardiology was called for further evaluation and management. [] Past Medical History Allergies/Adverse Reactions: Allergies ampicillin Adverse Reaction (Verified 06/01/20 17:16) Unknown Home Medications: Ambulatory Orders Medication Instructions Recorded Aspirin E.C. [Ecotrin] 81 mg PO DAILY@0800 07/16/15 Atenolol [Tenormin] 50 mg PO DAILY 07/16/15 Calcium Carb/Vitamin D [Os-Freddy 2 tablet PO BIDCM 07/16/15 500MG + D] Cetirizine HCl [Zyrtec] 10 mg PO DAILY PRN 07/16/15 Etodolac [Lodine Xl] 400 mg PO BID 07/16/15 Felodipine [Plendil] 5 mg PO DAILY 07/16/15 Guaifenesin [Tab Tussin] 400 mg PO Q4H PRN PRN 07/16/15 Ipratropium [place] 0.06% 2 spray NASAL BID PRN 07/16/15 [ATROVENT NASAL SPRAY] Mycophenolate Mofetil 1,500 mg PO BID 07/16/15 Pyridostigmine [place] [Mestinon 60 mg PO BID 07/16/15 Timepan] Simvastatin [Zocor] 40 mg PO QHS 07/16/15 predniSONE tablet 10 mg PO DAILY 07/16/15 Alendronate Sodium 70 mg PO MO 07/17/15 Vitamin D3 1 tab PO DAILY 04/24/20 Metformin HCl 500 mg PO BID 30 Days #60 tablet 05/22/20 Metoclopramide [Reglan] 5 mg PO Q6H PRN PRN #20 tablet 05/31/20 Past Medical History (Chronic Problems): Chronic Problems Former tobacco use (Chronic) Hypertension (Chronic) Hyperlipidemia (Chronic) Type II diabetes mellitus (Chronic) MEL (obstructive sleep apnea) (Chronic) Myasthenia gravis (Chronic) Surgical History: - - Back surgery x 2, Foot surgery, Partial colon resection secondary to polyps. Psychiatric History: No pertinent psych hx - *Family History Maternal History Items: Diabetes, High Cholesterol, Heart Disease, Hypertension Paternal History Items: - - Patient denies any knowledge of his paternal medical history. Smoking Status: Former smoker Tobacco Use: Cigarettes Alcohol: None Drugs: None Review of Systems - Review of Systems General: Denies: Fever, Night Sweats, Fatigue HEENT: Denies: Vision Change Cardiovascular: Reports: Palpitations. Denies: Chest Discomfort, Shortness of Breath, Orthopnea, PND, Peripheral Edema, Lightheadedness, Dizziness, Near Syncope, Syncope Respiratory: Denies: Cough, Sputum Production, Hemoptysis Gastrointestinal: Denies: Hematemesis, Hematochezia, Melena Genitourinary: Denies: Dysuria, Hematuria Skin: Denies: Rash Neurological: Denies: Dizziness Psychiatric: Denies: Anxiety Hematologic/ Lymphatic: Denies: Lymph Node Enlargement Subjectve: Elderly man in no distress intubated at this time sleeping Objective: Vital Signs Temp Pulse Resp BP Pulse Ox 99.3 F H 114 H 30 H 145/66 H 95 06/05/20 13:00 06/05/20 13:00 06/05/20 13:00 06/05/20 13:00 06/05/20 13:00 Oxygen Flow Rate (L/min) 60 Oxygen Delivery Method Airvo Weight: 308 lb 13.882 oz Body Mass Index (BMI) 42.7 Intake and Output for Last 24 Hours 06/03/20 06/04/20 06/05/20 23:59 23:59 23:59 Intake Total 717 / 717 1164.25 / 1404.25 1844 / 1844 Output Total 350 / 350 2295 / 2895 1100 / 1100 Balance 367 / 367 -1130.75 / -1490.75 744 / 744 General: Awake, Alert, Oriented x 3 HEENT: PERRL, EOMI, Sclera Non Icteric Neck: Supple, Good ROM, No Lymph Node Enlargement Lungs: Clear to auscultation Cardiovascular: Irregular Rhythm, Normal S1, Normal S2, No Murmurs, No Rubs, No Gallops Vascular: No Carotid Bruits, Normal Femoral Pulses, Normal Radial Pulses, Normal Dorsalis Pedal Pulse, Normal Posterior Tibial Pulses Abdomen: Bowel Sounds Present, Soft, Non Tender, No HSM, No Organomegaly Extremities: No Cyanosis, No Clubbing, No edema Neurological: No Focal Motor or Sensory Deficit Psych/Mental Status: Appropriate 06/04/20 16:40: Sodium 140, Potassium 3.4 L, Chloride 108 H, Carbon Dioxide 25.0, Anion Gap 7, BUN 33 H, Creatinine 1.12, Est GFR (MDRD) Af Amer 83, Est GFR (MDRD) Non-Af 69, BUN/Creatinine Ratio 29.5 H, Glucose 286 H, Calcium 8.0 L, Phosphorus 2.4 L, Magnesium 2.5 06/05/20 05:00: WBC 9.1, RBC 4.56 L, Hgb 12.9 L, Hct 40.5, MCV 88.8, MCH 28.3, MCHC 31.9 L, Plt Count 231, MPV 10.7 06/05/20 05:00: Sodium 140, Potassium 3.3 L, Chloride 108 H, Carbon Dioxide 26.0, Anion Gap 6, BUN 29 H, Creatinine 0.98, Est GFR (MDRD) Af Amer 96, Est GFR (MDRD) Non-Af 80, BUN/Creatinine Ratio 29.4 H, Glucose 143 H, Calcium 7.7 L, Phosphorus 2.7, Magnesium 2.1 Rhythm: EKG: ECHO: Stress Test: Cardiac Cath: PCI: CT Surgery: Holter monitor: EPS: PPM: CXR: Chest CT Scan: Assessment/Plan 1. Atrial fibrillation with rapid ventricular response rate. * The above is likely worsened by his pulmonary condition. At this particular time I would recommend that we continue him on the current medical therapy increasing the dose of his metoprolol to 100 mg twice a day. He has also received some intravenous digoxin. We will attempt to wean off the oral diltiazem. He will undergo anticoagulation while he is in the hospital. No other major changes were made at this time. * 2. Abnormal cardiac enzymes * Patient is noted to have mildly abnormal cardiac enzymes. The above is likely secondary to demand ischemia. My recommendation would be to continue the current medical therapy. I do not think there is a reason to perform any invasive procedures currently. * * We will continue to follow with you.
--- NOTE | 2020-06-05 13:48 | PN.ID_ITS ---
Patient Problems: Active and Suspected Problems Hypoxia (Acute) Respiratory failure (Acute) COVID-19 (Acute) Subjective: Feeling about the same, still dyspnea unchanged. Occasional small amount of sputum with cough. No fever. - Physical Exam Vitals/I&O's: Vital Signs Temp Pulse Resp BP Pulse Ox 99.3 F H 114 H 30 H 145/66 H 95 06/05/20 13:00 06/05/20 13:00 06/05/20 13:00 06/05/20 13:00 06/05/20 13:00 Oxygen Flow Rate (L/min) 60 Oxygen Delivery Method Airvo Weight: 140.1 kg Body Mass Index (BMI) 42.7 Intake and Output for Last 24 Hours 06/03/20 06/04/20 06/05/20 23:59 23:59 23:59 Intake Total 717 / 717 1164.25 / 1404.25 1844 / 1844 Output Total 350 / 350 2295 / 2895 1100 / 1100 Balance 367 / 367 -1130.75 / -1490.75 744 / 744 General: Alert, Cooperative Lungs: Diminished Cardiovascular: Regular rate, Regular Rhythm Abdomen: Soft, Non Tender, Non-Distended Skin: No rashes Microbiology Past 72 Hours 06/02/20 09:20 Sputum, Expectorated/Coughed Gram Stain - Final 06/02/20 09:20 Sputum, Expectorated/Coughed Respiratory Culture - Final 06/01/20 17:40 Blood Culture (Wb) #2 - Left Hand Blood Culture - Preliminary No growth in 48 hours. 06/01/20 17:55 Blood Culture (Wb) - Right Forearm Blood Culture - Preliminary No growth in 48 hours. 06/02/20 11:30 Urine, Random Legionella Antigen - Final 06/02/20 11:30 Urine, Random Streptococcus pneumoniae Antigen (M - Final 06/02/20 07:10 Mucosa - Nose Respiratory Panel (PCR) - Final Laboratory Results 06/04/20 16:22: POC Glucose 271 H 06/04/20 16:40: Sodium 140, Potassium 3.4 L, Chloride 108 H, Carbon Dioxide 25.0, Anion Gap 7, BUN 33 H, Creatinine 1.12, Estim Creat Clear Calc 64.43, Est GFR (MDRD) Af Amer 83, Est GFR (MDRD) Non-Af 69, BUN/Creatinine Ratio 29.5 H, Glucose 286 H, Calcium 8.0 L, Phosphorus 2.4 L, Magnesium 2.5 06/04/20 21:41: POC Glucose 238 H 06/05/20 05:00: WBC 9.1, RBC 4.56 L, Hgb 12.9 L, Hct 40.5, MCV 88.8, MCH 28.3, MCHC 31.9 L, RDW Std Deviation 42.5, RDW Coeff of Elidia 13.2, Plt Count 231, MPV 10.7 06/05/20 05:00: Sodium 140, Potassium 3.3 L, Chloride 108 H, Carbon Dioxide 26.0, Anion Gap 6, BUN 29 H, Creatinine 0.98, Estim Creat Clear Calc 73.64, Est GFR (MDRD) Af Amer 96, Est GFR (MDRD) Non-Af 80, BUN/Creatinine Ratio 29.4 H, Glucose 143 H, Calcium 7.7 L, Phosphorus 2.7, Magnesium 2.1 06/05/20 08:37: POC Glucose 144 H 06/05/20 12:20: POC Glucose 148 H Current Medications Acetaminophen (Acetaminophen 325 Mg Tablet) 650 mg PO Q6H PRN PRN PRN Reason: Pain Score 1-10/Temp > 100.7 F Last Admin: 06/02/20 22:07 Dose: 650 mg Documented by: Alendronate Sodium (Alendronate Sodium 70 Mg Tablet) 70 mg PO MO [facility] Last Admin: 06/05/20 06:11 Dose: 70 mg Documented by: Aspirin (Aspirin E.C. 81 Mg Tablet) 81 mg PO DAILY@0800 [facility] Last Admin: 06/05/20 08:39 Dose: 81 mg Documented by: Atorvastatin Calcium (Atorvastatin Calcium 20 Mg Tablet) 20 mg PO QHS [facility] Last Admin: 06/04/20 21:37 Dose: 20 mg Documented by: Calamine/Phenol (Menthol/Lanolin/Calamine/Znox 113 Gm Tube) 1 applic TOPICAL TID [facility]; Protocol Last Admin: 06/05/20 13:13 Dose: 1 applic Documented by: Dextrose (Dextrose 50%-Water 25 Gm/50 Ml Disp.Syrin) 0 gm IV X1 PRN; Protocol PRN Reason: Hypoglycemia Enoxaparin Sodium (Enoxaparin 40 Mg/0.4 Ml Syringe) 40 mg SC DAILY [facility] Last Admin: 06/05/20 09:45 Dose: 40 mg Documented by: Etodolac (Etodolac 200 Mg Capsule) 400 mg PO BID [facility] Last Admin: 06/05/20 09:45 Dose: 400 mg Documented by: Glucagon (Glucagon 1 Mg/Ml Syringe) 1 mg IM .X1 PRN PRN Reason: Hypoglycemia Piperacillin Sod/Tazobactam (Sod 3.375 gm/ Sodium Chloride) 50 mls @ 12.5 mls/hr IV Q8 [facility] Last Admin: 06/05/20 13:13 Dose: 12.5 mls/hr Documented by: Sodium Chloride () 250 mls @ 15 mls/hr IV .[id number] PRN PRN Reason: Saline Flush Last Infusion: 06/04/20 21:43 Dose: 0 mls/hr Documented by: Sodium Chloride () 250 mls @ 15 mls/hr IV .[id number] PRN PRN Reason: Additional IVPB Infusion Pantoprazole Sodium 40 mg/ (Sodium Chloride) 110 mls @ 330 mls/hr IV Q24 [facility] Last Infusion: 06/05/20 10:08 Dose: Infused Documented by: Amiodarone HCl 360 mg/ (Dextrose) 200 mls @ 16.667 mls/hr CONT INF .Q12H [facility] Stop: 06/05/20 13:59 Last Admin: 06/05/20 08:38 Dose: 0.5 mg/min, 16.7 mls/hr Documented by: Insulin Glargine (Insulin Glargine 100 Units/Ml Pen) 5 units SC QHS [facility] Last Admin: 06/04/20 21:42 Dose: 5 u Documented by: Insulin Human Lispro (Insulin Lispro 100 Unit/Ml Insuln.Pen) 0 unit SC [facility]; Protocol Last Admin: 06/05/20 12:22 Dose: Not Given Documented by: Loratadine (Loratadine 10 Mg Tablet) 10 mg PO DAILY PRN PRN Reason: ALLERGIES Melatonin (Melatonin 3 Mg Tablet) 3 mg PO QHS PRN PRN PRN Reason: INSOMNIA Last Admin: 06/04/20 22:16 Dose: 3 mg Documented by: Metoclopramide HCl (Metoclopramide 10 Mg/2 Ml Vial) 5 mg IV Q8H PRN PRN PRN Reason: HICCUPS Last Admin: 06/03/20 11:56 Dose: 5 mg Documented by: Metoprolol Tartrate (Metoprolol Tartrate 100 Mg Tablet) 100 mg PO BID [facility] Mycophenolate Mofetil (Mycophenolate Mofetil 250 Mg Capsule) 1,500 mg PO BID [facility] Last Admin: 06/05/20 09:46 Dose: 1,500 mg Documented by: Nystatin (Nystatin Powder 15gm Bottle) 1 applic TOPICAL TID [facility]; Protocol Last Admin: 06/05/20 13:13 Dose: 1 applic Documented by: Prochlorperazine Edisylate (Prochlorperazine 10 Mg/2 Ml Vial) 5 mg IV Q4H PRN PRN PRN Reason: BREAKTHROUGH NAUSEA/VOMITING Pyridostigmine [place]ackney (Pyridostigmine Brackney 60 Mg Tablet) 60 mg PO TID [facility] Last Admin: 06/05/20 13:13 Dose: 60 mg Documented by: Senna/Docusate Sodium (Senna/Docusate Sodium 1 Tablet) 1 tablet PO BID [facility] Last Admin: 06/05/20 09:48 Dose: 1 tablet Documented by: Sodium Chloride (0.9% Saline Lock 10 Ml Syringe) 10 - 40 ml IV UD PRN PRN Reason: SALINE FLUSH Last Admin: 06/05/20 13:14 Dose: 40 ml Documented by: Medical Necessity - Tobacco Use Smoking Status: Former smoker Tobacco Use: Cigarettes Route of nutrition/ use of supplements: [] Nutritional Intake: [] IV Site: [] Weinstein Catheter: [] - Assessment/Plan Antibiotics: [] Assessment/Plan: [] Active and Suspected Problems Hypoxia (Acute) Respiratory failure (Acute) COVID-19 (Acute) covid with hypoxia, immunosuppression, concern for secondary bacterial pneumonia - covid sx started 05/18/20. Now out of iso. On zosyn. Sputum cx neg, resp pcr panel neg, no fever, normal wbc. Will follow
[2020-06-05] MEDS: Insulin Lispro 100 UNIT/ML INSULN.PEN SC ×2 (16:38→20:39)
[2020-06-05 16:41] LABS: Bedside Glucose 184 mg/dL (70-110)
[2020-06-05] MEDS: Enoxaparin 100 MG/ML Syringe SC (17:42)
[2020-06-05 18:29] LABS: Absolute Lymphocyte Count 0.75 X10^3/uL (0.83-4.51); Absolute Neutrophil Count 6.2 X10^3/uL (2.0-7.7); Basophil# 0.01 X10^3/uL; Basophil% 0.1 % (0-1); Eosinophil# 0.02 X10^3/uL; Eosinophils% 0.3 % (0-5); Hematocrit 42.9 % (40-54); Hemoglobin 13.5 g/dL (13.0-16.5); Lymphocyte # 0.75 X10^3/ul (4.0); Lymphocyte % 10.3 % (19-41); Mean Corp Hgb Conc 31.5 g/dL (32-36); Mean Corpuscular Hgb 27.7 pg (27.0-32.0); Mean Corpuscular Volume 88.1 fL (80-94); Mean Platelet Vol. 10.1 fl (6.2-12.0); Monocyte# 0.27 X10^3/uL; Monocyte% 3.7 % (0-10); NRBC Flagged by Analyzer 0 % (0-5); Neutrophil % 85.1 % (47-70); Platelet Count 228 K/mm3 (150-450); RBC Distribution Width CV 13.2 % (11.6-14.6); RBC Distribution Width SD 42.6 fl (35.1-43.9); Red Blood Count 4.87 M/mm3 (4.6-6.2); White Blood Count 7.3 K/mm3 (4.4-11.0)
[2020-06-05 18:44] LABS: ALB/GLOB Ratio 0.6 RATIO (0.9-2.4); AST(SGOT) 19 U/L (15-37); Alanine Aminotransfer ALT/SGPT 15 U/L (16-61); Alkaline Phosphatase 49 U/L (45-117); Anion Gap 6 (5-15); BUN 24 mg/dL (7-18); BUN/Creat Ratio 26.7 RATIO (10-20); Calcium,Total 7.8 mg/dL (8.5-10.1); Chloride 109 mmol/L (98-107); EST Glomerular Filtration Rate 88 mL/min (>60); Est Glom Filt Rate - Afr Amer 107 mL/min (>60); Estimated Creatinine Clearance 80.18 ml/min; Globulin 3.3 g/dL (2.2-4.2); Glucose 224 mg/dL (74-106); Potassium 3.5 mmol/L (3.5-5.1); Protein, Total 5.3 g/dL (6.4-8.2); Sodium Level 141 mmol/L (136-145)
[2020-06-05] MEDS: Atorvastatin Calcium 20 MG Tablet PO (20:27)
[2020-06-05] MEDS: Metoprolol Tartrate 100 MG Tablet PO (20:28)
[2020-06-05 21:46] LABS: Bedside Glucose 197 mg/dL (70-110)
[2020-06-06] VITALS (37 sets, daily range): BP systolic 82–167; BP diastolic 52–95; PULSE 92–139; RESP 14–43; TEMP 37.7–38.2; O2SAT 92–98
[2020-06-06] MEDS: Menthol/Lanolin/Calamine/Znox 113 GM Tube 1 APPLIC TOPICAL ×3 (05:10→21:38)
[2020-06-06] MEDS: Nystatin Powder 15gm Bottle 1 APPLIC TOPICAL ×3 (05:11→21:38)
[2020-06-06] MEDS: Enoxaparin 100 MG/ML Syringe SC ×2 (05:11→16:48)
[2020-06-06 05:12] LABS: Absolute Lymphocyte Count 0.91 X10^3/uL (0.83-4.51); Absolute Neutrophil Count 6.5 X10^3/uL (2.0-7.7); Basophil# 0.01 X10^3/uL; Basophil% 0.1 % (0-1); Eosinophil# 0.03 X10^3/uL; Eosinophils% 0.4 % (0-5); Hematocrit 44.3 % (40-54); Hemoglobin 14.4 g/dL (13.0-16.5); Lymphocyte # 0.91 X10^3/ul (4.0); Lymphocyte % 11.7 % (19-41); Mean Corp Hgb Conc 32.5 g/dL (32-36); Mean Corpuscular Hgb 28.4 pg (27.0-32.0); Mean Corpuscular Volume 87.4 fL (80-94); Mean Platelet Vol. 10.3 fl (6.2-12.0); Monocyte# 0.26 X10^3/uL; Monocyte% 3.4 % (0-10); NRBC Flagged by Analyzer 0 % (0-5); Neutrophil # 6.49 X10^3/uL (2.7-7.7); Neutrophil % 83.8 % (47-70); Platelet Count 236 K/mm3 (150-450); RBC Distribution Width CV 13.2 % (11.6-14.6); RBC Distribution Width SD 41.9 fl (35.1-43.9); Red Blood Count 5.07 M/mm3 (4.6-6.2); White Blood Count 7.8 K/mm3 (4.4-11.0)
[2020-06-06] MEDS: Pyridostigmine Bromide 60 MG Tablet PO ×2 (05:13→12:46)
[2020-06-06 05:28] LABS: ALB/GLOB Ratio 0.6 RATIO (0.9-2.4); AST(SGOT) 25 U/L (15-37); Alanine Aminotransfer ALT/SGPT 15 U/L (16-61); Alkaline Phosphatase 58 U/L (45-117); Anion Gap 4 (5-15); BUN 19 mg/dL (7-18); BUN/Creat Ratio 25.7 RATIO (10-20); Calcium,Total 7.8 mg/dL (8.5-10.1); Chloride 108 mmol/L (98-107); Creatinine, Serum 0.74 mg/dL (0.70-1.30); EST Glomerular Filtration Rate 111 mL/min (>60); Est Glom Filt Rate - Afr Amer 134 mL/min (>60); Estimated Creatinine Clearance 72.16 ml/min; Globulin 3.5 g/dL (2.2-4.2); Glucose 143 mg/dL (74-106); Magnesium 2.2 mg/dL (1.6-2.6); Phosphorus 1.7 mg/dL (2.5-4.9); Potassium 3.7 mmol/L (3.5-5.1); Protein, Total 5.5 g/dL (6.4-8.2); Sodium Level 139 mmol/L (136-145)
[2020-06-06 08:10] LABS: Bedside Glucose 135 mg/dL (70-110)
--- NOTE | 2020-06-06 08:49 | PN.CARD_ITS ---
Subjectve: Patient seen and evaluated. Appears to be stable on the current medical therapy. Objective: Vital Signs Temp Pulse Resp BP Pulse Ox 100.3 F H 125 H 22 H 147/83 H 96 06/06/20 08:00 06/06/20 08:39 06/06/20 08:39 06/06/20 08:00 06/06/20 08:39 Oxygen Flow Rate (L/min) 60 Oxygen Delivery Method Airvo Weight: 307 lb 5.19 oz Body Mass Index (BMI) 42.7 Intake and Output for Last 24 Hours 06/04/20 06/05/20 06/06/20 23:59 23:59 23:59 Intake Total 1164.25 / 1404.25 2334 / 2394 330 / 330 Output Total 2295 / 2895 1700 / 1900 750 / 750 Balance -1130.75 / -1490.75 634 / 494 -420 / -420 General: Awake, Alert, Oriented x 3 HEENT: PERRL, EOMI, Sclera Non Icteric Neck: Supple, Good ROM, No Lymph Node Enlargement Lungs: Clear to auscultation Cardiovascular: Irregular Rhythm, Normal S1, Normal S2, No Murmurs, No Rubs, No Gallops Vascular: No Carotid Bruits, Normal Femoral Pulses, Normal Radial Pulses, Normal Dorsalis Pedal Pulse, Normal Posterior Tibial Pulses Abdomen: Bowel Sounds Present, Soft, Non Tender, No HSM, No Organomegaly Extremities: No Cyanosis, No Clubbing, No edema Musculoskeletal: No Erythema Skin: No Rashes Lymphatic: No Lymph Node Enlargement Neurological: No Focal Motor or Sensory Deficit Psych/Mental Status: Appropriate 06/05/20 18:15: WBC 7.3, RBC 4.87, Hgb 13.5, Hct 42.9, MCV 88.1, MCH 27.7, MCHC 31.5 L, Plt Count 228, MPV 10.1, Immature Gran % (Auto) 0.500, Neut % (Auto) 85.1 H, Lymph % (Auto) 10.3 L, [place] % (Auto) 3.7, Eos % (Auto) 0.3, Baso % (Auto) 0.1, Absolute Neuts (auto) 6.2, Nucleated RBC % 0 06/05/20 18:15: Sodium 141, Potassium 3.5, Chloride 109 H, Carbon Dioxide 26.0, Anion Gap 6, BUN 24 H, Creatinine 0.90, Est GFR (MDRD) Af Amer 107, Est GFR (MDRD) Non-Af 88, BUN/Creatinine Ratio 26.7 H, Glucose 224 H, Calcium 7.8 L, Total Bilirubin 1.00 06/06/20 05:05: WBC 7.8, RBC 5.07, Hgb 14.4, Hct 44.3, MCV 87.4, MCH 28.4, MCHC 32.5, Plt Count 236, MPV 10.3, Immature Gran % (Auto) 0.600, Neut % (Auto) 83.8 H, Lymph % (Auto) 11.7 L, [place] % (Auto) 3.4, Eos % (Auto) 0.4, Baso % (Auto) 0.1, Absolute Neuts (auto) 6.5, Nucleated RBC % 0 06/06/20 05:05: Sodium 139, Potassium 3.7, Chloride 108 H, Carbon Dioxide 27.0, Anion Gap 4 L, BUN 19 H, Creatinine 0.74, Est GFR (MDRD) Af Amer 134, Est GFR (MDRD) Non-Af 111, BUN/Creatinine Ratio 25.7 H, Glucose 143 H, Calcium 7.8 L, Phosphorus 1.7 L, Magnesium 2.2, Total Bilirubin 0.90 Rhythm: EKG: ECHO: Stress Test: Cardiac Cath: PCI: CT Surgery: Holter monitor: EPS: PPM: CXR: Chest CT Scan: Medical Necessity - Tobacco Use Smoking Status: Former smoker Tobacco Use: Cigarettes Assessment/Plan 1. Atrial fibrillation with rapid ventricular response rate. * The above is likely worsened by his pulmonary condition. At this particular time I would recommend that we continue him on the current medical therapy increasing the dose of his metoprolol to 100 mg twice a day. He has also r eceived some intravenous digoxin. We will attempt to wean off the oral diltiazem. He will undergo anticoagulation while he is in the hospital. No other major changes were made at this time. * Would also wean off the intravenous amiodarone and put him on p.o. amiodarone. * His echocardiogram had demonstrated preserved left ventricular systolic function. 2. Abnormal cardiac enzymes * Patient is noted to have mildly abnormal cardiac enzymes. The above is likely secondary to demand ischemia. My recommendation would be to continue the current medical therapy. I do not think there is a reason to perform any invasive procedures currently. * * We will continue to follow with you.
[2020-06-06] MEDS: Aspirin E.C. 81 MG Tablet PO (08:52)
[2020-06-06] MEDS: Metoprolol Tartrate 100 MG Tablet PO ×2 (09:04→21:46)
[2020-06-06] MEDS: Etodolac 200 MG Capsule 400 MG PO (09:05)
[2020-06-06] MEDS: Mycophenolate Mofetil 250 MG Capsule 1500 MG PO ×2 (09:05→21:46)
[2020-06-06] MEDS: Amiodarone 200 MG Tablet PO ×2 (09:30→16:48)
--- NOTE | 2020-06-06 09:39 | PN_ITS ---
Subjective: Patient did okay overnight. Patient tolerated BiPAP with sleep and is back on 60% FiO2 by Airvo. Patient overall feels subjectively unchanged compared to previous. Patient did report that he would like to get rid of that mask if possible. Patient is also asking to get out of bed. Patient has remained in A. fib overnight, but rate was better controlled. No hypotension has been noted. Patient NIF has remained stable. General: Alert, Oriented x3, Cooperative, - - Mild conversational dyspnea. Morbidly obese. HEENT: Atraumatic, PERRLA, EOMI, Normocephalic, - - Disconjugate gaze Oral: Moist Mucosa, No Gingival or Mucosal Lesions/ Ulcerations, - - Carotid posterior pharynx Neck: Supple, No Nodes, Trachea Midline Lungs: No rhonchi, No wheeze, No rales, Diminished Cardiovascular: Normal S1, Normal S2, No murmurs, Irregular Rate, No rub noted, No Gallop, Tachycardic Abdomen: Bowel Sounds Present, Soft, Non Tender, Non-Distended, Obese Extremities: No cyanosis, Capillary Refill Less than 3 Seconds, Edema Skin: - - No change from previous Musculoskeletal: No Tenderness to Palpation of Joints or Extremities Lymphatic: No Cervical, Supraclavicular, or Inguinal Adenopathy Neurological: Neuro grossly intact - No change from baseline Psych/Mental Status: Normal Affect, Appropriate Vital Signs Temp Pulse Resp BP Pulse Ox 37.9 C H 139 H 40 H 107/64 92 06/06/20 08:00 06/06/20 09:04 06/06/20 09:00 06/06/20 09:00 06/06/20 09:00 Oxygen Flow Rate (L/min) 60 Oxygen Delivery Method Airvo Weight: 139.4 kg Body Mass Index (BMI) 42.7 Intake and Output for Last 24 Hours 06/04/20 06/05/20 06/06/20 23:59 23:59 23:59 Intake Total 1164.25 / 1404.25 2334 / 2394 600 / 600 Output Total 2295 / 2895 1700 / 1900 850 / 850 Balance -1130.75 / -1490.75 634 / 494 -250 / -250 Labs (Last 48 Hours) 06/04/20 06/04/20 06/04/20 11:12 16:22 16:40 WBC RBC Hgb Hct MCV MCH MCHC RDW Std Deviation RDW Coeff of Elidia Plt Count MPV Immature Gran % (Auto) Neut % (Auto) Lymph % (Auto) [place] % (Auto) Eos % (Auto) Baso % (Auto) Absolute Neuts (auto) Absolute Lymphs (auto) Nucleated RBC % Sodium 140 Potassium 3.4 L Chloride 108 H Carbon Dioxide 25.0 Anion Gap 7 BUN 33 H Creatinine 1.12 Estim Creat Clear Calc 64.43 Est GFR (MDRD) Af Amer 83 Est GFR (MDRD) Non-Af 69 BUN/Creatinine Ratio 29.5 H Glucose 286 H Calcium 8.0 L Phosphorus 2.4 L Magnesium 2.5 Total Bilirubin AST ALT Alkaline Phosphatase Total Protein Albumin Globulin Albumin/Globulin Ratio POC Glucose 272 H 271 H 06/04/20 06/05/20 06/05/20 21:41 05:00 05:00 WBC 9.1 RBC 4.56 L Hgb 12.9 L Hct 40.5 MCV 88.8 MCH 28.3 MCHC 31.9 L RDW Std Deviation 42.5 RDW Coeff of Elidia 13.2 Plt Count 231 MPV 10.7 Immature Gran % (Auto) Neut % (Auto) Lymph % (Auto) [place] % (Auto) Eos % (Auto) Baso % (Auto) Absolute Neuts (auto) Absolute Lymphs (auto) Nucleated RBC % Sodium 140 Potassium 3.3 L Chloride 108 H Carbon Dioxide 26.0 Anion Gap 6 BUN 29 H Creatinine 0.98 Estim Creat Clear Calc 73.64 Est GFR (MDRD) Af Amer 96 Est GFR (MDRD) Non-Af 80 BUN/Creatinine Ratio 29.4 H Glucose 143 H Calcium 7.7 L Phosphorus 2.7 Magnesium 2.1 Total Bilirubin AST ALT Alkaline Phosphatase Total Protein Albumin Globulin Albumin/Globulin Ratio POC Glucose 238 H 06/05/20 06/05/20 06/05/20 08:37 12:20 16:35 WBC RBC Hgb Hct MCV MCH MCHC RDW Std Deviation RDW Coeff of Elidia Plt Count MPV Immature Gran % (Auto) Neut % (Auto) Lymph % (Auto) [place] % (Auto) Eos % (Auto) Baso % (Auto) Absolute Neuts (auto) Absolute Lymphs (auto) Nucleated RBC % Sodium Potassium Chloride Carbon Dioxide Anion Gap BUN Creatinine Estim Creat Clear Calc Est GFR (MDRD) Af Amer Est GFR (MDRD) Non-Af BUN/Creatinine Ratio Glucose Calcium Phosphorus Magnesium Total Bilirubin AST ALT Alkaline Phosphatase Total Protein Albumin Globulin Albumin/Globulin Ratio POC Glucose 144 H 148 H 184 H 06/05/20 06/05/20 06/05/20 18:15 18:15 20:38 WBC 7.3 RBC 4.87 Hgb 13.5 Hct 42.9 MCV 88.1 MCH 27.7 MCHC 31.5 L RDW Std Deviation 42.6 RDW Coeff of Eliida 13.2 Plt Count 228 MPV 10.1 Immature Gran % (Auto) 0.500 Neut % (Auto) 85.1 H Lymph % (Auto) 10.3 L [place] % (Auto) 3.7 Eos % (Auto) 0.3 Baso % (Auto) 0.1 Absolute Neuts (auto) 6.2 Absolute Lymphs (auto) 0.75 L Nucleated RBC % 0 Sodium 141 Potassium 3.5 Chloride 109 H Carbon Dioxide 26.0 Anion Gap 6 BUN 24 H Creatinine 0.90 Estim Creat Clear Calc 80.18 Est GFR (MDRD) Af Amer 107 Est GFR (MDRD) Non-Af 88 BUN/Creatinine Ratio 26.7 H Glucose 224 H Calcium 7.8 L Phosphorus Magnesium Total Bilirubin 1.00 AST 19 ALT 15 L Alkaline Phosphatase 49 Total Protein 5.3 L Albumin 2.0 L Globulin 3.3 Albumin/Globulin Ratio 0.6 L POC Glucose 197 H 06/06/20 06/06/20 06/06/20 05:05 05:05 08:07 WBC 7.8 RBC 5.07 Hgb 14.4 Hct 44.3 MCV 87.4 MCH 28.4 MCHC 32.5 RDW Std Deviation 41.9 RDW Coeff of Elidia 13.2 Plt Count 236 MPV 10.3 Immature Gran % (Auto) 0.600 Neut % (Auto) 83.8 H Lymph % (Auto) 11.7 L [place] % (Auto) 3.4 Eos % (Auto) 0.4 Baso % (Auto) 0.1 Absolute Neuts (auto) 6.5 Absolute Lymphs (auto) 0.91 Nucleated RBC % 0 Sodium 139 Potassium 3.7 Chloride 108 H Carbon Dioxide 27.0 Anion Gap 4 L BUN 19 H Creatinine 0.74 Estim Creat Clear Calc 72.16 Est GFR (MDRD) Af Amer 134 Est GFR (MDRD) Non-Af 111 BUN/Creatinine Ratio 25.7 H Glucose 143 H Calcium 7.8 L Phosphorus 1.7 L Magnesium 2.2 Total Bilirubin 0.90 AST 25 ALT 15 L Alkaline Phosphatase 58 Total Protein 5.5 L Albumin 2.0 L Globulin 3.5 Albumin/Globulin Ratio 0.6 L POC Glucose 135 H Microbiology 06/02/20 09:20 Sputum, Expectorated/Coughed Gram Stain - Final 06/02/20 09:20 Sputum, Expectorated/Coughed Respiratory Culture - Final Medical Necessity - Tobacco Use Smoking Status: Former smoker Tobacco Use: Cigarettes Assessment/Plan All Active Problems Hypoxia (Acute) Respiratory failure (Acute) COVID-19 (Acute) RECOMMENDATIONS: 1. Continue antimicrobials per ID recommendations. 2. Attempt to increase activity as tolerated 3. Continue AVAPS with breaks to Airvo, as tolerated. Goal to maintain oxygen saturations at or above 90%. 4. Check NIF daily. Avoid sedative medications overnight 5. Obtain repeat arterial blood gas with any change in mentation. 6. Continue baseline myasthenia medications. 7. Consult cardiology for A. fib with RVR, rate control and anticoagulation 8. Aggressive repletion of electrolytes IMPRESSIONS: 1. Acute hypoxemic respiratory failure The patient appears to have multifocal bilateral pneumonia and would be at high risk for aspiration given his nausea and episodes of emesis. In addition, the patient has known sleep apnea and myasthenia gravis. There is always concern that with concurrent infection, the patient could develop a myasthenic crisis. He will be continued on noninvasive positive pressure ventilatory support and weaned as tolerated. If he is able to be maintained off of BiPAP, will plan to monitor his NIF(negative inspiratory force). If the patient were to decompensate further from a respiratory perspective, would proceed with immediate intubation. In the interim, the patient will be continued on broad- spectrum antimicrobials. If the patient does decompensate from a respiratory perspective and require intubation, he would likely need to be transferred to a tertiary care facility to be considered for plasmapheresis. NIF is improved today compared to yesterday. Increased dyspnea may be secondary to A. fib with RVR, but rate is better controlled at this time. Will attempt to increase activity to help with possible atelectasis and improvement in oxygen tension. 2. Mild troponin elevation/new onset A. fib RVR Likely secondary to demand ischemia in the setting of #1. Surface echocardiogram was unrevealing. Patient remains in A. fib, but rate is better controlled aggressive repletion of electrolytes has been ordered. Defer to cardiology. 3. History of obstructive sleep apnea Continue noninvasive positive pressure ventilatory support as ordered. 4. Recent diagnosis of COVID-19/history of myasthenia gravis The patient was admitted to the hospital in April with coronavirus and treated with remdesivir and Decadron. His CT scan from May 20 did not show any significant infiltrates. However, his CTA from May 31 now has multifocal infiltrates. The patient will need to be monitored very closely for the development of a myasthenia crisis. If the patient's respiratory status were to worsen, he would need to be transferred to a tertiary care facility. Could consider repeat neurology opinion about possible increase in baseline medications. 5. Obesity/hypertension/diabetes mellitus Complicates care, management, recovery and prognosis. Continue home medications as indicated. TIME: 33 minutes of critical care time, independent of procedures, was spent addressing the patient's acute hypoxemic respiratory failure, bilateral pneumonia, troponin elevation, history of myasthenia gravis, obstructive sleep apnea, review of all data and collaboration with the care team. (8 AM to 9:49 AM) [id number]: [id number] Critical care first hour
[2020-06-06] MEDS: Insulin Lispro 100 UNIT/ML INSULN.PEN SC ×3 (12:29→21:39)
[2020-06-06 12:30] LABS: Bedside Glucose 186 mg/dL (70-110)
[2020-06-06] MEDS: Acetaminophen 325 MG Tablet 650 MG PO (12:45)
--- NOTE | 2020-06-06 14:10 | PN_ITS ---
Patient Problems: Active and Suspected Problems Hypoxia (Acute) Respiratory failure (Acute) COVID-19 (Acute) Subjective: Patient is lying in bed. States his breathing is about the same. Frustrated that is not getting better more quickly. States he just wants to go home. Admits he has diplopia but states this is a chronic issue for him. Vitals/I&O's: Vital Signs Temp Pulse Resp BP Pulse Ox 100.5 F H 106 H 29 H 123/71 H 95 06/06/20 12:00 06/06/20 12:00 06/06/20 12:00 06/06/20 12:00 06/06/20 12:13 Oxygen Flow Rate (L/min) 60 Oxygen Delivery Method Airvo Weight: 139.4 kg Body Mass Index (BMI) 42.7 Intake and Output for Last 24 Hours 06/04/20 06/05/20 06/06/20 23:59 23:59 23:59 Intake Total 1164.25 / 1404.25 2334 / 2394 1014.81 / 1014.81 Output Total 2295 / 2895 1700 / 1900 1100 / 1100 Balance -1130.75 / -1490.75 634 / 494 -85.19 / -85.19 General: Alert, Oriented x3, Cooperative, Well developed, Well nourished, - - Morbidly obese white male lying in bed on AirVo, continues to demonstrate profound weakness HEENT: Atraumatic, PERRLA, EOMI, Normocephalic, EAC Clear Oral: No Gingival or Mucosal Lesions/ Ulcerations, Dry Mucosa Neck: Supple, Trachea Midline, Thyroid Normal Size and Texture Lungs: No wheeze, Diminished, Rales - Few bilateral bases, Rhonchi - Few scattered Cardiovascular: Normal S1, Normal S2, No murmurs, No Ectopic Activity, Irregular Rate, No rub noted, No Gallop, Tachycardic, - - Irregular rhythm Abdomen: Bowel Sounds Present, Soft, Non Tender, Non-Distended, Obese Extremities: No clubbing, No cyanosis, Capillary Refill Less than 3 Seconds, Edema - 1+ bilateral lower extremity pitting edema, Peripheral Pulses Normal Skin: No rashes, No breakdown, - - Pale skin Musculoskeletal: No Muscle Wasting, Arthritic Changes Neurological: Neuro grossly intact, - - Patient has abnormalities with intraocular muscles, appears profoundly weak Psych/Mental Status: Appropriate, Flat Affect Microbiology Past 72 Hours 06/02/20 09:20 Sputum, Expectorated/Coughed Gram Stain - Final 06/02/20 09:20 Sputum, Expectorated/Coughed Respiratory Culture - Final 06/01/20 17:40 Blood Culture (Wb) #2 - Left Hand Blood Culture - Preliminary No growth in 48 hours. 06/01/20 17:55 Blood Culture (Wb) - Right Forearm Blood Culture - Preliminary No growth in 48 hours. Laboratory Results 06/05/20 16:35: POC Glucose 184 H 06/05/20 18:15: WBC 7.3, RBC 4.87, Hgb 13.5, Hct 42.9, MCV 88.1, MCH 27.7, MCHC 31.5 L, RDW Std Deviation 42.6, RDW Coeff of Elidia 13.2, Plt Count 228, MPV 10.1, Immature Gran % (Auto) 0.500, Neut % (Auto) 85.1 H, Lymph % (Auto) 10.3 L, [place] % (Auto) 3.7, Eos % (Auto) 0.3, Baso % (Auto) 0.1, Absolute Neuts (auto) 6.2, Absolute Lymphs (auto) 0.75 L, Nucleated RBC % 0 06/05/20 18:15: Sodium 141, Potassium 3.5, Chloride 109 H, Carbon Dioxide 26.0, Anion Gap 6, BUN 24 H, Creatinine 0.90, Estim Creat Clear Calc 80.18, Est GFR (MDRD) Af Amer 107, Est GFR (MDRD) Non-Af 88, BUN/Creatinine Ratio 26.7 H, Glucose 224 H, Calcium 7.8 L, Total Bilirubin 1.00, AST 19, ALT 15 L, Alkaline Phosphatase 49, Total Protein 5.3 L, Albumin 2.0 L, Globulin 3.3, Albumin /Globulin Ratio 0.6 L 06/05/20 20:38: POC Glucose 197 H 06/06/20 05:05: WBC 7.8, RBC 5.07, Hgb 14.4, Hct 44.3, MCV 87.4, MCH 28.4, MCHC 32.5, RDW Std Deviation 41.9, RDW Coeff of Elidia 13.2, Plt Count 236, MPV 10.3, Immature Gran % (Auto) 0.600, Neut % (Auto) 83.8 H, Lymph % (Auto) 11.7 L, [place] % (Auto) 3.4, Eos % (Auto) 0.4, Baso % (Auto) 0.1, Absolute Neuts (auto) 6.5, Absolute Lymphs (auto) 0.91, Nucleated RBC % 0 06/06/20 05:05: Sodium 139, Potassium 3.7, Chloride 108 H, Carbon Dioxide 27.0, Anion Gap 4 L, BUN 19 H, Creatinine 0.74, Estim Creat Clear Calc 72.16, Est GFR (MDRD) Af Amer 134, Est GFR (MDRD) Non-Af 111, BUN/Creatinine Ratio 25.7 H, Glucose 143 H, Calcium 7.8 L, Phosphorus 1.7 L, Magnesium 2.2, Total Bilirubin 0.90, AST 25, ALT 15 L, Alkaline Phosphatase 58, Total Protein 5.5 L, Albumin 2.0 L, Globulin 3.5, Albumin/Globulin Ratio 0.6 L 06/06/20 08:07: POC Glucose 135 H 06/06/20 12:28: POC Glucose 186 H Current Medications Acetaminophen (Acetaminophen 325 Mg Tablet) 650 mg PO Q6H PRN PRN PRN Reason: Pain Score 1-10/Temp > 100.7 F Last Admin: 06/06/20 12:45 Dose: 650 mg Documented by: Alendronate Sodium (Alendronate Sodium 70 Mg Tablet) 70 mg PO MO [facility] Last Admin: 06/05/20 06:11 Dose: 70 mg Documented by: Amiodarone HCl (Amiodarone 200 Mg Tablet) 200 mg PO BIDCM [facility] Last Admin: 06/06/20 09:30 Dose: 200 mg Documented by: Aspirin (Aspirin E.C. 81 Mg Tablet) 81 mg PO DAILY@0800 [facility] Last Admin: 06/06/20 08:52 Dose: 81 mg Documented by: Atorvastatin Calcium (Atorvastatin Calcium 20 Mg Tablet) 20 mg PO QHS [facility] Last Admin: 06/05/20 20:27 Dose: 20 mg Documented by: Calamine/Phenol (Menthol/Lanolin/Calamine/Znox 113 Gm Tube) 1 applic TOPICAL TID [facility]; Protocol Last Admin: 06/06/20 12:46 Dose: 1 applic Documented by: Dextrose (Dextrose 50%-Water 25 Gm/50 Ml Disp.Syrin) 0 gm IV X1 PRN; Protocol PRN Reason: Hypoglycemia Enoxaparin Sodium (Enoxaparin 100 Mg/Ml Syringe) 100 mg SC Q12@0600,1800 [facility] Last Admin: 06/06/20 05:11 Dose: 100 mg Documented by: Etodolac (Etodolac 200 Mg Capsule) 400 mg PO BID [facility] Last Admin: 06/06/20 09:05 Dose: 400 mg Documented by: Furosemide (Furosemide 40 Mg/4 Ml Vial) 40 mg IV X1 ONE Stop: 06/06/20 14:09 Glucagon (Glucagon 1 Mg/Ml Syringe) 1 mg IM .X1 PRN PRN Reason: Hypoglycemia Piperacillin Sod/Tazobactam (Sod 3.375 gm/ Sodium Chloride) 50 mls @ 12.5 mls/hr IV Q8 [facility] Last Admin: 06/06/20 12:45 Dose: 12.5 mls/hr Documented by: Sodium Chloride () 250 mls @ 15 mls/hr IV .[id number] PRN PRN Reason: Saline Flush Last Infusion: 06/04/20 21:43 Dose: 0 mls/hr Documented by: Sodium Chloride () 250 mls @ 15 mls/hr IV .[id number] PRN PRN Reason: Additional IVPB Infusion Pantoprazole Sodium 40 mg/ (Sodium Chloride) 110 mls @ 330 mls/hr IV Q24 [facility] Last Infusion: 06/06/20 09:50 Dose: Infused Documented by: Insulin Glargine (Insulin Glargine 100 Units/Ml Pen) 5 units SC QHS [facility] Last Admin: 06/05/20 20:39 Dose: 5 u Documented by: Insulin Human Lispro (Insulin Lispro 100 Unit/Ml Insuln.Pen) 0 unit SC ACHS [facility]; Protocol Last Admin: 06/06/20 12:29 Dose: 2 u Documented by: Loratadine (Loratadine 10 Mg Tablet) 10 mg PO DAILY PRN PRN Reason: ALLERGIES Melatonin (Melatonin 3 Mg Tablet) 3 mg PO QHS PRN PRN PRN Reason: INSOMNIA Last Admin: 06/04/20 22:16 Dose: 3 mg Documented by: Metoclopramide HCl (Metoclopramide 10 Mg/2 Ml Vial) 5 mg IV Q8H PRN PRN PRN Reason: HICCUPS Last Admin: 06/03/20 11:56 Dose: 5 mg Documented by: Metoprolol Tartrate (Metoprolol Tartrate 100 Mg Tablet) 100 mg PO BID [facility] Last Admin: 06/06/20 09:04 Dose: 100 mg Documented by: Mycophenolate Mofetil (Mycophenolate Mofetil 250 Mg Capsule) 1,500 mg PO BID [facility] Last Admin: 06/06/20 09:05 Dose: 1,500 mg Documented by: Nystatin (Nystatin Powder 15gm Bottle) 1 applic TOPICAL TID [facility]; Protocol Last Admin: 06/06/20 12:45 Dose: 1 applic Documented by: Potassium Chloride (Potassium Chloride Oral Tablet 20 Meq) 40 meq PO X1 ONE Stop: 06/06/20 14:09 Potassium Phos/Sodium Phos (Na Biphos/Potassium Phosphate Packet) 1 packet PO BID [facility] Stop: 06/07/20 22:01 Prochlorperazine Edisylate (Prochlorperazine 10 Mg/2 Ml Vial) 5 mg IV Q4H PRN PRN PRN Reason: BREAKTHROUGH NAUSEA/VOMITING Pyridostigmine [place] (Pyridostigmine [place] 60 Mg Tablet) 120 mg PO TID [facility] Senna/Docusate Sodium (Senna/Docusate Sodium 1 Tablet) 1 tablet PO BID PRN PRN Reason: Constipation Sodium Chloride (0.9% Saline Lock 10 Ml Syringe) 10 - 40 ml IV UD PRN PRN Reason: SALINE FLUSH Last Admin: 06/05/20 13:14 Dose: 40 ml Documented by: STROKE Vital Signs/Narrative: Vital Signs Temp Pulse Resp BP BP Pulse Ox 06/06/20 12:13 95 06/06/20 12:00 100.5 F H 106 H 29 H 123/71 H 94 06/06/20 11:13 106 H 06/06/20 11:00 100.5 F H 102 H 32 H 145/95 H 93 Medical Necessity - Tobacco Use Smoking Status: Former smoker Tobacco Use: Cigarettes Assessment/Plan All Active Problems Hypoxia (Acute) Respiratory failure (Acute) COVID-19 (Acute) Acute hypoxic respiratory failure secondary to multifocal bilateral pneumonia/myasthenia gravis/recent Covid pneumonia -Continue AirVo/NIV for support--> patient is currently on air Vo with an FiO2 of 63% and a flow of 60 L/min--> his PO2 is 94 to 95% -Assess NIF early as able--> NIF was 36 this morning down slightly from 39 -We will trial an increase of Mestinon to 120 mg 3 times daily -IV Lasix 40 mg x 1 dose -Repeat chest x-ray in a.m. -If patient experiences further decompensation despite aggressive treatment he may need transfer to tertiary center for plasmapheresis -High risk for requiring intubation -Continue broad-spectrum antibiotics (Zosyn) -Continue pulmonary toilet -Appreciate pulmonary input Fevers -T-max in last 24 hours was 100.5 -Continue Zosyn -Check a.m. procalcitonin -Continue to monitor -ID following and appreciate input Hypokalemia -Resolved Hypophosphatemia -Replace with 2 doses sodium [place] today -Repeat phosphorus in the a.m. Mild troponin elevation Suspect demand ischemia secondary to above -Surface echo showed a normal EF with an ejection fraction of 65% and diastolic dysfunction, no regional wall motion abnormalities, left atrial enlargement-mild Myasthenia gravis -Neurological consultation was completed -Increase Mestinon to 120 mg 3 times daily--> max dose of 1500 mg/day -This is twice home dose of 60 mg 3 times daily -Consider plasmapheresis if worsening or requires intubation -Continue CellCept Recent COVID-19 pneumonia -Was admitted to this hospital in April and treated with remdesivir and Decadron -CTA from this admission shows worsening infiltrates, multifocal -Continue to monitor closely New onset A. fib with RVR -Likely related to pulmonary issues -Heart rate still remain between 100 and 120 for the most part -Continue amiodarone -Metoprolol was increased to 100 mg twice daily -Therapeutic Lovenox was initiated at 100 mg twice daily -Cardiology is following Hypertension -Continue amlodipine -Continue metoprolol 100 mg twice daily Hyperlipidemia -Continue atorvastatin MEL -Continue NIV DM-2 -Continue Lantus 5 units daily -Fasting blood sugar this a.m. was 143 -Continue SSI -Continue blood sugar monitoring Morbid obesity -BMI 43.1 -Complicates care, management, recovery and overall prognosis Moderate Malnutrition -Continue to monitor p.o. intake -Continue supplements Osteoporosis -Continue alendronate DVT/GI prophylaxis -Continue Lovenox -Continue Protonix CODE STATUS -Full code Inpatient E&M: [address] [facility]
[2020-06-06] MEDS: Potassium Chloride Oral Tablet 20 MEQ 40 MEQ PO (15:14)
[2020-06-06] MEDS: 0.9% Saline Lock 10 ML Syringe IV (15:14)
[2020-06-06] MEDS: Furosemide 40 MG/4 ML Vial IV (15:14)
[2020-06-06 16:56] LABS: Bedside Glucose 185 mg/dL (70-110)
[2020-06-06] MEDS: Na Biphos/Potassium Phosphate PACKET 1 PACKET PO (21:39)
[2020-06-06] MEDS: Atorvastatin Calcium 20 MG Tablet PO (21:46)
[2020-06-06] MEDS: Pyridostigmine Bromide 60 MG Tablet 120 MG PO (21:46)
[2020-06-06 22:00] LABS: Bedside Glucose 168 mg/dL (70-110)
[2020-06-07] VITALS (42 sets, daily range): BP systolic 113–168; BP diastolic 56–105; PULSE 82–140; RESP 14–39; TEMP 37.1–38.4; O2SAT 92–100
[2020-06-07] MEDS: Acetaminophen 325 MG Tablet 650 MG PO ×2 (02:38→19:50)
[2020-06-07 04:30] LABS: Absolute Lymphocyte Count 0.72 X10^3/uL (0.83-4.51); Absolute Neutrophil Count 6.3 X10^3/uL (2.0-7.7); Basophil# 0.02 X10^3/uL; Basophil% 0.3 % (0-1); Eosinophil# 0.05 X10^3/uL; Eosinophils% 0.7 % (0-5); Hematocrit 42.4 % (40-54); Hemoglobin 13.7 g/dL (13.0-16.5); Lymphocyte # 0.72 X10^3/ul (4.0); Lymphocyte % 9.6 % (19-41); Mean Corp Hgb Conc 32.3 g/dL (32-36); Mean Corpuscular Hgb 27.9 pg (27.0-32.0); Mean Corpuscular Volume 86.4 fL (80-94); Mean Platelet Vol. 10.5 fl (6.2-12.0); Monocyte# 0.38 X10^3/uL; Monocyte% 5.1 % (0-10); NRBC Flagged by Analyzer 0 % (0-5); Neutrophil % 83.6 % (47-70); Platelet Count 258 K/mm3 (150-450); RBC Distribution Width CV 13.2 % (11.6-14.6); RBC Distribution Width SD 41.2 fl (35.1-43.9); Red Blood Count 4.91 M/mm3 (4.6-6.2); White Blood Count 7.5 K/mm3 (4.4-11.0)
[2020-06-07 04:45] LABS: ALB/GLOB Ratio 0.5 RATIO (0.9-2.4); AST(SGOT) 28 U/L (15-37); Alanine Aminotransfer ALT/SGPT 15 U/L (16-61); Albumin, Serum 1.9 g/dL (3.2-5.0); Alkaline Phosphatase 56 U/L (45-117); Anion Gap 5 (5-15); BUN 17 mg/dL (7-18); BUN/Creat Ratio 19.5 RATIO (10-20); Calcium,Total 7.6 mg/dL (8.5-10.1); Chloride 110 mmol/L (98-107); Creatinine, Serum 0.87 mg/dL (0.70-1.30); EST Glomerular Filtration Rate 92 mL/min (>60); Est Glom Filt Rate - Afr Amer 111 mL/min (>60); Estimated Creatinine Clearance 82.95 ml/min; Globulin 3.5 g/dL (2.2-4.2); Glucose 144 mg/dL (74-106); Phosphorus 1.7 mg/dL (2.5-4.9); Potassium 3.5 mmol/L (3.5-5.1); Protein, Total 5.4 g/dL (6.4-8.2); Sodium Level 141 mmol/L (136-145)
--- NOTE | 2020-06-07 05:55 | RAD_ITS ---
STUDY: X-RAY CHEST REASON FOR EXAM: Male, 69 years old. hypoxia TECHNIQUE: Single AP portable view of the chest. COMPARISON: 06/01/2020 FINDINGS: Decrease in the patchy alveolar opacity in both lungs consistent with improved bilateral pneumonia. There is no demonstrated pleural abnormality. There is moderate cardiac enlargement. Normal mediastinum and johnny. Normal visualized pulmonary arteries. Normal visualized aortic arch and descending thoracic aorta. Normal visualized thoracic spine. Normal visualized ribs, clavicles, and shoulders. There is no demonstrated abnormality of the visualized soft tissue structures of the upper abdomen. RAD/Chest 1 View (Portable) IMPRESSION: Improved bilateral pneumonia. Electronically Signed: Matteo Nava MD at 9:00 EDT Tel , Service support ,
[2020-06-07] MEDS: Menthol/Lanolin/Calamine/Znox 113 GM Tube 1 APPLIC TOPICAL ×3 (05:59→21:03)
[2020-06-07] MEDS: Nystatin Powder 15gm Bottle 1 APPLIC TOPICAL ×3 (05:59→21:02)
[2020-06-07] MEDS: 0.9% Saline Lock 10 ML Syringe IV (05:59)
[2020-06-07] MEDS: Pyridostigmine Bromide 60 MG Tablet 120 MG PO ×3 (06:01→21:01)
[2020-06-07] MEDS: Enoxaparin 100 MG/ML Syringe SC ×2 (06:01→17:16)
--- NOTE | 2020-06-07 07:17 | PN_ITS ---
Subjective: Patient did well overnight. No acute issues were reported outside of a fever. Oxygenation continues to improve. Patient requiring only 51% by Airvo to maintain saturations. Patient overall feels slightly improved compared to yesterday and believes this is secondary to getting out of bed. Patient reportedly was a max assist of 2 to get to the chair yesterday. General: Alert, Oriented x3, Cooperative, No apparent distress, - - No conversational dyspnea HEENT: Atraumatic, PERRLA, EOMI, Normocephalic, - - Disconjugate gaze Oral: Moist Mucosa, No Gingival or Mucosal Lesions/ Ulcerations, - - Carotid posterior pharynx Neck: Supple, No Nodes, Trachea Midline Lungs: No rhonchi, No rales, Diminished, Wheezes - Slight end expiratory Cardiovascular: Normal S1, Normal S2, No murmurs, Irregular Rate, No rub noted, No Gallop, - - A. fib noted on telemetry Abdomen: Bowel Sounds Present, Soft, Non Tender, Non-Distended, Obese Extremities: No clubbing, No cyanosis, Edema Skin: - - No change compared to previous Musculoskeletal: No Tenderness to Palpation of Joints or Extremities Lymphatic: No Cervical, Supraclavicular, or Inguinal Adenopathy Neurological: Cranial nerves II-XII grossly intact, Neuro grossly intact Psych/Mental Status: Alert and oriented to time, place, person, mood and affect Vital Signs Temp Pulse Resp BP Pulse Ox 37.7 C H 119 H 37 H 138/74 H 94 06/07/20 06:00 06/07/20 06:00 06/07/20 06:00 06/07/20 06:00 06/07/20 06:00 Oxygen Flow Rate (L/min) 60 Oxygen Delivery Method Airvo Weight: 138.3 kg Body Mass Index (BMI) 42.7 Intake and Output for Last 24 Hours 06/05/20 06/06/20 06/07/20 23:59 23:59 23:59 Intake Total 2334 / 2394 1644.81 / 1644.81 125 / 125 Output Total 1700 / 1900 2225 / 2350 285 / 285 Balance 634 / 494 -580.19 / -705.19 -160 / -160 Labs (Last 48 Hours) 06/05/20 06/05/20 06/05/20 08:37 12:20 16:35 WBC RBC Hgb Hct MCV MCH MCHC RDW Std Deviation RDW Coeff of Elidia Plt Count MPV Immature Gran % (Auto) Neut % (Auto) Lymph % (Auto) [place] % (Auto) Eos % (Auto) Baso % (Auto) Absolute Neuts (auto) Absolute Lymphs (auto) Nucleated RBC % Sodium Potassium Chloride Carbon Dioxide Anion Gap BUN Creatinine Estim Creat Clear Calc Est GFR (MDRD) Af Amer Est GFR (MDRD) Non-Af BUN/Creatinine Ratio Glucose Calcium Phosphorus Magnesium Total Bilirubin AST ALT Alkaline Phosphatase Total Protein Albumin Globulin Albumin/Globulin Ratio POC Glucose 144 H 148 H 184 H 06/05/20 06/05/20 06/05/20 18:15 18:15 20:38 WBC 7.3 RBC 4.87 Hgb 13.5 Hct 42.9 MCV 88.1 MCH 27.7 MCHC 31.5 L RDW Std Deviation 42.6 RDW Coeff of Elidia 13.2 Plt Count 228 MPV 10.1 Immature Gran % (Auto) 0.500 Neut % (Auto) 85.1 H Lymph % (Auto) 10.3 L [place] % (Auto) 3.7 Eos % (Auto) 0.3 Baso % (Auto) 0.1 Absolute Neuts (auto) 6.2 Absolute Lymphs (auto) 0.75 L Nucleated RBC % 0 Sodium 141 Potassium 3.5 Chloride 109 H Carbon Dioxide 26.0 Anion Gap 6 BUN 24 H Creatinine 0.90 Estim Creat Clear Calc 80.18 Est GFR (MDRD) Af Amer 107 Est GFR (MDRD) Non-Af 88 BUN/Creatinine Ratio 26.7 H Glucose 224 H Calcium 7.8 L Phosphorus Magnesium Total Bilirubin 1.00 AST 19 ALT 15 L Alkaline Phosphatase 49 Total Protein 5.3 L Albumin 2.0 L Globulin 3.3 Albumin/Globulin Ratio 0.6 L POC Glucose 197 H 06/06/20 06/06/20 06/06/20 05:05 05:05 08:07 WBC 7.8 RBC 5.07 Hgb 14.4 Hct 44.3 MCV 87.4 MCH 28.4 MCHC 32.5 RDW Std Deviation 41.9 RDW Coeff of Elidia 13.2 Plt Count 236 MPV 10.3 Immature Gran % (Auto) 0.600 Neut % (Auto) 83.8 H Lymph % (Auto) 11.7 L [place] % (Auto) 3.4 Eos % (Auto) 0.4 Baso % (Auto) 0.1 Absolute Neuts (auto) 6.5 Absolute Lymphs (auto) 0.91 Nucleated RBC % 0 Sodium 139 Potassium 3.7 Chloride 108 H Carbon Dioxide 27.0 Anion Gap 4 L BUN 19 H Creatinine 0.74 Estim Creat Clear Calc 72.16 Est GFR (MDRD) Af Amer 134 Est GFR (MDRD) Non-Af 111 BUN/Creatinine Ratio 25.7 H Glucose 143 H Calcium 7.8 L Phosphorus 1.7 L Magnesium 2.2 Total Bilirubin 0.90 AST 25 ALT 15 L Alkaline Phosphatase 58 Total Protein 5.5 L Albumin 2.0 L Globulin 3.5 Albumin/Globulin Ratio 0.6 L POC Glucose 135 H 06/06/20 06/06/20 06/06/20 12:28 16:45 21:37 WBC RBC Hgb Hct MCV MCH MCHC RDW Std Deviation RDW Coeff of Elidia Plt Count MPV Immature Gran % (Auto) Neut % (Auto) Lymph % (Auto) [place] % (Auto) Eos % (Auto) Baso % (Auto) Absolute Neuts (auto) Absolute Lymphs (auto) Nucleated RBC % Sodium Potassium Chloride Carbon Dioxide Anion Gap BUN Creatinine Estim Creat Clear Calc Est GFR (MDRD) Af Amer Est GFR (MDRD) Non-Af BUN/Creatinine Ratio Glucose Calcium Phosphorus Magnesium Total Bilirubin AST ALT Alkaline Phosphatase Total Protein Albumin Globulin Albumin/Globulin Ratio POC Glucose 186 H 185 H 168 H 06/07/20 06/07/20 04:15 04:15 WBC 7.5 RBC 4.91 Hgb 13.7 Hct 42.4 MCV 86.4 MCH 27.9 MCHC 32.3 RDW Std Deviation 41.2 RDW Coeff of Elidia 13.2 Plt Count 258 MPV 10.5 Immature Gran % (Auto) 0.700 Neut % (Auto) 83.6 H Lymph % (Auto) 9.6 L [place] % (Auto) 5.1 Eos % (Auto) 0.7 Baso % (Auto) 0.3 Absolute Neuts (auto) 6.3 Absolute Lymphs (auto) 0.72 L Nucleated RBC % 0 Sodium 141 Potassium 3.5 Chloride 110 H Carbon Dioxide 26.0 Anion Gap 5 BUN 17 Creatinine 0.87 Estim Creat Clear Calc 82.95 Est GFR (MDRD) Af Amer 111 Est GFR (MDRD) Non-Af 92 BUN/Creatinine Ratio 19.5 Glucose 144 H Calcium 7.6 L Phosphorus 1.7 L Magnesium Total Bilirubin 0.90 AST 28 ALT 15 L Alkaline Phosphatase 56 Total Protein 5.4 L Albumin 1.9 L Globulin 3.5 Albumin/Globulin Ratio 0.5 L POC Glucose Microbiology 06/06/20 12:40 Sputum, Expectorated/Coughed Gram Stain - Final Medical Necessity - Tobacco Use Smoking Status: Former smoker Tobacco Use: Cigarettes Assessment/Plan All Active Problems Hypoxia (Acute) Respiratory failure (Acute) COVID-19 (Acute) RECOMMENDATIONS: 1. Continue antimicrobials per ID recommendations. 2. Attempt to increase activity as tolerated 3. Continue AVAPS with breaks to Airvo, as tolerated. Goal to maintain oxygen saturations at or above 90%. 4. Check NIF daily. Avoid sedative medications overnight 5. Obtain repeat arterial blood gas with any change in mentation. 6. Continue baseline myasthenia medications. 7. Consult cardiology for A. fib with RVR, rate control and anticoagulation 8. Aggressive repletion of electrolytes IMPRESSIONS: 1. Acute hypoxemic respiratory failure The patient appears to have multifocal bilateral pneumonia and would be at high risk for aspiration given his nausea and episodes of emesis. In addition, the patient has known sleep apnea and myasthenia gravis. There is always concern that with concurrent infection, the patient could develop a myasthenic crisis. He will be continued on noninvasive positive pressure ventilatory support and weaned as tolerated. If he is able to be maintained off of BiPAP, will plan to monitor his NIF(negative inspiratory force). If the patient were to decompensate further from a respiratory perspective, would proceed with immediate intubation. In the interim, the patient will be continued on broad- spectrum antimicrobials. If the patient does decompensate from a respiratory perspective and require intubation, he would likely need to be transferred to a tertiary care facility to be considered for plasmapheresis. NIF is improved today compared to yesterday. Increased dyspnea may be secondary to A. fib with RVR, but rate is better controlled at this time. Will attempt to increase activity to help with possible atelectasis and improvement in oxygen tension. Oxygenation appears to be improving slowly. 2. Mild troponin elevation/new onset A. fib RVR Likely secondary to demand ischemia in the setting of #1. Surface echocardiogram was unrevealing. Patient remains in A. fib, but rate is better controlled aggressive repletion of electrolytes has been ordered. Defer to cardiology. 3. History of obstructive sleep apnea Continue noninvasive positive pressure ventilatory support as ordered. 4. Recent diagnosis of COVID-19/history of myasthenia gravis The patient was admitted to the hospital in April with coronavirus and treated with remdesivir and Decadron. His CT scan from May 20 did not show any significant infiltrates. However, his CTA from May 31 now has multifocal infiltrates. The patient will need to be monitored very closely for the development of a myasthenia crisis. If the patient's respiratory status were to worsen, he would need to be transferred to a tertiary care facility. Patient was increased on Mestinon therapy and is tolerating well. 5. Obesity/hypertension/diabetes mellitus Complicates care, management, recovery and prognosis. Continue home medications as indicated. Inpatient E&M: [id number] [facility] Hosp L3
[2020-06-07] MEDS: Amiodarone 200 MG Tablet PO ×2 (08:14→17:16)
[2020-06-07] MEDS: Metoprolol Tartrate 100 MG Tablet PO ×2 (08:15→19:58)
[2020-06-07] MEDS: Na Biphos/Potassium Phosphate PACKET 1 PACKET PO ×2 (08:16→21:01)
[2020-06-07] MEDS: Aspirin E.C. 81 MG Tablet PO (08:16)
[2020-06-07] MEDS: Mycophenolate Mofetil 250 MG Capsule 1500 MG PO ×2 (08:16→21:01)
--- NOTE | 2020-06-07 10:11 | PN_ITS ---
Patient Problems: Active and Suspected Problems Hypoxia (Acute) Respiratory failure (Acute) COVID-19 (Acute) Subjective: Patient does indicate he is feeling a bit better today. He states he feels less weak and less short of breath overall. Vitals/I&O's: Vital Signs Temp Pulse Resp BP Pulse Ox 99.9 F H 112 H 20 H 168/104 H 94 06/07/20 06:00 06/07/20 09:00 06/07/20 09:00 06/07/20 09:00 06/07/20 09:00 Oxygen Flow Rate (L/min) 60 Oxygen Delivery Method Airvo Weight: 138.3 kg Body Mass Index (BMI) 42.7 Intake and Output for Last 24 Hours 06/05/20 06/06/20 06/07/20 23:59 23:59 23:59 Intake Total 2334 / 2394 1644.81 / 1644.81 403 / 403 Output Total 1700 / 1900 2225 / 2350 410 / 410 Balance 634 / 494 -580.19 / -705.19 -7 / -7 General: Alert, Oriented x3, Cooperative, Well developed, Well nourished, - - Obese older white male lying in bed, appears a bit more energetic and as if he has more strength today, less short of breath HEENT: Atraumatic, PERRLA, EOMI, Normocephalic, EAC Clear Oral: Moist Mucosa, No Gingival or Mucosal Lesions/ Ulcerations, - - No thrush noted Neck: Supple, No JVD, Trachea Midline, Thyroid Normal Size and Texture Lungs: Clear to auscultation, No rhonchi, No wheeze, No rales, Diminished - Diffusely Cardiovascular: Normal S1, Normal S2, No murmurs, No Ectopic Activity, Irregular Rate, No rub noted, No Gallop, Tachycardic, - - Irregular rhythm Abdomen: Bowel Sounds Present, Soft, Non Tender, Non-Distended, Obese Extremities: No clubbing, No cyanosis, Capillary Refill Less than 3 Seconds, Edema - 1+ bilateral lower extremity pitting, Peripheral Pulses Normal Skin: No rashes, No breakdown Musculoskeletal: No Tenderness to Palpation of Joints or Extremities, No Muscle Wasting, Arthritic Changes Lymphatic: No Cervical, Supraclavicular, or Inguinal Adenopathy Neurological: - - Intraocular eye muscle weakness noted, overall strength seems a bit improved today including muscles of respiration Psych/Mental Status: Appropriate, Flat Affect, - - Pleasant and mood seems a bit more elevated today Microbiology Past 72 Hours 06/01/20 17:40 Blood Culture (Wb) #2 - Left Hand Blood Culture - Final No growth in 5 days. 06/01/20 17:55 Blood Culture (Wb) - Right Forearm Blood Culture - Final No growth in 5 days. 06/06/20 12:40 Sputum, Expectorated/Coughed Gram Stain - Final 06/02/20 09:20 Sputum, Expectorated/Coughed Gram Stain - Final 06/02/20 09:20 Sputum, Expectorated/Coughed Respiratory Culture - Final Laboratory Results 06/06/20 12:28: POC Glucose 186 H 06/06/20 16:45: POC Glucose 185 H 06/06/20 21:37: POC Glucose 168 H 06/07/20 04:15: WBC 7.5, RBC 4.91, Hgb 13.7, Hct 42.4, MCV 86.4, MCH 27.9, MCHC 32.3, RDW Std Deviation 41.2, RDW Coeff of Elidia 13.2, Plt Count 258, MPV 10.5, Immature Gran % (Auto) 0.700, Neut % (Auto) 83.6 H, Lymph % (Auto) 9.6 L, [place] % (Auto) 5.1, Eos % (Auto) 0.7, Baso % (Auto) 0.3, Absolute Neuts (auto) 6.3, Absolute Lymphs (auto) 0.72 L, Nucleated RBC % 0 06/07/20 04:15: Sodium 141, Potassium 3.5, Chloride 110 H, Carbon Dioxide 26.0, Anion Gap 5, BUN 17, Creatinine 0.87, Estim Creat Clear Calc 82.95, Est GFR (MDRD) Af Amer 111, Est GFR (MDRD) Non-Af 92, BUN/Creatinine Ratio 19.5, Glucose 144 H, Calcium 7.6 L, Phosphorus 1.7 L, Total Bilirubin 0.90, AST 28, ALT 15 L, Alkaline Phosphatase 56, Total Protein 5.4 L, Albumin 1.9 L, Globulin 3.5, Albumin/Globulin Ratio 0.5 L Current Medications Acetaminophen (Acetaminophen 325 Mg Tablet) 650 mg PO Q6H PRN PRN PRN Reason: Pain Score 1-10/Temp > 100.7 F Last Admin: 06/07/20 02:38 Dose: 650 mg Documented by: Alendronate Sodium (Alendronate Sodium 70 Mg Tablet) 70 mg PO MO [facility] Last Admin: 06/05/20 06:11 Dose: 70 mg Documented by: Amiodarone HCl (Amiodarone 200 Mg Tablet) 200 mg PO BIDCM [facility] Last Admin: 06/07/20 08:14 Dose: 200 mg Documented by: Aspirin (Aspirin E.C. 81 Mg Tablet) 81 mg PO DAILY@0800 [facility] Last Admin: 06/07/20 08:16 Dose: 81 mg Documented by: Atorvastatin Calcium (Atorvastatin Calcium 20 Mg Tablet) 20 mg PO QHS [facility] Last Admin: 06/06/20 21:46 Dose: 20 mg Documented by: Calamine/Phenol (Menthol/Lanolin/Calamine/Znox 113 Gm Tube) 1 applic TOPICAL TID [facility]; Protocol Last Admin: 06/07/20 05:59 Dose: 1 applic Documented by: Dextrose (Dextrose 50%-Water 25 Gm/50 Ml Disp.Syrin) 0 gm IV X1 PRN; Protocol PRN Reason: Hypoglycemia Enoxaparin Sodium (Enoxaparin 100 Mg/Ml Syringe) 100 mg SC Q12@0600,1800 [facility] Last Admin: 06/07/20 06:01 Dose: 100 mg Documented by: Glucagon (Glucagon 1 Mg/Ml Syringe) 1 mg IM .X1 PRN PRN Reason: Hypoglycemia Piperacillin Sod/Tazobactam (Sod 3.375 gm/ Sodium Chloride) 50 mls @ 12.5 mls/hr IV Q8 [facility] Last Infusion: 06/07/20 08:54 Dose: Infused Documented by: Sodium Chloride () 250 mls @ 15 mls/hr IV .[id number] PRN PRN Reason: Saline Flush Last Infusion: 06/04/20 21:43 Dose: 0 mls/hr Documented by: Sodium Chloride () 250 mls @ 15 mls/hr IV .[id number] PRN PRN Reason: Additional IVPB Infusion Potassium Phosphate 30 mm/ (Sodium Chloride) 260 mls @ 42 mls/hr IV X1 ONE Stop: 06/07/20 13:41 Last Admin: 06/07/20 08:09 Dose: 42 mls/hr Documented by: Insulin Glargine (Insulin Glargine 100 Units/Ml Pen) 5 units SC QHS [facility] Last Admin: 06/06/20 21:40 Dose: 5 u Documented by: Insulin Human Lispro (Insulin Lispro 100 Unit/Ml Insuln.Pen) 0 unit SC ACHS [facility]; Protocol Last Admin: 06/07/20 07:33 Dose: Not Given Documented by: Loratadine (Loratadine 10 Mg Tablet) 10 mg PO DAILY PRN PRN Reason: ALLERGIES Melatonin (Melatonin 3 Mg Tablet) 3 mg PO QHS PRN PRN PRN Reason: INSOMNIA Last Admin: 06/04/20 22:16 Dose: 3 mg Documented by: Metoclopramide HCl (Metoclopramide 10 Mg/2 Ml Vial) 5 mg IV Q8H PRN PRN PRN Reason: HICCUPS Last Admin: 06/03/20 11:56 Dose: 5 mg Documented by: Metoprolol Tartrate (Metoprolol Tartrate 100 Mg Tablet) 100 mg PO BID [facility] Last Admin: 06/07/20 08:15 Dose: 100 mg Documented by: Mycophenolate Mofetil (Mycophenolate Mofetil 250 Mg Capsule) 1,500 mg PO BID [facility] Last Admin: 06/07/20 08:16 Dose: 1,500 mg Documented by: Nystatin (Nystatin Powder 15gm Bottle) 1 applic TOPICAL TID [facility]; Protocol Last Admin: 06/07/20 05:59 Dose: 1 applic Documented by: Pantoprazole Sodium (Pantoprazole Sodium 40 Mg Tablet) 40 mg PO DAILY [facility] Potassium Phos/Sodium Phos (Na Biphos/Potassium Phosphate Packet) 1 packet PO BID [facility] Stop: 06/07/20 22:01 Last Admin: 06/07/20 08:16 Dose: 1 packet Documented by: Prochlorperazine Edisylate (Prochlorperazine 10 Mg/2 Ml Vial) 5 mg IV Q4H PRN PRN PRN Reason: BREAKTHROUGH NAUSEA/VOMITING Pyridostigmine [place] (Pyridostigmine [place] 60 Mg Tablet) 120 mg PO TID [facility] Last Admin: 06/07/20 06:01 Dose: 120 mg Documented by: Senna/Docusate Sodium (Senna/Docusate Sodium 1 Tablet) 1 tablet PO BID PRN PRN Reason: Constipation Sodium Chloride (0.9% Saline Lock 10 Ml Syringe) 10 - 40 ml IV UD PRN PRN Reason: SALINE FLUSH Last Admin: 06/07/20 05:59 Dose: 10 ml Documented by: STROKE Vital Signs/Narrative: Vital Signs Pulse Resp BP BP Pulse Ox 06/07/20 09:00 112 H 20 H 168/104 H 94 06/07/20 08:15 118 H 137/84 H 06/07/20 08:00 115 H 22 H 144/98 H 98 06/07/20 07:32 136 H 35 H 95 06/07/20 07:05 118 H 06/07/20 07:00 82 28 H 147/92 H 93 Medical Necessity - Tobacco Use Smoking Status: Former smoker Tobacco Use: Cigarettes Assessment/Plan All Active Problems Hypoxia (Acute) Respiratory failure (Acute) COVID-19 (Acute) Acute hypoxic respiratory failure secondary to multifocal bilateral pneumonia/ myasthenia gravis/recent Covid pneumonia -Continue AirVo/NIV for support--> patient is currently on air Vo with an FiO2 of 50% and a flow of 60 L/min--> his SpO2 is 95% -He is oxygenating better today and FiO2 has been reduced from 63 to 50% -Assess NIF early as able--> NIF not yet been obtained today -Continue Mestinon to 120 mg 3 times daily -Repeat IV Lasix 40 mg x 1 dose -Patient was negative about 600 cc in the last 24 hours -Repeat BMP in a.m. -Chest x-ray today as compared to 06/01/2020 shows marked improvement in aeration bilaterally -If patient experiences further decompensation despite aggressive treatment he may need transfer to tertiary center for plasmapheresis -High risk for requiring intubation -Continue broad-spectrum antibiotics (Zosyn) -Continue pulmonary toilet -Appreciate pulmonary input Fevers -T-max in last 24 hours was 101 -Continue Zosyn -Repeat blood urine and sputum cultures are pending -White count remains normal -procalcitonin is pending -Continue to monitor -ID following and appreciate input Hypokalemia -Resolved Hypophosphatemia -Phosphorus was again low today -Replacement already ordered by critical care medicine -Repeat phosphorus in the a.m. Mild troponin elevation -Suspect demand ischemia secondary to above -Surface echo showed a normal EF with an ejection fraction of 65% and diastolic dysfunction, no regional wall motion abnormalities, left atrial enlargement-mild -Neurology is following Myasthenia gravis -Neurological consultation was completed -Continue increased Mestinon dose at120 mg 3 times daily--> max dose of 1500 mg/day -Consider plasmapheresis if worsening or requires intubation -Continue CellCept Recent COVID-19 pneumonia -Was admitted to this hospital in April and treated with remdesivir and Decadron -CTA from this admission shows worsening infiltrates, multifocal -Continue to monitor closely New onset A. fib with RVR -Likely related to pulmonary issues -Heart rate still remains elevated -Continue amiodarone -Metoprolol was increased to 100 mg twice daily on 414 -Therapeutic Lovenox 100 mg twice daily -Cardiology is following--> await input for changes Hypertension -Continue amlodipine -Continue metoprolol 100 mg twice daily Hyperlipidemia -Continue atorvastatin MEL -Continue NIV DM-2 -Continue Lantus 5 units daily -Fasting blood sugar this a.m. was 143 -Continue SSI -Continue blood sugar monitoring -Glycemic control remains adequate -Goal 140-180 Morbid obesity -BMI 43.1 -Complicates care, management, recovery and overall prognosis Moderate Malnutrition -Continue to monitor p.o. intake -Continue supplements Osteoporosis -Continue alendronate DVT/GI prophylaxis -Continue Lovenox -Continue Protonix CODE STATUS -Full code Inpatient E&M: 19131 Subs Hosp L2
[2020-06-07] MEDS: Potassium Chloride Oral Tablet 20 MEQ 40 MEQ PO (10:53)
[2020-06-07] MEDS: Furosemide 40 MG/4 ML Vial IV (10:53)
[2020-06-07] MEDS: Insulin Lispro 100 UNIT/ML INSULN.PEN SC ×2 (11:09→17:15)
[2020-06-07 11:15] LABS: Bedside Glucose 162 mg/dL (70-110)
--- NOTE | 2020-06-07 13:24 | PCM.PN.ID ---
Patient Problems: Active and Suspected Problems Hypoxia (Acute) Respiratory failure (Acute) COVID-19 (Acute) Subjective: Fever last night, feeling better, breathing improved - Physical Exam Vitals/I&O's: Vital Signs Temp Pulse Resp BP Pulse Ox 98.9 F 115 H 22 H 135/87 H 95 06/07/20 12:00 06/07/20 12:00 06/07/20 12:00 06/07/20 12:00 06/07/20 13:10 Oxygen Flow Rate (L/min) 8 Oxygen Delivery Method Nasal Cannula Weight: 138.3 kg Body Mass Index (BMI) 42.7 Intake and Output for Last 24 Hours 06/05/20 06/06/20 06/07/20 23:59 23:59 23:59 Intake Total 2334 / 2394 1644.81 / 1644.81 403 / 403 Output Total 1700 / 1900 2225 / 2350 710 / 710 Balance 634 / 494 -580.19 / -705.19 -307 / -307 General: Cooperative, No apparent distress Lungs: Clear to auscultation, Diminished Cardiovascular: Regular rate, Regular Rhythm Abdomen: Soft, Non Tender, Non-Distended Skin: No rashes Microbiology Past 72 Hours 06/06/20 12:40 Sputum, Expectorated/Coughed Gram Stain - Final 06/06/20 12:40 Sputum, Expectorated/Coughed Respiratory Culture - Preliminary Presumptive C albicans 06/06/20 12:40 Urine Catheter - Catheter Urine Culture - Preliminary Culture exhibits no growth. 06/01/20 17:40 Blood Culture (Wb) #2 - Left Hand Blood Culture - Final No growth in 5 days. 06/01/20 17:55 Blood Culture (Wb) - Right Forearm Blood Culture - Final No growth in 5 days. Laboratory Results 06/06/20 16:45: POC Glucose 185 H 06/06/20 21:37: POC Glucose 168 H 06/07/20 04:15: WBC 7.5, RBC 4.91, Hgb 13.7, Hct 42.4, MCV 86.4, MCH 27.9, MCHC 32.3, RDW Std Deviation 41.2, RDW Coeff of Elidia 13.2, Plt Count 258, MPV 10.5, Immature Gran % (Auto) 0.700, Neut % (Auto) 83.6 H, Lymph % (Auto) 9.6 L, [place] % (Auto) 5.1, Eos % (Auto) 0.7, Baso % (Auto) 0.3, Absolute Neuts (auto) 6.3, Absolute Lymphs (auto) 0.72 L, Nucleated RBC % 0 06/07/20 04:15: Sodium 141, Potassium 3.5, Chloride 110 H, Carbon Dioxide 26.0, Anion Gap 5, BUN 17, Creatinine 0.87, Estim Creat Clear Calc 82.95, Est GFR (MDRD) Af Amer 111, Est GFR (MDRD) Non-Af 92, BUN/Creatinine Ratio 19.5, Glucose 144 H, Calcium 7.6 L, Phosphorus 1.7 L, Total Bilirubin 0.90, AST 28, ALT 15 L, Alkaline Phosphatase 56, Total Protein 5.4 L, Albumin 1.9 L, Globulin 3.5, Albumin/Globulin Ratio 0.5 L 06/07/20 11:00: Procalcitonin 0.20 H 06/07/20 11:06: POC Glucose 162 H Current Medications Acetaminophen (Acetaminophen 325 Mg Tablet) 650 mg PO Q6H PRN PRN PRN Reason: Pain Score 1-10/Temp > 100.7 F Last Admin: 06/07/20 02:38 Dose: 650 mg Documented by: Alendronate Sodium (Alendronate Sodium 70 Mg Tablet) 70 mg PO MO [facility] Last Admin: 06/05/20 06:11 Dose: 70 mg Documented by: Amiodarone HCl (Amiodarone 200 Mg Tablet) 200 mg PO BIDCM [facility] Last Admin: 06/07/20 08:14 Dose: 200 mg Documented by: Aspirin (Aspirin E.C. 81 Mg Tablet) 81 mg PO DAILY@0800 [facility] Last Admin: 06/07/20 08:16 Dose: 81 mg Documented by: Atorvastatin Calcium (Atorvastatin Calcium 20 Mg Tablet) 20 mg PO QHS [facility] Last Admin: 06/06/20 21:46 Dose: 20 mg Documented by: Calamine/Phenol (Menthol/Lanolin/Calamine/Znox 113 Gm Tube) 1 applic TOPICAL TID [facility]; Protocol Last Admin: 06/07/20 12:42 Dose: 1 applic Documented by: Dextrose (Dextrose 50%-Water 25 Gm/50 Ml Disp.Syrin) 0 gm IV X1 PRN; Protocol PRN Reason: Hypoglycemia Enoxaparin Sodium (Enoxaparin 100 Mg/Ml Syringe) 100 mg SC Q12@0600,1800 [facility] Last Admin: 06/07/20 06:01 Dose: 100 mg Documented by: Glucagon (Glucagon 1 Mg/Ml Syringe) 1 mg IM .X1 PRN PRN Reason: Hypoglycemia Piperacillin Sod/Tazobactam (Sod 3.375 gm/ Sodium Chloride) 50 mls @ 12.5 mls/hr IV Q8 [facility] Last Admin: 06/07/20 12:42 Dose: 12.5 mls/hr Documented by: Sodium Chloride () 250 mls @ 15 mls/hr IV .[id number] PRN PRN Reason: Saline Flush Last Infusion: 06/04/20 21:43 Dose: 0 mls/hr Documented by: Sodium Chloride () 250 mls @ 15 mls/hr IV .[id number] PRN PRN Reason: Additional IVPB Infusion Potassium Phosphate 30 mm/ (Sodium Chloride) 260 mls @ 42 mls/hr IV X1 ONE Stop: 06/07/20 13:41 Last Admin: 06/07/20 08:09 Dose: 42 mls/hr Documented by: Insulin Glargine (Insulin Glargine 100 Units/Ml Pen) 5 units SC QHS [facility] Last Admin: 06/06/20 21:40 Dose: 5 u Documented by: Insulin Human Lispro (Insulin Lispro 100 Unit/Ml Insuln.Pen) 0 unit SC ACHS [facility]; Protocol Last Admin: 06/07/20 11:09 Dose: 2 u Documented by: Loratadine (Loratadine 10 Mg Tablet) 10 mg PO DAILY PRN PRN Reason: ALLERGIES Melatonin (Melatonin 3 Mg Tablet) 3 mg PO QHS PRN PRN PRN Reason: INSOMNIA Last Admin: 06/04/20 22:16 Dose: 3 mg Documented by: Metoclopramide HCl (Metoclopramide 10 Mg/2 Ml Vial) 5 mg IV Q8H PRN PRN PRN Reason: HICCUPS Last Admin: 06/03/20 11:56 Dose: 5 mg Documented by: Metoprolol Tartrate (Metoprolol Tartrate 100 Mg Tablet) 100 mg PO BID [facility] Last Admin: 06/07/20 08:15 Dose: 100 mg Documented by: Mycophenolate Mofetil (Mycophenolate Mofetil 250 Mg Capsule) 1,500 mg PO BID [facility] Last Admin: 06/07/20 08:16 Dose: 1,500 mg Documented by: Nystatin (Nystatin Powder 15gm Bottle) 1 applic TOPICAL TID [facility]; Protocol Last Admin: 06/07/20 12:42 Dose: 1 applic Documented by: Pantoprazole Sodium (Pantoprazole Sodium 40 Mg Tablet) 40 mg PO DAILY [facility] Potassium Phos/Sodium Phos (Na Biphos/Potassium Phosphate Packet) 1 packet PO BID [facility] Stop: 06/07/20 22:01 Last Admin: 06/07/20 08:16 Dose: 1 packet Documented by: Prochlorperazine Edisylate (Prochlorperazine 10 Mg/2 Ml Vial) 5 mg IV Q4H PRN PRN PRN Reason: BREAKTHROUGH NAUSEA/VOMITING Pyridostigmine [place] (Pyridostigmine [place] 60 Mg Tablet) 120 mg PO TID [facility] Last Admin: 06/07/20 12:42 Dose: 120 mg Documented by: Senna/Docusate Sodium (Senna/Docusate Sodium 1 Tablet) 1 tablet PO BID PRN PRN Reason: Constipation Sodium Chloride (0.9% Saline Lock 10 Ml Syringe) 10 - 40 ml IV UD PRN PRN Reason: SALINE FLUSH Last Admin: 06/07/20 05:59 Dose: 10 ml Documented by: Medical Necessity - Tobacco Use Smoking Status: Former smoker Tobacco Use: Cigarettes Route of nutrition/ use of supplements: [] Nutritional Intake: [] IV Site: [] Weinstein Catheter: [] - Assessment/Plan Antibiotics: [] Assessment/Plan: [] Active and Suspected Problems Hypoxia (Acute) Respiratory failure (Acute) COVID-19 (Acute) covid with hypoxia, immunosuppression, concern for secondary bacterial pneumonia - covid sx started 05/18/20. Now out of iso. On zosyn. Sputum cx neg, resp pcr panel neg, no fever, normal wbc. Fever last night, repeat cxs neg so far, if continues to improve, plan on stopping abx soon. Will follow
--- NOTE | 2020-06-07 15:09 | CASEMGMT ---
RN BEBO called and spoke with daughter Leanna regarding discharge planning. RN BEBO discussed with daughter LTACH vs SNF and benefits of LTACH at discharge. Daughter voiced understanding. SHARRON LAGUNAS to email list of LTACHs and quality measures to daughter at [email or web address]. Leanna states she will review list of LTACHs and SNFs with family and follow-up with CM tomorrow. CM will continue to follow this patient and plan for a safe discharge.
[2020-06-07 16:15] LABS: Bedside Glucose 164 mg/dL (70-110)
--- NOTE | 2020-06-07 18:07 | PN.CARD_ITS ---
Subjectve: Patient seen and evaluated. Still laying in bed. Not very active. Objective: Vital Signs Temp Pulse Resp BP Pulse Ox 98.9 F 126 H 18 166/59 H 92 06/07/20 12:00 06/07/20 16:00 06/07/20 16:00 06/07/20 16:00 06/07/20 16:00 Oxygen Flow Rate (L/min) 50 Oxygen Delivery Method Airvo Weight: 304 lb 14.389 oz Body Mass Index (BMI) 42.7 Intake and Output for Last 24 Hours 06/05/20 06/06/20 06/07/20 23:59 23:59 23:59 Intake Total 2334 / 2394 1644.81 / 1644.81 713 / 713 Output Total 1700 / 1900 2225 / 2350 1060 / 1060 Balance 634 / 494 -580.19 / -705.19 -347 / -347 General: Awake, Alert, Oriented x 3 HEENT: PERRL, EOMI, Sclera Non Icteric Neck: Supple, Good ROM, No Lymph Node Enlargement Lungs: Clear to auscultation Cardiovascular: Irregular Rhythm, Normal S1, Normal S2, No Murmurs, No Rubs, No Gallops Vascular: No Carotid Bruits, Normal Femoral Pulses, Normal Radial Pulses, Normal Dorsalis Pedal Pulse, Normal Posterior Tibial Pulses Abdomen: Bowel Sounds Present, Soft, Non Tender, No HSM, No Organomegaly Extremities: No Cyanosis, No Clubbing, No edema Neurological: No Focal Motor or Sensory Deficit 06/07/20 04:15: WBC 7.5, RBC 4.91, Hgb 13.7, Hct 42.4, MCV 86.4, MCH 27.9, MCHC 32.3, Plt Count 258, MPV 10.5, Immature Gran % (Auto) 0.700, Neut % (Auto) 83.6 H, Lymph % (Auto) 9.6 L, [place] % (Auto) 5.1, Eos % (Auto) 0.7, Baso % (Auto) 0.3, Absolute Neuts (auto) 6.3, Nucleated RBC % 0 06/07/20 04:15: Sodium 141, Potassium 3.5, Chloride 110 H, Carbon Dioxide 26.0, Anion Gap 5, BUN 17, Creatinine 0.87, Est GFR (MDRD) Af Amer 111, Est GFR (MDRD) Non-Af 92, BUN/Creatinine Ratio 19.5, Glucose 144 H, Calcium 7.6 L, Phosphorus 1.7 L, Total Bilirubin 0.90 Rhythm: EKG: ECHO: Stress Test: Cardiac Cath: PCI: CT Surgery: Holter monitor: EPS: PPM: CXR: Chest CT Scan: Medical Necessity - Tobacco Use Smoking Status: Former smoker Tobacco Use: Cigarettes Assessment/Plan 1. Atrial fibrillation with rapid ventricular response rate. * The above is likely worsened by his pulmonary condition. At this particular time I would recommend that we continue him on the current medical therapy and continuing the dose of his metoprolol at 100 mg twice a day. * He will be started on oral diltiazem as well. It appears that his ventricular response rate still remains high. * He will also be continued on the oral amiodarone. This will be titrated down over time as his ventricular response rate improves. * * His echocardiogram had demonstrated preserved left ventricular systolic func tion. 2. Abnormal cardiac enzymes * Patient is noted to have mildly abnormal cardiac enzymes. The above is likely secondary to demand ischemia. My recommendation would be to continue the current medical therapy. I do not think there is a reason to perform any invasive procedures currently. * * We will continue to follow with you.
[2020-06-07] MEDS: dilTIAZem CD 120 MG Capsule PO (19:58)
[2020-06-07] MEDS: Atorvastatin Calcium 20 MG Tablet PO (21:00)
[2020-06-07 21:16] LABS: Bedside Glucose 140 mg/dL (70-110)
[2020-06-08] VITALS (23 sets, daily range): BP systolic 93–172; BP diastolic 45–87; PULSE 92–150; RESP 14–45; TEMP 37.4–38.4; O2SAT 91–99
[2020-06-08 04:24] LABS: Absolute Lymphocyte Count 0.73 X10^3/uL (0.83-4.51); Absolute Neutrophil Count 6.8 X10^3/uL (2.0-7.7); Basophil# 0.01 X10^3/uL; Basophil% 0.1 % (0-1); Eosinophil# 0.05 X10^3/uL; Eosinophils% 0.6 % (0-5); Hematocrit 39.9 % (40-54); Lymphocyte # 0.73 X10^3/ul (0.83-4.51); Mean Corp Hgb Conc 32.6 g/dL (32-36); Mean Corpuscular Hgb 28.5 pg (27.0-32.0); Mean Corpuscular Volume 87.5 fL (80-94); Mean Platelet Vol. 10.7 fl (6.2-12.0); Monocyte# 0.45 X10^3/uL; Monocyte% 5.5 % (0-10); NRBC Flagged by Analyzer 0 % (0-5); Neutrophil # 6.82 X10^3/uL (2.7-7.7); Neutrophil % 83.9 % (47-70); Platelet Count 265 K/mm3 (150-450); RBC Distribution Width CV 13.2 % (11.6-14.6); RBC Distribution Width SD 42.4 fl (35.1-43.9); Red Blood Count 4.56 M/mm3 (4.6-6.2); White Blood Count 8.1 K/mm3 (4.4-11.0)
[2020-06-08 04:40] LABS: ALB/GLOB Ratio 0.5 RATIO (0.9-2.4); AST(SGOT) 30 U/L (15-37); Alanine Aminotransfer ALT/SGPT 16 U/L (16-61); Albumin, Serum 1.7 g/dL (3.2-5.0); Alkaline Phosphatase 57 U/L (45-117); Anion Gap 6 (5-15); BUN 17 mg/dL (7-18); BUN/Creat Ratio 19.3 RATIO (10-20); Calcium,Total 7.5 mg/dL (8.5-10.1); Chloride 110 mmol/L (98-107); Creatinine, Serum 0.88 mg/dL (0.70-1.30); EST Glomerular Filtration Rate 91 mL/min (>60); Est Glom Filt Rate - Afr Amer 110 mL/min (>60); Globulin 3.7 g/dL (2.2-4.2); Glucose 120 mg/dL (74-106); Potassium 3.6 mmol/L (3.5-5.1); Protein, Total 5.4 g/dL (6.4-8.2); Sodium Level 142 mmol/L (136-145)
[2020-06-08] MEDS: Enoxaparin 100 MG/ML Syringe SC (05:12)
[2020-06-08] MEDS: Nystatin Powder 15gm Bottle 1 APPLIC TOPICAL ×2 (05:12→13:09)
[2020-06-08] MEDS: Pyridostigmine Bromide 60 MG Tablet 120 MG PO ×2 (05:13→13:09)
[2020-06-08] MEDS: Menthol/Lanolin/Calamine/Znox 113 GM Tube 1 APPLIC TOPICAL ×2 (05:13→13:08)
[2020-06-08] MEDS: 0.9% Saline Lock 10 ML Syringe IV (05:17)
--- NOTE | 2020-06-08 07:24 | PCM.PN.INT ---
Subjective: Patient feels subjectively improved this morning compared to yesterday. However, he was noted to be extremely weak after getting out of the chair yesterday afternoon. Patient continues to have bowel movements but denies any abdominal pain. No melena has been reported. Oxygenation status continues to improve and he is currently on 45% Airvo during the day and using BiPAP only with sleep. General: Alert, Oriented x3, Cooperative, No apparent distress, - - Morbidly obese. No conversational dyspnea. HEENT: Atraumatic, PERRLA, EOMI, Normocephalic, - - No scleral icterus or injection noted. Disconjugate gaze. Oral: Moist Mucosa, No Gingival or Mucosal Lesions/ Ulcerations, - - Carotid posterior pharynx Neck: Supple, No Nodes, Trachea Midline Lungs: No rhonchi, No wheeze, No rales, Diminished Cardiovascular: Normal S1, Normal S2, No murmurs, Irregular Rate, No rub noted, No Gallop, Tachycardic Abdomen: Bowel Sounds Present, Soft, Non Tender, Non-Distended, Obese Extremities: No clubbing, No cyanosis, Edema - Trace to 1+ Skin: - - No changes Musculoskeletal: No Tenderness to Palpation of Joints or Extremities Lymphatic: No Cervical, Supraclavicular, or Inguinal Adenopathy Neurological: Cranial nerves II-XII grossly intact, Neuro grossly intact - No change from previous Psych/Mental Status: Alert and oriented to time, place, person, mood and affect Vital Signs Temp Pulse Resp BP Pulse Ox 37.7 C H 113 H 35 H 153/76 H 99 06/08/20 07:00 06/08/20 07:00 06/08/20 07:00 06/08/20 07:00 06/08/20 07:00 Oxygen Flow Rate (L/min) 60 Oxygen Delivery Method Airvo Weight: 137.5 kg Body Mass Index (BMI) 42.7 Intake and Output for Last 24 Hours 06/06/20 06/07/20 06/08/20 23:59 23:59 23:59 Intake Total 1644.81 / 1644.81 1013 / 1013 170 / 170 Output Total 2225 / 2350 1435 / 1485 200 / 200 Balance -580.19 / -705.19 -422 / -472 -30 / -30 Labs (Last 48 Hours) 06/06/20 06/06/20 06/06/20 08:07 12:28 16:45 WBC RBC Hgb Hct MCV MCH MCHC RDW Std Deviation RDW Coeff of Elidia Plt Count MPV Immature Gran % (Auto) Neut % (Auto) Lymph % (Auto) [place] % (Auto) Eos % (Auto) Baso % (Auto) Absolute Neuts (auto) Absolute Lymphs (auto) Nucleated RBC % Sodium Potassium Chloride Carbon Dioxide Anion Gap BUN Creatinine Estim Creat Clear Calc Est GFR (MDRD) Af Amer Est GFR (MDRD) Non-Af BUN/Creatinine Ratio Glucose Calcium Phosphorus Total Bilirubin AST ALT Alkaline Phosphatase Total Protein Albumin Globulin Albumin/Globulin Ratio Procalcitonin POC Glucose 135 H 186 H 185 H 06/06/20 06/07/20 06/07/20 21:37 04:15 04:15 WBC 7.5 RBC 4.91 Hgb 13.7 Hct 42.4 MCV 86.4 MCH 27.9 MCHC 32.3 RDW Std Deviation 41.2 RDW Coeff of Elidia 13.2 Plt Count 258 MPV 10.5 Immature Gran % (Auto) 0.700 Neut % (Auto) 83.6 H Lymph % (Auto) 9.6 L [place] % (Auto) 5.1 Eos % (Auto) 0.7 Baso % (Auto) 0.3 Absolute Neuts (auto) 6.3 Absolute Lymphs (auto) 0.72 L Nucleated RBC % 0 Sodium 141 Potassium 3.5 Chloride 110 H Carbon Dioxide 26.0 Anion Gap 5 BUN 17 Creatinine 0.87 Estim Creat Clear Calc 82.95 Est GFR (MDRD) Af Amer 111 Est GFR (MDRD) Non-Af 92 BUN/Creatinine Ratio 19.5 Glucose 144 H Calcium 7.6 L Phosphorus 1.7 L Total Bilirubin 0.90 AST 28 ALT 15 L Alkaline Phosphatase 56 Total Protein 5.4 L Albumin 1.9 L Globulin 3.5 Albumin/Globulin Ratio 0.5 L Procalcitonin POC Glucose 168 H 06/07/20 06/07/20 06/07/20 11:00 11:06 15:43 WBC RBC Hgb Hct MCV MCH MCHC RDW Std Deviation RDW Coeff of Elidia Plt Count MPV Immature Gran % (Auto) Neut % (Auto) Lymph % (Auto) [place] % (Auto) Eos % (Auto) Baso % (Auto) Absolute Neuts (auto) Absolute Lymphs (auto) Nucleated RBC % Sodium Potassium Chloride Carbon Dioxide Anion Gap BUN Creatinine Estim Creat Clear Calc Est GFR (MDRD) Af Amer Est GFR (MDRD) Non-Af BUN/Creatinine Ratio Glucose Calcium Phosphorus Total Bilirubin AST ALT Alkaline Phosphatase Total Protein Albumin Globulin Albumin/Globulin Ratio Procalcitonin 0.20 H POC Glucose 162 H 164 H 06/07/20 06/08/20 06/08/20 20:59 04:15 04:15 WBC 8.1 RBC 4.56 L Hgb 13.0 Hct 39.9 L MCV 87.5 MCH 28.5 MCHC 32.6 RDW Std Deviation 42.4 RDW Coeff of Elidia 13.2 Plt Count 265 MPV 10.7 Immature Gran % (Auto) 0.900 Neut % (Auto) 83.9 H Lymph % (Auto) 9.0 L [place] % (Auto) 5.5 Eos % (Auto) 0.6 Baso % (Auto) 0.1 Absolute Neuts (auto) 6.8 Absolute Lymphs (auto) 0.73 L Nucleated RBC % 0 Sodium 142 Potassium 3.6 Chloride 110 H Carbon Dioxide 26.0 Anion Gap 6 BUN 17 Creatinine 0.88 Estim Creat Clear Calc 82.00 Est GFR (MDRD) Af Amer 110 Est GFR (MDRD) Non-Af 91 BUN/Creatinine Ratio 19.3 Glucose 120 H Calcium 7.5 L Phosphorus Total Bilirubin 0.70 AST 30 ALT 16 Alkaline Phosphatase 57 Total Protein 5.4 L Albumin 1.7 L Globulin 3.7 Albumin/Globulin Ratio 0.5 L Procalcitonin POC Glucose 140 H Microbiology 06/06/20 12:40 Sputum, Expectorated/Coughed Gram Stain - Final 06/06/20 12:40 Sputum, Expectorated/Coughed Respiratory Culture - Preliminary Presumptive C albicans 06/06/20 12:40 Urine Catheter - Catheter Urine Culture - Preliminary Culture exhibits no growth. 06/01/20 17:40 Blood Culture (Wb) #2 - Left Hand Blood Culture - Final No growth in 5 days. 06/01/20 17:55 Blood Culture (Wb) - Right Forearm Blood Culture - Final No growth in 5 days. Clinical Impression(s) from Imaging Studies Chest X-Ray 06/07/20 05:55 IMPRESSION: Improved bilateral pneumonia. Electronically Signed: Matteo Nava MD at 9:00 EDT Tel , Service support , Medical Necessity - Tobacco Use Smoking Status: Former smoker Tobacco Use: Cigarettes Assessment/Plan All Active Problems Hypoxia (Acute) Respiratory failure (Acute) COVID-19 (Acute) RECOMMENDATIONS: 1. Continue antimicrobials per ID recommendations. 2. Attempt to increase activity as tolerated 3. Continue AVAPS with sleep and Airvo during the day, as tolerated. Goal to maintain oxygen saturations at or above 90%. 4. Check NIF daily. Avoid sedative medications overnight 5. Obtain repeat arterial blood gas with any change in mentation. 6. Continue baseline myasthenia medications at increased doses. 7. Consult cardiology for A. fib with RVR, rate control and anticoagulation 8. Aggressive repletion of electrolytes as indicated 9. Possible LTAC disposition pending insurance approval IMPRESSIONS: 1. Acute hypoxemic respiratory failure The patient appears to have multifocal bilateral pneumonia and would be at high risk for aspiration given his nausea and episodes of emesis. In addition, the patient has known sleep apnea and myasthenia gravis. There is always concern that with concurrent infection, the patient could develop a myasthenic crisis. He will be continued on noninvasive positive pressure ventilatory support and weaned as tolerated. If he is able to be maintained off of BiPAP, will plan to monitor his NIF(negative inspiratory force). If the patient were to decompensate further from a respiratory perspective, would proceed with immediate intubation. In the interim, the patient will be continued on broad-spectrum antimicrobials. If the patient does decompensate from a respiratory perspective and require intubation, he would likely need to be transferred to a tertiary care facility to be considered for plasmapheresis. NIF is stable today compared to yesterday. Increased dyspnea may be secondary to A. fib with RVR, but rate is better controlled at this time. Will attempt to increase activity to help with possible atelectasis and improvement in oxygen tension. Oxygenation appears to be improving slowly. 2. Mild troponin elevation/new onset A. fib RVR Likely secondary to demand ischemia in the setting of #1. Surface echocardiogram was unrevealing. Patient remains in A. fib, but rate is better controlled aggressive repletion of electrolytes has been ordered. Defer to cardiology. 3. History of obstructive sleep apnea Continue noninvasive positive pressure ventilatory support as ordered. 4. Recent diagnosis of COVID-19/history of myasthenia gravis The patient was admitted to the hospital in April with coronavirus and treated with remdesivir and Decadron. His CT scan from May 20 did not show any significant infiltrates. However, his CTA from May 31 now has multifocal infiltrates. The patient will need to be monitored very closely for the development of a myasthenia crisis. If the patient's respiratory status were to worsen, he would need to be transferred to a tertiary care facility. Patient was increased on Mestinon therapy and is tolerating well. 5. Obesity/hypertension/diabetes mellitus Complicates care, management, recovery and prognosis. Continue home medications as indicated. Inpatient E&M: [id number] [facility]
[2020-06-08] MEDS: dilTIAZem CD 120 MG Capsule PO (08:10)
[2020-06-08] MEDS: Amiodarone 200 MG Tablet PO (08:10)
[2020-06-08] MEDS: Metoclopramide 10 MG/2 ML Vial 5 MG IV (08:10)
[2020-06-08] MEDS: Mycophenolate Mofetil 250 MG Capsule 1500 MG PO (08:14)
[2020-06-08] MEDS: Aspirin E.C. 81 MG Tablet PO (08:15)
[2020-06-08] MEDS: Pantoprazole Sodium 40 MG Tablet PO (08:15)
[2020-06-08] MEDS: Metoprolol Tartrate 100 MG Tablet PO (08:15)
--- NOTE | 2020-06-08 09:46 | PN.ID_ITS ---
Patient Problems: Active and Suspected Problems Hypoxia (Acute) Respiratory failure (Acute) COVID-19 (Acute) Subjective: Feeling better, c/o diarrhea 1-2 times a day. No fever, minimal sputum. - Physical Exam Vitals/I&O's: Vital Signs Temp Pulse Resp BP Pulse Ox 99.8 F H 105 H 20 H 124/74 H 93 06/08/20 07:00 06/08/20 09:00 06/08/20 09:00 06/08/20 09:00 06/08/20 09:00 Oxygen Flow Rate (L/min) 60 Oxygen Delivery Method Airvo Weight: 137.5 kg Body Mass Index (BMI) 42.7 Intake and Output for Last 24 Hours 06/06/20 06/07/20 06/08/20 23:59 23:59 23:59 Intake Total 1644.81 / 1644.81 1013 / 1013 170 / 170 Output Total 2225 / 2350 1435 / 1485 200 / 200 Balance -580.19 / -705.19 -422 / -472 -30 / -30 General: Alert, Cooperative, No apparent distress Lungs: Diminished Cardiovascular: Irregular Rate Abdomen: Soft, Non Tender, Non-Distended Skin: No rashes Microbiology Past 72 Hours 06/06/20 13:00 Blood Culture (Wb) #2 - Right Forearm Blood Culture - Preliminary No growth in 48 hours. 06/06/20 12:40 Blood Culture (Wb) - Right Hand Blood Culture - Preliminary No growth in 48 hours. 06/06/20 12:40 Sputum, Expectorated/Coughed Gram Stain - Final 06/06/20 12:40 Sputum, Expectorated/Coughed Respiratory Culture - Preliminary Presumptive C albicans 06/06/20 12:40 Urine Catheter - Catheter Urine Culture - Preliminary Culture exhibits no growth. 06/01/20 17:40 Blood Culture (Wb) #2 - Left Hand Blood Culture - Final No growth in 5 days. 06/01/20 17:55 Blood Culture (Wb) - Right Forearm Blood Culture - Final No growth in 5 days. Laboratory Results 06/07/20 11:00: Procalcitonin 0.20 H 06/07/20 11:06: POC Glucose 162 H 06/07/20 15:43: POC Glucose 164 H 06/07/20 20:59: POC Glucose 140 H 06/08/20 04:15: Sodium 142, Potassium 3.6, Chloride 110 H, Carbon Dioxide 26.0, Anion Gap 6, BUN 17, Creatinine 0.88, Estim Creat Clear Calc 82.00, Est GFR (MDRD) Af Amer 110, Est GFR (MDRD) Non-Af 91, BUN/Creatinine Ratio 19.3, Glucose 120 H, Calcium 7.5 L, Total Bilirubin 0.70, AST 30, ALT 16, Alkaline Phosphatase 57, Total Protein 5.4 L, Albumin 1.7 L, Globulin 3.7, Albumin/Globulin Ratio 0.5 L 06/08/20 04:15: WBC 8.1, RBC 4.56 L, Hgb 13.0, Hct 39.9 L, MCV 87.5, MCH 28.5, MCHC 32.6, RDW Std Deviation 42.4, RDW Coeff of Elidia 13.2, Plt Count 265, MPV 10.7, Immature Gran % (Auto) 0.900, Neut % (Auto) 83.9 H, Lymph % (Auto) 9.0 L, Sully % (Auto) 5.5, Eos % (Auto) 0.6, Baso % (Auto) 0.1, Absolute Neuts (auto) 6.8, Absolute Lymphs (auto) 0.73 L, Nucleated RBC % 0 Current Medications Acetaminophen (Acetaminophen 325 Mg Tablet) 650 mg PO Q6H PRN PRN PRN Reason: Pain Score 1-10/Temp > 100.7 F Last Admin: 06/07/20 19:50 Dose: 650 mg Documented by: Alendronate Sodium (Alendronate Sodium 70 Mg Tablet) 70 mg PO MO [facility] Last Admin: 06/05/20 06:11 Dose: 70 mg Documented by: Amiodarone HCl (Amiodarone 200 Mg Tablet) 200 mg PO BIDCM [facility] Last Admin: 06/08/20 08:10 Dose: 200 mg Documented by: Aspirin (Aspirin E.C. 81 Mg Tablet) 81 mg PO DAILY@0800 [facility] Last Admin: 06/08/20 08:15 Dose: 81 mg Documented by: Atorvastatin Calcium (Atorvastatin Calcium 20 Mg Tablet) 20 mg PO QHS [facility] Last Admin: 06/07/20 21:00 Dose: 20 mg Documented by: Calamine/Phenol (Menthol/Lanolin/Calamine/Znox 113 Gm Tube) 1 applic TOPICAL TID [facility]; Protocol Last Admin: 06/08/20 05:13 Dose: 1 applic Documented by: Dextrose (Dextrose 50%-Water 25 Gm/50 Ml Disp.Syrin) 0 gm IV X1 PRN; Protocol PRN Reason: Hypoglycemia Diltiazem HCl (Diltiazem Cd 120 Mg Capsule) 120 mg PO Q12 [facility] Last Admin: 06/08/20 08:10 Dose: 120 mg Documented by: Enoxaparin Sodium (Enoxaparin 100 Mg/Ml Syringe) 100 mg SC Q12@0600,1800 [facility] Last Admin: 06/08/20 05:12 Dose: 100 mg Documented by: Glucagon (Glucagon 1 Mg/Ml Syringe) 1 mg IM .X1 PRN PRN Reason: Hypoglycemia Sodium Chloride () 250 mls @ 15 mls/hr IV .[id number] PRN PRN Reason: Saline Flush Last Infusion: 06/04/20 21:43 Dose: 0 mls/hr Documented by: Sodium Chloride () 250 mls @ 15 mls/hr IV .[id number] PRN PRN Reason: Additional IVPB Infusion Insulin Glargine (Insulin Glargine 100 Units/Ml Pen) 5 units SC QHS [facility] Last Admin: 06/07/20 21:03 Dose: 5 u Documented by: Insulin Human Lispro (Insulin Lispro 100 Unit/Ml Insuln.Pen) 0 unit SC ACHS [facility]; Protocol Last Admin: 06/08/20 08:12 Dose: Not Given Documented by: Loratadine (Loratadine 10 Mg Tablet) 10 mg PO DAILY PRN PRN Reason: ALLERGIES Melatonin (Melatonin 3 Mg Tablet) 3 mg PO QHS PRN PRN PRN Reason: INSOMNIA Last Admin: 06/04/20 22:16 Dose: 3 mg Documented by: Metoclopramide HCl (Metoclopramide 10 Mg/2 Ml Vial) 5 mg IV Q8H PRN PRN PRN Reason: HICCUPS Last Admin: 06/08/20 08:10 Dose: 5 mg Documented by: Metoprolol Tartrate (Metoprolol Tartrate 100 Mg Tablet) 100 mg PO BID [facility] Last Admin: 06/08/20 08:15 Dose: 100 mg Documented by: Mycophenolate Mofetil (Mycophenolate Mofetil 250 Mg Capsule) 1,500 mg PO BID [facility] Last Admin: 06/08/20 08:14 Dose: 1,500 mg Documented by: Nystatin (Nystatin Powder 15gm Bottle) 1 applic TOPICAL TID [facility]; Protocol Last Admin: 06/08/20 05:12 Dose: 1 applic Documented by: Pantoprazole Sodium (Pantoprazole Sodium 40 Mg Tablet) 40 mg PO DAILY [facility] Last Admin: 06/08/20 08:15 Dose: 40 mg Documented by: Prochlorperazine Edisylate (Prochlorperazine 10 Mg/2 Ml Vial) 5 mg IV Q4H PRN PRN PRN Reason: BREAKTHROUGH NAUSEA/VOMITING Pyridostigmine [place] (Pyridostigmine [place] 60 Mg Tablet) 120 mg PO TID [facility] Last Admin: 06/08/20 05:13 Dose: 120 mg Documented by: Senna/Docusate Sodium (Senna/Docusate Sodium 1 Tablet) 1 tablet PO BID PRN PRN Reason: Constipation Sodium Chloride (0.9% Saline Lock 10 Ml Syringe) 10 - 40 ml IV UD PRN PRN Reason: SALINE FLUSH Last Admin: 06/08/20 05:17 Dose: 20 ml Documented by: Medical Necessity - Tobacco Use Smoking Status: Former smoker Tobacco Use: Cigarettes Route of nutrition/ use of supplements: [] Nutritional Intake: [] IV Site: [] Weinstein Catheter: [] - Assessment/Plan Antibiotics: [] Assessment/Plan: [] Active and Suspected Problems Hypoxia (Acute) Respiratory failure (Acute) COVID-19 (Acute) covid with hypoxia, immunosuppression, concern for secondary bacterial pneumonia - covid sx started 05/18/20. Now out of iso. On zosyn. Sputum cx neg, resp pcr panel neg, no fever, normal wbc. Fever last night, repeat cxs neg so far. Will stop zosyn today. Will follow
--- NOTE | 2020-06-08 11:38 | CASEMGMT ---
Addendum entered by Flores Cano 06/08/20 15:11: Transfer to extended care instructions, discharge summary and medications orders all faxed to [facility] @ [phone]. Call placed to Erica @ [facility] and she was notified transportation has been arranged for picker and sorter load and unload @ 3:30 PM. Addendum entered by Flores Cano 06/08/20 14:12: Call received back from Erica from [facility]. She states she has spoken w/pt and he is agreeable to having LTAC stay billed under [facility]. She states she has also spoken w/Bonnie @ [facility], and they may approve for billing @ [facility] , but this is has not been confirmed yet. Discharge orders to be faxed to [facility] @ [phone]. Nurse to nurse report to be called to: [phone] Stroud, pt is medically ready for discharge today. Dr Jean Baptiste notified [facility] has been approved and they have a bed available today. Call placed to pt's daughter, Leanna. She was made aware [facility] has accepted pt and he will be transferred to [facility] today. She was also made aware they do allow visitation. She voices appreciation of the information. Addendum entered by Flores Cano 06/08/20 13:20: Call received back from Erica. Pt does meet criteria for LTAC and they have a bed available. Erica is aware pt's hospitalization will be billed under [facility] and made aware pt was not transferred [place] [facility] [place]t they do are not able to plasmapheresis there and there was a possibility pt would have needed one. Erica states she will talk w/[facility] and w/pt re: billing and call this RN CM back. Addendum entered by Flores Cano 06/08/20 12:15: Per Ijeoma's TESS, she is out of the office until tomorrow. Call placed to Erica @ [facility] @ [phone] and referral made. She states she will review clinicals and call this RN CM back. Pt's dtr, Leanna, had inquired if [facility] is allowing visitors. Per Erica, they are allowing up to 2 visitors (Non-COVID pt's) from 11 AM to 7 PM. Pt made aware. SHARRON LAGUNAS will update Leanna as well. Original Note: SHARRON LAGUNAS NOTE: Informed by nurse that pt has chosen [facility]. SHARRON LAGUNAS to pt's room and he confirms this. Call placed to pt's daughter, Leanna, and she is aware this is pt's 1st choice and family agreeable with this as well. Call placed to ana Raphael liaison @ [facility]. VM left re: referral. Referral packet faxed to [facility] at this time. Awaiting call back. Adonay BECERRILN SHARRON LAGUNAS
[2020-06-08] MEDS: Insulin Lispro 100 UNIT/ML INSULN.PEN SC (11:59)
[2020-06-08 12:25] LABS: Bedside Glucose 164 mg/dL (70-110)
--- NOTE | 2020-06-08 14:27 | PCM.DC ---
- Discharge Diagnoses Current Active Problems: Current Active and Chronic Problems Hypoxia (Acute) Respiratory failure (Acute) COVID-19 (Acute) You will use the following diet at home:: Calorie/Carbohydrate Controlled (specify 1200, 1400, etc), Cardiac Your food should be the consistency of: Regular Your liquids should be the consistency of: Regular/Thin Discharge Activity: Return to Normal Activity Allergies/Adverse Reactions: Allergies ampicillin Adverse Reaction (Verified 06/01/20 17:16) Unknown Medications to take at Discharge Aspirin E.C. [Ecotrin] 81 mg PO DAILY@0800 07/16/15 Calcium Carb/Vitamin D [Os-Freddy 500MG + D] 2 tablet PO BIDCM 07/16/15 Cetirizine HCl [Zyrtec] 10 mg PO DAILY PRN 07/16/15 Mycophenolate Mofetil 1,500 mg PO BID 07/16/15 Pyridostigmine [place] [Mestinon Timepan] 60 mg PO BID 07/16/15 Simvastatin [Zocor] 40 mg PO QHS 07/16/15 Alendronate Sodium 70 mg PO MO 07/17/15 Metoclopramide [Reglan] 5 mg PO Q6H PRN PRN #20 tablet 05/31/20 Acetaminophen [Tylenol Tablet] 650 mg PO Q6H PRN PRN tablet 06/08/20 Amiodarone HCl [Cordarone] 200 mg PO BIDCM 14 Days tablet 06/08/20 Apixaban [Eliquis] 5 mg PO BID 365 Days tablet 06/08/20 Diltiazem CD [Cardizem CD] 120 mg PO Q12 capsule 06/08/20 Insulin Glargine [Lantus SoloStar Pen] 5 units SC QHS pen 06/08/20 Insulin Lispro [Humalog KwikPen] See Protocol SC ACHS insuln.pen 06/08/20 Melatonin 3 mg PO QHS PRN PRN tablet 06/08/20 Menthol/Lanolin/Calamine/Znox [Calmoseptine Ointment] 1 applic TOPICAL TID tube 06/08/20 Metoprolol Tartrate [Lopressor (beta miguel)] 100 mg PO BID tablet 06/08/20 Nystatin Powder [Mycostatin Powder] 1 applic TOPICAL TID bottle 06/08/20 Pantoprazole Sodium [Protonix] 40 mg PO DAILY tablet 06/08/20 Pyridostigmine [place] [Mestinon] 120 mg PO TID tablet 06/08/20 Senna/Docusate Sodium [Senokot-S] 1 tablet PO BID PRN tablet 06/08/20 The following prescriptions were given: Apixaban [Eliquis] 5 mg PO BID 365 Days tablet Primary Care Physician: [facility] [Primary Care Provider] - Please follow up with your Primary Care Physician in: 1-2 weeks after discharge Test Results: Test results from this visit will be discussed in further detail at your follow-up appointment, if applicable. Please Follow Up With: [facility] cardiology When: 2-4 weeks after d/c Please Follow Up With: [facility] When: 2-4 weeks after d/c Please Follow Up With: Neurologist When: 1-2 weeks after d/c
--- NOTE | 2020-06-08 14:29 | DS.PCM_ITS ---
Discharge Date and Diagnosis - Problem List Patient Problems: Active and Suspected Problems Hypoxia (Acute) Respiratory failure (Acute) COVID-19 (Acute) Date of Admission: 06/01/20 Date of Discharge: 06/08/20 - Primary Discharge Diagnosis Acute Problems: Active Problems Hypoxia (Acute) Respiratory failure (Acute) COVID-19 (Acute) - Secondary Discharge Diagnosis Chronic Problems: Chronic Problems Former tobacco use (Chronic) Hypertension (Chronic) Hyperlipidemia (Chronic) Type II diabetes mellitus (Chronic) MEL (obstructive sleep apnea) (Chronic) Myasthenia gravis (Chronic) Hospital Course and Treatment Imaging Results: INDICATION: sob EXAMINATION/TECHNIQUE: X-RAY - XR Chest 1 View COMPARISON: 05/19/2020. FINDINGS: Diffuse bilateral interstitial and airspace opacities. Tortuous calcified thoracic aorta. The heart is enlarged. No pleural effusion or pneumothorax. No acute osseous abnormalities. RAD/Chest 1 View (Portable) IMPRESSION: Diffuse bilateral interstitial and airspace opacities may represent infection and/or edema. Reason For Study: DYSPNEA Procedure This was a 2D Doppler, Color Flow transthoracic echocardiogram. The study was technically difficult. Contrast injection was performed. Exam performed portable in patient room. Left Ventricle Normal LV size. Left ventricular systolic function is normal. The estimated ejection fraction is 65 %. Diastolic function is indeterminate. No regional wall motion abnormalities noted. Right Ventricle Normal RV size. Normal systolic function. Atria The left atrium is mildly enlarged. Normal right atrium. No doppler evidence for ASD. Mitral Valve There is no mitral annular calcification. Normal mitral valve. Trivial mitral valve insufficiency. Tricuspid Valve Normal tricuspid valve. Trivial tricuspid valve insufficiency. Right ventricular systolic pressure estimated to be 39 mmHg. Aortic Valve Trisinus/trileaflet aortic valve. Mild focal aortic valve calcification. Pulmonic Valve The pulmonic valve is not well visualized. Trivial pulmonic valve insufficiency. Great Vessels Normal sized aortic root. Pericardium/Pleural No pericardial effusion. Epicardial fat. Medication Diluted definity 6.0ml given slow IV push to enhance endocardial definition. MMode/2D Measurements & Calculations LVIDd: 4.5 cm IVSd: 1.7 cm Ao root diam: 3.8 cm LVIDs: 3.3 cm LVPWd: 1.7 cm FS: 27.8 % _ LAV(MOD-bp): 78.7 ml LA A4 area: 20.2 cm2 LA dimension(2D): 4.7 cm LAV(MOD-bp) Indexed: 30.9 ml/m2 LAV(MOD-sp2): 80.8 ml LAV(MOD-sp4): 60.6 ml RA A4 area: 21.4 cm2 Time Measurements MV dec time: 0.20 sec Doppler Measurements & Calculations MV E max tunde: 69.2 cm/sec Lat Peak E' Tunde: 7.6 cm/sec Med Peak E' Tunde: 5.9 cm/sec MV A max tunde: 29.1 cm/sec E/E' lat: 9.2 E/E' med: 11.8 MV E/A: 2.4 PA V2 max: 74.0 cm/sec TR max tunde: 301.2 cm/sec TR max P.3 mmHg ECHO/Echo Complete W/ Contrast Interpretation Summary The study was technically difficult. Contrast injection was performed. Left ventricular systolic function is normal. The estimated ejection fraction is 65 %. The left atrium is mildly enlarged. Trivial mitral valve insufficiency. Trivial tricuspid valve insufficiency. Mild focal aortic valve calcification. Trivial pulmonic valve insufficiency. Epicardial fat. Right ventricular systolic pressure estimated to be 39 mmHg. Diastolic function is indeterminate. STUDY: X-RAY CHEST REASON FOR EXAM: Male, 69 years old. hypoxia TECHNIQUE: Single AP portable view of the chest. COMPARISON: 06/01/2020 FINDINGS: Decrease in the patchy alveolar opacity in both lungs consistent with improved bilateral pneumonia. There is no demonstrated pleural abnormality. There is moderate cardiac enlargement. Normal mediastinum and johnny. Normal visualized pulmonary arteries. Normal visualized aortic arch and descending thoracic aorta. Normal visualized thoracic spine. Normal visualized ribs, clavicles, and shoulders. There is no demonstrated abnormality of the visualized soft tissue structures of the upper abdomen. RAD/Chest 1 View (Portable) IMPRESSION: Improved bilateral pneumonia. Cardiology Neurology Critical care/pulmonary medicine Operations: None Summary of Care Provided: Shekhar is a 69-year-old white male with a past medical history as noted below who presented to the emergency department at [facility] on 06/01/2020 with complaints of shortness of breath. He had for admissions to the hospital in the last 30 days prior to this admission. His initial admission was secondary to cellulitis followed by acute Covid infection on May 19 and then intractable hiccups. On admission he had a white count of 15.4. And was found to be hypoxic and initially required a nonrebreather and then was transitioned to BiPAP. A CTA that had been done on May 31 with his shortness of breath and intractable hiccups admission showed diffuse bilateral ground glass opacities with a basilar predominance that was new compared to his previous CTA when he was admitted for Covid at the end of April. Cultures were obtained and there was no growth on blood, sputum or urine cxs. He was seen by ID for persistent fevers and repeat cx were obtained and were negative as well. He was given a full course of Zosyn during this period and antibiotics were completed on 06/08/2020 as per recommendation from infectious disease. He unfortunately developed A. fib with RVR during his hospitalization which was fairly refractory. I suspect this is predominantly related to his pulmonary disease and should improve once his respiratory status improves. Cardiology was consulted. He was started on metoprolol which was increased ultimately to 100 mg twice daily, amiodarone of which she is currently on 200 mg twice daily, and Cardizem which was initiated on 06/08/2020 at 120 mg twice daily. He is to continue amiodarone 200 mg twice daily for 14 days and then this is to be weaned to 200 mg daily. During this period he was on Lovenox at therapeutic dosing for his A. fib. He was converted to Eliquis at discharge at a dose of 5 mg twice daily. He was evaluated by neurology with his history of myasthenia gravis and his profound weakness which is likely related to his myasthenia and Covid infection. He ultimately was increased to Mestinon 120 mg 3 times daily and after this increase we were able to start weaning his FiO2. At this time he has been weaned to an FiO2 of 40% and a flow of 60 L/min. In the morning we are able to get him on high flow nasal cannula but he tends to deteriorate as the day goes on secondary to fatigue most likely related to his myasthenia. He has had continuing fevers and has stated above repeated infectious work-up was negative and his procalcitonin was low. He has had ongoing hypophosphatemia which needs to be monitored closely and replaced aggressively to maximize muscle function. He has had good glycemic control on his current 5 mg of Lantus daily with a sliding scale. He is on Metformin at baseline. Overall he is improved significantly and his chest x-ray shows improvement as well. Given his slow ability to wean from higher oxygen requirements he was discharged to LTAC in stable condition on 06/08/2020. Acute hypoxic respiratory failure secondary to multifocal bilateral pneumonia/myasthenia gravis/recent Covid pneumonia -Continue AirVo/NIV for support--> patient is currently on AirVo with an FiO2 of 40% and a flow of 60 L/min--> his SpO2 is 95% -He is oxygenating better today and FiO2 has been reduced from 50 to 40% -Continue daily NIF -Continue Mestinon to 120 mg 3 times daily--> does not home dose -Repeat IV Lasix 40 mg x 1 dose -Patient was negative about 425 cc in the last 24 hours -Repeat BMP in a.m. -Chest x-ray 06/07/2020 as compared to 06/01/2020 shows marked improvement in aeration bilaterally -If patient experiences further decompensation despite aggressive treatment he may need transfer to tertiary center for plasmapheresis -Dosing was completed on 06/08/2020 -Continue pulmonary toilet -Appreciate pulmonary input Fevers -T-max in last 24 hours was 101.1 -Per ID antibiotics were completed on 06/08/2020 -Repeat blood urine and sputum cultures are negative -White count remains normal -procalcitonin was 0.20 -Continue to monitor -ID has been following the patient Hypokalemia -Resolved Hypophosphatemia -Phosphorus was again low today -Replacement already ordered by critical care medicine -Repeat phosphorus in the a.m. Mild troponin elevation -Suspect demand ischemia secondary to above -Surface echo showed a normal EF with an ejection fraction of 65% and diastolic dysfunction, no regional wall motion abnormalities, left atrial enlargement-mild -Cardiology is following Myasthenia gravis -Neurological consultation was completed -Continue increased Mestinon dose at 120 mg 3 times daily--> max dose of 1500 mg/day -Consider plasmapheresis if worsening or requires intubation -Continue CellCept Recent COVID-19 pneumonia -Was admitted to this hospital in April and treated with remdesivir and Decadron -CTA from this admission shows worsening infiltrates, multifocal -Continue to monitor closely New onset A. fib with RVR -Likely related to pulmonary issues -Heart rate still remains elevated -Continue amiodarone at 200 mg twice daily for total of 14 days and then decrease to 200 mg daily -Metoprolol was increased to 100 mg twice daily on 414 -Cardizem 120 mg twice daily has been added and we will continue this on discharge -We will switch to Eliquis 5 mg twice daily -Cardiology is following Hypertension -Amlodipine discontinued with the addition of Cardizem 120 mg twice daily -Continue metoprolol 100 mg twice daily Hyperlipidemia -Continue atorvastatin MEL -Continue NIV DM-2 -Continue Lantus 5 units daily -Fasting blood sugar this a.m. was 143 -Continue SSI -Continue blood sugar monitoring -Glycemic control remains adequate -Goal 140-180 Morbid obesity -BMI 43.1 -Complicates care, management, recovery and overall prognosis Moderate Malnutrition -Continue to monitor p.o. intake -Continue supplements Osteoporosis -Continue alendronate DVT/GI prophylaxis -Continue Lovenox -Continue Protonix CODE STATUS -Full code Charge time greater than 35 minutes Patient Problems: Active and Suspected Problems Hypoxia (Acute) Respiratory failure (Acute) COVID-19 (Acute) Subjective: Patient indicates that he again is feeling better today. Oxygen on his high flow has been reduced to 40% and he remains on flow of 60 L/min. His strength and oxygenation seems to be better during the morning hours and he tends to decline and get more fatigued as the day goes on. I did question whether this was baseline for him and he states that it is not. - Physical Exam Vitals/I&O's: Vital Signs Temp Pulse Resp BP Pulse Ox 101.1 F H 125 H 17 117/72 93 06/08/20 12:00 06/08/20 13:00 06/08/20 13:00 06/08/20 13:00 06/08/20 13:00 Oxygen Flow Rate (L/min) 60 Oxygen Delivery Method Airvo Weight: 137.5 kg Body Mass Index (BMI) 42.7 Intake and Output for Last 24 Hours 06/06/20 06/07/20 06/08/20 23:59 23:59 23:59 Intake Total 1644.81 / 1644.81 1013 / 1013 220 / 220 Output Total 2225 / 2350 1435 / 1485 550 / 550 Balance -580.19 / -705.19 -422 / -472 -330 / -330 General: Alert, Oriented x3, Cooperative, No apparent distress, Well developed, Well nourished, - - Older white male lying in bed, currently on air Vo, appears comfortable, remains more interactive than he was earlier this week HEENT: Atraumatic, PERRLA, EOMI, Normocephalic, EAC Clear Oral: Moist Mucosa, No Gingival or Mucosal Lesions/ Ulcerations, - - Mallampati 3, no thrush Neck: Supple, Negative Hepatojugular Reflux, No Nodes, Trachea Midline, Thyroid Normal Size and Texture Lungs: Clear to auscultation, Normal air movement, No rhonchi, No wheeze, No rales Cardiovascular: Normal S1, Normal S2, No murmurs, No Ectopic Activity, Irregular Rate, No rub noted, No Gallop, Tachycardic - Mild, - - Irregular rhythm Abdomen: Bowel Sounds Present, Soft, Non Tender, Non-Distended, Obese Extremities: No clubbing, No cyanosis, Capillary Refill Less than 3 Seconds, Edema - Trace to 1+ bilateral lower extremity edema, Peripheral Pulses Normal Skin: No rashes, No breakdown Musculoskeletal: No Tenderness to Palpation of Joints or Extremities, No Muscle Wasting, Arthritic Changes Lymphatic: No Cervical, Supraclavicular, or Inguinal Adenopathy Neurological: Muscle tone normal, Coordination normal, - - Abnormal intraocular exam patient indicates he has chronic diplopia, decrease strength pattern of movement, proximal greater than distal Psych/Mental Status: Normal Affect, Appropriate Microbiology Past 72 Hours 06/06/20 12:40 Sputum, Expectorated/Coughed Gram Stain - Final 06/06/20 12:40 Sputum, Expectorated/Coughed Respiratory Culture - Final Presumptive C albicans 06/06/20 12:40 Urine Catheter - Catheter Urine Culture - Final Culture exhibits no growth. 06/06/20 13:00 Blood Culture (Wb) #2 - Right Forearm Blood Culture - Preliminary No growth in 48 hours. 06/06/20 12:40 Blood Culture (Wb) - Right Hand Blood Culture - Preliminary No growth in 48 hours. 06/01/20 17:40 Blood Culture (Wb) #2 - Left Hand Blood Culture - Final No growth in 5 days. 06/01/20 17:55 Blood Culture (Wb) - Right Forearm Blood Culture - Final No growth in 5 days. Laboratory Results 06/07/20 15:43: POC Glucose 164 H 06/07/20 20:59: POC Glucose 140 H 06/08/20 04:15: Sodium 142, Potassium 3.6, Chloride 110 H, Carbon Dioxide 26.0, Anion Gap 6, BUN 17, Creatinine 0.88, Estim Creat Clear Calc 82.00, Est GFR (MDRD) Af Amer 110, Est GFR (MDRD) Non-Af 91, BUN/Creatinine Ratio 19.3, Glucose 120 H, Calcium 7.5 L, Total Bilirubin 0.70, AST 30, ALT 16, Alkaline Phosphatase 57, Total Protein 5.4 L, Albumin 1.7 L, Globulin 3.7, Albumin/Globulin Ratio 0.5 L 06/08/20 04:15: WBC 8.1, RBC 4.56 L, Hgb 13.0, Hct 39.9 L, MCV 87.5, MCH 28.5, MCHC 32.6, RDW Std Deviation 42.4, RDW Coeff of Elidia 13.2, Plt Count 265, MPV 10.7, Immature Gran % (Auto) 0.900, Neut % (Auto) 83.9 H, Lymph % (Auto) 9.0 L, [place] % (Auto) 5.5, Eos % (Auto) 0.6, Baso % (Auto) 0.1, Absolute Neuts (auto) 6.8, Absolute Lymphs (auto) 0.73 L, Nucleated RBC % 0 06/08/20 11:50: POC Glucose 164 H Current Medications Acetaminophen (Acetaminophen 325 Mg Tablet) 650 mg PO Q6H PRN PRN PRN Reason: Pain Score 1-10/Temp > 100.7 F Last Admin: 06/07/20 19:50 Dose: 650 mg Documented by: Alendronate Sodium (Alendronate Sodium 70 Mg Tablet) 70 mg PO MO [facility] Last Admin: 06/05/20 06:11 Dose: 70 mg Documented by: Amiodarone HCl ([facility] 200 Mg Tablet) [facility] Last Admin: 06/08/20 08:10 Dose: 200 mg Documented by: Aspirin (Aspirin E.C. 81 Mg Tablet) 81 mg PO DAILY@0800 [facility] Last Admin: 06/08/20 08:15 Dose: 81 mg Documented by: Atorvastatin Calcium (Atorvastatin Calcium 20 Mg Tablet) 20 mg PO QHS [facility] Last Admin: 06/07/20 21:00 Dose: 20 mg Documented by: Calamine/Phenol (Menthol/Lanolin/Calamine/Znox 113 Gm Tube) 1 applic TOPICAL TID [facility]; Protocol Last Admin: 06/08/20 13:08 Dose: 1 applic Documented by: Dextrose (Dextrose 50%-Water 25 Gm/50 Ml Disp.Syrin) 0 gm IV X1 PRN; Protocol PRN Reason: Hypoglycemia Diltiazem HCl (Diltiazem Cd 120 Mg Capsule) 120 mg PO Q12 [facility] Last Admin: 06/08/20 08:10 Dose: 120 mg Documented by: Enoxaparin Sodium (Enoxaparin 100 Mg/Ml Syringe) 100 mg SC Q12@0600,1800 [facility] Last Admin: 06/08/20 05:12 Dose: 100 mg Documented by: Glucagon (Glucagon 1 Mg/Ml Syringe) 1 mg IM .X1 PRN PRN Reason: Hypoglycemia Sodium Chloride () 250 mls @ 15 mls/hr IV .[id number] PRN PRN Reason: Saline Flush Last Infusion: 06/04/20 21:43 Dose: 0 mls/hr Documented by: Sodium Chloride () 250 mls @ 15 mls/hr IV .[id number] PRN PRN Reason: Additional IVPB Infusion Insulin Glargine (Insulin Glargine 100 Units/Ml Pen) 5 units SC QHS [facility] Last Admin: 06/07/20 21:03 Dose: 5 u Documented by: Insulin Human Lispro (Insulin Lispro 100 Unit/Ml Insuln.Pen) 0 unit SC ACHS [facility]; Protocol Last Admin: 06/08/20 11:59 Dose: 2 u Documented by: Loratadine (Loratadine 10 Mg Tablet) 10 mg PO DAILY PRN PRN Reason: ALLERGIES Melatonin (Melatonin 3 Mg Tablet) 3 mg PO QHS PRN PRN PRN Reason: INSOMNIA Last Admin: 06/04/20 22:16 Dose: 3 mg Documented by: Metoclopramide HCl (Metoclopramide 10 Mg/2 Ml Vial) 5 mg IV Q8H PRN PRN PRN Reason: HICCUPS Last Admin: 06/08/20 08:10 Dose: 5 mg Documented by: Metoprolol Tartrate (Metoprolol Tartrate 100 Mg Tablet) 100 mg PO BID [facility] Last Admin: 06/08/20 08:15 Dose: 100 mg Documented by: Mycophenolate Mofetil (Mycophenolate Mofetil 250 Mg Capsule) 1,500 mg PO BID [facility] Last Admin: 06/08/20 08:14 Dose: 1,500 mg Documented by: Nystatin (Nystatin Powder 15gm Bottle) 1 applic TOPICAL TID [facility]; Protocol Last Admin: 06/08/20 13:09 Dose: 1 applic Documented by: Pantoprazole Sodium (Pantoprazole Sodium 40 Mg Tablet) 40 mg PO DAILY [facility] Last Admin: 06/08/20 08:15 Dose: 40 mg Documented by: Prochlorperazine Edisylate (Prochlorperazine 10 Mg/2 Ml Vial) 5 mg IV Q4H PRN PRN PRN Reason: BREAKTHROUGH NAUSEA/VOMITING Pyridostigmine [place] (Pyridostigmine [place] 60 Mg Tablet) 120 mg PO TID [facility] Last Admin: 06/08/20 13:09 Dose: 120 mg Documented by: Senna/Docusate Sodium (Senna/Docusate Sodium 1 Tablet) 1 tablet PO BID PRN PRN Reason: Constipation Sodium Chloride (0.9% Saline Lock 10 Ml Syringe) 10 - 40 ml IV UD PRN PRN Reason: SALINE FLUSH Last Admin: 06/08/20 05:17 Dose: 20 ml Documented by: Discharge Activity: Return to Normal Activity Home Medications: Medications to take at Discharge Aspirin E.C. [Ecotrin] 81 mg PO DAILY@0800 07/16/15 Calcium Carb/Vitamin D [Os-Freddy 500MG + D] 2 tablet PO BIDCM 07/16/15 Cetirizine HCl [Zyrtec] 10 mg PO DAILY PRN 07/16/15 Mycophenolate Mofetil 1,500 mg PO BID 07/16/15 Pyridostigmine [place] [Mestinon Timepan] 60 mg PO BID 07/16/15 Simvastatin [Zocor] 40 mg PO QHS 07/16/15 Alendronate Sodium 70 mg PO MO 07/17/15 Metoclopramide [Reglan] 5 mg PO Q6H PRN PRN #20 tablet 05/31/20 Acetaminophen [Tylenol Tablet] 650 mg PO Q6H PRN PRN tablet 06/08/20 Amiodarone HCl [Cordarone] 200 mg PO BIDCM 14 Days tablet 06/08/20 Apixaban [Eliquis] 5 mg PO BID 365 Days tablet 06/08/20 Diltiazem CD [Cardizem CD] 120 mg PO Q12 capsule 06/08/20 Insulin Glargine [Lantus SoloStar Pen] 5 units SC QHS pen 06/08/20 Insulin Lispro [Humalog KwikPen] See Protocol SC ACHS insuln.pen 06/08/20 Melatonin 3 mg PO QHS PRN PRN tablet 06/08/20 Menthol/Lanolin/Calamine/Znox [Calmoseptine Ointment] 1 applic TOPICAL TID tube 06/08/20 Metoprolol Tartrate [Lopressor (beta miguel)] 100 mg PO BID tablet 06/08/20 Nystatin Powder [Mycostatin Powder] 1 applic TOPICAL TID bottle 06/08/20 Pantoprazole Sodium [Protonix] 40 mg PO DAILY tablet 06/08/20 Pyridostigmine [place] [Mestinon] 120 mg PO TID tablet 06/08/20 Senna/Docusate Sodium [Senokot-S] 1 tablet PO BID PRN tablet 06/08/20 Following Prescriptions Were Given to Patient: Apixaban [Eliquis] 5 mg PO BID 365 Days tablet Primary Care Physician: [facility] [Primary Care Provider] - Please follow up with your Primary Care Physician in: 1-2 weeks after discharge Please Follow Up With: [place] cardiology When: 2-4 weeks after d/c Please Follow Up With: [place] pulmonology When: 2-4 weeks after d/c Please Follow Up With: Neurologist When: 1-2 weeks after d/c Medical Necessity - Tobacco Use Smoking Status: Former smoker Tobacco Use: Cigarettes Meaningful Use Info Meaningful Use Diagnoses (Choose all that apply): None applicable Inpatient E&M: 23472 Disch Hosp
[2020-06-08] MEDS: Furosemide 40 MG/4 ML Vial IV (14:48)
--- NOTE | 2020-06-08 15:08 | PCM.TXEXTCAR ---
- Diet 06/05/20 12:57 Diet: Carbohydrate Controlled Type of Dietary Supplement:: Glucerna Shake Is pt able to select menu?: Yes - Routine Orders/Code Status Suppository Type: Dulcolax 10mg Suppository Frequency: Daily PRN O2 Frequency: Continuous Keep PO Greater than or Equal to (%): 92 Routine Lab Work: CBC, BMP Code Status: Full Code - Therapies Weight Bearing: Full weight bearing Physical Therapy: Eval and Treat Occupational Therapy: Eval and Treat - Allergies/Procedures Done in Hospital Allergies/Adverse Reactions: Allergies ampicillin Adverse Reaction (Verified 06/01/20 17:16) Unknown - Type of Care/Length of Stay Estimated LOS: More Than 30 Days Type of Care Needed: LTAC Rehab Potential: Fair Prognosis: Fair - Additional Orders/Day of Discharge Day of Discharge: 06/08/20 - Dietary and Speech Recommendations Dietitian Recommendations/Changes: continue CHO controlled diet and Glucerna ONS as tolerated. Consider appetite stimulant if PO intake does not improve. - Follow Up Care [facility] Care Physician: [facility] [Primary Care Provider] - Please follow up with your Primary Care Physician in: 1-2 weeks after discharge Please Follow Up With: [place] cardiology When: 2-4 weeks after d/c Please Follow Up With: [place] pulmonology When: 2-4 weeks after d/c Please Follow Up With: Neurologist When: 1-2 weeks after d/c
== END 2020-06-08 17:00 | DRG 189 ==
LOC: ED 20:19 → ICU 22:04
PROVIDERS: Internal Medicine; Internal Medicine Critical Care Medicine; Admitting Provider Family Medicine; Emergency Provider Emergency Medicine; Visit Provider Internal Medicine
DX: J96.01 Acute respiratory failure with hypoxia (principal); J15.9 Unspecified bacterial pneumonia; I24.8 Other forms of acute ischemic heart disease; Z68.41 Body mass index [BMI] 40.0-44.9, adult; E44.0 Moderate protein-calorie malnutrition; D84.821 Immunodeficiency due to drugs; B94.8 Sequelae of other specified infectious and parasitic diseases; G70.00 Myasthenia gravis without (acute) exacerbation; E87.6 Hypokalemia; E83.39 Other disorders of phosphorus metabolism; I48.91 Unspecified atrial fibrillation; I10 Essential (primary) hypertension; E78.5 Hyperlipidemia, unspecified; G47.33 Obstructive sleep apnea (adult) (pediatric); E11.9 Type 2 diabetes mellitus without complications; E66.01 Morbid (severe) obesity due to excess calories; M81.0 Age-related osteoporosis without current pathological fracture; Z87.891 Personal history of nicotine dependence
CPT/HCPCS: 36600; 71045; 80048; 80053; 82803; 82962; 83735; 83880; 84100; 84145; 84484; 85025; 85027; 87040; 87070; 87086; 87205; 87449; 87633; 87641; 93005; 93306; 94002; 94003; 94640; 97110; 97162; 97165; 97530; 97535; 99285; J7030; J7040; J7050; Q9957; A4216; C8929; J1940; J2405; J3490